=== PATIENT | male | born 1955 | race Caucasian/White ===

== ENCOUNTER 2017-03-21 05:59 | Observation (INO) | payer BC ==
[2017-03-21] MEDS ORDERED: ceFAZolin 2 GM in SODIUM CHLORIDE 0.9% 100 ML IVPB ONE (06:00)
[2017-03-21] MEDS ORDERED: ceFAZolin 1,000 MG in SODIUM CHLORIDE 0.9% IRRIGATIO 250 ML IRRIGATION ONE (06:00)
[2017-03-21 06:43] LABS: Glucose,Whole Blood 200 mg/dL (75-99)
[2017-03-21] MEDS: SODIUM CHLORIDE 0.9% 1,000 ML IV SCH ×3 (07:00→15:36)
[2017-03-21] MEDS ORDERED: ISOPROTERENOL 250 MCG/1.25 ML SYR IV ONE (07:31)
[2017-03-21] MEDS ORDERED: HEPARIN SODIUM,PORCINE 5,000 UNIT/ML 1 ML VIAL ONE (07:31)
[2017-03-21] MEDS ORDERED: fentaNYL (PF) 50 MCG/ML 2 ML AMP ONE (07:31)
[2017-03-21] MEDS ORDERED: HYDROmorphone (PF) 1 MG/ML ONE (07:31)
[2017-03-21] MEDS ORDERED: PROPOFOL 10 MG/ML 20 ML VIAL IV ONE (07:31)
[2017-03-21] MEDS ORDERED: LIDOCAINE 1% INJ 10MG/ML (20 ML MDV) ONE (07:31)
[2017-03-21] MEDS ORDERED: HEPARIN SODIUM,PORCINE 10,000 UNIT/ML 1 ML VIAL ONE (07:31)
[2017-03-21] MEDS ORDERED: PROTAMINE SULFATE 10 MG/ML 5 ML VIAL IV ONE (07:31)
[2017-03-21] MEDS ORDERED: MIDAZOLAM 2 MG/2 ML VIAL ONE (07:31)
[2017-03-21] MEDS ORDERED: SUCCINYLCHOLINE CHLORIDE VIAL 200 MG/10 ML VIAL IV ONE (07:31)
[2017-03-21] MEDS ORDERED: PHENYLEPHRINE-0.9% NACL SYG 1 MG/10 ML SYRINGE ONE (07:31)
[2017-03-21] MEDS ORDERED: LIDOCAINE 2% INJ 20 MG/ML SQ ONE (08:42)
[2017-03-21] MEDS ORDERED: HEPARIN SODIUM,PORCINE/D5W PMX 25,000 UNIT in DEXTROSE/WATER 1 500ML.BAG IV ONE (08:51)
[2017-03-21] MEDS ORDERED: IOHEXOL 350 MG/ML 100 ML BOTTLE INJ ONE (12:25)
[2017-03-21] MEDS ORDERED: ACETAMINOPHEN IV (For NPO) 1,000 MG in EMPTY BAG 1 BAG IVPB ONE (12:48)
[2017-03-21] MEDS ORDERED: ACETAMINOPHEN TAB 325 MG TAB PO PRN (12:48)
--- NOTE | 2017-03-21 13:11 | P.PCN ---
Preoperative Diagnosis: History 59-year-old male patient with recurrent atrial fibrillation, organized, symptomatic, associated with palpitations dizziness and shortness of breath Severe LV dysfunction nonischemic elevated LVEDP by right heart cath at the [facility] Severe nonischemic cardio myopathy Status post IV ICD Procedure planned A. fib ablation, pulmonary vein isolation, possible SVT ablation Procedures performed Bi V ICD interrogation and reprogramming prior to the procedure Hemodynamic monitoring right femoral arterial line as well as sampling Comprehensive diagnostic EP study with attempted arrhythmia induction Coronary sinus pacing and recording Programmed stimulation following Isuprel Catheter mapping of tachycardia A. fib ablation, [id number] Intracardiac echocardiography Transseptal catheterization Procedure details Procedures performed (PVI - CRYO Ablation) Invasive hemodynamic monitoring while general anesthesia, right femoral arterial line for monitoring and sampling Comprehensive diagnostic EP study with attempted arrhythmia induction CS pacing and recording Drug infusion Catheter the mapping of the tachycardia (NOT 3D mapping) Intracardiac echocardiography Pulmonary vein isolation with transseptal and comprehensive EPS, [id number] Procedure details Patient was brought to the EP lab in a fasting state. Written informed consent was obtained prior to the procedure. Procedure performed under general anesthesia After initial muscle relaxant use, muscle relaxants were not given thereafter in order to assess phrenic nerve during procedure Patient prepped and draped as per protocol Full cryo-set up with standard preparation of the cryoablation tools done Femoral Venous access obtained on the right and left groins Sheaths placed Diagnostic catheters for the high right atrium, phrenic nerve stimulation and pacing, His bundle, RV and coronary sinus placed Intracardiac echo catheter placed Long sheath placed in the right atrium Left and right transseptal catheterization performed under intracardiac echo guidance Intravenous heparin with aCT above 300 Later, catheter positioning and balloon positioning under intracardiac echo Baseline measurements Sinus cycle length 835 ms, ID interval 176 ms, QRS 157 ms, QT 382 ms Comprehensive diagnostic EP study with drug infusion Atrial pacing performed from the high right atrium and the coronary sinus Sinus node recovery time 1134 ms. Corresponding corrected sinus node recovery time within normal limits Burst stimulation at the baseline state of 500 ms down to 300 ms no inducible SVT AV node Wenckebach block 380 ms VA Wenckebach block greater than 500 ms Transseptal catheterization performed RA pressure 16/7 LA pressure 36/6, prior to the procedure. At the end of the procedure, LA pressure was 34/12 mmHg On wide open Isuprel and then subsequently on 5 mics of Isuprel burst stimulation from the high right atrium, burst stimulation from the coronary sinus os. No inducible SVT/ AV node Wenckebach block improved to 280 ms Atrial extra stimulation from the high right atrium, 400/less than 200 Atrial extra stimulation from the coronary sinus, 450/250/less than 250 Ventricular extra stimulation, VA ERP 450/350 Transseptal catheterization performed with standard sheath. The cryoablation sheath was then placed with an over the wire exchange without any acute complications. All 4 pulmonary veins were isolated in the following sequence: Left superior followed by left inferior followed by right superior followed by right inferior The cryo-ablation balloon was placed at the os of each vein 1.5 mL of IV dye was injected to confirm an occluded vein Goal during cryoablation was to achieve -30C in the first 30 seconds. If not the balloon was repositioned to obtain this result After completion of Cryoblation with durations from 180-240 seconds, entrance block was confirmed with the Attain circular catheter in a roving fashion around the antrum of the pulmonary veins Phrenic nerve pacing was performed from the SVC, right innominate vein area and diaphragm voltage was monitored as well as manually Left superior pulmonary vein 2 cryo lesions complete isolation Left inferior pulmonary vein 2 cryo lesions, complete isolation Right superior pulmonary vein, during phrenic nerve pacing 2 cryo lesions, complete isolation Right inferior pulmonary vein, during phrenic nerve pacing 2 cryo lesions, complete isolation At the end of the procedure the Achieve catheter was once again used to check for entrance block Phrenic nerve stimulation was performed to confirm diaphragmatic stimulation the end of the procedure Cine fluoroscopy was performed at the very end of the procedure to confirm movement of both diaphragms with inspiration and expiration as well as the position of leads was found to be stable At the end of the procedure the patient was extubated Heparin was reversed Venous sheaths were removed and hemostasis assured Result Successful pulmonary vein isolation using cryo-ablation. All 4 veins successfully isolated Complete entrance block in all 4 veins confirmed No evidence for phrenic nerve injury Postoperative Diagnosis: Procedure(s) Performed: Implants: Anesthesia: GETA Disposition: floor Indications for Procedure: Operative Findings: Description of Procedure:
[2017-03-21 13:34] LABS: Glucose,Whole Blood 188 mg/dL (75-99)
[2017-03-21] MEDS ORDERED: LACTATED RINGERS 1,000 ML IV ONE (13:34)
[2017-03-21] MEDS ORDERED: ACETAMINOPHEN IV (For NPO) 1,000 MG/100 ML VIAL IVPB ONE (14:00)
[2017-03-21] MEDS: HYDROcodone/APAP 5-325MG 1 EACH TAB PO PRN (14:59)
[2017-03-21 15:58] VITALS: BMI 35.7
[2017-03-21 16:42] LABS: Glucose,Whole Blood 201 mg/dL (75-99)
[2017-03-21] MEDS: SACUBITRIL/VALSARTAN 49 MG-51 MG TABLET PO SCH (18:13)
[2017-03-21] MEDS: HYDROmorphone 1 MG/ML 1 ML SYRINGE IVP PRN (18:23)
[2017-03-21 20:56] LABS: Glucose,Whole Blood 176 mg/dL (75-99)
[2017-03-21] MEDS ORDERED: SPIRONOLACTONE 25 MG TAB PO SCH (21:00)
[2017-03-21] MEDS: APIXABAN 5 MG TAB PO SCH (22:06)
[2017-03-21] MEDS: metFORMIN 500 MG TAB PO SCH (22:06)
[2017-03-21 23:06] VITALS: RESP 18
[2017-03-22] MEDS: HYDROmorphone 1 MG/ML 1 ML SYRINGE IVP PRN (00:14)
[2017-03-22] MEDS: SODIUM CHLORIDE 0.9% 1,000 ML IV SCH ×3 (05:56)
[2017-03-22 06:08] LABS: Glucose,Whole Blood 258 mg/dL (75-99)
[2017-03-22 07:04] LABS: CH 29.4; CHCM 32.7; HCT 36.8 % (39.0-53.0); HDW 2.46; HGB 12.2 gm/dL (13.0-17.5); MCHC 33.2 g/dL (31.0-37.0); MCV 90.5 fL (80.0-100.0); Mean Platelet Volume 8.6; RBC 4.07 m/uL (4.30-5.90)
[2017-03-22 07:22] LABS: Anion Gap 11 mmol/L; Blood Urea Nitrogen 22 mg/dL (9-20); Calcium 8.5 mg/dL (8.4-10.2); Carbon Dioxide 21 mmol/L (22-30); Chloride 103 mmol/L (98-107); Glucose 249 mg/dL (74-99); Non-African American GFR(MDRD) >60 (>60 ml/min/1.73 sqM); Potassium 4.3 mmol/L (3.5-5.1); Sodium 135 mmol/L (137-145)
[2017-03-22 08:11] LABS: Magnesium 1.7 mg/dL (1.6-2.3)
--- NOTE | 2017-03-22 08:12 | CE ---
CARDIAC ELECTROPHYSIOLOGY REPORT ICD INTERROGATION REPROGRAMMING REPORT: Mr. Li underwent an pulmonary vein isolation yesterday. Following that no other atrial tachycardia atrial fibrillation could be induced. Following the procedure, ICD was interrogated. The atrial pacing threshold was 0.7 v at 0.5 milliseconds. P waves 2.1 mV and pacing impedance 390 ohms. The RV pacing impedance was 0.625 v at 0.5 milliseconds. R-waves 11.4 mV and pacing impedance of 360 ohms. High-voltage impedance was 56 ohms. His biventricular ICD was reprogrammed. LV pacing was turned on with short AV delay. Madit-RIT was programmed. PLAN: Observe heart failure status on during BiV pacing for 1 month and re-evaluate heart failure status. During the study his left atrial pressures were around 35. MMODL / IJN: [id number] /
[2017-03-22] MEDS ORDERED: TORSEMIDE 20 MG TAB PO SCH (09:00)
[2017-03-22] MEDS ORDERED: METOPROLOL SUCCINATE (ER) 50 MG TAB.ER.24H PO SCH (09:00)
[2017-03-22] MEDS ORDERED: PRAVASTATIN SODIUM 20 MG TAB PO SCH (09:00)
[2017-03-22] MEDS ORDERED: DIGOXIN 250 MCG TAB PO SCH (09:00)
[2017-03-22] MEDS ORDERED: POTASSIUM CHLORIDE ER 20 MEQ TAB.ER PO SCH (09:00)
[2017-03-22] MEDS: APIXABAN 5 MG TAB PO SCH (10:01)
[2017-03-22] MEDS: SACUBITRIL/VALSARTAN 49 MG-51 MG TABLET PO SCH (10:02)
[2017-03-22] MEDS: metFORMIN 500 MG TAB PO SCH (10:02)
[2017-03-22 10:55] VITALS: TEMP 97.9
[2017-03-22] MEDS: HYDROcodone/APAP 5-325MG 1 EACH TAB PO PRN ×2 (12:07→15:56)
--- NOTE | 2017-03-22 15:09 | P.DS ---
Providers Date of admission: 03/22/17 01:12 Attending physician: Efrain Durant Primary care physician: [facility] Course: Patient is doing well from a cardiac standpoint. He has been ablating the hallways and is currently lying flat in bed. Yesterday both his shoulder joints anteriorly were hurting today his right shoulder joint feels well but he still has pain and tenderness localized anteriorly over the left shoulder No chest discomfort no breathing trouble no dizziness no lightheadedness or palpitations On examination he is afebrile 97.9F, blood pressure 104/54 mmHg pulse rate in the 80s And neck examination is normal Breath sounds are normal no rhonchi no crackles Heart sounds S1 and S2 are normal no murmurs no gallops Abdomen is soft nontender Extremities are warm with is mild bilateral pedal edema Impression Severe nonischemic cardio myopathy with severe congestive heart failure with elevated left atrial pressures of around 36 mmHg On appropriate guideline recommended medical treatment Very few PVCs noted on telemetry as well as during the study Successful pulmonary vein isolation for management of paroxysmal atrial fibrillation, cryoablation Status post Bi V ICD Plan Stop oral potassium Increase spironolactone to 50 mg by mouth daily, continue all other medications Bi V ICD has been turned on, RV pacing 10 ms prior to LV Groin check within a week Exercise stress test to maximum capacity after one month of Bi V pacing Will consider LV -20 in the future also and compared with RV -10 Discussed with office nurses and device clinic Patient Condition at Discharge: Stable Plan - Discharge Summary New Discharge Prescriptions: No Action RX: INSULIN LISPRO (humaLOG) [humaLOG (formulary)] See Protocol SQ CONTINUOUS RX: Allopurinol [Zyloprim] 100 mg PO HS RX: Spironolactone [Aldactone] 25 mg PO HS RX: metFORMIN HCL [Glucophage] 1,000 mg PO BID RX: Multivitamin [Men's Multi-Vitamin] 1 tab PO DAILY RX: Fluticasone Nasal [place] [Flonase Nasal [place]] 1 spray EA NOSTRIL DAILY RX: Digoxin [Lanoxin] 250 mcg PO DAILY #30 tab Torsemide [Demadex] 20 mg PO DAILY Pravastatin Sodium [Pravachol] 20 mg PO DAILY Potassium Chloride [Klor-Con 20] 20 meq PO DAILY Apixaban [Eliquis] 5 mg PO BID Sacubitril/Valsartan [Entresto 49 mg-51 mg Tablet] 1 tab PO BID Metoprolol Succinate [Toprol XL] 50 mg PO DAILY Discharge Medication List RX: Allopurinol [Zyloprim] 100 mg PO HS 05/02/14 [History] RX: INSULIN LISPRO (humaLOG) [humaLOG (formulary)] See Protocol SQ CONTINUOUS [History] RX: Spironolactone [Aldactone] 25 mg PO HS 05/02/14 [History] RX: metFORMIN HCL [Glucophage] 1,000 mg PO BID 05/02/14 [History] RX: Multivitamin [Men's Multi-Vitamin] 1 tab PO DAILY 11/13/14 [History] RX: Fluticasone Nasal [place] [Flonase Nasal [place]] 1 spray EA NOSTRIL DAILY 11/28 [History] RX: Digoxin [Lanoxin] 250 mcg PO DAILY #30 tab 12/04/15 [Rx] Apixaban [Eliquis] 5 mg PO BID 03/18/17 [History] Metoprolol Succinate [Toprol XL] 50 mg PO DAILY 03/18/17 [History] Potassium Chloride [Klor-Con 20] 20 meq PO DAILY 03/18/17 [History] Pravastatin Sodium [Pravachol] 20 mg PO DAILY 03/18/17 [History] Sacubitril/Valsartan [Entresto 49 mg-51 mg Tablet] 1 tab PO BID 03/18/17 [ History] Torsemide [Demadex] 20 mg PO DAILY 03/18/17 [History]
[2017-03-22 15:54] LABS: Glucose,Whole Blood 171 mg/dL (75-99)
[2017-03-22 16:23] VITALS: BP 98/56; PULSE 79
[2017-03-22] MEDS ORDERED: SPIRONOLACTONE 25 MG TAB PO SCH (21:00)
== END 2017-03-22 16:28 | disposition home or self-care (01) ==
LOC: CATHEP 05:59 → 6SEL 12:20 → CATHEP 03-22 01:12
PROVIDERS: ADMIT Internal Medicine Clinical Cardiac Electrophysiology; ATTEND Internal Medicine Clinical Cardiac Electrophysiology
DX: I48.0 Paroxysmal atrial fibrillation (principal); I42.9 Cardiomyopathy, unspecified; E78.5 Hyperlipidemia, unspecified; I11.0 Hypertensive heart disease with heart failure; E11.39 Type 2 diabetes mellitus with other diabetic ophthalmic complication; M10.9 Gout, unspecified; I25.10 Atherosclerotic heart disease of native coronary artery without angina pectoris; I50.22 Chronic systolic (congestive) heart failure; I47.1 Supraventricular tachycardia; Z95.810 Presence of automatic (implantable) cardiac defibrillator; Z79.899 Other long term (current) drug therapy; Z82.49 Family history of ischemic heart disease and other diseases of the circulatory system; Z79.01 Long term (current) use of anticoagulants; Z79.4 Long term (current) use of insulin; Z79.82 Long term (current) use of aspirin
CPT/HCPCS: 93623; 93662; 93609; 93656; 85347; 80048; 84443; 83735; 85027; G0378; C1894 ×4; C1769 ×5; C1730 ×2; C1893; C1759; C1733; C1766; J2001 ×2; J2250; J0330; J2720; J1644 ×3; Q9967; J0690; J3010; J1170 ×2; J0131; J2370; J2704

== ENCOUNTER → 2017-10-28 | Outpatient (CLI) | payer BC ==
[2017-10-28 16:16] LABS: HCT 42.8 % (39.0-53.0); MCH 28.5 pg (25.0-35.0); MCHC 32.6 g/dL (31.0-37.0); MCV 87.3 fL (80.0-100.0); Mean Platelet Volume 8.7; Platelet Count 241 k/uL (150-450); RDW 12.9 % (11.5-15.5); WBC 12.2 k/uL (3.8-10.6)
[2017-10-28 16:23] LABS: Calcium 9.6 mg/dL (8.4-10.2); Potassium 4.7 mmol/L (3.5-5.1)
== END | disposition home or self-care (01) ==
LOC: LABWHC1 15:49
PROVIDERS: ATTEND Internal Medicine Clinical Cardiac Electrophysiology
DX: I42.8 Other cardiomyopathies (principal); I51.9 Heart disease, unspecified; I50.22 Chronic systolic (congestive) heart failure; I48.3 Typical atrial flutter
CPT/HCPCS: 36415; 80048; 83880; 85027

== ENCOUNTER 2017-11-01 09:57 | Day surgery (SDC) | payer BC ==
[2017-10-31 14:18] VITALS: BMI 33.7
[~2017-11-01 09:57] MED LIST: SODIUM CHLORIDE 0.9% 1,000 ML IV SCH
[2017-11-01 11:31] LABS: Glucose,Whole Blood 321 mg/dL (75-99)
[2017-11-01] MEDS ORDERED: ceFAZolin IN SWFI 2 GM/20 ML SYRINGE IVP STA (11:37)
[2017-11-01] MEDS ORDERED: ePHEDrine SULFATE/0.9% NACL/PF 50 MG/5 ML SYRINGE IV ONE (13:07)
[2017-11-01] MEDS ORDERED: IV FLUID CONTINUATION 1,000 ML IV ONE (13:07)
[2017-11-01] MEDS ORDERED: GLYCOPYRROLATE 0.2 MG/ML 2 ML VIAL ONE (13:07)
[2017-11-01] MEDS ORDERED: fentaNYL (PF) 50 MCG/ML 2 ML AMP ONE (13:07)
[2017-11-01] MEDS ORDERED: FUROSEMIDE 10 MG/ML 2 ML VIAL ONE (13:07)
[2017-11-01] MEDS ORDERED: NEOSTIGMINE 1 MG/ML 10 ML VIAL ONE (13:07)
[2017-11-01] MEDS ORDERED: PROPOFOL 10 MG/ML 20 ML VIAL IV ONE (13:07)
[2017-11-01] MEDS ORDERED: ROCURONIUM BROMIDE 10 MG/ML 10 ML VIAL IV ONE (13:07)
[2017-11-01] MEDS ORDERED: MIDAZOLAM 2 MG/2 ML VIAL ONE (13:07)
[2017-11-01] MEDS ORDERED: PHENYLEPHRINE-0.9% NACL SYG 1 MG/10 ML SYRINGE ONE (13:07)
[2017-11-01] MEDS ORDERED: SUCCINYLCHOLINE CHLORIDE 100 MG/5 ML SYR IV ONE (13:07)
[2017-11-01] MEDS ORDERED: HEPARIN SODIUM 1,000 UN/ML (10ML VL) ONE (13:45)
[2017-11-01] MEDS ORDERED: LIDOCAINE 2% INJ 20 MG/ML SQ ONE (13:59)
[2017-11-01] MEDS ORDERED: HEPARIN SODIUM (1,000 UNIT/ML) 1,000 UNIT in SODIUM CHLORIDE 0.9% 1,000 ML IRRIGATION ONE (16:06)
[2017-11-01] MEDS ORDERED: HYDROcodone/APAP 5-325MG 1 EACH TAB PO PRN (16:08)
[2017-11-01] MEDS ORDERED: ACETAMINOPHEN IV (For NPO) 1,000 MG in EMPTY BAG 1 BAG IVPB ONE (16:08)
[2017-11-01] MEDS ORDERED: ACETAMINOPHEN TAB 325 MG TAB PO PRN (16:08)
[2017-11-01] MEDS ORDERED: Insulin Aspart (For Pump) 100 UNIT/ML VIAL SQ-PUMP SCH (16:15)
[2017-11-01 16:42] LABS: Glucose,Whole Blood 203 mg/dL (75-99)
[2017-11-01 17:53] LABS: Glucose,Whole Blood 195 mg/dL (75-99)
[2017-11-01] MEDS ORDERED: METOPROLOL SUCCINATE (ER) 25 MG TAB.ER.24H PO ONE (18:00)
--- NOTE | 2017-11-01 18:02 | CE ---
CARDIAC ELECTROPHYSIOLOGY REPORT Mr. Li is a 62-year-old male patient who has a history of nonischemic cardiomyopathy, congestive heart failure, status post biventricular ICD implantation, PVCs, status post ablation in the past, history of atrial fibrillation and a history of very symptomatic atrial flutter with RVR. He was brought in this time for an atrial flutter ablation. He is appropriately anticoagulated and is on heart failure medication. Patient was brought to the EP lab in a fasting state. Written informed consent was obtained prior to the procedure. The procedure was performed under general anesthesia. Three venous sheaths were placed in the right femoral vein. Via these, a mapping and ablation catheter, coronary sinus catheter and an intracardiac echo catheter were placed. Later, catheters were placed in the high right atrium, His bundle area and RV. The patient was in sinus rhythm at the time of the study. ICD was interrogated and reprogrammed to VVI 40 ppm and ICD therapies were turned off. At the end of the procedure, ICD therapies were turned back on. The pacing threshold at the end of the procedure was 0.7 V at 0.5 milliseconds, P waves greater than 5 mV, pacing impedance 400 ohms. RV pacing threshold 0.7 V at 0.5 milliseconds, R waves 11.4 milliseconds, pacing impedance of 360 ohms. LV pacing threshold was 1 V at 0.5 milliseconds, pacing impedance of 630 ohms. High-voltage impedance was 59 ohms. The device then programmed to DDD at 50 beats per minute, short AV delay of 120 milliseconds, biventricular pacing turned on with an LV offset of -20 milliseconds. Intracardiac echocardiography was performed. The isthmus was identified. A pouch was noted in the isthmus. This was a fairly large pouch, extending from the mid isthmus towards the eustachian ridge. Three-D mapping was performed. The tricuspid anulus was identified. His bundle was identified and the eustachian ridge was identified. The isthmus pouch was tagged. RF ablation was performed in the cava tricuspid isthmus. This was a long isthmus. Initially complete directional block was not obtained and after ablation of the junction of the isthmus on either side as well as in the mid isthmus, a complete RF line of block was made on 100% ablation grid. CS pacing was performed from the lateral RA wall. Bidirectional block was confirmed. Isthmus conduction time was greater than 170 milliseconds when pacing from the lateral aspect of the line. Split potentials of about 105 milliseconds were noted when pacing from the CS. After successful completion of the atrial flutter RF ablation line, EP study was performed. Sinus cycle length 840 milliseconds. GA interval 195 milliseconds, QRS 188 milliseconds, QT 445 milliseconds, AH interval 46 milliseconds, HV interval 93 milliseconds. Sinus node recovery times at 500 milliseconds were 899 milliseconds. This value was consistent with sinus node entrance block. AV node Wenckebach block 340 millisecond. Slow pathway noted at 470 milliseconds, but the VA conduction was greater than 550 milliseconds. All catheters were then removed and venous sheaths were removed. A [id number] stitch was made in the right groin. The patient tolerated the procedure well without any acute complications. The device was reprogrammed as described above. Intracardiac echo revealed absence of any pericardial effusion. RESULT: Successful atrial flutter ablation with complete bidirectional block across the line. MMODL / IJN: [id number] /
[2017-11-01] MEDS ORDERED: INSPUCOR MISCELLANE PRN (18:33)
[2017-11-01] MEDS ORDERED: INSULIN PUMP BASAL RATES 1 EACH MISC MISCELLANE PRN (18:33)
[2017-11-01] MEDS ORDERED: INSULIN ASPART 100 UNIT/ML 1 ML 10 ML VIAL SQ PRN (18:33)
[2017-11-01] MEDS: SACUBITRIL/VALSARTAN 49 MG-51 MG TABLET PO SCH (20:50)
[2017-11-01] MEDS: metFORMIN 500 MG TAB PO SCH (20:50)
[2017-11-01] MEDS: APIXABAN 5 MG TAB PO SCH (20:50)
[2017-11-01] MEDS ORDERED: SPIRONOLACTONE 25 MG TAB PO SCH (21:00)
[2017-11-01] MEDS ORDERED: ALLOPURINOL 300 MG TAB PO SCH (21:00)
[2017-11-01] MEDS ORDERED: PRAVASTATIN SODIUM 40 MG TAB PO SCH (21:00)
[2017-11-01 21:08] LABS: Glucose,Whole Blood 167 mg/dL (75-99)
[2017-11-01] MEDS: INSULIN PUMP MEAL BOLUS 1 UNIT MISC MISCELLANE SCH (21:10)
[2017-11-02 07:00] LABS: Glucose,Whole Blood 197 mg/dL (75-99)
--- NOTE | 2017-11-02 07:56 | P.DS ---
Providers Attending physician: Efrain Durant Primary care physician: [facility] Course: Patient is doing well. He is sitting up in a chair. He has no chest discomfort no dizziness lightheadedness. His groins of healed well On examination he is afebrile 98.3F pulse rate in the 70s respirations normal blood pressure 104/59 mmHg Breath sounds are clear no rhonchi no crackles Heart sounds S1 and S2 are soft no murmurs or gallops no rub No lower extremity edema Groins of healed well there is no hematoma Impression Nonischemic cardio myopathy Class III stable congestive heart failure Atrial fibrillation, paroxysmal Symptomatic atrial flutter status post ablation yesterday PVCs status post ablation however continues to have PVCs of multiple different morphologies although the overall percentage is less than 10% Plan Ambulate in the hallways, discharge home on current medications without any changes and follow-up in the office in about 2 weeks No changes in medications Patient Condition at Discharge: Stable Plan - Discharge Summary Discharge Rx Participant: Yes New Discharge Prescriptions: Continue RX: Allopurinol [Zyloprim] 300 mg PO HS RX: metFORMIN HCL [Glucophage] 1,000 mg PO BID RX: Multivitamin [Men's Multi-Vitamin] 1 tab PO DAILY RX: Fluticasone Nasal [place] [Flonase Nasal [place]] 1 spray EA NOSTRIL DAILY PRN PRN Reason: Nasal Congestion RX: Digoxin [Lanoxin] 250 mcg PO DAILY #30 tab RX: Torsemide [Demadex] 20 mg PO DAILY RX: Apixaban [Eliquis] 5 mg PO BID RX: Sacubitril/Valsartan [Entresto 49 mg-51 mg Tablet] 1 tab PO BID RX: Metoprolol Succinate [Toprol XL] 25 mg PO DAILY RX: Pravastatin Sodium [Pravachol] 40 mg PO HS RX: Spironolactone 50 mg PO HS RX: Insulin Aspart (For Pump) [NovoLOG (For Pump)] 0.01 unit SQ-PUMP CONTINUOUS Discharge Medication List RX: Allopurinol [Zyloprim] 300 mg PO HS 05/02/14 [History] RX: metFORMIN HCL [Glucophage] 1,000 mg PO BID 05/02/14 [History] RX: Multivitamin [Men's Multi-Vitamin] 1 tab PO DAILY 11/13/14 [History] RX: Fluticasone Nasal [place] [Flonase Nasal [place]] 1 spray EA NOSTRIL DAILY PRN 11/29/15 [History] RX: Digoxin [Lanoxin] 250 mcg PO DAILY #30 tab 12/04/15 [Rx] RX: Apixaban [Eliquis] 5 mg PO BID 03/18/17 [History] RX: Metoprolol Succinate [Toprol XL] 25 mg PO DAILY 03/18/17 [History] RX: Sacubitril/Valsartan [Entresto 49 mg-51 mg Tablet] 1 tab PO BID 03/18/17 [ History] RX: Torsemide [Demadex] 20 mg PO DAILY 03/18/17 [History] RX: Pravastatin Sodium [Pravachol] 40 mg PO HS 05/10/17 [History] RX: Spironolactone 50 mg PO HS 05/10/17 [History] RX: Insulin Aspart (For Pump) [NovoLOG (For Pump)] 0.01 unit SQ-PUMP CONTINUOUS 10/31/17 [History] Follow up Appointment(s)/Referral(s): Efrain Durant MD [STAFF PHYSICIAN] - 1 Week Activity/Diet/Wound Care/Special Instructions: Post EP study - Ablation instructions 1. Keep access sites dry for 2 days. 2. No heavy lifting or straining for 2 days. 3. Avoid bending the hips repeatedly for 2 days. 4. You may go up and down stairs slowly Call if the following is noted 1. Bleeding, increasing swelling or pain at the access sites. 2. Increasing chest discomfort, especially upon taking a deep breath. 3. Increasing shortness of breath, at rest or with exertion. 4. Undue cough / phlegm 5. Difficulty or pain while swallowing. 6. Pain or change in color in the extremities. 7. Fever, chills, rigors. 8. Increasing headache or neurologic symptoms. 9. Dizziness, fainting, palpitations Continue same medications without any changes With Dr. Alva in 1 week Follow-up in the device clinic as scheduled Discharge Disposition: HOME SELF-CARE
[2017-11-02 08:03] VITALS: RESP 18
[2017-11-02] MEDS: APIXABAN 5 MG TAB PO SCH (08:15)
[2017-11-02] MEDS: metFORMIN 500 MG TAB PO SCH (08:15)
[2017-11-02] MEDS: SACUBITRIL/VALSARTAN 49 MG-51 MG TABLET PO SCH (08:15)
[2017-11-02] MEDS: INSULIN PUMP MEAL BOLUS 1 UNIT MISC MISCELLANE SCH (08:28)
[2017-11-02] MEDS ORDERED: METOPROLOL SUCCINATE (ER) 25 MG TAB.ER.24H PO SCH (09:00)
[2017-11-02] MEDS ORDERED: TORSEMIDE 20 MG TAB PO SCH (09:00)
[2017-11-02 11:47] LABS: Hemoglobin A1C 8.4 % (4.0-6.0)
[2017-11-02 11:56] VITALS: BP 98/64; PULSE 75; TEMP 98.2
[2017-11-02 12:28] LABS: Glucose,Whole Blood 257 mg/dL (75-99)
== END 2017-11-02 13:10 | disposition home or self-care (01) ==
LOC: CATHEP 09:57 → 3OBS 16:08 → CATHEP 11-02 13:10
PROVIDERS: ATTEND Internal Medicine Clinical Cardiac Electrophysiology
DX: I48.3 Typical atrial flutter (principal); Z79.01 Long term (current) use of anticoagulants; I42.8 Other cardiomyopathies; I25.10 Atherosclerotic heart disease of native coronary artery without angina pectoris; I11.0 Hypertensive heart disease with heart failure; I50.22 Chronic systolic (congestive) heart failure; Z95.810 Presence of automatic (implantable) cardiac defibrillator; E78.5 Hyperlipidemia, unspecified; Z82.49 Family history of ischemic heart disease and other diseases of the circulatory system; M10.9 Gout, unspecified; E11.9 Type 2 diabetes mellitus without complications; Z79.4 Long term (current) use of insulin; Z79.51 Long term (current) use of inhaled steroids; Z79.899 Other long term (current) drug therapy; Z88.2 Allergy status to sulfonamides; Z88.8 Allergy status to other drugs, medicaments and biological substances
CPT/HCPCS: 93662; 93613; 93653; 83036; C1894; C1769 ×3; C1730; C1759; C1893; C1732; J2001; J2250; J1940; J2710; J3010; J1644; J2370; J0330; J2704; J0690

== ENCOUNTER → 2018-02-16 | Outpatient (CLI) | payer BC ==
[2018-02-16 16:20] LABS: HCT 36.7 % (39.0-53.0); HGB 12.6 gm/dL (13.0-17.5); MCH 29.4 pg (25.0-35.0); MCHC 34.4 g/dL (31.0-37.0); MCV 85.3 fL (80.0-100.0); Mean Platelet Volume 8.4; Platelet Count 176 k/uL (150-450); RDW 13.8 % (11.5-15.5); WBC 9.8 k/uL (3.8-10.6)
[2018-02-16 16:30] LABS: Potassium 5.7 mmol/L (3.5-5.1)
== END | disposition home or self-care (01) ==
LOC: LABWHC1 15:10
PROVIDERS: ATTEND Internal Medicine Clinical Cardiac Electrophysiology
DX: Z01.812 Encounter for preprocedural laboratory examination (principal); I47.1 Supraventricular tachycardia; I42.8 Other cardiomyopathies; I50.22 Chronic systolic (congestive) heart failure; I48.92 Unspecified atrial flutter
CPT/HCPCS: 36415; 80051; 82565; 82947; 84520; 85027

== ENCOUNTER 2018-02-20 12:07 | Day surgery (SDC) | payer BC ==
[2018-02-17 09:04] VITALS: BMI 32.9
[~2018-02-20 12:07] MED LIST changes: +ATROPINE SULFATE 0.1 MG/ML 10ML SYRINGE ONE; +LACTATED RINGERS 1,000 ML IV SCH; +MIDAZOLAM 2 MG/2 ML VIAL ONE; +ceFAZolin IN SWFI 2 GM/20 ML SYRINGE IVP ONE; +fentaNYL (PF) 50 MCG/ML 2 ML AMP ONE
[2018-02-20] MEDS ORDERED: LIDOCAINE 1% INJ 10MG/ML (20 ML MDV) ONE (12:37)
[2018-02-20] MEDS ORDERED: LIDOCAINE 1% INJ 10MG/ML (20 ML MDV) SQ ONE (12:44)
--- NOTE | 2018-02-20 13:19 | P.PCN ---
Preoperative Diagnosis: Indication Recurrent SVT/atrial tachycardia, very symptomatic associated with presyncope and syncope. Status post AF ablation, no evidence for atrial fibrillation. Status post atrial flutter ablation, no evidence for atrial flutter. Known severe nonischemic cardiomyopathy [facility] PVCs 5-8% PVC burden Preprocedure biventricular ICD interrogation with reprogramming [facility] biventricular ICD was interrogated and reprogrammed. Patient was in sinus rhythm. Atrial pacing threshold 0.5 V at 0.5 ms P waves 5 mV, atrial pacing impedance 430 ohms RV pacing threshold 0.5 V at 0.5 ms, R waves 11.4 mV and pacing impedance 410 ohms. LV pacing threshold 0.75 V at 0.5 ms pacing impedance 660 ohms High-voltage impedance 70 ohms, RV to Can Biventricular ICD was reprogrammed to VVI 40 bpm Tachycardia therapies were turned off AV node ablation Mapping of the AV node and His bundle was performed. The catheter was pulled back to his the atrium as well as inferiorly and RF ablation was applied. Fast junctional rhythm followed by complete heart block noted. 60 seconds lesion delivered. Postprocedure biventricular ICD interrogation and reprogramming Impedance is stable. Pacemaker programmed to DDDR 90-130 bpm Tachycardia therapies turned on AV delay 100 ms sensed, 130 ms paced LV offset 20 ms Patient to the procedure well. Mucous complications Plan 2 weeks of base pacing rate of 90 beats a minute. Thereafter reprogrammed pacemaker rate to 60-130 bpm Continue cardiac medications
[2018-02-20 14:02] LABS: Glucose,Whole Blood 58 mg/dL (75-99)
[2018-02-20 15:13] LABS: Glucose,Whole Blood 91 mg/dL (75-99)
[2018-02-20] MEDS ORDERED: FLUTICASONE 50MCG/SPRAY NASAL 16GM EA NOSTRIL PRN (16:44)
[2018-02-20] MEDS ORDERED: Insulin Aspart (For Pump) 100 UNIT/ML VIAL SQ-PUMP SCH (16:45)
[2018-02-20 17:54] LABS: Glucose,Whole Blood 119 mg/dL (75-99)
[2018-02-20] MEDS: metFORMIN 500 MG TAB PO SCH (18:04)
[2018-02-20] MEDS: METOPROLOL SUCCINATE (ER) 50 MG TAB.ER.24H PO SCH (19:58)
[2018-02-20] MEDS: APIXABAN 5 MG TAB PO SCH (19:58)
[2018-02-20] MEDS: SACUBITRIL/VALSARTAN 24 MG-26 MG TABLET PO SCH (19:58)
[2018-02-20 20:30] LABS: Glucose,Whole Blood 247 mg/dL (75-99)
[2018-02-20] MEDS ORDERED: PRAVASTATIN SODIUM 40 MG TAB PO SCH (21:00)
[2018-02-20] MEDS ORDERED: SPIRONOLACTONE 25 MG TAB PO SCH (21:00)
[2018-02-20] MEDS ORDERED: ALLOPURINOL 100 MG TAB PO SCH (21:00)
[2018-02-20] MEDS ORDERED: INSULIN ASPART 100 UNIT/ML 1 ML 10 ML VIAL SQ PRN (21:42)
[2018-02-20] MEDS ORDERED: INSPUCOR MISCELLANE PRN (21:42)
[2018-02-20] MEDS ORDERED: INSULIN PUMP BASAL RATES 1 EACH MISC MISCELLANE PRN (21:42)
[2018-02-20] MEDS: INSULIN PUMP MEAL BOLUS 1 UNIT MISC MISCELLANE SCH (21:58)
[2018-02-21 04:48] VITALS: RESP 18
[2018-02-21 07:03] LABS: Glucose,Whole Blood 178 mg/dL (75-99)
--- NOTE | 2018-02-21 08:04 | P.DS ---
Providers Attending physician: Efrain Durant Primary care physician: [facility] Course: Patient is doing well. He has no pain in the groin. No chest pain. He feels a lot better. His blood pressures 100/58 mmHg pulse rate is in the 80s temperature is 97.1F Heart sounds S1 and S2 are normal no murmurs or gallops no rub Breath sounds are clear no rhonchi no crackles Abdomen soft nontender Extended is warm no edema Impression Nonischemic cardio myopathy with severe heart failure on Dilantin after medical treatment Successful A. fib ablation for paroxysmal atrial fibrillation Successful a flutter ablation for typical atrial flutter Recurrent runs of atrial tachycardia that when noninducibility EP study now status post AV junction modification Plan Charge home today in follow-up in the device clinic in 2 weeks for device reprogramming. I will see him again in about 4 months I last the patient to increase the dose of ENTRESTO in about 2-3 weeks if he can tolerate it Plan - Discharge Summary Discharge Rx Participant: No New Discharge Prescriptions: Continue RX: Allopurinol [Zyloprim] 100 mg PO HS RX: metFORMIN HCL [Glucophage] 1,000 mg PO BID RX: Multivitamin [Men's Multi-Vitamin] 1 tab PO DAILY RX: Fluticasone Nasal [place] [Flonase Nasal [place]] 1 spray EA NOSTRIL DAILY PRN PRN Reason: Nasal Congestion RX: Torsemide [Demadex] 20 mg PO DAILY RX: Apixaban [Eliquis] 5 mg PO BID RX: Metoprolol Succinate [Toprol XL] 50 mg PO BID RX: Pravastatin Sodium [Pravachol] 40 mg PO HS RX: Spironolactone 50 mg PO HS RX: Insulin Aspart (For Pump) [NovoLOG (For Pump)] 0.01 unit SQ-PUMP CONTINUOUS RX: Sacubitril/Valsartan [Entresto 24 mg-26 mg Tablet] 1 each PO BID RX: Digoxin [Lanoxin] 125 mcg PO DAILY Discharge Medication List RX: Allopurinol [Zyloprim] 100 mg PO HS 05/02/14 [History] RX: metFORMIN HCL [Glucophage] 1,000 mg PO BID 05/02/14 [History] RX: Multivitamin [Men's Multi-Vitamin] 1 tab PO DAILY 11/13/14 [History] RX: Fluticasone Nasal [place] [Flonase Nasal [place]] 1 spray EA NOSTRIL DAILY PRN 11/29/15 [History] RX: Apixaban [Eliquis] 5 mg PO BID 03/18/17 [History] RX: Metoprolol Succinate [Toprol XL] 50 mg PO BID 03/18/17 [History] RX: Torsemide [Demadex] 20 mg PO DAILY 03/18/17 [History] RX: Pravastatin Sodium [Pravachol] 40 mg PO HS 05/10/17 [History] RX: Spironolactone 50 mg PO HS 05/10/17 [History] RX: Insulin Aspart (For Pump) [NovoLOG (For Pump)] 0.01 unit SQ-PUMP CONTINUOUS 10/31/17 [History] RX: Digoxin [Lanoxin] 125 mcg PO DAILY 02/17/18 [History] RX: Sacubitril/Valsartan [Entresto 24 mg-26 mg Tablet] 1 each PO BID 02/17/18 [ History] Follow up Appointment(s)/Referral(s): Efrain Durant MD [STAFF PHYSICIAN] - As Needed (Device clinic follow-up in 2 weeks, attention Graciela/Randy Alva follow-up in 4 months) Activity/Diet/Wound Care/Special Instructions: Post EP study - Ablation instructions 1. Keep access sites dry for 2 days. 2. No heavy lifting or straining for 2 days. 3. Avoid bending the hips repeatedly for 2 days. 4. You may go up and down stairs slowly Call if the following is noted 1. Bleeding, increasing swelling or pain at the access sites. 2. Increasing chest discomfort, especially upon taking a deep breath. 3. Increasing shortness of breath, at rest or with exertion. 4. Undue cough / phlegm 5. Difficulty or pain while swallowing. 6. Pain or change in color in the extremities. 7. Fever, chills, rigors. 8. Increasing headache or neurologic symptoms. 9. Dizziness, fainting, palpitations Discharge Disposition: HOME SELF-CARE
[2018-02-21] MEDS: APIXABAN 5 MG TAB PO SCH (08:23)
[2018-02-21] MEDS: METOPROLOL SUCCINATE (ER) 50 MG TAB.ER.24H PO SCH (08:23)
[2018-02-21] MEDS: SACUBITRIL/VALSARTAN 24 MG-26 MG TABLET PO SCH (08:24)
[2018-02-21] MEDS: INSULIN PUMP MEAL BOLUS 1 UNIT MISC MISCELLANE SCH (08:24)
[2018-02-21 08:28] LABS: Glucose,Whole Blood 211 mg/dL (75-99)
[2018-02-21 08:40] VITALS: BP 92/55; PULSE 91; TEMP 98.7
[2018-02-21] MEDS ORDERED: TORSEMIDE 20 MG TAB PO SCH (09:00)
[2018-02-21] MEDS ORDERED: DIGOXIN 125 MCG TAB PO SCH (09:00)
[2018-02-21] MEDS: metFORMIN 500 MG TAB PO SCH (10:16)
[2018-02-21] MEDS ORDERED: MULTIVITAMINS, THERA 1 EACH TAB PO SCH (12:00)
== END 2018-02-21 10:45 | disposition home or self-care (01) ==
LOC: CATHEP 12:07 → 3OBS 13:11 → CATHEP 13:26
PROVIDERS: ATTEND Internal Medicine Clinical Cardiac Electrophysiology
DX: Z45.02 Encounter for adjustment and management of automatic implantable cardiac defibrillator (principal); I48.0 Paroxysmal atrial fibrillation; I47.1 Supraventricular tachycardia; I48.92 Unspecified atrial flutter; I42.9 Cardiomyopathy, unspecified; I11.0 Hypertensive heart disease with heart failure; I50.22 Chronic systolic (congestive) heart failure; I49.3 Ventricular premature depolarization; E11.39 Type 2 diabetes mellitus with other diabetic ophthalmic complication; E78.5 Hyperlipidemia, unspecified; M19.90 Unspecified osteoarthritis, unspecified site; G47.33 Obstructive sleep apnea (adult) (pediatric); Z82.49 Family history of ischemic heart disease and other diseases of the circulatory system; Z79.01 Long term (current) use of anticoagulants; Z79.4 Long term (current) use of insulin; Z79.51 Long term (current) use of inhaled steroids; Z79.899 Other long term (current) drug therapy; Z88.2 Allergy status to sulfonamides; Z88.8 Allergy status to other drugs, medicaments and biological substances; Z91.018 Allergy to other foods; Z86.73 Personal history of transient ischemic attack (TIA), and cerebral infarction without residual deficits
CPT/HCPCS: 93653; 84132; 83036; C1894; C1769 ×2; C1732; C1893; J2250; J2001; J0461; J3010; J0690; 93642

== ENCOUNTER → 2018-08-15 | Outpatient (CLI) | payer BC ==
[2018-08-15 20:46] LABS: Calcium 9.1 mg/dL (8.7-10.3); Potassium 4.6 mmol/L (3.5-5.5)
== END | disposition home or self-care (01) ==
LOC: LABWHC1 12:26
PROVIDERS: ATTEND Internal Medicine
DX: I42.8 Other cardiomyopathies (principal); I50.9 Heart failure, unspecified
CPT/HCPCS: 36415; 80048; 83880

== ENCOUNTER → 2019-01-08 | Outpatient (CLI) | payer BC ==
[2019-01-09 00:57] LABS: Hemoglobin A1C 7.9 % (4.0-6.0)
[2019-01-09 01:30] LABS: African American GFR (CKD) 42.2 (60.0-200.0); Albumin 4.3 g/dL (3.80-4.90); Albumin/Globulin Ratio 1.79 (1.60-3.17); Anion Gap 11.1 mmol/L (4.00-12.00); BUN/Creat Ratio 20.53 Ratio (12.00-20.00); Calcium 9.3 mg/dL (8.7-10.3); Carbon Dioxide 22.9 mmol/L (21.6-31.8); Globulin 2.4 g/dL (1.6-3.3); Total Bilirubin 0.6 mg/dL (0.3-1.2); Total Protein 6.7 g/dL (6.2-8.2)
== END | disposition home or self-care (01) ==
LOC: LABWHC1 15:52
PROVIDERS: ATTEND Internal Medicine
DX: E11.65 Type 2 diabetes mellitus with hyperglycemia (principal)
CPT/HCPCS: 36415; 80053; 83036

== ENCOUNTER 2019-03-15 13:40 | Observation (INO) | payer BC ==
[2019-03-15] MEDS ORDERED: SODIUM CHLORIDE 0.9% 500 ML 500 ML IV STA (14:24)
--- NOTE | 2019-03-15 14:51 | ED ---
General Adult HPI - General Chief complaint: Chest Pain Stated complaint: Chest tightness, SOB Time Seen by Provider: 03/15/19 13:55 Source: patient, RN notes reviewed Mode of arrival: wheelchair Limitations: no limitations - History of Present Illness Initial comments: This is a 63-year-old male who presents emergency Department complaining of chest pressure. Patient states started this morning is gotten progressively worse throughout the day. Patient denies any difficulty breathing. Patient denies radiation of the pain. Patient denies any diaphoretic episodes. Patient denies nausea. Patient denies any abdominal pain. Patient denies lighth eadedness or dizziness. Patient states he does have cardiomyopathy from an unknown cause per patient states he's got ejection fraction about 16%. She also has high cholesterol. And a pacemaker. Patient denies any leg swelling or calf tenderness. Patient denies any recent fever chills or cough. - Related Data Home Medications Medication Instructions Recorded Confirmed Allopurinol [Zyloprim] 100 mg PO HS 05/02/14 03/15/19 metFORMIN HCL [Glucophage] 1,000 mg PO BID 05/02/14 03/15/19 Apixaban [Eliquis] 5 mg PO BID 03/18/17 03/15/19 Metoprolol Succinate [Toprol XL] 50 mg PO BID 03/18/17 03/15/19 Torsemide [Demadex] 20 mg PO DAILY 03/18/17 03/15/19 Spironolactone 50 mg PO HS 05/10/17 03/15/19 Insulin Aspart (For Pump) [NovoLOG 0.01 unit SQ-PUMP CONTINUOUS 10/31/17 03/15/19 (For Pump)] Digoxin [Lanoxin] 125 mcg PO DAILY 02/17/18 03/15/19 Dapagliflozin Propanediol [Farxiga] 10 mg PO DAILY@1200 03/15/19 03/15/19 Fluvastatin Sodium [Fluvastatin ER] 80 mg PO HS 03/15/19 03/15/19 Sacubitril/Valsartan [Entresto 49 1 tab PO BID 03/15/19 03/15/19 mg-51 mg Tablet] Allergies Allergy/AdvReac Type Severity Reaction Status Date / Time coconut Allergy sneezing Verified 03/15/19 14:54 coconut oil Allergy sneezing Verified 03/15/19 14:54 Review of Systems ROS Statement: Those systems with pertinent positive or pertinent negative responses have been documented in the HPI. ROS Other: All systems not noted in ROS Statement are negative. Past Medical History Past Medical History: Heart Failure Additional Past Medical History / Comment(s): See Dr Durant's H&P FOR CARDIAC. SOB w/activity, cpap. HX TIA-yrs ago. "BLEEDING IN EYES",gout History of Any Multi-Drug Resistant Organisms: None Reported Past Surgical History: AICD, Cardiac Ablation, EPS, Heart Catheterization, Orthopedic Surgery, Pacemaker Additional Past Surgical History / Comment(s): Atrial ablation, cardioversion,ce rvical fusion x 2, knee surg., achilles tendon surg., CATARACT SX. CARDIAC Ablation 05/2014; AICD/PACEMAKER 06/2014, [facility]. BILAT EYE SX "TO REMOVE BLOOD",blood vessel broke in rt eye and he lost partial vision-short term loss Past Anesthesia/Blood Transfusion Reactions: No Reported Reaction Additional Past Anesthesia/Blood Transfusion Reaction / Comment(s): NEVER RECIEVED BLOOD. Type of Cardiac Device: AICD Device Placement Date:: 06/2014 Past Psychological History: No Psychological Hx Reported Smoking Status: Never smoker Past Alcohol Use History: Occasional Past Drug Use History: None Reported - Past Family History Father Family Medical History: Coronary Artery Disease (CAD), Diabetes Mellitus, Myocardial Infarction (AR) Additional Family Medical History / Comment(s): FATHER OF AR AT AGE 65 YRS. Mother Family Medical History: Diabetes Mellitus Additional Family Medical History / Comment(s): SHE HAS HAD A LEG AMPUTATION General Exam - General Exam Comments Initial Comments: GENERAL: Patient is well-developed and well-nourished. Patient is nontoxic and well-hy drated and is in mild distress. ENT: Neck is soft and supple. No significant lymphadenopathy is noted. Oropharynx is clear. Moist mucous membranes. Neck has full range of motion without eliciting any pain. EYES: The sclera were anicteric and conjunctiva were pink and moist. Extraocular movements were intact and pupils were equal round and reactive to light. Eyelids were unremarkable. PULMONARY: Unlabored respirations. Good breath sounds bilaterally. No audible rales rhonchi or wheezing was noted. CARDIOVASCULAR: There is a regular rate and rhythm without any murmurs gallops or rubs. ABDOMEN: Soft and nontender with normal bowel sounds. No palpable organomegaly was noted. There is no palpable pulsatile mass. SKIN: Skin is clear with no lesions or rashes and otherwise unremarkable. NEUROLOGIC: Patient is alert and oriented x3. Cranial nerves II through XII are grossly i ntact. Motor and sensory are also intact. Normal speech, volume and content. Symmetrical smile. MUSCULOSKELETAL: Normal extremities with adequate strength and full range of motion. No lower extremity swelling or edema. No calf tenderness. LYMPHATICS: No significant lymphadenopathy is noted PSYCHIATRIC: Normal psychiatric evaluation. Limitations: no limitations Course Vital Signs 03/15/19 03/15/19 03/15/19 13:53 15:04 15:20 Temperature 97.9 F Pulse Rate 60 60 Respiratory 18 18 18 Rate Blood Pressure 95/58 94/54 O2 Sat by Pulse 99 97 Oximetry Medical Decision Making - Medical Decision Making EKG shows ventricular paced rhythm at 66 bpm QRS is 186 QT interval 496 QTC is 519. Patient's EKG also shows PVCs. Chest x-ray shows no acute abnormality. Patient is already on eliquis therefore allow place patient on heparin. I spoke with Dr. mitchell he agreed to admit the patient and I wrote admitting orders and consult cardiolog - Lab Data Result diagrams: 03/15/19 14:09 03/15/19 14:09 Lab Results 03/15/19 03/15/19 03/15/19 Range/Units 14:09 14:09 14:09 WBC 11.0 H (3.8-10.6) k/uL RBC 5.34 (4.30-5.90) m/uL Hgb 14.9 (13.0-17.5) gm/dL Hct 46.2 (39.0-53.0) % MCV 86.6 (80.0-100.0) fL MCH 28.0 (25.0-35.0) pg MCHC 32.3 (31.0-37.0) g/dL RDW 16.7 H (11.5-15.5) % Plt Count 228 (150-450) k/uL Neutrophils % 65 % Lymphocytes % 24 % Monocytes % 7 % Eosinophils % 2 % Basophils % 1 % Neutrophils # 7.1 (1.3-7.7) k/uL Lymphocytes # 2.6 (1.0-4.8) k/uL Monocytes # 0.7 (0-1.0) k/uL Eosinophils # 0.3 (0-0.7) k/uL Basophils # 0.1 (0-0.2) k/uL Anisocytosis Slight PT 11.1 (9.0-12.0) sec INR 1.0 (<1.2) APTT 26.6 (22.0-30.0) sec Sodium 138 (137-145) mmol/L Potassium 5.1 (3.5-5.1) mmol/L Chloride 100 (98-107) mmol/L Carbon Dioxide 24 (22-30) mmol/L Anion Gap 14 mmol/L BUN 37 H (9-20) mg/dL Creatinine 1.44 H (0.66-1.25) mg/dL Est GFR (CKD-EPI)AfAm 59 (>60 ml/min/1.73 sqM) Est GFR (CKD-EPI)NonAf 51 (>60 ml/min/1.73 sqM) Glucose 299 H (74-99) mg/dL Calcium 9.6 (8.4-10.2) mg/dL Magnesium 1.9 (1.6-2.3) mg/dL Total Bilirubin 0.6 (0.2-1.3) mg/dL AST 26 (17-59) U/L ALT 17 L (21-72) U/L Alkaline Phosphatase 79 (38-126) U/L Troponin I (0.000-0.034) ng/mL Total Protein 7.8 (6.3-8.2) g/dL Albumin 4.4 (3.5-5.0) g/dL 03/15/19 Range/Units 14:09 WBC (3.8-10.6) k/uL RBC (4.30-5.90) m/uL Hgb (13.0-17.5) gm/dL Hct (39.0-53.0) % MCV (80.0-100.0) fL MCH (25.0-35.0) pg MCHC (31.0-37.0) g/dL RDW (11.5-15.5) % Plt Count (150-450) k/uL Neutrophils % % Lymphocytes % % Monocytes % % Eosinophils % % Basophils % % Neutrophils # (1.3-7.7) k/uL Lymphocytes # (1.0-4.8) k/uL Monocytes # (0-1.0) k/uL Eosinophils # (0-0.7) k/uL Basophils # (0-0.2) k/uL Anisocytosis PT (9.0-12.0) sec INR (<1.2) APTT (22.0-30.0) sec Sodium (137-145) mmol/L Potassium (3.5-5.1) mmol/L Chloride (98-107) mmol/L Carbon Dioxide (22-30) mmol/L Anion Gap mmol/L BUN (9-20) mg/dL Creatinine (0.66-1.25) mg/dL Est GFR (CKD-EPI)AfAm (>60 ml/min/1.73 sqM) Est GFR (CKD-EPI)NonAf (>60 ml/min/1.73 sqM) Glucose (74-99) mg/dL Calcium (8.4-10.2) mg/dL Magnesium (1.6-2.3) mg/dL Total Bilirubin (0.2-1.3) mg/dL AST (17-59) U/L ALT (21-72) U/L Alkaline Phosphatase (38-126) U/L Troponin I 0.020 (0.000-0.034) ng/mL Total Protein (6.3-8.2) g/dL Albumin (3.5-5.0) g/dL Disposition Clinical Impression: Unstable angina pectoris Disposition: ADMITTED IP TO THIS [facility] Referrals: None,Stated [Primary Care Provider] - 1-2 days Time of Disposition: 15:45
[2019-03-15 15:08] LABS: Anisocytosis Slight; Basophils # (A) 0.1 k/uL (0-0.2); Basophils % (A) 1 %; Eosinophils # (A) 0.3 k/uL (0-0.7); Eosinophils % (A) 2 %; HCT 46.2 % (39.0-53.0); HGB 14.9 gm/dL (13.0-17.5); Lymphocytes # (A) 2.6 k/uL (1.0-4.8); Lymphocytes % (A) 24 %; MCHC 32.3 g/dL (31.0-37.0); MCV 86.6 fL (80.0-100.0); Monocytes # (A) 0.7 k/uL (0-1.0); Monocytes % (A) 7 %; Neutrophils # (A) 7.1 k/uL (1.3-7.7); Neutrophils % (A) 65 %; Platelet Count 228 k/uL (150-450); RBC 5.34 m/uL (4.30-5.90); RDW 16.7 % (11.5-15.5)
[2019-03-15 15:15] LABS: Albumin 4.4 g/dL (3.5-5.0); Calcium 9.6 mg/dL (8.4-10.2); Magnesium 1.9 mg/dL (1.6-2.3); Partial Thromboplastin Time 26.6 sec (22.0-30.0); Potassium 5.1 mmol/L (3.5-5.1); Prothrombin Time 11.1 sec (9.0-12.0); Total Bilirubin 0.6 mg/dL (0.2-1.3); Total Protein 7.8 g/dL (6.3-8.2)
--- NOTE | 2019-03-15 15:15 | XR ---
EXAMINATION TYPE: XR chest 2V DATE OF EXAM: 03/15/2019 COMPARISON: 05/10/2017 TECHNIQUE: PA and lateral views submitted. HISTORY: Shortness of breath FINDINGS: The lungs are clear and there is no pneumothorax, pleural effusion, or focal pneumonia. Heart is enl arged and there is a cardiac device. Postsurgical change overlying cervical spine. Biapical pleural t hickening. No overt failure. Hypertrophic and degenerative change of the spine. Hyperinflation sugges ts COPD. IMPRESSION: 1. Stable cardiomegaly. Correlate clinically to assess for COPD. No overt failure..
[2019-03-15 18:10] LABS: Glucose,Whole Blood 160 mg/dL (75-99)
[2019-03-15] MEDS ORDERED: Insulin Aspart (For Pump) 100 UNIT/ML VIAL SQ-PUMP SCH (19:15)
[2019-03-15] MEDS ORDERED: ALLOPURINOL 100 MG TAB PO SCH (21:00)
[2019-03-15] MEDS ORDERED: ATORVASTATIN 10 MG TAB PO SCH (21:00)
[2019-03-15] MEDS: APIXABAN 5 MG TAB PO SCH (21:21)
[2019-03-15] MEDS: METOPROLOL SUCCINATE (ER) 50 MG TAB.ER.24H PO SCH (21:21)
[2019-03-15] MEDS: INSULIN ASPART (NovoLOG) 100 UNIT/ML VIAL SQ SCH (21:22)
[2019-03-15] MEDS ORDERED: HYDROcodone/APAP 5-325MG 1 EACH TAB PO PRN (21:36)
[2019-03-15] MEDS ORDERED: TEMAZEPAM 15 MG CAP PO PRN (21:36)
[2019-03-15] MEDS ORDERED: ALPRAZolam 0.25 MG TAB PO PRN (21:36)
[2019-03-15] MEDS ORDERED: ACETAMINOPHEN TAB 500 MG TAB PO PRN (21:36)
[2019-03-15] MEDS ORDERED: SPIRONOLACTONE 25 MG TAB PO SCH (21:45)
[2019-03-15] MEDS: SACUBITRIL/VALSARTAN 49 MG-51 MG TABLET PO SCH (23:45)
--- NOTE | 2019-03-16 00:05 | HP ---
HISTORY AND PHYSICAL DATE OF SERVICE: 03/15/2019 CHIEF COMPLAINT: Chest pain. HISTORY OF PRESENT ILLNESS: This 63-year-old gentleman with a past medical history of multiple medical problems including CHF, history of diabetes, hypertension, hyperlipidemia, history of DJD, history of AICD, history of cardiac ablation, EPS, history of pacemaker being followed by [facility], was complaining of chest pain. Patient had multiple cardiac procedures previously. The chest pain was reported as felt across the chest which was heavy in character associated with shortness of breath, lasted for 4 hours and radiating into the left shoulder. There is no associated sweating and the patient came to [facility] and was admitted to the hospital for further evaluation and treatment. The troponins are negative. Troponin 0.020 and 0.18 and EKG showed occasional PVCs. The patient admitted for further evaluation and treatment. Chest x-ray was also done in the ER which showed stable cardiomegaly. PAST MEDICAL HISTORY: History of nonischemic cardiomyopathy, history of CHF, diabetes type 2, hypertension, hyperlipidemia, history of sleep apnea, CPAP, AICD, cardiac ablation and EPS. The patient also had right eye possibly retinal bleeding and being treated at [facility] and right eye is patched at this time. Possibly has complicated diabetes according to him. MEDICATIONS: Prior to admission, home medications are: 1. Fluvastatin ER 80 mg q.h.s. 2. Farxiga 10 mg p.o. daily. 3. Glucophage 1000 mg p.o. b.i.d. 4. Demadex 20 mg p.o. daily. 5. Spironolactone 50 mg q.h.s. 6. Entresto 49/51 p.o. b.i.d. 7. Toprol-XL 50 mg p.o. b.i.d. 8. NovoLog 0.1 subcu. 9. Insulin pump. 10.Lanoxin 120 mcg p.o. daily. 11.Eliquis 5 mg p.o. b.i.d. 12.Zyloprim 100 mg p.o. q.h.s. ALLERGIES: COCONUT NUT, COCONUT OIL. FAMILY HISTORY: History of diabetes mellitus, history SOCIAL HISTORY: No history of smoking. Occasional alcohol intake. REVIEW OF SYSTEMS: ENT as mentioned earlier. CARDIOVASCULAR as mentioned earlier. RESPIRATION: No cough or hemoptysis. GI no nausea or vomiting. no dysuria. Nervous system: No numbness or weakness. ALLERGY/IMMUNOLOGY: No asthma or hayfever. MUSCULOSKELETAL as mentioned earlier. HEMATOLOGY/ONCOLOGY: Negative. MUSCULOSKELETAL: Negative. PSYCHIATRY: Negative. CONSTITUTIONAL: As mentioned earlier. PHYSICAL EXAMINATION: Alert and oriented x3. Pulse is 57, blood pressure 99/55, respirations 16, temperature 97.1, pulse ox is 98% on 2 L. HEENT: Conjunctivae normal. Oral mucosa moist. NECK is no jugular venous distention. No carotid bruit. No lymph node enlargement. CARDIOVASCULAR SYSTEM: S1, S2 muffled. No S3, no S4. RESPIRATIONS: Breath sounds diminished at bases. A few scattered rhonchi and crackles. ABDOMEN: Soft, nontender. No mass palpable. LEGS: No edema. No swelling. NERVOUS SYSTEM: Higher functions as mentioned earlier. Moves all four extremities. No focal deficits. lymphatics: No lymph nodes palpable in the neck, axillae or groin. SKIN: No ulcer, no rashes, no bleeding. JOINTS: No active deforming arthropathy. LABS: At this time shows WBC 11, hemoglobin 14.9, sodium 130, potassium 5.1, creatinine is 1.44, glucose is 299. ASSESSMENT: 1. Chest pain, possible unstable angina. 2. Nonischemic cardiomyopathy. 3. Congestive heart failure with chronic systolic dysfunction. 4. History of atrial ablation and atrial flutter ablation. 5. History of recurrent atrial tachycardia. 6. Increased creatinine with chronic kidney disease stage III. 7. Increased WBC. 8. Diabetes mellitus type 2. 9. Hypertension. 10.Hyperlipidemia. 11.History of recent retinal bleeding, right eye. 12.History of sleep apnea. 13.History of AICD. 14.History of degenerative joint disease. RECOMMENDATIONS AND DISCUSSION: In this 63-year-old gentleman, who presented with multiple medical issues, we will monitor the patient closely. Continue the current medications, management and symptomatic treatment. The patient had multiple cardiac procedures previously. We will rule out acute myocardial infarction. Unstable angina protocol. Cardiology consultation. The patient is being followed up by the heart failure Clinic at [facility]. The patient recently missed a PET scan apparently. Otherwise we will continue to monitor. Patient also following with the [facility] regarding the retinal bleeding also on the right eye. Prognosis guarded. We will continue the home medications. Guarded prognosis because of multiple complex medical issues. Further recommendations to follow. Monitor the blood sugars also. MMODL / IJN: [id number] / WYATT
[2019-03-16 03:39] LABS: Basophils # (A) 0.1 k/uL (0-0.2); Basophils % (A) 1 %; Eosinophils # (A) 0.3 k/uL (0-0.7); Eosinophils % (A) 2 %; HCT 43.6 % (39.0-53.0); HGB 14.8 gm/dL (13.0-17.5); Lymphocytes % (A) 27 %; MCH 28.5 pg (25.0-35.0); MCV 83.8 fL (80.0-100.0); Mean Platelet Volume 7.8; Monocytes # (A) 0.7 k/uL (0-1.0); Monocytes % (A) 6 %; Neutrophils # (A) 6.7 k/uL (1.3-7.7); Neutrophils % (A) 61 %; Platelet Count 187 k/uL (150-450); RDW 15.6 % (11.5-15.5)
[2019-03-16 03:48] LABS: Calcium 9.3 mg/dL (8.4-10.2); Potassium 4.3 mmol/L (3.5-5.1)
[2019-03-16] MEDS: INSULIN ASPART (NovoLOG) 100 UNIT/ML VIAL SQ SCH ×2 (06:24→15:03)
[2019-03-16] MEDS ORDERED: PANTOPRAZOLE 40 MG TABLET PO SCH (07:30)
[2019-03-16] MEDS: SACUBITRIL/VALSARTAN 49 MG-51 MG TABLET PO SCH (08:16)
[2019-03-16] MEDS: METOPROLOL SUCCINATE (ER) 50 MG TAB.ER.24H PO SCH (08:16)
[2019-03-16] MEDS: APIXABAN 5 MG TAB PO SCH (08:18)
--- NOTE | 2019-03-16 08:55 | P.CRDCN ---
History of Present Illness Consult date: 03/16/19 Requesting physician: Erlin E Susi Consult reason: chest pain Chief complaint: Chest pain History of present illness: This is a pleasant 63-year-old gentleman who follows with Dr. Hipolito khan in the office. He has a known history of prior atrial flutter with ablation, prior SVT with ablation, nonischemic cardiomyopathy, chronic congestive heart failure, prior stroke, diabetes, hypertension, hyperlipidemia, family history of premature coronary artery disease, he has had prior cardiac catheterizations, the most recent in 2011, he has had no documented obstructive coronary artery disease in the past. Patient presents to the hospital on this occasion with symptoms of midsternal chest pressure and heaviness with associated shortness of breath. Patient states his symptoms started yesterday and persisted all day long. He was recently scheduled for a cardiac PET scan at [facility] on Tuesday of this past week which was canceled because the patient had a bleed in his eye, and the patient has been breakfast, therefore this test had been canceled and it was rescheduled the of this month. Patient does have history of spontaneous bleeds in his eye in the past. He does take Eliquis at home for anticoagulation, he was initiated here on aspirin which we will discontinue. The rest of the patient's home medications include Lipitor, Lanoxin, Farxiga which has just recently been started by his heading repairer, metformin, metoprolol 50 twice a day, Entresto, Demadex 20 mg daily, and Aldactone which was recently decreased to 25 mg daily from 50. Chest x-ray shows stable cardiomegaly, no overt heart failure. EKG shows a ventricular paced rhythm with underlying atrial fibrillation. Blood pressure 100/50 with a heart rate in the 70s, 97% on 2 L of oxygen. White blood cell count 11.0, hemoglobin 14.8, platelet count 187. D-dimer 0.25, sodium 137, pot assium 4.3, BUN 37 and creatinine 1.4. Troponins 0.020, 0.018, 0.029. BNP level 1690. At the time of my examination this morning, patient is currently chest pain-free, he slept well through the night last night and states he feels better today than he has in quite some time. I did have a chance to speak with his this morning his states that he's been doing a lot of recent physical activity, and he may have overdid it. She also stated that his most recent echocardiogram with Doppler study was performed at [facility] which showed an ejection fraction of 15%, which was down from his 35% documented previously. Past Medical History Past Medical History: Heart Failure, Diabetes Mellitus, Hyperlipidemia, Hypertension, Sleep Apnea/CPAP/BIPAP Additional Past Medical History / Comment(s): See Dr Durant's H&P FOR CARDIAC. SOB w/activity, cpap. HX TIA-yrs ago. "BLEEDING IN EYES",gout History of Any Multi-Drug Resistant Organisms: None Reported Past Surgical History: AICD, Cardiac Ablation, EPS, Heart Catheterization, Orthopedic Surgery, Pacemaker Additional Past Surgical History / Comment(s): Atrial ablation, cardioversion,cervical fusion x 2, knee surg., achilles tendon surg., CATARACT SX. CARDIAC Ablation 05/2014; AICD/PACEMAKER 06/2014, [facility] MODEL. BILAT EYE SX "TO REMOVE BLOOD",blood vessel broke in rt eye and he lost partial vision- short term loss Past Anesthesia/Blood Transfusion Reactions: No Reported Reaction Additional Past Anesthesia/Blood Transfusion Reaction / Comment(s): NEVER RECIEVED BLOOD. Type of Cardiac Device: AICD Device Placement Date:: 06/2014 Past Psychological History: No Psychological Hx Reported Additional Psychological History / Comment(s): PT LIVES AT HOME WITH . HE IS NORMALLY ACTIVE. Smoking Status: Never smoker Past Alcohol Use History: Occasional Additional Past Alcohol Use History / Comment(s): PT WILL DRINK BEER ON OCCASION Past Drug Use History: None Reported - Past Family History Father Family Medical History: Coronary Artery Disease (CAD), Diabetes Mellitus, Myocardial Infarction (MD) Additional Family Medical History / Comment(s): FATHER OF MD AT AGE 65 YRS. Mother Family Medical History: Diabetes Mellitus Additional Family Medical History / Comment(s): SHE HAS HAD A LEG AMPUTATION Medications and Allergies Home Medications Medication Instructions Recorded Confirmed Type Allopurinol [Zyloprim] 100 mg PO HS 05/02/14 03/15/19 History metFORMIN HCL [Glucophage] 1,000 mg PO BID 05/02/14 03/15/19 History Apixaban [Eliquis] 5 mg PO BID 03/18/17 03/15/19 History Metoprolol Succinate [Toprol XL] 50 mg PO BID 03/18/17 03/15/19 History Torsemide [Demadex] 20 mg PO DAILY 03/18/17 03/15/19 History Spironolactone 50 mg PO HS 05/10/17 03/15/19 History Insulin Aspart (For Pump) [NovoLOG 0.01 unit SQ-PUMP CONTINUOUS 10/31/17 03/15/19 History (For Pump)] Digoxin [Lanoxin] 125 mcg PO DAILY 02/17/18 03/15/19 History Dapagliflozin Propanediol [Farxiga] 10 mg PO DAILY@1200 03/15/19 03/15/19 History Fluvastatin Sodium [Fluvastatin ER] 80 mg PO HS 03/15/19 03/15/19 History Sacubitril/Valsartan [Entresto 49 1 tab PO BID 03/15/19 03/15/19 History mg-51 mg Tablet] Allergies Allergy/AdvReac Type Severity Reaction Status Date / Time coconut Allergy sneezing Verified 03/15/19 14:54 coconut oil Allergy sneezing Verified 03/15/19 14:54 Physical Exam Vitals: Vital Signs Temp Pulse Pulse Resp BP BP Pulse Ox 03/16/19 08:00 100/58 97 03/16/19 04:00 97.6 F 57 L 12 101/63 97 03/16/19 00:00 52 L 14 94/53 96 03/15/19 22:58 57 L 16 102/52 03/15/19 19:48 97.1 F L 57 L 16 99/55 03/15/19 18:00 96.2 F L 60 99/51 99 03/15/19 17:39 97.5 F L 60 18 91/60 98 03/15/19 16:37 80 18 83/58 98 03/15/19 15:20 60 18 94/54 97 03/15/19 15:04 18 03/15/19 13:53 97.9 F 60 18 95/58 99 Intake and Output 03/15/19 03/16/19 03/16/19 22:59 06:59 14:59 Intake Total 118 Output Total 550 600 Balance -432 -600 Intake: Oral 118 Output: Urine 550 600 Other: Weight 108.3 kg PHYSICAL EXAMINATION: GENERAL: 63-year-old gentleman in no acute distress at the time of my examination HEENT: Head is atraumatic, normocephalic. Pupils equal, round. Patch in place over right eye. Sclera anicteric. Conjunctiva are clear. Mucous membranes of the mouth are moist. Neck is supple. There is no elevated jugular venous pressure. No carotid bruit is heard. HEART EXAMINATION: Heart S1, S2 normal. No murmur or gallop heard. CHEST EXAMINATION: Lungs are clear to auscultation and precussion. No chest wall tenderness is noted on palpation or with deep breathing. ABDOMEN: Soft, nontender. Bowel sounds are heard. No organomegaly noted. EXTREMITIES: 2+ peripheral pulses with no evidence of peripheral edema and no calf tenderness noted. NEUROLOGIC patient is awake, alert and oriented 3 . . Results 03/16/19 03:24 03/16/19 03:24 Cardiac Enzymes 03/15/19 03/15/19 03/15/19 Range/Units 14: 14: 20:12 AST 26 (17-59) U/L Troponin I 0.020 0.018 (0.000-0.034) ng/mL 03/16/19 Range/Units 03:24 AST (17-59) U/L Troponin I 0.029 (0.000-0.034) ng/mL Coagulation 03/15/19 Range/Units 14:09 PT 11.1 (9.0-12.0) sec APTT 26.6 (22.0-30.0) sec Lipids 03/16/19 Range/Units 03:24 Triglycerides 187 H (<150) mg/dL Cholesterol 168 (<200) mg/dL HDL Cholesterol 33 L (40-60) mg/dL CBC 03/15/19 03/16/19 Range/Units 14: 03:24 WBC 11.0 H 11.0 H (3.8-10.6) k/uL RBC 5.34 5.20 (4.30-5.90) m/uL Hgb 14.9 14.8 (13.0-17.5) gm/dL Hct 46.2 43.6 (39.0-53.0) % Plt Count 228 187 (150-450) k/uL Comprehensive Metabolic Panel 03/15/19 03/16/19 Range/Units 14: 03:24 Sodium 138 137 (137-145) mmol/L Potassium 5.1 4.3 (3.5-5.1) mmol/L Chloride 100 102 (98-107) mmol/L Carbon Dioxide 24 23 (22-30) mmol/L BUN 37 H 37 H (9-20) mg/dL Creatinine 1.44 H 1.40 H (0.66-1.25) mg/dL Glucose 299 H 146 H (74-99) mg/dL Calcium 9.6 9.3 (8.4-10.2) mg/dL AST 26 (17-59) U/L ALT 17 L (21-72) U/L Alkaline Phosphatase 79 (38-126) U/L Total Protein 7.8 (6.3-8.2) g/dL Albumin 4.4 (3.5-5.0) g/dL Current Medications Generic Name Dose Route Start Last Admin Trade Name Freq PRN Reason Stop Dose Admin Acetaminophen 500 mg 03/15/19 21:36 Tylenol Tab PO Q6H PRN Fever and/ or Pain Hydrocodone Bitart/Acetaminophen 1 each 03/15/19 21:36 Lisman 5-325 PO Q6HR PRN Pain Allopurinol 100 mg 03/15/19 21:00 03/15/19 21:21 Zyloprim PO 100 mg HS SONY Administration Alprazolam 0.25 mg 03/15/19 21:36 Xanax PO TID PRN Anxiety Apixaban 5 mg 03/15/19 21:00 03/16/19 08:18 Eliquis PO 5 mg BID SONY Administration Aspirin 325 mg 03/16/19 09:00 03/16/19 08:17 Aspirin PO 325 mg DAILY SONY Administration Atorvastatin Calcium 10 mg 03/15/19 21:00 03/15/19 21:21 Lipitor PO 10 mg HS SONY Administration Digoxin 125 mcg 03/16/19 09:00 03/16/19 08:18 Lanoxin PO 125 mcg DAILY SONY Administration Insulin Aspart 0 unit 03/15/19 21:00 03/16/19 06:24 Novolog SQ Not Given ACHS [facility] Protocol Insulin Aspart 0.01 unit 03/15/19 19:15 03/16/19 06:23 Novolog (For Pump) SQ-PUMP Not Given CONTINUOUS SONY Metformin HCl 1,000 mg 03/16/19 09:00 03/16/19 08:17 Glucophage PO 1,000 mg BID SONY Administration Metoprolol Succinate 50 mg 03/15/19 21:00 03/16/19 08:16 Toprol Xl PO 50 mg BID SONY Administration Non-Formulary Medication 10 mg 03/16/19 12:00 Dapagliflozin Propanediol [Farxiga] PO DAILY@1200 SONY Pantoprazole Sodium 40 mg 03/16/19 07:30 Protonix PO AC-BRKFST SONY Sacubitril/Valsartan 1 each 03/15/19 21:00 03/16/19 08:16 Entresto 49 Mg-51 Mg Tablet PO 1 each BID SONY Administration Spironolactone 50 mg 03/15/19 21:45 03/15/19 23:50 Aldactone PO Not Given HS SONY Temazepam 15 mg 03/15/19 21:36 Restoril PO HS PRN Insomnia Torsemide 20 mg 03/16/19 09:00 03/16/19 08:16 Demadex PO 20 mg DAILY SONY Administration Intake and Output 03/15/19 03/16/19 03/16/19 22:59 06:59 14:59 Intake Total 118 Output Total 550 600 Balance -432 -600 Intake: Oral 118 Output: Urine 550 600 Other: Weight 108.3 kg 03/16/19 03:24 03/16/19 03:24 EKG Interpretations (text) EKG shows a ventricular paced rhythm with underlying atrial fibrillation Assessment and Plan Plan: Assessment and plan #1 chest pain, with some atypical features for acute coronary syndrome. Troponin 0.020, 0.018, 0.029. EKG shows a ventricular paced rhythm with underlying atrial fibrillation #2 hypertension #3 diabetes #4 hyperlipidemia #5 nonischemic cardiomyopathy, AICD implant 6 history of SVT, atrial flutter, with prior ablation #7 sleep apnea #8 history of spontaneous bleed of the right eye, patient also has a current patch in place because of recent bleed #9 patient has had 3 prior cardiac catheterizations, no evidence of obstructive coronary artery disease. Plan We will obtain an echocardiogram with Doppler study and attempt to get a copy of the recent echo performed at [facility]. At the patient up ambulat ing in the hallway as tolerated today, resume the Aldactone at 25 mg daily, discontinue the aspirin. Further recommendations to follow. DNP note has been reviewed, I agree with a documented findings and plan of care. Patient was seen and examined.
[2019-03-16] MEDS ORDERED: TORSEMIDE 20 MG TAB PO SCH (09:00)
[2019-03-16] MEDS ORDERED: DIGOXIN 125 MCG TAB PO SCH (09:00)
[2019-03-16] MEDS ORDERED: ASPIRIN 325 MG TAB PO SCH (09:00)
[2019-03-16] MEDS ORDERED: metFORMIN 500 MG TAB PO SCH (09:00)
[2019-03-16] MEDS ORDERED: NON FORMULARY DRUG (Dapagliflozin Propanediol [Farxiga] 10 MG) PO SCH (12:00)
--- NOTE | 2019-03-16 12:00 | ECHOF ---
Referral Reason:chest pain MEASUREMENTS -------- HEIGHT: 177.8 cm WEIGHT: 108.0 kg BP: 100/58 RVIDd: 2.9 cm (< 3.3) IVSd: 1.1 cm (0.6 - 1.1) LVIDd: 5.7 cm (3.9 - 5.3) LVPWd: 1.2 cm (0.6 - 1.1) IVSs: 1.4 cm LVIDs: 5.4 cm LVPWs: 1.0 cm LAESV Index (A-L): 45.46 ml/m Ao Diam: 3.5 cm (2.0 - 3.7) AV Cusp: 1.9 cm (1.5 - 2.6) LA Diam: 4.6 cm (2.7 - 3.8) EPSS: 1.6 cm RAP: 5.00 mmHg RVSP: 56.02 mmHg %FS: 22.63 % EDV(Teich): 191.30 ml EF(Teich): 44.68 % ESV(Teich): 105.83 ml IVSd: 1.52 cm (0.6 - 1.1) IVSs: 2.46 cm LVIDd: 6.16 cm (3.9 - 5.3) LVIDs: 4.77 cm LVPWd: 1.72 cm (0.6 - 1.1) LVPWs: 1.59 cm MV EF SLOPE: 71.34 mm/s (70 - 150) MV EXCURSION: 1.38 cm (> 18.000) SV(Teich): 85.47 ml FINDINGS -------- Atrial fibrillation. Paced rhythm. This was a technically difficult study with suboptimal views. The left ventricle is mildly dilated. There is borderline concentric left ventricular hypertrophy. There is moderate global hypokinesis of LV . Overall left ventricular systolic function is severe ly impaired with, an EF between 20 - 25 %. Mitral Doppler inflow pattern suggests diastolic filling abnormality. The right ventricle is normal in size. Left atrium is severely dilated by volume. The right atrium was not well visualized. Lumason used Interatrial and interventricular septum intact. There is no evidence of aortic regurgitation. There is no evidence of aortic stenosis. Moderate mitral regurgitation is present. Moderate tricuspid regurgitation present. There is moderate pulmonary hypertension. The right gaston tricular systolic pressure, as measured by Doppler, is 56.02mmHg. There is no pulmonic regurgitation present. The aortic root size is normal. IVC not well visualized There is no pericardial effusion. CONCLUSIONS -------- 1. Atrial fibrillation. 2. Paced rhythm. 3. This was a technically difficult study with suboptimal views. 4. The left ventricle is mildly dilated. 5. There is borderline concentric left ventricular hypertrophy. 6. There is moderate global hypokinesis of LV . 7. Overall left ventricular systolic function is severely impaired with, an EF between 20 - 25 %. 8. Mitral Doppler inflow pattern suggests diastolic filling abnormality. 9. The right ventricle is normal in size. 10. Left atrium is severely dilated by volume. 11. The right atrium was not well visualized. 12. Lumason used 13. Interatrial and interventricular septum intact. 14. There is no evidence of aortic regurgitation. 15. There is no evidence of aortic stenosis. 16. Moderate mitral regurgitation is present. 17. Moderate tricuspid regurgitation present. 18. There is moderate pulmonary hypertension. 19. The right ventricular systolic pressure, as measured by Doppler, is 56.02mmHg. 20. There is no pulmonic regurgitation present. 21. The aortic root size is normal. 22. IVC not well visualized 23. There is no pericardial effusion. EDGE CUTTING MACHINE OPERATOR: Krysta Bassett RDCS
[2019-03-16 12:13] LABS: Glucose,Whole Blood 166 mg/dL (75-99)
[2019-03-16 12:42] VITALS: BP 99/57; PULSE 59; RESP 14; TEMP 97.2
--- NOTE | 2019-03-16 13:00 | P.DS ---
Providers Date of admission: 03/15/19 15:46 Expected date of discharge: 03/16/19 Attending physician: Erlin Goldman MD Consults: 03/15/19 15:46 Consult Physician Urgent Consulting Provider: [facility] Consult Reason/Comments: Unstable angina Do you want consulting provider notified?: Yes Primary care physician: Stated None Hospital Course: Final diagnosis Chest pain, possible unstable angina Nonischemic cardiomyopathy congestive heart failure with chronic systolic dysfunction History of atrial fibrillation and atrial flutter ablation History of recurrent atrial tachycardia Increased creatinine with chronic kidney disease stage III Increased WBC Diabetes mellitus type 2 Hypertension Hyperlipidemia History of recent retinal bleeding, right eye History of sleep apnea History of AICD History of degenerative joint disease Discharge disposition Patient is being discharged in a stable condition with guarded prognosis to home and will follow-up at [facility] as discussed previously. Patient will follow-up with cardiology in the outpatient setting in 1-2 weeks. History of present illness This is a 63-year-old male who was recently admitted for chest pain with a past medical history of multiple complex medical issues and was being closely monitored. Cardiology was following closely as well. Patient underwent an echo this morning showing an EF between 20-25% with severely impaired left ventricular systolic function. Patient will hold off on aspirin and restart his Aldactone at 25 mg daily per cardiology recommendations. Patient will follow-up with cardiology in the outpatient setting in 1-2 weeks. Patient also has right eye retinal bleeding and will be following up with [facility] as he has been. Patient denies any chest pain, shortness of breath, or palpitations at this time. Patient has been up and walking the halls and tolerating well. Patient denies any nausea or vomiting is been tolerating diet. is at the bedside and verbalizes understanding of the treatment plan and agrees with the plan. Patient will follow-up with [facility] as discussed. Currently patient's condition is stable with much improvement. Guarded prognosis. On exam vital signs are stable. Blood pressure is 99/57, pulse is 59, respirations are 14, oxygen saturation is 96% on 2 L nasal cannula, temp is 97.2F. Cardio S1 and S2 are muffled. Respiratory system is clear upon auscultation. Abdomen is soft and non-tender. Nervous system shows no focal deficits and gait is steady. Please refer to medication reconciliation sheet for a list of medications. Patient Condition at Discharge: Fair Plan - Discharge Summary Discharge Rx Participant: No New Discharge Prescriptions: New Spironolactone [Aldactone] 25 mg PO HS 30 Days #30 tab Atorvastatin [Lipitor] 10 mg PO HS 30 Days #30 tab Continue Allopurinol [Zyloprim] 100 mg PO HS metFORMIN HCL [Glucophage] 1,000 mg PO BID Torsemide [Demadex] 20 mg PO DAILY Apixaban [Eliquis] 5 mg PO BID Metoprolol Succinate [Toprol XL] 50 mg PO BID Insulin Aspart (For Pump) [NovoLOG (For Pump)] 0.01 unit SQ-PUMP CONTINUOUS Digoxin [Lanoxin] 125 mcg PO DAILY Sacubitril/Valsartan [Entresto 49 mg-51 mg Tablet] 1 tab PO BID Dapagliflozin Propanediol [Farxiga] 10 mg PO DAILY@1200 Discontinued Spironolactone 50 mg PO HS Fluvastatin Sodium [Fluvastatin ER] 80 mg PO HS Discharge Medication List Allopurinol [Zyloprim] 100 mg PO HS 05/02/14 [History] metFORMIN HCL [Glucophage] 1,000 mg PO BID 05/02/14 [History] Apixaban [Eliquis] 5 mg PO BID 03/18/17 [History] Metoprolol Succinate [Toprol XL] 50 mg PO BID 03/18/17 [History] Torsemide [Demadex] 20 mg PO DAILY 03/18/17 [History] Insulin Aspart (For Pump) [NovoLOG (For Pump)] 0.01 unit SQ-PUMP CONTINUOUS 0 10/31/17 [History] Digoxin [Lanoxin] 125 mcg PO DAILY 02/17/18 [History] Dapagliflozin Propanediol [Farxiga] 10 mg PO DAILY@1200 03/15/19 [History] Sacubitril/Valsartan [Entresto 49 mg-51 mg Tablet] 1 tab PO BID 03/15/19 [History] Atorvastatin [Lipitor] 10 mg PO HS 30 Days #30 tab 03/16/19 [Rx] Spironolactone [Aldactone] 25 mg PO HS 30 Days #30 tab 03/16/19 [Rx] Follow up Appointment(s)/Referral(s): Efrain Durant MD [STAFF PHYSICIAN] - 03/23/19 8:45 am (Joel with [facility]) None,Stated [Primary Care Provider] - 1-2 days (Pt requesting to make his own follow up appointment with Dr. Chilel) Patient Instructions/Handouts: Angina (DC), Heart Failure (DC) Activity/Diet/Wound Care/Special Instructions: Patient requires home oxygen for hypoxia secondary to pulmonary fibrosis Activity Limited until follow-up Continue current cardiac diet Follow-up with cardiology in 1-2 weeks. Follow up with primary care provider Follow-up with [facility] as discussed. Discharge Disposition: HOME SELF-CARE
--- NOTE | 2019-03-16 14:25 | US ---
EXAMINATION TYPE: US gallbladder DATE OF EXAM: 03/16/2019 COMPARISON: NONE CLINICAL HISTORY: 63-year-old male with abdominal pain. Chest pain yesterday TECHNIQUE: Multiple sonographic images of the right upper quadrant are obtained. FINDINGS: EXAM MEASUREMENTS: Liver Length: 15.7 cm Gallbladder Wall: 0.2 cm CBD: 0.2 cm Right Kidney: 12.1 x 5.4 x 5.1 cm Pancreas: Obscured by bowel gas Liver: no masses seen . Homogeneous appearance and normal size. Gallbladder: wnl Evidence for sonographic Myers's sign: no CBD: wnl Right Kidney: No hydronephrosis. IMPRESSION: Suboptimal visualization of the pancreas. Otherwise, unremarkable sonographic examination of the righ t upper quadrant.
[2019-03-16] MEDS ORDERED: SPIRONOLACTONE 25 MG TAB PO SCH (21:00)
== END 2019-03-16 14:50 | disposition home or self-care (01) ==
LOC: EC 13:40 → 3SCARD 15:46 → INTOOBSV 15:46 → 3SCARD 17:04 → UNDODISIN 03-16 14:50
PROVIDERS: ADMIT Internal Medicine; ATTEND Internal Medicine
DX: R07.89 Other chest pain (principal); M10.9 Gout, unspecified; R06.09 Other forms of dyspnea; R06.02 Shortness of breath; I13.0 Hypertensive heart and chronic kidney disease with heart failure and stage 1 through stage 4 chronic kidney disease, or unspecified chronic kidney disease; I42.9 Cardiomyopathy, unspecified; I50.22 Chronic systolic (congestive) heart failure; H11.31 Conjunctival hemorrhage, right eye; I48.92 Unspecified atrial flutter; I48.91 Unspecified atrial fibrillation; I47.1 Supraventricular tachycardia; N18.3 Chronic kidney disease, stage 3 (moderate); Z96.41 Presence of insulin pump (external) (internal); E78.5 Hyperlipidemia, unspecified; E78.00 Pure hypercholesterolemia, unspecified; E11.22 Type 2 diabetes mellitus with diabetic chronic kidney disease; G47.30 Sleep apnea, unspecified; I49.3 Ventricular premature depolarization; M19.90 Unspecified osteoarthritis, unspecified site; Z91.018 Allergy to other foods; Z79.01 Long term (current) use of anticoagulants; Z79.4 Long term (current) use of insulin; Z79.899 Other long term (current) drug therapy; Z82.49 Family history of ischemic heart disease and other diseases of the circulatory system; Z83.3 Family history of diabetes mellitus; Z86.73 Personal history of transient ischemic attack (TIA), and cerebral infarction without residual deficits; Z95.810 Presence of automatic (implantable) cardiac defibrillator
CPT/HCPCS: 99285; 36415; 93005; 93306; 85379; 83880; 80061; 80053; 80048; 83735; 84484 ×2; 85025 ×2; 85610; 85730; 71046; 76705; G0378 ×2; Q9950

== ENCOUNTER → 2019-05-24 | Outpatient (CLI) | payer MEDICARE ==
[2019-05-24 16:09] LABS: Digoxin 0.5 ng/mL (0.8-2.0)
[2019-05-24 19:01] LABS: BUN/Creat Ratio 18.13 Ratio (12.00-20.00); Calcium 9.5 mg/dL (8.7-10.3); Non-African American GFR(CKD) 44.9 (60.0-200.0); Potassium 5.1 mmol/L (3.5-5.5)
== END | disposition home or self-care (01) ==
LOC: LABWHC1 09:33
PROVIDERS: ATTEND Internal Medicine
DX: I50.9 Heart failure, unspecified (principal)
CPT/HCPCS: 36415; 80048; 80162; 83880

== ENCOUNTER → 2019-06-04 | Outpatient (CLI) | payer MEDICARE ==
[2019-06-04 10:15] LABS: HCT 44.3 % (39.0-53.0); HGB 14.7 gm/dL (13.0-17.5); MCH 29.8 pg (25.0-35.0); MCHC 33.1 g/dL (31.0-37.0); MCV 90.2 fL (80.0-100.0); Mean Platelet Volume 7.1; Platelet Count 207 k/uL (150-450); RBC 4.91 m/uL (4.30-5.90); RDW 13.6 % (11.5-15.5); WBC 7.9 k/uL (3.8-10.6)
[2019-06-04 10:19] LABS: African American GFR (CKD) 55 (>60 ml/min/1.73 sqM); Anion Gap 11 mmol/L; Blood Urea Nitrogen 24 mg/dL (9-20); Carbon Dioxide 31 mmol/L (22-30); Chloride 103 mmol/L (98-107); Glucose 132 mg/dL (74-99); Non-African American GFR(CKD) 48 (>60 ml/min/1.73 sqM); Potassium 4.2 mmol/L (3.5-5.1); Sodium 145 mmol/L (137-145)
[2019-06-04 10:20] LABS: INR 1.1 (<1.2); Prothrombin Time 11.5 sec (9.0-12.0)
== END | disposition home or self-care (01) ==
LOC: LABWHC1 09:11
PROVIDERS: ATTEND Internal Medicine
DX: I48.21 Permanent atrial fibrillation (principal); Z95.810 Presence of automatic (implantable) cardiac defibrillator; Z79.01 Long term (current) use of anticoagulants
CPT/HCPCS: 36415; 80048; 85027; 85610

== ENCOUNTER → 2019-06-13 | Outpatient (CLI) | payer MEDICARE, BC ==
[2019-06-13 18:31] LABS: Hemoglobin A1C 8.4 % (4.0-6.0)
== END | disposition home or self-care (01) ==
LOC: LABWHC1 08:28
PROVIDERS: ATTEND Internal Medicine
DX: E11.65 Type 2 diabetes mellitus with hyperglycemia (principal)
CPT/HCPCS: 36415; 83036

== ENCOUNTER 2020-03-18 15:54 | Inpatient (IN) | payer MEDICARE, BC ==
[2020-03-18 16:42] LABS: Basophils # (A) 0.1 k/uL (0-0.2); Basophils % (A) 1 %; Eosinophils # (A) 0.2 k/uL (0-0.7); Eosinophils % (A) 2 %; HCT 43.8 % (39.0-53.0); Hypochromasia Slight; Lymphocytes # (A) 2.2 k/uL (1.0-4.8); Lymphocytes % (A) 22 %; MCHC 31.8 g/dL (31.0-37.0); MCV 84.7 fL (80.0-100.0); Mean Platelet Volume 9.2; Monocytes # (A) 0.6 k/uL (0-1.0); Monocytes % (A) 6 %; Neutrophils # (A) 6.9 k/uL (1.3-7.7); Neutrophils % (A) 67 %; Platelet Count 210 k/uL (150-450); RBC 5.18 m/uL (4.30-5.90); RDW 15.3 % (11.5-15.5); WBC 10.2 k/uL (3.8-10.6)
[2020-03-18 16:44] LABS: Albumin 4.3 g/dL (3.5-5.0); Calcium 9.5 mg/dL (8.4-10.2); Potassium 4.7 mmol/L (3.5-5.1); Total Bilirubin 1.3 mg/dL (0.2-1.3); Total Protein 7.8 g/dL (6.3-8.2)
[2020-03-18 16:46] LABS: D-Dimer 0.36 mg/L FEU (<0.60); INR 1.2 (<1.2); Prothrombin Time 12.1 sec (9.0-12.0)
--- NOTE | 2020-03-18 16:58 | XR ---
EXAMINATION TYPE: XR chest 2V DATE OF EXAM: 03/18/2020 COMPARISON: 03/15/2019 INDICATION: Difficulty breathing TECHNIQUE: Frontal and lateral views of the chest are obtained. FINDINGS: The heart size is mildly prominent. The pulmonary vasculature is normal. Pacemaker overlies left chest. No suspicious focal consolidations are evident.. IMPRESSION: 1. No acute pulmonary process. 2. Cardiomegaly.
[2020-03-18] MEDS ORDERED: ASPIRIN 81 MG PO STA (17:04)
[2020-03-18] MEDS ORDERED: SODIUM CHLORIDE 0.9% 1,000 ML IV SCH (17:15)
[2020-03-18] MEDS ORDERED: NITROGLYCERIN SL TABS 0.4 MG TAB SUBLINGUAL PRN (17:27)
--- NOTE | 2020-03-18 17:48 | ED ---
SOB HPI - General Source: patient Mode of arrival: ambulatory Limitations: no limitations <Mirta Castañeda - Last Filed: 03/18/20 19:17> <Jagdish Brown - Last Filed: 03/18/20 20:07> - General Chief Complaint: Shortness of Breath Stated Complaint: SOB Time Seen by Provider: 03/18/20 16:21 - History of Present Illness Initial Comments: 64-year-old male with extensive past medical history including atrial fi brillation with multiple ablations performed at [facility] and now pacemaker secondary to congestive heart fire with current ejection fraction 10%, DM with insulin pump, MARGIE presenting to the ER today for cc of SOB. She states he woke up this morning with shortness of breath he states is usually only happens if he didn't wear his CPAP. Patient states he also has been having abdominal discomfort and and distention for the past 2-3 days denies chest pain, denies nausea, vomiting. Denies diarrhea fever, back pain> Denies increased leg swelling or weight gain. He states he is compliant with his eliquis. Denies DVT or PE history or unilateral leg swelling. Denies jaw or arm pain. Denies history of aneursym thoracic nor abdominal. Patient has no additional complaints. (Mirta Castañeda) - Related Data Home Medications Medication Instructions Recorded Confirmed allopurinoL [Zyloprim] 100 mg PO HS 05/02/14 03/18/20 metFORMIN HCL [Glucophage] 1,000 mg PO DAILY 05/02/14 03/18/20 Apixaban [Eliquis] 5 mg PO BID 03/18/17 03/18/20 Metoprolol Succinate [Toprol XL] 50 mg PO BID 03/18/17 03/18/20 Torsemide [Demadex] 40 mg PO DAILY 03/18/17 03/18/20 Insulin Aspart (For Pump) [NovoLOG 0.01 unit SQ-PUMP CONTINUOUS 10/31/17 03/18/20 (For Pump)] Sacubitril/Valsartan [Entresto 49 1 tab PO BID 03/15/19 03/18/20 mg-51 mg Tablet] Digoxin [Lanoxin] 125 mcg PO DAILY 03/18/20 03/18/20 AmauriacidMariana cabrera, B.lactis 1 cap PO HS 03/18/20 03/18/20 [Probiotic] Multivitamins, Thera [Multivitamin 1 tab PO DAILY 03/18/20 03/18/20 (formulary)] Omeprazole 20 mg PO BID 03/18/20 03/18/20 traMADol HCL 50 mg PO BID PRN 03/18/20 03/18/20 Previous Rx's Medication Instructions Recorded Fluvastatin Sodium [Fluvastatin ER] 80 mg PO HS #30 tab.er.24h 03/16/19 Spironolactone [Aldactone] 25 mg PO HS 30 Days #30 tab 03/16/19 Allergies Allergy/AdvReac Type Severity Reaction Status Date / Time coconut Allergy sneezing Verified 03/18/20 16:01 coconut oil Allergy sneezing Verified 03/18/20 16:01 Review of Systems ROS Other: All systems not noted in ROS Statement are negative. <Mirta Castañeda - Last Filed: 03/18/20 19:17> ROS Other: All systems not noted in ROS Statement are negative. <Jagdish Brown - Last Filed: 03/18/20 20:07> ROS Statement: Those systems with pertinent positive or pertinent negative responses have been documented in the HPI. Past Medical History Past Medical History: Heart Failure, Diabetes Mellitus, Hyperlipidemia, Hypertension, Sleep Apnea/CPAP/BIPAP Additional Past Medical History / Comment(s): See Dr Durant's H&P FOR CARDIAC. SOB w/activity, cpap. HX TIA-yrs ago. "BLEEDING IN EYES",gout History of Any Multi-Drug Resistant Organisms: None Reported Past Surgical History: AICD, Cardiac Ablation, EPS, Heart Catheterization, Orthopedic Surgery, Pacemaker Additional Past Surgical History / Comment(s): Atrial ablation, cardioversion,cervical fusion x 2, knee surg., achilles tendon surg., CATARACT SX. CARDIAC Ablation 05/2014; AICD/PACEMAKER 06/2014, [facility] MODEL. BILAT EYE SX "TO REMOVE BLOOD",blood vessel broke in rt eye and he lost partial vision- short term loss, ablation- cardiac. Past Anesthesia/Blood Transfusion Reactions: No Reported Reaction Additional Past Anesthesia/Blood Transfusion Reaction / Comment(s): NEVER RECIEVED BLOOD. Type of Cardiac Device: AICD Device Placement Date:: 06/2014 Past Psychological History: No Psychological Hx Reported Smoking Status: Former smoker Past Alcohol Use History: Occasional Past Drug Use History: None Reported - Past Family History Father Family Medical History: Coronary Artery Disease (CAD), Diabetes Mellitus, Myocardial Infarction ([place]) Additional Family Medical History / Comment(s): FATHER OF [place] AT AGE 65 YRS. Mother Family Medical History: Diabetes Mellitus Additional Family Medical History / Comment(s): SHE HAS HAD A LEG AMPUTATION <Mirta Castañeda - Last Filed: 03/18/20 19:17> General Exam Limitations: no limitations <Mirta Castañeda - Last Filed: 03/18/20 19:17> Course <Mirta Castañeda - Last Filed: 03/18/20 19:17> Vital Signs 03/18/20 03/18/20 03/18/20 15:56 16:34 18:01 Temperature 98.1 F Pulse Rate 74 113 H Respiratory 18 16 16 Rate Blood Pressure 104/63 112/76 O2 Sat by Pulse 99 95 Oximetry 03/18/20 18:45 Temperature Pulse Rate 86 Respiratory 16 Rate Blood Pressure 101/70 O2 Sat by Pulse 95 Oximetry - Reevaluation(s) Reevaluation #1: Have difficulty obtaining the interrogation report, that was sent within first 30 minutes of patient visit 03/18/20 18:39 (Mirta Castañeda) Reevaluation #2: Interrogation was re performed after trouble shooting, report pending; Dr. Brown is awaiting the report as I signed case out to him at 7:15PM at shift change. 03/18/20 (Mirta Castañeda) Procedures - [facility]ogg Protocol (Time Out) Nurse: Farhana Hitchcock <Mirta Castañeda - Last Filed: 03/18/20 19:17> Medical Decision Making - Lab Data Result diagrams: 03/18/20 16:25 03/18/20 16:25 <Mirta Castañeda - Last Filed: 03/18/20 19:17> - Lab Data Result diagrams: 03/18/20 16:25 03/18/20 16:25 - Radiology Data Radiology results: report reviewed (CT angiogram is negative for dissection), image reviewed <Jagdish Brown - Last Filed: 03/18/20 20:07> - Medical Decision Making C5 male presents today with nonspecific pain chest pain CT does show some chronic pancreatitis will treat with pain medication hydration and patient will have patient interrogated (Jagdish Brown) - Lab Data Lab Results 03/18/20 03/18/20 03/18/20 Range/Units 16:25 16:25 16:25 WBC 10.2 (3.8-10.6) k/uL RBC 5.18 (4.30-5.90) m/uL Hgb 14.0 (13.0-17.5) gm/dL Hct 43.8 (39.0-53.0) % MCV 84.7 (80.0-100.0) fL MCH 27.0 (25.0-35.0) pg MCHC 31.8 (31.0-37.0) g/dL RDW 15.3 (11.5-15.5) % Plt Count 210 (150-450) k/uL Neutrophils % 67 % Lymphocytes % 22 % Monocytes % 6 % Eosinophils % 2 % Basophils % 1 % Neutrophils # 6.9 (1.3-7.7) k/uL Lymphocytes # 2.2 (1.0-4.8) k/uL Monocytes # 0.6 (0-1.0) k/uL Eosinophils # 0.2 (0-0.7) k/uL Basophils # 0.1 (0-0.2) k/uL Hypochromasia Slight PT 12.1 H (9.0-12.0) sec INR 1.2 H (<1.2) APTT 25.0 (22.0-30.0) sec D-Dimer 0.36 (<0.60) mg/L FEU Sodium 140 (137-145) mmol/L Potassium 4.7 (3.5-5.1) mmol/L Chloride 105 (98-107) mmol/L Carbon Dioxide 23 (22-30) mmol/L Anion Gap 12 mmol/L BUN 21 H (9-20) mg/dL Creatinine 1.37 H (0.66-1.25) mg/dL Est GFR (CKD-EPI)AfAm 62 (>60 ml/min/1.73 sqM) Est GFR (CKD-EPI)NonAf 54 (>60 ml/min/1.73 sqM) Glucose 100 H (74-99) mg/dL Plasma Lactic Acid Dennis (0.7-2.0) mmol/L Calcium 9.5 (8.4-10.2) mg/dL Total Bilirubin 1.3 (0.2-1.3) mg/dL AST 36 (17-59) U/L ALT 17 (4-49) U/L Alkaline Phosphatase 101 (38-126) U/L Troponin I (0.000-0.034) ng/mL NT-Pro-B Natriuret Pep pg/mL Total Protein 7.8 (6.3-8.2) g/dL Albumin 4.3 (3.5-5.0) g/dL Lipase (23-300) U/L 03/18/20 03/18/20 03/18/20 Range/Units 16:25 16:25 16:25 WBC (3.8-10.6) k/uL RBC (4.30-5.90) m/uL Hgb (13.0-17.5) gm/dL Hct (39.0-53.0) % MCV (80.0-100.0) fL MCH (25.0-35.0) pg MCHC (31.0-37.0) g/dL RDW (11.5-15.5) % Plt Count (150-450) k/uL Neutrophils % % Lymphocytes % % Monocytes % % Eosinophils % % Basophils % % Neutrophils # (1.3-7.7) k/uL Lymphocytes # (1.0-4.8) k/uL Monocytes # (0-1.0) k/uL Eosinophils # (0-0.7) k/uL Basophils # (0-0.2) k/uL Hypochromasia PT (9.0-12.0) sec INR (<1.2) APTT (22.0-30.0) sec D-Dimer (<0.60) mg/L FEU Sodium (137-145) mmol/L Potassium (3.5-5.1) mmol/L Chloride (98-107) mmol/L Carbon Dioxide (22-30) mmol/L Anion Gap mmol/L BUN (9-20) mg/dL Creatinine (0.66-1.25) mg/dL Est GFR (CKD-EPI)AfAm (>60 ml/min/1.73 sqM) Est GFR (CKD-EPI)NonAf (>60 ml/min/1.73 sqM) Glucose (74-99) mg/dL Plasma Lactic Acid Dennis 1.4 (0.7-2.0) mmol/L Calcium (8.4-10.2) mg/dL Total Bilirubin (0.2-1.3) mg/dL AST (17-59) U/L ALT (4-49) U/L Alkaline Phosphatase (38-126) U/L Troponin I 0.045 H* (0.000-0.034) ng/mL NT-Pro-B Natriuret Pep 6780 pg/mL Total Protein (6.3-8.2) g/dL Albumin (3.5-5.0) g/dL Lipase (23-300) U/L 03/18/20 Range/Units 16:25 WBC (3.8-10.6) k/uL RBC (4.30-5.90) m/uL Hgb (13.0-17.5) gm/dL Hct (39.0-53.0) % MCV (80.0-100.0) fL MCH (25.0-35.0) pg MCHC (31.0-37.0) g/dL RDW (11.5-15.5) % Plt Count (150-450) k/uL Neutrophils % % Lymphocytes % % Monocytes % % Eosinophils % % Basophils % % Neutrophils # (1.3-7.7) k/uL Lymphocytes # (1.0-4.8) k/uL Monocytes # (0-1.0) k/uL Eosinophils # (0-0.7) k/uL Basophils # (0-0.2) k/uL Hypochromasia PT (9.0-12.0) sec INR (<1.2) APTT (22.0-30.0) sec D-Dimer (<0.60) mg/L FEU Sodium (137-145) mmol/L Potassium (3.5-5.1) mmol/L Chloride (98-107) mmol/L Carbon Dioxide (22-30) mmol/L Anion Gap mmol/L BUN (9-20) mg/dL Creatinine (0.66-1.25) mg/dL Est GFR (CKD-EPI)AfAm (>60 ml/min/1.73 sqM) Est GFR (CKD-EPI)NonAf (>60 ml/min/1.73 sqM) Glucose (74-99) mg/dL Plasma Lactic Acid Dennis (0.7-2.0) mmol/L Calcium (8.4-10.2) mg/dL Total Bilirubin (0.2-1.3) mg/dL AST (17-59) U/L ALT (4-49) U/L Alkaline Phosphatase (38-126) U/L Troponin I (0.000-0.034) ng/mL NT-Pro-B Natriuret Pep pg/mL Total Protein (6.3-8.2) g/dL Albumin (3.5-5.0) g/dL Lipase 43 (23-300) U/L Disposition Is patient prescribed a controlled substance at d/c from ED?: No Time of Disposition: 17:47 Decision to Admit Reason: Admit from EC Decision Date: 03/18/20 Decision Time: 17:47 <Mirta Castañeda - Last Filed: 03/18/20 19:17> Is patient prescribed a controlled substance at d/c from ED?: No <Jagdish Brown - Last Filed: 03/18/20 20:07> Clinical Impression: Dyspnea, Abdominal discomfort, Elevated troponin, Hx of heart failure, Chest pain, Chronic pancreatitis Disposition: ADMITTED IP TO THIS [facility] Condition: Stable Referrals: Denae Chilel MD [Primary Care Provider] - 1-2 days
--- NOTE | 2020-03-18 19:25 | CT ---
EXAMINATION TYPE: CT abdomen pelvis w con DATE OF EXAM: 03/18/2020 COMPARISON: None INDICATION: Abdominal pain and distention. DLP: 1818.5 mGycm, Automated exposure control for dose reduction was used. CONTRAST: 80 mL of Isovue 300. Study performed without Oral Contrast TECHNIQUE: Axial images were obtained from above the diaphragm to the pubic rami in the axial plane a t 5 mm thick sections. Reconstructed images are reviewed on the computer in the coronal plane. FINDINGS: Limited CT sections are obtained the lung bases. The lung bases are clear. Heart size is enlarged. CT ABDOMEN: Liver: There is mild fatty infiltration to the liver. Spleen: Normal Pancreas: Multiple punctate calcifications are within the pancreas compatible with chronic pancreatit is. No pseudocyst formation or abscess formation is evident. Adrenal glands: The adrenal glands are normal. Gallbladder: Normal Kidneys: No masses are evident. No hydronephrosis is present. No cysts are present. Delayed images were obtained through the kidneys, which remain unremarkable. Aorta: Vascular calcification is within the aorta. Inferior vena cava: Normal. CT PELVIS: Loops of bowel within the abdomen and pelvis are normal. There are loops of bowel which are incom pletely distended or lack oral contrast limiting their evaluation. Appendix: Normal as visualized. Urinary bladder: Decompressed. This may account for some apparent wall thickening. Genitourinary structures: Posterior is prominent. Osseous structures: No suspicious lytic or sclerotic lesions. Facet degenerative changes within the l umbar spine. IMPRESSIONS: 1. Chronic pancreatitis. 2. Moderate fatty infiltration liver. 3. Decompressed urinary bladder. Wall thickening cannot be excluded.
[2020-03-18] MEDS ORDERED: MORPHINE SULFATE 4 MG/ML SYRINGE IVP STA (19:32)
[2020-03-18] MEDS ORDERED: SODIUM CHLORIDE 0.9% 500 ML 500 ML IV STA (19:32)
[2020-03-18] MEDS ORDERED: MORPHINE SULFATE 4 MG/ML SYRINGE IVP PRN (19:32)
[2020-03-18] MEDS: SODIUM CHLORIDE 0.9% 1,000 ML IV STA ×2 (20:40→22:25)
[2020-03-18] MEDS ORDERED: INSULIN PUMP BASAL RATES 1 EACH MISC MISCELLANE PRN (23:45)
[2020-03-18] MEDS ORDERED: INSPUCOR MISCELLANE PRN (23:45)
[2020-03-18] MEDS ORDERED: INSULIN ASPART (NovoLOG) 100 UNIT/ML VIAL SQ PRN (23:45)
[2020-03-19] MEDS ORDERED: NON FORMULARY DRUG (Omeprazole [Omeprazole] 20 MG) PO SCH (01:15)
--- NOTE | 2020-03-19 01:21 | P.HPIM ---
History of Present Illness H&P Date: 03/18/20 Chief Complaint: Shortness of breath 64-year-old male with atrial fibrillation status post ablation on Eliquis, systolic CHF with most recent ejection fraction of 10% status post ICD Patient comes in due to progressive shortness of breath over the past couple days he reports that he's been feeling progressively shortness of breath especially with mild activity and sometimes even at rest he denies any orthopnea or paroxysmal maternal dyspnea he uses CPAP or BiPAP at night is not sure of his settings. He hasn't been titrated for many years. He reports that just 2 days ago he had an ablation done at [facility] however today he felt extremely short of breath otherwise denies any dizziness or lightheadedness denies any chest pain denies any palpitations he claims that his took his heartrate and it wasn't extremely elevated he doesn't recall the number. Straight decided to come to the hospital to get evaluated for his shortness of breath which historically has been happening when he has uncontrolled A. fib and that was his concern. EKG in the ED showed trace controlled A. fib with paced rhythm, blood work overall unremarkable showing slightly elevated troponins trending down patient denies any chest pain, patient has CK D. Computed tomography scan of the abdomen showed changes related to possible chronic pancreatitis patient denies any history of pancreas issues. He currently denies any abdominal pain but he reports that for a while now he would feel some discomfort in his epigastric region after eating but this been going on for very long time and has never been concerning to him denies any nausea vomiting denies any GI bleeding. He claims to be compliant with medications. Patient admitted for cardiac evaluation Review of Systems Pertinent positives as noted in HPI. All other systems were reviewed and are negative Past Medical History Past Medical History: Atrial Fibrillation, Heart Failure, Diabetes Mellitus, Hyperlipidemia, Hypertension, Sleep Apnea/CPAP/BIPAP Additional Past Medical History / Comment(s): See Dr Durant's H&P FOR CARDIAC. SOB w/activity, cpap. HX TIA-yrs ago. "BLEEDING IN EYES",gout, Cardiac ablation at [facility] Feb History of Any Multi-Drug Resistant Organisms: None Reported Past Surgical History: Ablation, AICD, Cardiac Ablation, EPS, Heart Catheterizat ion, Orthopedic Surgery, Pacemaker Additional Past Surgical History / Comment(s): Atrial ablation, cardioversion,cervical fusion x 2, knee surg., achilles tendon surg., CATARACT SX. CARDIAC Ablation 05/2014; AICD/PACEMAKER 06/2014, [facility] MODEL. BILAT EYE SX "TO REMOVE BLOOD",blood vessel broke in rt eye and he lost partial vision- short term loss, ablation- cardiac. Pacer/AICD changed Feb Past Anesthesia/Blood Transfusion Reactions: No Reported Reaction Additional Past Anesthesia/Blood Transfusion Reaction / Comment(s): NEVER RECIEVED BLOOD. Type of Cardiac Device: Biventricular Pacemaker, AICD Device Placement Date:: 06/2014 Past Psychological History: No Psychological Hx Reported Additional Psychological History / Comment(s): PT LIVES AT HOME WITH . HE IS NORMALLY ACTIVE. Smoking Status: Never smoker Past Alcohol Use History: Occasional Additional Past Alcohol Use History / Comment(s): PT WILL DRINK BEER ON OCCASION Past Drug Use History: None Reported - Past Family History Father Family Medical History: Coronary Artery Disease (CAD), Diabetes Mellitus, Myocardial Infarction ([place]) Additional Family Medical History / Comment(s): FATHER OF [place] AT AGE 65 YRS. Mother Family Medical History: Diabetes Mellitus Additional Family Medical History / Comment(s): SHE HAS HAD A LEG AMPUTATION Medications and Allergies Home Medications Medication Instructions Recorded Confirmed Type allopurinoL [Zyloprim] 100 mg PO HS 05/02/14 03/18/20 History metFORMIN HCL [Glucophage] 1,000 mg PO DAILY 05/02/14 03/18/20 History Apixaban [Eliquis] 5 mg PO BID 03/18/17 03/18/20 History Metoprolol Succinate [Toprol XL] 50 mg PO BID 03/18/17 03/18/20 History Torsemide [Demadex] 40 mg PO DAILY 03/18/17 03/18/20 History Insulin Aspart (For Pump) [NovoLOG 0.01 unit SQ-PUMP CONTINUOUS 10/31/17 03/18/20 History (For Pump)] Sacubitril/Valsartan [Entresto 49 1 tab PO BID 03/15/19 03/18/20 History mg-51 mg Tablet] Fluvastatin Sodium [Fluvastatin ER] 80 mg PO HS #30 tab.er.24h 03/16/19 03/18/20 Rx Spironolactone [Aldactone] 25 mg PO HS 30 Days #30 tab 03/16/19 03/18/20 Rx Digoxin [Lanoxin] 125 mcg PO DAILY 03/18/20 03/18/20 History L.acidoph,Paracasei, B.lactis 1 cap PO HS 03/18/20 03/18/20 History [Probiotic] Multivitamins, Thera [Multivitamin 1 tab PO DAILY 03/18/20 03/18/20 History (formulary)] Omeprazole 20 mg PO BID 03/18/20 03/18/20 History traMADol HCL 50 mg PO BID PRN 03/18/20 03/18/20 History Allergies Allergy/AdvReac Type Severity Reaction Status Date / Time coconut Allergy sneezing Verified 03/18/20 16:01 coconut oil Allergy sneezing Verified 03/18/20 16:01 Physical Exam Vitals: Vital Signs Temp Pulse Pulse Resp BP BP Pulse Ox 03/18/20 22:25 79 18 115/89 99 03/18/20 21:04 98.2 F 94 18 115/64 97 03/18/20 21:00 88 20 111/67 96 03/18/20 18:45 86 16 101/70 95 03/18/20 18:01 113 H 16 112/76 95 03/18/20 16:34 16 03/18/20 15:56 98.1 F 74 18 104/63 99 Intake and Output 03/18/20 03/18/20 03/19/20 14:59 22:59 06:59 Other: Weight 108.409 kg Constitutional: No acute distress, conversant, pleasant Eyes: Anicteric sclerae, moist conjunctiva, Pupils equal round reactive to light ENMT: NC/AT Oropharynx clear, no erythema, or exudates Neck: Supple, FROM, no masses, or JVD No carotid bruits No thyromegaly Lungs: Clear to auscultation Clear to percussion Normal respiratory effort, no accessory muscle use Cardiovascular: Heart irregular in rate and rhythm, No murmurs, gallops, or rubs No peripheral edema Abdominal: Soft Nontender, no guarding, rebound or rigidity Abdomen moving with respiration Normoactive bowel sounds No hepatomegaly, No splenomegaly No palpable mass No abdominal wall hernia noted Skin: Normal temperature, tone, texture, turgor No induration No subcutaneous nodules No rash, lesions No ulcers Extremities: No digital cyanosis No clubbing Pedal pulses intact and symmetrical Radial pulses intact and symmetrical No calf tenderness Psychiatric: Alert and oriented to person, place and time Appropriate affect fair judgement Neuro Muscles Strength 5/5 in all 4 extremities Sensation to light touch grossly present throughout Cranial nerves II-XII grossly intact No focal sensory deficits Lymphatics: no palpable cervical or supraclavicular , or inguinal lymph nodes Results CBC & Chem 7: 03/18/20 16:25 03/18/20 16:25 Labs: Abnormal Lab Results - Last 24 Hours (Table) 03/18/20 03/18/20 03/18/20 Range/Units 16:25 16:25 16:25 PT 12.1 H (9.0-12.0) sec INR 1.2 H (<1.2) BUN 21 H (9-20) mg/dL Creatinine 1.37 H (0.66-1.25) mg/dL Glucose 100 H (74-99) mg/dL Troponin I 0.045 H* (0.000-0.034) ng/mL 03/18/20 03/18/20 Range/Units 19:51 23:19 PT (9.0-12.0) sec INR (<1.2) BUN (9-20) mg/dL Creatinine (0.66-1.25) mg/dL Glucose (74-99) mg/dL Troponin I 0.041 H* 0.044 H* (0.000-0.034) ng/mL Assessment and Plan Assessment: Progressive shortness of breath possibly related to uncontrolled A. fib Chronic A. 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 fib paced rhythm Resume cardiac meds Cardiology evaluation Chronically elevated troponins trending down possibly related to CK D Incidental finding of chronic pancreatitis with patient reporting occasional epigastric discomfort GI evaluation Lipase is normal Conditions Advanced systolic CHF with ejection fraction of 10% status post ICD currently compensated Hypertension Diabetes mellitus on insulin pump CK D stable CODE STATUS: Full code DVT prophylaxis: On Eliquis Discussed with: Patient, ER, RN Anticipated length of stay less than [address]: Home A total of 75 minutes was spent on the care of this complex patient more than 50% of the time was spent in counseling and care coordination.
[2020-03-19] MEDS: APIXABAN 5 MG TAB PO SCH ×3 (01:59→20:13)
[2020-03-19] MEDS: METOPROLOL SUCCINATE (ER) 50 MG TAB.ER.24H PO SCH ×3 (01:59→20:13)
[2020-03-19] MEDS: SACUBITRIL/VALSARTAN 49 MG-51 MG TABLET PO SCH ×3 (01:59→20:13)
[2020-03-19 07:49] LABS: Cholesterol 133 mg/dL (<200); HDL Cholesterol 26 mg/dL (40-60); LDL Cholesterol,Calculated 93 mg/dL (0-99); Triglycerides 70 mg/dL (<150)
[2020-03-19] MEDS: PANTOPRAZOLE 40 MG/10 ML VIAL IVP SCH (08:18)
[2020-03-19] MEDS: DIGOXIN 125 MCG TAB PO SCH (08:19)
[2020-03-19] MEDS: INSULIN PUMP MEAL BOLUS 1 UNIT MISC MISCELLANE SCH ×4 (08:20→20:21)
[2020-03-19] MEDS ORDERED: ASPIRIN 325 MG TAB PO SCH (09:00)
[2020-03-19] MEDS ORDERED: TORSEMIDE 20 MG TAB PO SCH (09:00)
[2020-03-19] MEDS ORDERED: INSULIN PUMP TARGET GLUCOSE 1 EACH MISC MISCELLANE PRN (12:08)
[2020-03-19] MEDS ORDERED: INSULIN PUMP ACTIVE INSULIN 1 EACH MISC MISCELLANE PRN (12:08)
--- NOTE | 2020-03-19 13:11 | P.CRDCN ---
History of Present Illness Consult date: 03/19/20 History of present illness: CHIEF COMPLAINT: Shortness of breath HISTORY OF PRESENT ILLNESS: 64-year-old male with a history of atrial fibrillation, heart failure, diabetes mellitus, hypertension, hyperlipidemia, and sleep apnea who presented to the emergency room with a chief complaint of shortness of breath. Patient follows in the office with Dr. Durant. Patient states he underwent his 8th cardiac ablation on 03/14/2020 [facility]. Patient also reports a history of a cardioversions. Patient states he has been having shortness of breath that has been worsening in severity over the last couple days. He reports taking an extra dose of his Demadex yesterday without much improvement. He also reports lower extremity edema. He denies any chest pain or pressure. Denies palpitations. DIAGNOSTICS: EKG reveals paced rhythm with PVCs Chest xray no acute pulmonary process. Cardiomegaly Laboratory data: WBC 10.2. Hemoglobin 14.0. Platelet count 210. D-dimer 0.36. Sodium 140. Potassium 4.7. BUN 21. Creatinine 1.37. Lactic acid 1.4. BNP 6780. Troponin 0.045. 0.041. 0.044. Current home cardiac medications include digoxin 125 g daily, Aldactone 25 mg daily, fluvastatin 80 mg daily, Demadex 40 mg daily, and dressed oh one tablet twice a day, Toprol-XL 50 mg twice a day, and Eliquis 5 mg twice a day REVIEW OF SYSTEMS: CONSTITUTIONAL: Denies fever or chills. HEENT: Denies blurred vision, vision changes, or eye pain. Denies hemoptysis CARDIOVASCULAR: Denies chest pain, orthopnea, PND or palpitations RESPIRATORY: Reports shortness of breath. GASTROINTESTINAL: Reports mild abdominal discomfort. Denies nausea or vomiting. HEMATOLOGIC: Denies bleeding disorders. GENITOURINARY: Denies any blood in urine. SKIN: Denies pruitis. Denies rash. PHYSICAL EXAM: VITAL SIGNS: Reviewed. GENERAL: Well-developed in no acute distress. HEENT: Head is normocephalic. Pupils are equal, round. Sclerae anicteric. Mucous membranes of the mouth are moist. Neck supple. No JVD or thyromegaly LUNGS: Respirations even and unlabored. Lungs essentially clear to auscultation bilaterally. HEART: Regular rate and rhythm. S1 and S2 heard. ABDOMEN: Soft. Nontender. EXTREMITIES: Normal range of motion. No clubbing or cyanosis. Peripheral p ulses intact. 2+ bilateral lower extremity edema NEUROLOGIC: Awake and alert. Oriented x 3. ASSESSMENT: Acute exacerbation of chronic systolic heart failure Nonischemic cardiomyopathy, EF 10% History of atrial fibrillation S/P cardiac ablation on 03/14/2020 [facility] History of biventricular ICD Hypertension Hyperlipidemia Diabetes mellitus, utilizing insulin pump Obesity, BMI 35.[address] imaging PLAN: Begin IV lasix 40mg q12. Will increase Demadex dosing at discharge Continue anticoagulation with Eliquis Monitor kidney function Daily weights Accurate I&O Await GI evaluation for chronic pancreatitis Nurse practitioner note has been reviewed by physician. Signing provider agrees with the documented findings, assessment, and plan of care. Past Medical History Past Medical History: Atrial Fibrillation, Heart Failure, Diabetes Mellitus, Hyperlipidemia, Hypertension, Sleep Apnea/CPAP/BIPAP Additional Past Medical History / Comment(s): See Dr Durant's H&P FOR CARDIAC. SOB w/activity, cpap. HX TIA-yrs ago. "BLEEDING IN EYES",gout, Cardiac ablation at [facility] Feb History of Any Multi-Drug Resistant Organisms: None Reported Past Surgical History: Ablation, AICD, Cardiac Ablation, EPS, Heart Catheterization, Orthopedic Surgery, Pacemaker Additional Past Surgical History / Comment(s): Atrial ablation, cardioversion,cervical fusion x 2, knee surg., achilles tendon surg., CATARACT SX. CARDIAC Ablation 05/2014; AICD/PACEMAKER 06/2014, [facility] MODEL. BILAT EYE SX "TO REMOVE BLOOD",blood vessel broke in rt eye and he lost partial vision- short term loss, ablation- cardiac. Pacer/AICD changed Feb Past Anesthesia/Blood Transfusion Reactions: No Reported Reaction Additional Past Anesthesia/Blood Transfusion Reaction / Comment(s): NEVER RECIEVED BLOOD. Type of Cardiac Device: Biventricular Pacemaker, AICD Device Placement Date:: 06/2014 Past Psychological History: No Psychological Hx Reported Additional Psychological History / Comment(s): PT LIVES AT HOME WITH . HE IS NORMALLY ACTIVE. Smoking Status: Never smoker Past Alcohol Use History: Occasional Additional Past Alcohol Use History / Comment(s): PT WILL DRINK BEER ON OCCASION Past Drug Use History: None Reported - Past Family History Father Family Medical History: Coronary Artery Disease (CAD), Diabetes Mellitus, Myocardial Infarction ([place]) Additional Family Medical History / Comment(s): FATHER OF [place] AT AGE 65 YRS. Mother Family Medical History: Diabetes Mellitus Additional Family Medical History / Comment(s): SHE HAS HAD A LEG AMPUTATION Medications and Allergies Home Medications Medication Instructions Recorded Confirmed Type allopurinoL [Zyloprim] 100 mg PO HS 05/02/14 03/18/20 History metFORMIN HCL [Glucophage] 1,000 mg PO DAILY 05/02/14 03/18/20 History Apixaban [Eliquis] 5 mg PO BID 03/18/17 03/18/20 History Metoprolol Succinate [Toprol XL] 50 mg PO BID 03/18/17 03/18/20 History Torsemide [Demadex] 40 mg PO DAILY 03/18/17 03/18/20 History Insulin Aspart (For Pump) [NovoLOG 0.01 unit SQ-PUMP CONTINUOUS 10/31/17 03/18/20 History (For Pump)] Sacubitril/Valsartan [Entresto 49 1 tab PO BID 03/15/19 03/18/20 History mg-51 mg Tablet] Fluvastatin Sodium [Fluvastatin ER] 80 mg PO HS #30 tab.er.24h 03/16/19 03/18/20 Rx Spironolactone [Aldactone] 25 mg PO HS 30 Days #30 tab 03/16/19 03/18/20 Rx Digoxin [Lanoxin] 125 mcg PO DAILY 03/18/20 03/18/20 History L.acidoph,Paracasei, B.lactis 1 cap PO HS 03/18/20 03/18/20 History [Probiotic] Multivitamins, Thera [Multivitamin 1 tab PO DAILY 03/18/20 03/18/20 History (formulary)] Omeprazole 20 mg PO BID 03/18/20 03/18/20 History traMADol HCL 50 mg PO BID PRN 03/18/20 03/18/20 History Allergies Allergy/AdvReac Type Severity Reaction Status Date / Time coconut Allergy sneezing Verified 03/18/20 16:01 coconut oil Allergy sneezing Verified 03/18/20 16:01 Physical Exam Vitals: Vital Signs Temp Pulse Pulse Resp BP BP Pulse Ox 03/19/20 12:31 99 03/19/20 12:00 73 16 111/62 99 03/19/20 08:00 72 16 86/58 96 03/19/20 04:00 78 18 98/56 99 03/19/20 00:00 87 18 108/60 98 03/18/20 22:25 79 18 115/89 99 03/18/20 21:04 98.2 F 94 18 115/64 97 03/18/20 21:00 88 20 111/67 96 03/18/20 18:45 86 16 101/70 95 03/18/20 18:01 113 H 16 112/76 95 03/18/20 16:34 16 03/18/20 15:56 98.1 F 74 18 104/63 99 Intake and Output 03/18/20 03/19/20 03/19/20 22:59 06:59 14:59 Intake Total 480 400 Balance 480 400 Intake: Oral 480 400 Other: Voiding Method Toilet Toilet # Voids 2 1 # Bowel Movements 1 Weight 108.409 kg 108.7 kg Results 03/18/20 16:25 03/18/20 16:25 Cardiac Enzymes 03/18/20 03/18/20 03/18/20 Range/Units 16:25 16:25 19:51 AST 36 (17-59) U/L Troponin I 0.045 H* 0.041 H* (0.000-0.034) ng/mL 03/18/20 Range/Units 23:19 AST (17-59) U/L Troponin I 0.044 H* (0.000-0.034) ng/mL Coagulation 03/18/20 Range/Units 16:25 PT 12.1 H (9.0-12.0) sec APTT 25.0 (22.0-30.0) sec Lipids 03/19/20 Range/Units 06:40 Triglycerides 70 (<150) mg/dL Cholesterol 133 (<200) mg/dL HDL Cholesterol 26 L (40-60) mg/dL CBC 03/18/20 Range/Units 16:25 WBC 10.2 (3.8-10.6) k/uL RBC 5.18 (4.30-5.90) m/uL Hgb 14.0 (13.0-17.5) gm/dL Hct 43.8 (39.0-53.0) % Plt Count 210 (150-450) k/uL Comprehensive Metabolic Panel 03/18/20 Range/Units 16:25 Sodium 140 (137-145) mmol/L Potassium 4.7 (3.5-5.1) mmol/L Chloride 105 (98-107) mmol/L Carbon Dioxide 23 (22-30) mmol/L BUN 21 H (9-20) mg/dL Creatinine 1.37 H (0.66-1.25) mg/dL Glucose 100 H (74-99) mg/dL Calcium 9.5 (8.4-10.2) mg/dL AST 36 (17-59) U/L ALT 17 (4-49) U/L Alkaline Phosphatase 101 (38-126) U/L Total Protein 7.8 (6.3-8.2) g/dL Albumin 4.3 (3.5-5.0) g/dL Current Medications Generic Name Dose Route Start Last Admin Trade Name Freq PRN Reason Stop Dose Admin Allopurinol 100 mg 03/19/20 21:00 Zyloprim PO HS SONY Apixaban 5 mg 03/19/20 01:15 03/19/20 08:24 Eliquis PO 5 mg BID SONY Administration Atorvastatin Calcium 10 mg 03/19/20 21:00 Lipitor PO HS [facility] Digoxin 125 mcg 03/19/20 09:00 03/19/20 08:19 Lanoxin PO 125 mcg DAILY SONY Administration Furosemide 40 mg 03/19/20 21:00 Lasix IV Q12HR [facility] Insulin Aspart 0 unit 03/18/20 23:45 Novolog SQ DAILY PRN Insulin Pump Replacement Metoprolol Succinate 50 mg 03/19/20 01:15 03/19/20 08:24 Toprol Xl PO 50 mg BID SONY Administration Miscellaneous Information 1 each 03/18/20 23:45 Insulin Pump Basal Rates MISCELLANE Q6HR PRN Blood Sugar - High Protocol Miscellaneous Information 0 unit 03/19/20 07:30 03/19/20 08:20 Insulin Pump Meal Bolus MISCELLANE Not Given ACHS [facility] Protocol Miscellaneous Information 0 unit 03/18/20 23:45 Insulin Pump Correction Bolus MISCELLANE ACHS PRN Blood Sugar - High Protocol Miscellaneous Information 1 each 03/19/20 12:08 Insulin Pump Active Insulin MISCELLANE ACHS PRN Blood Sugar - High Protocol Miscellaneous Information 1 each 03/19/20 12:08 Insulin Pump Target Glucose MISCELLANE ACHS PRN Blood Sugar - High Protocol Morphine Sulfate 4 mg 03/18/20 19:32 Morphine Sulfate (Inj) IVP Q4HR PRN Pain Nitroglycerin 0.4 mg 03/18/20 17:27 Nitrostat SUBLINGUAL Q5M PRN Chest Pain Pantoprazole Sodium 40 mg 03/19/20 09:00 03/19/20 08:18 Protonix IVP 40 mg DAILY SONY Administration Sacubitril/Valsartan 1 each 03/19/20 01:15 03/19/20 08:40 Entresto 49 Mg-51 Mg Tablet PO 1 each BID SONY Administration Spironolactone 25 mg 03/19/20 21:00 Aldactone PO HS SONY Intake and Output 03/18/20 03/19/20 03/19/20 22:59 06:59 14:59 Intake Total 480 400 Balance 480 400 Intake: Oral 480 400 Other: Voiding Method Toilet Toilet # Voids 2 1 # Bowel Movements 1 Weight 108.409 kg 108.7 kg 03/18/20 16:25 03/18/20 16:25
[2020-03-19] MEDS: SIMETHICONE 80 MG CHEWABLE PO SCH ×2 (16:52→20:13)
--- NOTE | 2020-03-19 17:57 | P.PN ---
Subjective Progress Note Date: 03/19/20 Patient was seen and examined. No acute events overnight. Patient reports no changes in his breathing since admission. His is at bedside. He denies any chest pain or palpitations. No nausea or vomiting. No fever or chills. Objective - Vital Signs Vital signs: Vital Signs Temp 98.2 F 03/18/20 21:04 Pulse 92 03/19/20 16:00 Resp 16 03/19/20 16:00 BP 95/65 03/19/20 16:00 Pulse Ox 99 03/19/20 16:00 Intake & Output 03/18/20 03/19/20 03/19/20 18:59 06:59 18:59 Intake Total 480 640 Balance 480 640 Weight 107.501 kg 108.7 kg Intake: Oral 480 640 Other: Voiding Method Toilet Toilet # Voids 2 4 # Bowel Movements 1 - Exam General: [non toxic], [no distress], [appears at stated age] Derm: [warm], [dry] Head: [atraumatic], [normocephalic], [symmetric] Eyes: [EOMI], [no lid lag], [anicteric sclera] Mouth: [no lip lesion], [mucus membranes moist] Cardiovascular: [S1S2 reg], [no murmur], [positive DP pulse bilateral], Lungs: [CTA bilateral], [no rhonchi, no rales] , [no accessory muscle use] Abdominal: [soft], [ nontender to palpation], [no guarding], [no appreciable organomegaly] Ext: [no gross muscle atrophy], [1+ pitting bilateral lower extremity edema], [no contractures] Neuro: [no focal neuro deficits] Psych: [Alert], [oriented], [appropriate affect] - Labs CBC & Chem 7: 03/18/20 16:25 03/18/20 16:25 Labs: Abnormal Lab Results - Last 24 Hours (Table) 03/18/20 03/18/20 03/19/20 Range/Units 19:51 23:19 06:40 Troponin I 0.041 H* 0.044 H* (0.000-0.034) ng/mL HDL Cholesterol 26 L (40-60) mg/dL Assessment and Plan Assessment: Systolic CHF exacerbation Atrial fibrillation post ablation and pacemaker on Eliquis Chronic pancreatitis Chronic conditions: Hypertension, dyslipidemia, diabetes mellitus, obesity Patient will be continued on Lasix 40 mg IV twice a day. Strict intake and output takes. Daily weights. Continue digoxin, metoprolol, Aldactone and Entresto. Continue telemetry monitoring. Plans: Management as above. Continue Eliquis for anticoagulation. Plans: Follow GI recommendations. [Patient admitted for shortness of breath. In mild CHF exacerbation. On IV diuresis. He is pending clinical improvement. GI consulted for chronic pancreatitis. Likely DC in 1-2 days.]
[2020-03-19] MEDS: ATORVASTATIN 10 MG TAB PO SCH (20:13)
[2020-03-19] MEDS: SPIRONOLACTONE 25 MG TAB PO SCH (20:13)
[2020-03-19] MEDS: allopurinoL 100 MG TAB PO SCH (20:13)
[2020-03-19] MEDS: FUROSEMIDE 10 MG/ML 4 ML VIAL IV SCH (20:13)
[2020-03-20] MEDS: INSULIN PUMP MEAL BOLUS 1 UNIT MISC MISCELLANE SCH ×3 (06:14→18:04)
[2020-03-20 07:22] LABS: Calcium 9.2 mg/dL (8.4-10.2); Magnesium 2.2 mg/dL (1.6-2.3); Potassium 3.9 mmol/L (3.5-5.1)
[2020-03-20] MEDS: FUROSEMIDE 10 MG/ML 4 ML VIAL IV SCH ×2 (08:16→20:05)
[2020-03-20] MEDS: SACUBITRIL/VALSARTAN 49 MG-51 MG TABLET PO SCH ×2 (08:16→20:06)
[2020-03-20] MEDS: PANTOPRAZOLE 40 MG/10 ML VIAL IVP SCH (08:16)
[2020-03-20] MEDS: APIXABAN 5 MG TAB PO SCH ×2 (08:16→20:05)
[2020-03-20] MEDS: SIMETHICONE 80 MG CHEWABLE PO SCH ×4 (08:16→20:05)
--- NOTE | 2020-03-20 11:33 | P.CONS ---
History of Present Illness - Reason for Consult Consult date: 03/19/20 Abdominal pain, abnormal computed tomography scan abdomen Requesting physician: Lisa Hickman - Chief Complaint Shortness of breath - History of Present Illness 64-year-old male with a medical history significant for systolic CHF status post AICD placement, atrial fibrillation on Eliquis therapy who presented to the hospital with complaints of worsening shortness of breath. Patient reported increasing shortness of breath over the few days prior to presentation. He has a significant cardiac history. He presented for further evaluation. Patient also reported some vague pain in the epigastric region of his abdomen. He felt the anal was related to gas and bloating. The patient denies any significant history of alcohol abuse or any tobacco abuse in the past. No prior history of pancreatitis. No family history of pancreatic abnormalities. Computed ynes graphy scan of the abdomen did show mild fatty infiltration of the liver as well as chronic changes of the pancreas suggestive of chronic pancreatitis. Last colonoscopy per ostomy 10 years ago. Triglycerides on presentation 70 with lipase 30, WBC 10.2, hemoglobin 14, for the counter 10,000, total bilirubin 1.3, alkaline phosphatase 101, AST 36 and ALT 17. Review of Systems REVIEW OF SYSTEMS: CONSTITUTIONAL: Denies any fevers, chills, weight change or fatigue. CARDIOVASCULAR: Denies any chest pain, palpitations high or low blood pressures RESPIRATORY: Denies any cough or hemoptysis but does report shortness of breath. GENITOURINARY: No dysuria or hematuria. MUSCULOSKELETAL: No weakness reported. SKIN: Denies any new rashes or lesions, jaundice or pallor. PSYCHIATRIC: Denies any depression or anxiety. NEUROLOGY: Denies headache, denies any new focal deficits. EARS/NOSE/THROAT: No recent hearing change, congestion, nasal discharge or sore throat. EYES: No pain in eyes, discharge or change in vision. GASTROINTESTINAL: As per HPI. Past Medical History Past Medical History: Atrial Fibrillation, Heart Failure, Diabetes Mellitus, Hyperlipidemia, Hypertension, Sleep Apnea/CPAP/BIPAP Additional Past Medical History / Comment(s): See Dr Durant's H&P FOR CARDIAC. SOB w/activity, cpap. HX TIA-yrs ago. "BLEEDING IN EYES",gout, Cardiac ablation at [facility] Feb History of Any Multi-Drug Resistant Organisms: None Reported Past Surgical History: Ablation, AICD, Cardiac Ablation, EPS, Heart Cath eterization, Orthopedic Surgery, Pacemaker Additional Past Surgical History / Comment(s): Atrial ablation, cardioversion,cervical fusion x 2, knee surg., achilles tendon surg., CATARACT SX. CARDIAC Ablation 05/2014; AICD/PACEMAKER 06/2014, [facility] MODEL. BILAT EYE SX "TO REMOVE BLOOD",blood vessel broke in rt eye and he lost partial vision- short term loss, ablation- cardiac. Pacer/AICD changed Feb Past Anesthesia/Blood Transfusion Reactions: No Reported Reaction Additional Past Anesthesia/Blood Transfusion Reaction / Comm: NEVER RECIEVED BLOOD. Type of Cardiac Device: Biventricular Pacemaker, AICD Device Placement Date:: 06/2014 Past Psychological History: No Psychological Hx Reported Additional Psychological History / Comment(s): PT LIVES AT HOME WITH . HE IS NORMALLY ACTIVE. Smoking Status: Never smoker Past Alcohol Use History: Occasional Additional Past Alcohol Use History / Comment(s): PT WILL DRINK BEER ON OCCASION Past Drug Use History: None Reported - Past Family History Father Family Medical History: Coronary Artery Disease (CAD), Diabetes Mellitus, Myocardial Infarction ([place]) Additional Family Medical History / Comment(s): FATHER OF [place] AT AGE 65 YRS. Mother Family Medical History: Diabetes Mellitus Additional Family Medical History / Comment(s): SHE HAS HAD A LEG AMPUTATION Medications and Allergies Home Medications Medication Instructions Recorded Confirmed Type allopurinoL [Zyloprim] 100 mg PO HS 05/02/14 03/18/20 History metFORMIN HCL [Glucophage] 1,000 mg PO DAILY 05/02/14 03/18/20 History Apixaban [Eliquis] 5 mg PO BID 03/18/17 03/18/20 History Metoprolol Succinate [Toprol XL] 50 mg PO BID 03/18/17 03/18/20 History Torsemide [Demadex] 40 mg PO DAILY 03/18/17 03/18/20 History Insulin Aspart (For Pump) [NovoLOG 0.01 unit SQ-PUMP CONTINUOUS 10/31/17 03/18/20 History (For Pump)] Sacubitril/Valsartan [Entresto 49 1 tab PO BID 03/15/19 03/18/20 History mg-51 mg Tablet] Fluvastatin Sodium [Fluvastatin ER] 80 mg PO HS #30 tab.er.24h 03/16/19 03/18/20 Rx Spironolactone [Aldactone] 25 mg PO HS 30 Days #30 tab 03/16/19 03/18/20 Rx Digoxin [Lanoxin] 125 mcg PO DAILY 03/18/20 03/18/20 History L.acidoph,Paracasei, B.lactis 1 cap PO HS 03/18/20 03/18/20 History [Probiotic] Multivitamins, Thera [Multivitamin 1 tab PO DAILY 03/18/20 03/18/20 History (formulary)] Omeprazole 20 mg PO BID 03/18/20 03/18/20 History traMADol HCL 50 mg PO BID PRN 03/18/20 03/18/20 History Allergies Allergy/AdvReac Type Severity Reaction Status Date / Time coconut Allergy sneezing Verified 03/18/20 16:01 coconut oil Allergy sneezing Verified 03/18/20 16:01 Physical Exam Vitals: Vital Signs Temp Pulse Pulse Resp BP BP Pulse Ox 03/19/20 12:31 99 03/19/20 12:00 73 16 111/62 99 03/19/20 08:00 72 16 86/58 96 03/19/20 04:00 78 18 98/56 99 03/19/20 00:00 87 18 108/60 98 03/18/20 22:25 79 18 115/89 99 03/18/20 21:04 98.2 F 94 18 115/64 97 03/18/20 21:00 88 20 111/67 96 03/18/20 18:45 86 16 101/70 95 03/18/20 18:01 113 H 16 112/76 95 03/18/20 16:34 16 03/18/20 15:56 98.1 F 74 18 104/63 99 Intake and Output 03/18/20 03/19/20 03/19/20 22:59 06:59 14:59 Intake Total 480 640 Balance 480 640 Intake: Oral 480 640 Other: Voiding Method Toilet Toilet # Voids 2 1 # Bowel Movements 1 Weight 108.409 kg 108.7 kg On physical examination, patient appears comfortable in no apparent distress. HEAD: Normocephalic, atraumatic. EYES: No scleral icterus. No conjunctival injection. MOUTH: No lesions, tongue midline. NECK: Trachea midline, no gross abnormalities. CHEST: Clear to auscultation with no wheezing or rhonchi appreciated. HEART: Irregularly irregular. ABDOMEN: Soft, obese. Bowel sounds are positive. No organomegaly. No guarding or rigidity. EXTREMITIES: No pedal edema. SKIN: No rashes, no jaundice. NEUROLOGIC: Alert and oriented x3. No focal deficits. Results CBC & Chem 7: 03/18/20 16:25 03/20/20 06:21 Labs: Abnormal Lab Results - Last 24 Hours (Table) 03/18/20 03/18/20 03/18/20 Range/Units 16:25 16:25 16:25 PT 12.1 H (9.0-12.0) sec INR 1.2 H (<1.2) BUN 21 H (9-20) mg/dL Creatinine 1.37 H (0.66-1.25) mg/dL Glucose 100 H (74-99) mg/dL Troponin I 0.045 H* (0.000-0.034) ng/mL HDL Cholesterol (40-60) mg/dL 03/18/20 03/18/20 03/19/20 Range/Units 19:51 23:19 06:40 PT (9.0-12.0) sec INR (<1.2) BUN (9-20) mg/dL Creatinine (0.66-1.25) mg/dL Glucose (74-99) mg/dL Troponin I 0.041 H* 0.044 H* (0.000-0.034) ng/mL HDL Cholesterol 26 L (40-60) mg/dL CT scan - abdomen: report reviewed (Computed tomography scan of the abdomen with findings of fatty infiltration of the liver as well as findings suggestive of chronic pancreatitis) Assessment and Plan (1) Chronic pancreatitis Narrative/Plan: 64-year-old male who presented to the hospital with shortness of breath, he has a significant history of systolic heart failure and atrial fibrillation. Currently being evaluated by the cardiology service. Patient also reports some vague epigastric discomfort, primarily described as bloating and distention. Computed tomography scan performed in evaluation showed hepatomegaly/fatty infiltration of the liver as well as some changes suggestive of chronic pancreatitis. The patient denies any prior history of pancreatitis, chronic diarrhea, history of alcohol or tobacco abuse. No family history of pancreatic abnormalities. She scan findings appear to be incidental with no sequela of chronic pancreatitis. Extensive discussion with patient about dietary modifications and foods which would cause bloating and distention. Will order laboratory evaluation to rule out autoimmune pancreatitis. Current Visit: Yes Status: Acute Code(s): K86.1 - OTHER CHRONIC PANCREATITIS SNOMED Code(s): 937959376 (2) Abdominal discomfort Current Visit: Yes Status: Acute Code(s): R10.9 - UNSPECIFIED ABDOMINAL PAIN SNOMED Code(s): 62529663 Plan: Supportive care Okay for diet as tolerated Continue cardiology evaluation ABDIEL, IgG subclasses, celiac panel fasting and fecal elastase ordered No plan for endoscopic evaluation at this time Thank you for allowing us to participate in the care of the patient we will continue to follow
[2020-03-20 12:03] LABS: IgG Subclass 3 72.9 mg/dL (11.0-85.0); IgG Subclass 4 22.6 mg/dL (3.0-175.0)
[2020-03-20] MEDS: METOPROLOL SUCCINATE (ER) 50 MG TAB.ER.24H PO SCH ×2 (12:19→20:06)
[2020-03-20] MEDS: DIGOXIN 125 MCG TAB PO SCH (12:19)
--- NOTE | 2020-03-20 12:46 | P.PN ---
Subjective Progress Note Date: 03/20/20 Patient was seen and examined. No acute events overnight. Patient reports Significant improvement in his breathing since admission. Still complains of lower extremity edema. He denies any chest pain or palpitations. No nausea or vomiting. No fever or chills. Objective - Vital Signs Vital signs: Vital Signs Temp 97.2 F L 03/20/20 08:00 Pulse 78 03/20/20 12:00 Resp 16 03/20/20 12:00 BP 97/54 03/20/20 12:00 Pulse Ox 100 03/20/20 12:00 Intake & Output 03/19/20 03/20/20 03/20/20 18:59 06:59 18:59 Intake Total 876 230 Output Total 2400 Balance 876 -2400 230 Weight 107.7 kg Intake: Oral 876 230 Output: Urine 2400 Other: Voiding Method Toilet Toilet Toilet # Voids 2 - Exam General: [non toxic], [no distress], [appears at stated age] Derm: [warm], [dry] Head: [atraumatic], [normocephalic], [symmetric] Eyes: [EOMI], [no lid lag], [anicteric sclera] Mouth: [no lip lesion], [mucus membranes moist] Cardiovascular: [S1S2 irregular], [no murmur], [positive DP pulse bilateral], Lungs: [CTA bilateral], [no rhonchi, no rales] , [no accessory muscle use] Abdominal: [soft], [ nontender to palpation], [no guarding], [no appreciable organomegaly] Ext: [no gross muscle atrophy], [1+ pitting bilateral lower extremity edema], [no contractures] Neuro: [no focal neuro deficits] Psych: [Alert], [oriented], [appropriate affect] - Labs CBC & Chem 7: 03/18/20 16:25 03/20/20 06:21 Labs: Abnormal Lab Results - Last 24 Hours (Table) 03/20/20 Range/Units 06:21 Carbon Dioxide 32 H (22-30) mmol/L BUN 27 H (9-20) mg/dL Creatinine 1.47 H (0.66-1.25) mg/dL Assessment and Plan Assessment: Systolic CHF exacerbation Atrial fibrillation post ablation and pacemaker on Eliquis Chronic pancreatitis Chronic conditions: Hypertension, dyslipidemia, diabetes mellitus, obesity Plans: Patient will be continued on Lasix 40 mg IV twice a day. Strict intake and output takes. Daily weights. Continue digoxin, metoprolol, Aldactone and Entresto. Continue telemetry monitoring. Plans: Management as above. Continue Eliquis for anticoagulation. Plans: ABDIEL, celiac panel, IgG, fecal elastase ordered to rule out autoimmune pancreatitis. Follow GI consultation. [Patient admitted for shortness of breath. In mild CHF exacerbation. Discussed with cardiology ECOTHERAPIST Cassandra Beyer, continue IV diuresis for 1 more day. Anticipated DC home tomorrow.]
--- NOTE | 2020-03-20 12:53 | P.PN ---
Subjective Progress Note Date: 03/20/20 CHIEF COMPLAINT: Shortness of breath HISTORY OF PRESENT ILLNESS: Patient examines were the bedside. Patient denies chest pain. Patient reports his shortness of breath has resolved. He still has lower extremity edema but it is improved from yesterday. Fluid balance of the last 24 hours is -1500 mL. Patient's creatinine today is 1.4. PHYSICAL EXAM: VITAL SIGNS: Reviewed. GENERAL: Well-developed in no acute distress. HEENT: Head is normocephalic. Pupils are equal, round. Sclerae anicteric. Mucous membranes of the mouth are moist. Neck supple. No JVD or thyromegaly LUNGS: Respirations even and unlabored. Lungs essentially clear to auscultation bilaterally. HEART: Regular rate and rhythm. S1 and S2 heard. ABDOMEN: Soft. Nontender. EXTREMITIES: Normal range of motion. No clubbing or cyanosis. Peripheral pulses intact. 2+ bilateral lower extremity edema NEUROLOGIC: Awake and alert. Oriented x 3. ASSESSMENT: Acute exacerbation of chronic systolic heart failure Nonischemic cardiomyopathy, EF 10% History of atrial fibrillation S/P cardiac ablation on 03/14/2020 [facility] History of biventricular ICD Hypertension Hyperlipidemia Diabetes mellitus, utilizing insulin pump Obesity, BMI 35.[address] imaging PLAN: Continue IV Lasix for another 24 hours. We will transition to Demadex 40 mg by mouth twice a day tomorrow Continue anticoagulation with Eliquis Monitor kidney function Daily weights Accurate I&O Nurse practitioner note has been reviewed by physician. Signing provider agrees with the documented findings, assessment, and plan of care. Objective - Vital Signs Vital signs: Vital Signs Temp 97.2 F L 03/20/20 08:00 Pulse 78 03/20/20 12:00 Resp 16 03/20/20 12:00 BP 97/54 03/20/20 12:00 Pulse Ox 100 03/20/20 12:00 Intake & Output 03/19/20 03/20/20 03/20/20 18:59 06:59 18:59 Intake Total 876 230 Output Total 2400 Balance 876 -2400 230 Weight 107.7 kg Intake: Oral 876 230 Output: Urine 2400 Other: Voiding Method Toilet Toilet Toilet # Voids 2 - Labs CBC & Chem 7: 03/18/20 16:25 03/20/20 06:21 Labs: Abnormal Lab Results - Last 24 Hours (Table) 03/20/20 Range/Units 06:21 Carbon Dioxide 32 H (22-30) mmol/L BUN 27 H (9-20) mg/dL Creatinine 1.47 H (0.66-1.25) mg/dL
--- NOTE | 2020-03-20 13:44 | P.PN ---
Subjective Progress Note Date: 03/20/20 Principal diagnosis: Elbow pain, abnormal computed tomography scan abdomen Patient seen and examined at the bedside. Patient states he is feeling much better today. States his breathing is better, his abdominal distention and pain has improved. He has had a bowel movement. Denies any nausea, vomiting, or abdominal pain. Objective - Vital Signs Vital signs: Vital Signs Temp 97.2 F L 03/20/20 08:00 Pulse 78 03/20/20 12:00 Resp 16 03/20/20 12:00 BP 97/54 03/20/20 12:00 Pulse Ox 100 03/20/20 12:00 Intake & Output 03/19/20 03/20/20 03/20/20 18:59 06:59 18:59 Intake Total 876 230 Output Total 2400 Balance 876 -2400 230 Weight 107.7 kg Intake: Oral 876 230 Output: Urine 2400 Other: Voiding Method Toilet Toilet Toilet # Voids 2 - Exam General appearance: The patient is alert, oriented, in no acute distress. HET: Head is normocephalic and atraumatic. Conjunctiva pink. Sclerae anicteric. Neck: Supple without lymphadenopathy. Trachea midline. Heart: S1 S2. Regular rate and rhythm. Lungs: No crackles or wheezes are heard, to auscultation. Abdomen: Soft, nontender, nondistended with bowel sounds. Obese. No guarding or rigidity Extremities: Normal skin color and turgor. No edema to bilateral lower extremities. Neurological: No focal deficits. Alert and oriented 3. - Labs CBC & Chem 7: 03/18/20 16:25 03/20/20 06:21 Labs: Abnormal Lab Results - Last 24 Hours (Table) 03/20/20 Range/Units 06:21 Carbon Dioxide 32 H (22-30) mmol/L BUN 27 H (9-20) mg/dL Creatinine 1.47 H (0.66-1.25) mg/dL Assessment and Plan Assessment: (1) Chronic pancreatitis Narrative/Plan: 64-year-old male who presented to the hospital with shortness of breath, he has a significant history of systolic heart failure and atrial fibrillation. Currently being evaluated by the cardiology service. Patient also reports some vague epigastric discomfort, primarily described as bloating and distention. Computed tomography scan performed in evaluation showed hepatomegaly/fatty infiltration of the liver as well as some changes suggestive of chronic pancreatitis. The patient denies any prior history of pancreatitis, chronic diarrhea, history of alcohol or tobacco abuse. No family history of pancreatic abnormalities. She scan findings appear to be incidental with no sequela of chronic pancreatitis. Extensive discussion with patient about dietary modifications and foods which would cause bloating and distention. Will order laboratory evaluation to rule out autoimmune pancreatitis. Current Visit: Yes Status: Acute Code(s): K86.1 - OTHER CHRONIC PANCREATITIS SNOMED Code(s): 710423797 (2) Abdominal discomfort Current Visit: Yes Status: Acute Code(s): R10.9 - UNSPECIFIED ABDOMINAL PAIN SNOMED Code(s): 16213171 Plan: Supportive care Okay for diet as tolerated Simethicone 80 mg QID ordered Continue cardiology evaluation ABDIEL, IgG subclasses, celiac panel fasting and fecal elastase ordered, results pending No plan for endoscopic evaluation at this time Thank you for allowing us to participate in the care of the patient we will continue to follow The impression and plan of care has been dictated as directed. I performed a history and examination of this patient, discussed the same with the dictator. I agree with the dictator's note ,documented as a scribe. Any ad ditional findings or plans will be noted.
[2020-03-20 15:53] LABS: Gliadin AB IgA, Deaminated NEGATIVE (NEGATIVE); Gliadin AB IgA, Unit <0.2 U/mL; Gliadin AB IgG, Deaminated NEGATIVE (NEGATIVE)
[2020-03-20] MEDS: allopurinoL 100 MG TAB PO SCH (20:05)
[2020-03-20] MEDS: ATORVASTATIN 10 MG TAB PO SCH (20:05)
[2020-03-20] MEDS: SPIRONOLACTONE 25 MG TAB PO SCH (20:05)
[2020-03-21] MEDS: INSULIN PUMP MEAL BOLUS 1 UNIT MISC MISCELLANE SCH (00:53)
[2020-03-21 06:50] LABS: Calcium 8.9 mg/dL (8.4-10.2); Potassium 3.9 mmol/L (3.5-5.1)
[2020-03-21] MEDS: PANTOPRAZOLE 40 MG/10 ML VIAL IVP SCH (08:20)
[2020-03-21] MEDS: SACUBITRIL/VALSARTAN 49 MG-51 MG TABLET PO SCH (08:20)
[2020-03-21] MEDS: SIMETHICONE 80 MG CHEWABLE PO SCH (08:20)
[2020-03-21] MEDS: METOPROLOL SUCCINATE (ER) 50 MG TAB.ER.24H PO SCH (08:20)
[2020-03-21] MEDS: APIXABAN 5 MG TAB PO SCH (08:20)
[2020-03-21] MEDS: FUROSEMIDE 10 MG/ML 4 ML VIAL IV SCH (08:20)
[2020-03-21] MEDS: DIGOXIN 125 MCG TAB PO SCH (08:20)
[2020-03-21 08:29] VITALS: BP 94/57; PULSE 77; RESP 16; TEMP 96.5
--- NOTE | 2020-03-21 10:12 | P.PN ---
Subjective Progress Note Date: 03/21/20 Principal diagnosis: Elbow pain, abnormal computed tomography scan abdomen Should seen and examined at the bedside, he denies any acute distress through the night. He states his abdominal pain is improved, and no longer has any discomfort. He's had a normal bowel movement. He denies any nausea or vomiting. Gas pains have subsided as well. IgG4 and ABDIEL were negative. Stool pending Objective - Vital Signs Vital signs: Vital Signs Temp 96.5 F L 03/21/20 08:00 Pulse 77 03/21/20 08:00 Resp 16 03/21/20 08:00 BP 94/57 03/21/20 08:00 Pulse Ox 97 03/21/20 08:00 Intake & Output 03/20/20 03/21/20 03/21/20 18:59 06:59 18:59 Intake Total 430 Output Total 1500 2950 Balance -1070 -2950 Weight 108 kg Intake: Oral 430 Output: Urine 1500 2950 Other: Voiding Method Toilet Toilet Toilet # Voids 3 # Bowel Movements 1 - Exam General appearance: The patient is alert, oriented, in no acute distress. HET: Head is normocephalic and atraumatic. Conjunctiva pink. Sclerae anicteric. Neck: Supple without lymphadenopathy. Trachea midline. Heart: S1 S2. Regular rate and rhythm. Lungs: No crackles or wheezes are heard, to auscultation. Abdomen: Soft, nontender, nondistended with bowel sounds. Obese. No guarding or rigidity Extremities: Normal skin color and turgor. No edema to bilateral lower extremities. Neurological: No focal deficits. Alert and oriented 3. - Labs CBC & Chem 7: 03/18/20 16:25 03/21/20 05:49 Labs: Abnormal Lab Results - Last 24 Hours (Table) 03/21/20 Range/Units 05:49 BUN 29 H (9-20) mg/dL Creatinine 1.39 H (0.66-1.25) mg/dL Glucose 151 H (74-99) mg/dL Assessment and Plan Assessment: (1) Chronic pancreatitis Narrative/Plan: 64-year-old male who presented to the hospital with shortness of breath, he has a significant history of systolic heart failure and atrial fibrillation. Currently being evaluated by the cardiology service. Patient also reports some vague epigastric discomfort, primarily described as bloating and distention. Computed tomography scan performed in evaluation showed hepatomegaly/fatty infiltration of the liver as well as some changes suggestive of chronic pancreatitis. The patient denies any prior history of pancreatitis, chronic diarrhea, history of alcohol or tobacco abuse. No family history of pancreatic abnormalities. She scan findings appear to be incidental with no sequela of chronic pancreatitis. Extensive discussion with patient about dietary modifications and foods which would cause bloating and distention. Will order laboratory evaluation to rule out autoimmune pancreatitis. Current Visit: Yes Status: Acute Code(s): K86.1 - OTHER CHRONIC PANCREATITIS SNOMED Code(s): 614522629 (2) Abdominal discomfort Current Visit: Yes Status: Acute Code(s): R10.9 - UNSPECIFIED ABDOMINAL PAIN SNOMED Code(s): 79978161 Plan: Supportive care Okay for diet as tolerated Simethicone 80 mg QID ordered Continue cardiology evaluation ABDIEL, IgG subclasses, and celiac panel negative, fecal elastase ordered, results pending No plan for endoscopic evaluation at this time He may follow up in our office as needed Thank you for allowing us to participate in the care of the patient, we will sign off at this time. The impression and plan of care has been dictated as directed. I performed a history and examination of this patient, discussed the same with the dictator. I agree with the dictator's note ,documented as a scribe. Any additional findings or plans will be noted.
--- NOTE | 2020-03-21 12:45 | P.PN ---
Subjective Progress Note Date: 03/21/20 CHIEF COMPLAINT: Shortness of breath HISTORY OF PRESENT ILLNESS: Patient examines were the bedside. Patient denies chest pain. Denies shortness of breath. Lower extremity edema is improving. Creatinine 1.39 today. PHYSICAL EXAM: VITAL SIGNS: Reviewed. GENERAL: Well-developed in no acute distress. HEENT: Head is normocephalic. Pupils are equal, round. Sclerae anicteric. Mucous membranes of the mouth are moist. Neck supple. No JVD or thyromegaly LUNGS: Respirations even and unlabored. Lungs essentially clear to auscultation bilaterally. HEART: Regular rate and rhythm. S1 and S2 heard. ABDOMEN: Soft. Nontender. EXTREMITIES: Normal range of motion. No clubbing or cyanosis. Peripheral pulses intact. 1-2+ bilateral lower extremity edema NEUROLOGIC: Awake and alert. Oriented x 3. ASSESSMENT: Acute exacerbation of chronic systolic heart failure Nonischemic cardiomyopathy, EF 10% History of atrial fibrillation S/P cardiac ablation on 03/14/2020 [facility] History of biventricular ICD Hypertension Hyperlipidemia Diabetes mellitus, utilizing insulin pump Obesity, BMI 35.[address] imaging PLAN: Discontinue IV Lasix. Transition to Demadex 40 mg by mouth twice a day Stable for discharge home today from a cardiac standpoint. Will defer to in ternal medicine. Patient to follow up outpatient with Dr. Durant Nurse practitioner note has been reviewed by physician. Signing provider agrees with the documented findings, assessment, and plan of care. Objective - Vital Signs Vital signs: Vital Signs Temp 96.5 F L 03/21/20 08:00 Pulse 77 03/21/20 08:00 Resp 16 03/21/20 08:00 BP 94/57 03/21/20 08:00 Pulse Ox 97 03/21/20 08:00 Intake & Output 03/20/20 03/21/20 03/21/20 18:59 06:59 18:59 Intake Total 430 Output Total 1500 2950 Balance -1070 -2950 Weight 108 kg Intake: Oral 430 Output: Urine 1500 2950 Other: Voiding Method Toilet Toilet Toilet # Voids 3 # Bowel Movements 1 - Labs CBC & Chem 7: 03/18/20 16:25 03/21/20 05:49 Labs: Abnormal Lab Results - Last 24 Hours (Table) 03/21/20 Range/Units 05:49 BUN 29 H (9-20) mg/dL Creatinine 1.39 H (0.66-1.25) mg/dL Glucose 151 H (74-99) mg/dL
--- NOTE | 2020-03-21 15:53 | P.PN ---
Subjective Progress Note Date: 03/21/20 Patient was seen and examined. No acute events overnight. Patient reports Significant improvement in his breathing since admission. Lower extremity edema improved. He denies any chest pain or palpitations. No nausea or vomiting. No fever or chills. Objective - Vital Signs Vital signs: Vital Signs Temp 96.5 F L 03/21/20 08:00 Pulse 77 03/21/20 08:00 Resp 16 03/21/20 08:00 BP 94/57 03/21/20 08:00 Pulse Ox 97 03/21/20 08:00 Intake & Output 03/20/20 03/21/20 03/21/20 18:59 06:59 18:59 Intake Total 430 Output Total 1500 2950 Balance -1070 -2950 Weight 108 kg Intake: Oral 430 Output: Urine 1500 2950 Other: Voiding Method Toilet Toilet Toilet # Voids 3 # Bowel Movements 1 - Exam General: [non toxic], [no distress], [appears at stated age] Derm: [warm], [dry] Head: [atraumatic], [normocephalic], [symmetric] Eyes: [EOMI], [no lid lag], [anicteric sclera] Mouth: [no lip lesion], [mucus membranes moist] Cardiovascular: [S1S2 irregular], [no murmur], [positive DP pulse bilateral], Lungs: [CTA bilateral], [no rhonchi, no rales] , [no accessory muscle use] Abdominal: [soft], [ nontender to palpation], [no guarding], [no appreciable organomegaly] Ext: [no gross muscle atrophy], [1+ pitting bilateral lower extremity edema], [no contractures] Neuro: [no focal neuro deficits] Psych: [Alert], [oriented], [appropriate affect] - Labs CBC & Chem 7: 03/18/20 16:25 03/21/20 05:49 Labs: Abnormal Lab Results - Last 24 Hours (Table) 03/21/20 Range/Units 05:49 BUN 29 H (9-20) mg/dL Creatinine 1.39 H (0.66-1.25) mg/dL Glucose 151 H (74-99) mg/dL Assessment and Plan Assessment: Systolic CHF exacerbation Atrial fibrillation post ablation and pacemaker on Eliquis Chronic pancreatitis Chronic conditions: Hypertension, dyslipidemia, diabetes mellitus, obesity Plans: Patient will be transitioned to torsemide 40 mg by mouth twice a day. Strict intake and output takes. Daily weights. Continue digoxin, metoprolol, Aldactone and Entresto. Continue telemetry monitoring. Plans: Management as above. Continue Eliquis for anticoagulation. Plans: ABDIEL, celiac panel, IgG, fecal elastase ordered to rule out autoimmune pancreatitis. Follow GI consultation. [Patient admitted for shortness of breath. In mild CHF exacerbation. Discussed with cardiology FINANCIAL SECRETARY Cassandra Beyer, cleared for discharge. Anticipated DC home today. Follow-up appointment at heart failure clinic with [facility] made for patient. This complex discharge took about 35 minutes to complete.]
--- NOTE | 2020-03-24 10:33 | CDI ---
Documentation Clarification Form Date: 03/24/20 From: Gabby Patrick CCS Phone: If you have a question about this query, please contact Diane Wilhelm, Pre Sales Architect at [phone] between 8am and 5pm. Admit Date: 03/20/20 Discharge Date: 03/21/20 Patient Name: Caden Li Visit Number: [id number] ATTENTION: The Clinical Documentation Specialists (CDI) and [facility] Coding Staff appreciate your assistance in clarifying documentation. Please respond to the clarification below the line at the bottom and electronically sign. The CDI & [facility] Coding staff will review the response and follow-up if needed. Please note: Queries are made part of the Legal Health Record. If you have any questions, please contact the author of this message via ITS. Dear Dr. Durant, Atrial Fibrillation is documented in the ED, H&P, Consult, PNs. H&P documents: 64-year-old male with atrial fibrillation status post ablation on Eliquis, systolic CHF with most recent ejection fraction of 10% status post ICD History/Risk Factors: HTN, CHF, Fatty Liver, DM, AICD Clinical Indicators: AFIB EKG/telemetry: Ventricular-paced rhythm with frequent PVC Treatment: Eliquis 5 mg PO BID In your professional opinion, can you please clarify the type of Atrial Fibrillation, if known? Chronic/Permanent Paroxysmal Persistent Other, please specify Unable to determine MTDD
--- NOTE | 2020-03-26 08:15 | CDI ---
Documentation Clarification Form Date: 03/26/20 From: Gabby Patrick CCS Phone: If you have a question about this query, please contact Diane Wilhelm, Seismology Technical Officer at [phone] between 8am and 5pm. Admit Date: 03/20/20 Discharge Date: 03/21/20 Patient Name: Caden Li Visit Number: [id number] ATTENTION: The Clinical Documentation Specialists (CDI) and [facility] Coding Staff appreciate your assistance in clarifying documentation. Please respond to the clarification below the line at the bottom and electronically sign. The CDI & [facility] Coding staff will review the response and follow-up if needed. Please note: Queries are made part of the Legal Health Record. If you have any questions, please contact the author of this message via ITS. Dear Dr. Durant, Atrial Fibrillation is documented in the ED, H&P, Consult, PNs. H&P documents: 64-year-old male with atrial fibrillation status post ablation on Eliquis, systolic CHF with most recent ejection fraction of 10% status post ICD History/Risk Factors: HTN, CHF, Fatty Liver, DM, AICD Clinical Indicators: AFIB EKG/telemetry: Ventricular-paced rhythm with frequent PVC Treatment: Eliquis 5 mg PO BID In your professional opinion, can you please clarify the type of Atrial Fibrillation, if known? Chronic/Permanent Paroxysmal Persistent Other, please specify Unable to determine Persistent atrial fibrillation MTDD
--- NOTE | 2020-03-31 12:23 | P.DS ---
Providers Date of admission: 03/20/20 15:03 Expected date of discharge: 03/26/20 Attending physician: Josette Gordon DO Consults: 03/18/20 17:27 Consult Physician Urgent Consulting Provider: Efrain Durant Consult Reason/Comments: SOB--elevated troponin, on eliquis Do you want consulting provider notified?: Yes 03/19/20 01:40 Consult Physician Routine Consulting Provider: Lucas Batista Consult Reason/Comments: chonic pancreatitis on CT Do you want consulting provider notified?: Yes, Notify in am [facility] Course: 64-year-old male with PMH of atrial fibrillation on Eliquis, systolic CHF with EF of 10% status post AICD presented to the ED for progressive shortness of breath and lower extremity edema. He was admitted for systolic CHF exacerbation. CT abdomen and pelvis was done which showed chronic pancreatitis, moderate fatty infiltration of the liver. He was started on Lasix 40 mg IV twice a day. Cardiology was consulted and followed the patient during his hospitalization. GI was consulted for incidental finding of chronic pancreatitis seen on CT and workup was ordered including ABDIEL, celiac panel, IgG, fecal elastase to rule out autoimmune pancreatitis. Patient progressively improved with IV diuresis. Cardiology recommended torsemide 40 mg by mouth twice a day on discharge. He was discharged home with cardiology follow-up at [facility]. This complex discharge took about 35 minutes to complete. Discharge diagnoses: Systolic CHF exacerbation Atrial fibrillation post ablation and pacemaker on Eliquis Chronic pancreatitis Chronic conditions: Hypertension, dyslipidemia, diabetes mellitus, obesity Plans: Patient will be transitioned to torsemide 40 mg by mouth twice a day. Strict intake and output takes. Daily weights. Continue digoxin, metoprolol, Aldactone and Entresto. Continue telemetry monitoring. Plans: Management as above. Continue Eliquis for anticoagulation. Plans: ABDIEL, celiac panel, IgG, fecal elastase ordered to rule out autoimmune pancreatitis. Follow GI consultation. Pertinent Studies: Chest x-ray, CT abdomen and pelvis Patient Condition at Discharge: Stable Plan - Discharge Summary Discharge Rx Participant: No New Discharge Prescriptions: New Simethicone Chew [Mylicon Chew] 80 mg PO QID #100 chew Continue allopurinoL [Zyloprim] 100 mg PO HS Apixaban [Eliquis] 5 mg PO BID Metoprolol Succinate [Toprol XL] 50 mg PO BID Insulin Aspart (For Pump) [NovoLOG (For Pump)] 0.01 unit SQ-PUMP CONTINUOUS Sacubitril/Valsartan [Entresto 49 mg-51 mg Tablet] 1 tab PO BID Spironolactone [Aldactone] 25 mg PO HS 30 Days #30 tab Fluvastatin Sodium [Fluvastatin ER] 80 mg PO HS #30 tab.er.24h traMADol HCL 50 mg PO BID PRN PRN Reason: Pain L.acidoph,Paracasei, B.lactis [Probiotic] 1 cap PO HS Digoxin [Lanoxin] 125 mcg PO DAILY Multivitamins, Thera [Multivitamin (formulary)] 1 tab PO DAILY Omeprazole 20 mg PO BID Changed Torsemide [Demadex] 40 mg PO BID #120 tab Discontinued metFORMIN HCL [Glucophage] 1,000 mg PO DAILY Discharge Medication List allopurinoL [Zyloprim] 100 mg PO HS 05/02/14 [History] Apixaban [Eliquis] 5 mg PO BID 03/18/17 [History] Metoprolol Succinate [Toprol XL] 50 mg PO BID 03/18/17 [History] Insulin Aspart (For Pump) [NovoLOG (For Pump)] 0.01 unit SQ-PUMP CONTINUOUS 10/10 09/25 [History] Sacubitril/Valsartan [Entresto 49 mg-51 mg Tablet] 1 tab PO BID 03/15/19 [History] Fluvastatin Sodium [Fluvastatin ER] 80 mg PO HS #30 tab.er.24h 03/16/19 [Rx] Spironolactone [Aldactone] 25 mg PO HS 30 Days #30 tab 03/16/19 [Rx] Digoxin [Lanoxin] 125 mcg PO DAILY 03/18/20 [History] L.acidoph,Paracasei, B.lactis [Probiotic] 1 cap PO HS 03/18/20 [History] Multivitamins, Thera [Multivitamin (formulary)] 1 tab PO DAILY 03/18/20 [History] Omeprazole 20 mg PO BID 03/18/20 [History] traMADol HCL 50 mg PO BID PRN 03/18/20 [History] Simethicone Chew [Mylicon Chew] 80 mg PO QID #100 chew 03/21/20 [Rx] Torsemide [Demadex] 40 mg PO BID #120 tab 03/21/20 [Rx] Follow up Appointment(s)/Referral(s): Efrain Durant MD [STAFF PHYSICIAN] - 04/01/20 9:30 am Denae Chilel MD [Primary Care Provider] - 03/27/20 10:00 am Lupe Levi MD [STAFF PHYSICIAN] - 04/11/20 1:00 pm (sleep study and titration ) Lucas Batista MD [STAFF PHYSICIAN] - As Needed Ambulatory/Diagnostic Orders: Ambulatory Miscellaneous Order [MISC.AMB] Location: None Selected Activity/Diet/Wound Care/Special Instructions: [facility] [id number], [place], [place] [phone] 03-26-2020 09:30 Marizol STOKES ( with Dr Sofia) Follow-up PCP within 3 days of discharge. Follow-up with cardiology within 1 week of discharge. Follow up with pulmonology within 1 week of discharge. Follow-up which are within 1 week of discharge. Take all Medications as advised. Call 911 or come to the ED for worsening chest pain, shortness breath, palpitations or dizziness. Discharge Disposition: HOME SELF-CARE
== END 2020-03-21 12:41 | disposition home or self-care (01) | DRG 292 ==
LOC: EC 15:54 → 3SCARD 17:10 → OBSVTOIN 03-20 15:03
PROVIDERS: ADMIT Internal Medicine; ATTEND Internal Medicine
DX: I11.0 Hypertensive heart disease with heart failure (principal); K86.1 Other chronic pancreatitis; I48.19 Other persistent atrial fibrillation; I42.8 Other cardiomyopathies; K76.0 Fatty (change of) liver, not elsewhere classified; Z79.01 Long term (current) use of anticoagulants; I48.91 Unspecified atrial fibrillation; I50.23 Acute on chronic systolic (congestive) heart failure; E66.9 Obesity, unspecified; E11.9 Type 2 diabetes mellitus without complications; Z79.4 Long term (current) use of insulin; G47.33 Obstructive sleep apnea (adult) (pediatric); E78.5 Hyperlipidemia, unspecified; R79.89 Other specified abnormal findings of blood chemistry; M25.529 Pain in unspecified elbow; M10.9 Gout, unspecified; Z68.35 Body mass index [BMI] 35.0-35.9, adult; Z79.899 Other long term (current) drug therapy; Z96.41 Presence of insulin pump (external) (internal); Z86.73 Personal history of transient ischemic attack (TIA), and cerebral infarction without residual deficits; Z95.810 Presence of automatic (implantable) cardiac defibrillator; Z98.1 Arthrodesis status; Z98.890 Other specified postprocedural states; Z98.49 Cataract extraction status, unspecified eye; Z87.891 Personal history of nicotine dependence; Z91.018 Allergy to other foods; Z83.3 Family history of diabetes mellitus; Z82.49 Family history of ischemic heart disease and other diseases of the circulatory system
CPT/HCPCS: 36415; 71046; 74177; 80048; 80053; 80061; 82656; 82787; 83516; 83605; 83690; 83735; 83880; 84484; 85025; 85379; 85610; 85730; 86038; 93005; 96360; 96361; 99285

== ENCOUNTER 2020-03-27 12:50 | Inpatient (IN) | payer MEDICARE, BC ==
--- NOTE | 2020-03-27 12:48 | CT ---
EXAMINATION TYPE: CT brain wo con DATE OF EXAM: 03/27/2020 COMPARISON: 02/24/2011 HISTORY: Acute vision changes CT DLP: 1072.3 mGycm Automated exposure control for dose reduction was used. FINDINGS: There is a 1.7 cm extra-axial mass along the right parietal convexity most typical of a meningioma sl ightly larger than the prior exam. No midline shift. Area of low attenuation involving the left front al lobe suggestive of remote ischemic change and stable from prior exam. There is moderate generalized degenerative change. Intracranial atherosclerotic changes seen there is faint periventricular low attenuation which is nonspecific but most typical remote microvascular isc hemia. On axial image #25 there is hyperdensity seen likely is within the sulcus may represent an area of marshall barachnoid hemorrhage. Intraparenchymal hemorrhage not excluded. Recommend MRI there appears to be an area of low attenuation region.. Calvarium intact. Additionally there is hyperdensity within the lef t occipital lobe corresponding to area of previous hemorrhage may represent an area of dystrophic lainey cification although a tiny area of additional petechial hemorrhage not excluded. Referring physician notified by telephone. IMPRESSION: 1. Linear area of hypodensity in the right occipital lobe measuring 1.5 x 0.2 cm. Hemorrhagic infarct in the differential diagnosis. Subarachnoid component a consideration. Recommend follow-up MRI. Katherine ent is sent to the ER.Additionally there is hyperdensity within the left occipital lobe corresponding to area of previous hemorrhage may represent an area of dystrophic calcification although a tiny are a of additional petechial hemorrhage not excluded. 2. Degenerative and nonspecific white matter changes most typical remote ischemia. 3. Extra-axial mass involving the right cerebral hemisphere most likely related to a meningioma and c ould be correlated with MRI. Does appear to be slightly larger than on the prior exam.
--- NOTE | 2020-03-27 13:29 | ED ---
General Adult HPI - General Chief complaint: Neuro Symptoms/Deficit Stated complaint: brain bleed, from CT Time Seen by Provider: 03/27/20 12:55 Source: patient, RN notes reviewed, old records reviewed Mode of arrival: ambulatory Limitations: no limitations - History of Present Illness Initial comments: Is a 64-year-old male who presents emergency department with past medical history significant for atrial fibrillation for ablation with multiple ablat ions. Patient also had a history of congestive heart failure when he flipped back into atrial fibrillation. Patient also has a history of a previous stroke. Patient was having some issues with his vision where he did not feel like both eyes were having difficulty focusing at the same time however he shouldn't visualize seem to be having normal vision. Patient denies any headache. Patient had an outpatient CT done today and I was called and told that the patient appears to have infarct. Patient has no numbness or weakness. Patient has no issues walking. Patient states the symptoms with the patient started 8:00 this morning. - Related Data Home Medications Medication Instructions Recorded Confirmed allopurinoL [Zyloprim] 100 mg PO HS 05/02/14 03/27/20 Apixaban [Eliquis] 5 mg PO BID 03/18/17 03/27/20 Metoprolol Succinate [Toprol XL] 50 mg PO BID 03/18/17 03/27/20 Insulin Aspart (For Pump) [NovoLOG 0.01 unit SQ-PUMP CONTINUOUS 10/31/1703/11 (For Pump)] Sacubitril/Valsartan [Entresto 49 1 tab PO BID 03/15/19 03/27/20 mg-51 mg Tablet] Digoxin [Lanoxin] 125 mcg PO DAILY 03/18/20 03/27/20 L.acidoph,Paracasei, B.lactis 1 cap PO HS 03/18/20 03/27/20 [Probiotic] Multivitamins, Thera [Multivitamin 1 tab PO DAILY 03/18/20 03/27/20 (formulary)] Omeprazole 20 mg PO BID 03/18/20 03/27/20 traMADol HCL 50 mg PO BID PRN 03/18/20 03/27/20 Previous Rx's Medication Instructions Recorded Fluvastatin Sodium [Fluvastatin ER] 80 mg PO HS #30 tab.er.24h 03/16/19 Spironolactone [Aldactone] 25 mg PO HS 30 Days #30 tab 03/16/19 Simethicone Chew [Mylicon Chew] 80 mg PO QID #100 chew 03/21/20 Torsemide [Demadex] 40 mg PO BID #120 tab 03/21/20 Allergies Allergy/AdvReac Type Severity Reaction Status Date / Time coconut AdvReac sneezing Verified 03/27/20 13:20 coconut oil AdvReac sneezing Verified 03/27/20 13:20 Review of Systems ROS Statement: Those systems with pertinent positive or pertinent negative responses have been documented in the HPI. ROS Other: All systems not noted in ROS Statement are negative. Past Medical History Past Medical History: Atrial Fibrillation, Heart Failure, Diabetes Mellitus, Hyperlipidemia, Hypertension, Sleep Apnea/CPAP/BIPAP Additional Past Medical History / Comment(s): See Dr Durant's H&P FOR CARDIAC. SOB w/activity, cpap. HX TIA-yrs ago. "BLEEDING IN EYES",gout, Cardiac ablation at [facility] Feb History of Any Multi-Drug Resistant Organisms: None Reported Past Surgical History: Ablation, AICD, Cardiac Ablation, EPS, Heart Catheterization, Orthopedic Surgery, Pacemaker Additional Past Surgical History / Comment(s): Atrial ablation, cardioversion,cervical fusion x 2, knee surg., achilles tendon surg., CATARACT SX. CARDIAC Ablation 05/2014; AICD/PACEMAKER 06/2014, [facility] [employer] MODEL. BILAT EYE SX "TO REMOVE BLOOD",blood vessel broke in rt eye and he lost partial vision-short term loss, ablation- cardiac. Pacer/AICD changed Feb Past Anesthesia/Blood Transfusion Reactions: No Reported Reaction Additional Past Anesthesia/Blood Transfusion Reaction / Comment(s): NEVER RECIEVED BLOOD. Type of Cardiac Device: Biventricular Pacemaker, AICD Device Placement Date:: 06/2014 Past Psychological History: No Psychological Hx Reported Smoking Status: Never smoker Past Alcohol Use History: Occasional Past Drug Use History: None Reported - Past Family History Father Family Medical History: Coronary Artery Disease (CAD), Diabetes Mellitus, Myocardial Infarction ([place]) Additional Family Medical History / Comment(s): FATHER OF [place] AT AGE 65 YRS. Mother Family Medical History: Diabetes Mellitus Additional Family Medical History / Comment(s): SHE HAS HAD A LEG AMPUTATION General Exam - General Exam Comments Initial Comments: GENERAL: Patient is well-developed and well-nourished. Patient is nontoxic and well- hydrated and is in mild distress. ENT: Neck is soft and supple. No significant lymphadenopathy is noted. Oropharynx is clear. Moist mucous membranes. Neck has full range of motion without eliciting any pain. EYES: The sclera were anicteric and conjunctiva were pink and moist. Extraocular movements were intact and pupils were equal round and reactive to light. Eyelids were unremarkable. PULMONARY: Unlabored respirations. Good breath sounds bilaterally. No audible rales rhonchi or wheezing was noted. CARDIOVASCULAR: There is a regular rate and rhythm without any murmurs gallops or rubs. ABDOMEN: Soft and nontender with normal bowel sounds. SKIN: Skin is clear with no lesions or rashes and otherwise unremarkable. NEUROLOGIC: Patient is alert and oriented x3. Cranial nerves II through XII are grossly intact. Motor and sensory are also intact. Normal speech, volume and content. Symmetrical smile. MUSCULOSKELETAL: Normal extremities with adequate strength and full range of motion. LYMPHATICS: No significant lymphadenopathy is noted PSYCHIATRIC: Normal psychiatric evaluation. Limitations: no limitations Course Vital Signs 03/27/20 03/27/20 12:54 13:55 Temperature 98.2 F Pulse Rate 71 84 Respiratory 18 18 Rate Blood Pressure 90/39 91/59 O2 Sat by Pulse 99 100 Oximetry Medical Decision Making - Medical Decision Making EKG shows a paced rhythm at 80 bpm CA interval is 112 QRS is under 94 Q-T intervals 460 QTC is 466. Code stroke was called soon as I got done interviewing and examining the patient. CT shows a possible area of ischemia the neurointerventionalist thought this was a incidental finding it did not think it was consistent with stroke or he morrhage and he wanted a CAT scan and another 6 hours. CTA showed no acute abnormality per the neurointerventionalist I spoke with Dr. Gordillo and he agreed to admit the patient admitted the patien t I ordered a CT in [address] Gordillo stated he will follow-up on that - Lab Data Result diagrams: 03/27/20 13:27 03/27/20 13:27 Lab Results 03/27/20 03/27/20 03/27/20 Range/Units 13:27 13:27 13:27 WBC 10.4 (3.8-10.6) k/uL RBC 5.04 (4.30-5.90) m/uL Hgb 13.1 (13.0-17.5) gm/dL Hct 42.2 (39.0-53.0) % MCV 83.7 (80.0-100.0) fL MCH 26.1 (25.0-35.0) pg MCHC 31.2 (31.0-37.0) g/dL RDW 14.8 (11.5-15.5) % Plt Count 204 (150-450) k/uL Neutrophils % 72 % Lymphocytes % 17 % Monocytes % 7 % Eosinophils % 2 % Basophils % 1 % Neutrophils # 7.5 (1.3-7.7) k/uL Lymphocytes # 1.8 (1.0-4.8) k/uL Monocytes # 0.7 (0-1.0) k/uL Eosinophils # 0.2 (0-0.7) k/uL Basophils # 0.1 (0-0.2) k/uL Hypochromasia Slight PT 11.8 (9.0-12.0) sec INR 1.2 H (<1.2) APTT 27.4 (22.0-30.0) sec Sodium 140 (137-145) mmol/L Potassium 3.9 (3.5-5.1) mmol/L Chloride 101 (98-107) mmol/L Carbon Dioxide 31 H (22-30) mmol/L Anion Gap 8 mmol/L BUN 27 H (9-20) mg/dL Creatinine 1.60 H (0.66-1.25) mg/dL Est GFR (CKD-EPI)AfAm 52 (>60 ml/min/1.73 sqM) Est GFR (CKD-EPI)NonAf 45 (>60 ml/min/1.73 sqM) Glucose 196 H (74-99) mg/dL Calcium 9.2 (8.4-10.2) mg/dL Total Bilirubin 1.2 (0.2-1.3) mg/dL AST 18 (17-59) U/L ALT 12 (4-49) U/L Alkaline Phosphatase 95 (38-126) U/L Total Protein 7.5 (6.3-8.2) g/dL Albumin 4.3 (3.5-5.0) g/dL Critical Care Time Critical Care Time: Yes Total Critical Care Time: 35 Disposition Clinical Impression: Cerebrovascular accident (CVA) Disposition: ADMITTED IP TO THIS HOSP Referrals: Denae Chilel MD [Primary Care Provider] - 1-2 days Time of Disposition: 14:24
[2020-03-27 13:43] LABS: Basophils # (A) 0.1 k/uL (0-0.2); Basophils % (A) 1 %; Eosinophils # (A) 0.2 k/uL (0-0.7); Eosinophils % (A) 2 %; HCT 42.2 % (39.0-53.0); HGB 13.1 gm/dL (13.0-17.5); Hypochromasia Slight; Lymphocytes # (A) 1.8 k/uL (1.0-4.8); Lymphocytes % (A) 17 %; MCH 26.1 pg (25.0-35.0); MCHC 31.2 g/dL (31.0-37.0); MCV 83.7 fL (80.0-100.0); Mean Platelet Volume 8.5; Monocytes # (A) 0.7 k/uL (0-1.0); Monocytes % (A) 7 %; Neutrophils # (A) 7.5 k/uL (1.3-7.7); Neutrophils % (A) 72 %; Platelet Count 204 k/uL (150-450); RBC 5.04 m/uL (4.30-5.90); RDW 14.8 % (11.5-15.5); WBC 10.4 k/uL (3.8-10.6)
[2020-03-27 13:54] LABS: INR 1.2 (<1.2); Partial Thromboplastin Time 27.4 sec (22.0-30.0); Prothrombin Time 11.8 sec (9.0-12.0)
[2020-03-27 13:58] LABS: Albumin 4.3 g/dL (3.5-5.0); Calcium 9.2 mg/dL (8.4-10.2); Potassium 3.9 mmol/L (3.5-5.1); Total Bilirubin 1.2 mg/dL (0.2-1.3); Total Protein 7.5 g/dL (6.3-8.2)
--- NOTE | 2020-03-27 14:32 | CT ---
EXAMINATION TYPE: CT angio head neck DATE OF EXAM: 03/27/2020 HISTORY: Visual disturbance and unsteady gait. Prior history of CVA. COMPARISON: None CT DLP: 619.1 mGycm. Automated Exposure Control for Dose Reduction was Utilized. TECHNIQUE: CTA scan of the neck is performed with IV Contrast, patient injected with 65 mL of Isovue 370, axial images are obtained, coronal and sagittal reformatted images are reviewed. Three-D recons tructed images are created on an independent workstation and reviewed. Source images are reviewed. FINDINGS: Carotid/Vascular Structures: There is a three-vessel arch. Vertebral arteries are codominant. No sign ificant flow-limiting stenosis of the internal carotid artery bifurcations are evident. Cervical of [place]: Vertebral basilar system appears normal. Posterior cerebral vasculature is unrema rkable. Internal carotid artery bifurcations are identified. The right A1 segment appears to be parti ally absent. A2 segments are normal. The anterior communicating artery is patent. Left Posterior comm unicating artery is patent. Right posterior communicating artery is patent. Other: A right parietal meningioma is likely present with a depth of 0.8 cm. Series 410 image 47. Sig nificant mass effect on the adjacent brain is not evident. IMPRESSION: 1. No flow-limiting stenosis bilateral carotid bifurcations. 2. Normal [place] of [place]. 3. Probable meningioma right parietal region.
--- NOTE | 2020-03-27 14:35 | XR ---
EXAMINATION TYPE: XR chest 2V DATE OF EXAM: 03/27/2020 COMPARISON: 03/18/2020 HISTORY: Shortness of breath TECHNIQUE: Frontal and lateral views of the chest are obtained. FINDINGS: Scattered senescent parenchymal changes noted. Hyperinflation compatible with COPD. No evidence for infiltrate. No evidence for atelectasis. Heart size is stable. Mediastinal structures are stable and grossly unremarkable. No evidence for hilar prominence. Degenerative changes dorsal spine. IMPRESSION: 1. No evidence for acute pulmonary disease.
[2020-03-27] MEDS ORDERED: traMADol 50 MG TAB PO PRN (15:00)
--- NOTE | 2020-03-27 15:00 | P.HPIM ---
History of Present Illness H&P Date: 03/27/20 Chief Complaint: vision problem This is a 64-year-old male with complex past medical history noted below significant for chronic atrial fibrillation on anticoagulation with Eliquis that presented to the emergency room for further evaluation for possible stroke. Patient had an appointment this morning with his primary care physician and he was given some forms to fill but noticed when he was reading that he was having difficulty with his vision. Patient told me that he was unable to line both eyes to read the same line. He said that it was not double vision. No complete loss of vision. Patient also said that he was having mild headache. Computed tomography scan of the head was ordered by his PCP showed a questionable stroke with an area of linear hypodensity in the right occipital lobe measuring 1.5 x 0.2 cm. Code stroke was called and the neuro interventionalists ion implant machine operator reviewed the imaging and thought that the questionable hemorrhages most likely an artifact. He did not think that the patient needed to be transferred immediately. He recommended a repeat computed tomography scan of the head in 6 hours. Patient was seen by me in the ER. He reports that his symptoms resolved. He was reading in the emergency room on the computer screen with no d ifficulty. He denies any headache. No numbness or tingling anywhere. He reported that he takes all of his medication as prescribed and does not miss any doses including his anticoagulation. Review of Systems Review of system: 14 points review of systems were obtained and were negative except to what were mentioned in the HPI. Past Medical History Past Medical History: Atrial Fibrillation, Heart Failure, Diabetes Mellitus, Hyp erlipidemia, Hypertension, Sleep Apnea/CPAP/BIPAP Additional Past Medical History / Comment(s): See Dr Durant's H&P FOR CARDIAC. SOB w/activity, cpap. HX TIA-yrs ago. "BLEEDING IN EYES",gout, Cardiac ablation at [facility] Feb History of Any Multi-Drug Resistant Organisms: None Reported Past Surgical History: Ablation, AICD, Cardiac Ablation, EPS, Heart Catheterization, Orthopedic Surgery, Pacemaker Additional Past Surgical History / Comment(s): Atrial ablation, cardioversion,cervical fusion x 2, knee surg., achilles tendon surg., CATARACT SX. CARDIAC Ablation 05/2014; AICD/PACEMAKER 06/2014, [facility] [employer] MODEL. BILAT EYE SX "TO REMOVE BLOOD",blood vessel broke in rt eye and he lost partial vision- short term loss, ablation- cardiac. Pacer/AICD changed Feb Past Anesthesia/Blood Transfusion Reactions: No Reported Reaction Additional Past Anesthesia/Blood Transfusion Reaction / Comment(s): NEVER RECIEVED BLOOD. Type of Cardiac Device: Biventricular Pacemaker, AICD Device Placement Date:: 06/2014 Past Psychological History: No Psychological Hx Reported Smoking Status: Never smoker Past Alcohol Use History: Occasional Past Drug Use History: None Reported - Past Family History Father Family Medical History: Coronary Artery Disease (CAD), Diabetes Mellitus, Myocardial Infarction ([place]) Additional Family Medical History / Comment(s): FATHER OF [place] AT AGE 65 YRS. Mother Family Medical History: Diabetes Mellitus Additional Family Medical History / Comment(s): SHE HAS HAD A LEG AMPUTATION Medications and Allergies Home Medications Medication Instructions Recorded Confirmed Type allopurinoL [Zyloprim] 100 mg PO HS 05/02/14 03/27/20 History Apixaban [Eliquis] 5 mg PO BID 03/18/17 03/27/20 History Metoprolol Succinate [Toprol XL] 50 mg PO BID 03/18/17 03/27/20 History Insulin Aspart (For Pump) [NovoLOG 0.01 unit SQ-PUMP CONTINUOUS 10/31/17 03/27/20 History (For Pump)] Sacubitril/Valsartan [Entresto 49 1 tab PO BID 03/15/19 03/27/20 History mg-51 mg Tablet] Fluvastatin Sodium [Fluvastatin ER] 80 mg PO HS #30 tab.er.24h 03/16/19 03/27/20 Rx Spironolactone [Aldactone] 25 mg PO HS 30 Days #30 tab 03/16/19 03/27/20 Rx Digoxin [Lanoxin] 125 mcg PO DAILY 03/18/20 03/27/20 History L.acidoph,Paracasei, B.lactis 1 cap PO HS 03/18/20 03/27/20 History [Probiotic] Multivitamins, Thera [Multivitamin 1 tab PO DAILY 03/18/20 03/27/20 History (formulary)] Omeprazole 20 mg PO BID 03/18/20 03/27/20 History traMADol HCL 50 mg PO BID PRN 03/18/20 03/27/20 History Simethicone Chew [Mylicon Chew] 80 mg PO QID #100 chew 03/21/20 03/27/20 Rx Torsemide [Demadex] 40 mg PO BID #120 tab 03/21/20 03/27/20 Rx Allergies Allergy/AdvReac Type Severity Reaction Status Date / Time coconut AdvReac sneezing Verified 03/27/20 13:20 coconut oil AdvReac sneezing Verified 03/27/20 13:20 Physical Exam Vitals: Vital Signs Temp Pulse Resp BP Pulse Ox 03/27/20 14:35 80 18 92/47 99 03/27/20 13:55 84 18 91/59 100 03/27/20 12:54 98.2 F 71 18 90/39 99 Intake and Output 03/26/20 03/27/20 03/27/20 22:59 06:59 14:59 Other: Weight 107.501 kg General: The patient is awake and alert, in no distress Eye: there is normal conjunctiva bilaterally. Neck: The neck is supple, there is no JVD. Cardiovascular: Normal S1-S2, no S3-S4, no murmurs. Respiratory: Lungs clear to auscultation bilaterally Gastrointestinal: Abdomen is soft, nontender Musculoskeletal: There is no pedal edema. Neurological:. Speech is normal. Skin: Skin is warm and dry Results CBC & Chem 7: 03/27/20 13:27 03/27/20 13:27 Labs: Abnormal Lab Results - Last 24 Hours (Table) 03/27/20 03/27/20 03/27/20 Range/Units 13:27 13:27 13:27 INR 1.2 H (<1.2) Carbon Dioxide 31 H (22-30) mmol/L BUN 27 H (9-20) mg/dL Creatinine 1.60 H (0.66-1.25) mg/dL Glucose 196 H (74-99) mg/dL Troponin I 0.042 H* (0.000-0.034) ng/mL Assessment and Plan Assessment: 1. Suspected stroke: With a linear hypodensity in the right occipital lobe m easuring 1.5 x 0.2 cm and a questionable hemorrhagic infarct. Imaging reviewed by neuro interventionalist ion implant machine operator. This was thought to be attributed to a possible artifact. We will repeat computed tomography scan of the head in 6 hours. If hemorrhagic component confirmed the patient will need to be transferred to a facility with neurosurgery service. Otherwise we would obtain MRI of the brain in the morning. CT angiogram of the head and neck pending. Neurology consult. Continue telemetry monitoring. Echocardiogram in the morning 2. Chronic atrial fibrillation: Rate controlled. Twelve-lead EKG in the ER showed paced rhythm. Hold anticoagulation for now until intracranial bleed is ruled out 3. Chronic systolic heart failure with no evidence of exacerbation 4. Ischemic cardiomyopathy with known EF of 10% 5. Stage IIIB chronic kidney disease, creatinine appears to be at baseline 6. Troponin elevation, chronic. Possibly attributed to underlying CHF. Patient denies any chest pain at this time 7. Chronic medical problems, hyperlipidemia, essential hypertension, type II insulin, obesity, and chronic pancreatitis 8. DVT prophylaxis with SCD
[2020-03-27] MEDS: TORSEMIDE 20 MG TAB PO SCH (16:24)
[2020-03-27 16:51] LABS: Glucose,Whole Blood 63 mg/dL (75-99)
[2020-03-27] MEDS: INSULIN ASPART (NovoLOG) 100 UNIT/ML VIAL SQ SCH ×2 (17:19→20:27)
--- NOTE | 2020-03-27 18:09 | P.CNNES ---
History of Present Illness Consult date: 03/27/20 Requesting physician: Jagdish Chen Reason for Consult: CVA History of Present Illness: Patient is a 64-year-old male came to the hospital today at 12:50 PM for abnormal computed tomography scan of head. Patient went for a general checkup at his primary care physician's office. He told his primary physician that his both eyes did not match with a visual image since this morning at 8 AM, however there is no diplopia, or loss of vision. He had a mild headache, a general aching, at no specific region. His primary physician ordered a computed tomography scan of head. It revealed a linear area of hypodensity in the right occipital lobe measuring 1.5 x 0.2 cm. Hemorrhagic infarct in the differential diagnosis. Subarachnoid component a consideration. Additionally there is hyperdensity within the left occipital lobe corresponding to area of previous hemorrhage may represent an area of dystrophic calcification although a tiny area of additional petechial hemorrhage not excluded. Degenerative and nonspec [facility] white matter changes most typical remote ischemia. Extra-axial mass involving the right cerebral hemisphere most likely related to meningioma and could be correlated with MRI. It is reported 0.8 cm in depth. No mass effect. Does appear to be slightly larger than the previous exam. Recommend follow-up MRI. Patient was sent to ER. CTA of head showed no flow-limiting stenosis bilateral carotid bifurcations. Normal [place]. Probable meningioma right parietal region. EKG shows undetermined rhythm. Chest x-ray normal. Right bundle-branch block. Patient's last 2-D echo from 03/16/2019 showed atrial fibrillation with paced rhythm. Left ventricle is mildly dilated. Moderate global hypokinesis of the left ventricle. EF is 20-25%. Patient's blood test shows normal CBC, PT/PTT, CMP. Troponin is mildly elevated 0.042. Patient's vitals on arrival was blood pressure 90/39, pulse rate 71 temperature 98.2. Patient is currently on Apixaban 5 mg twice a day. Patient does not take any antiplatelet medication. Patient denies any history of migraines. Patient states he had a TIA in 2010 when he developed blurred vision in the left eye. Patient states on 02/22/2020 he underwent ablation treatment for atrial fibrillation. He had stopped Eliquis for 1 day prior to the procedure. On 02/28/2020, he woke up from a nap and couldn't see right. He had a severe headache in the frontal region. He also noticed some visual field deficits on the left side, as he was not able to see part of the keyboard on the left side while typing. He did not seek medical attention for this episode. Patient states that headache improved by the evening and visual symptoms resolved in a couple days. patient states since then he has been having headache occasionally once every couple weeks, lasting for a few hours, but nothing major not severe. Patient has history of diabetes for last 30 years. Denies hypertension. He never smoked. He has heart failure. He has atrial fibrillation for which he had undergone ablation at [facility]. Review of Systems As per HPI. All other 14 point of review of systems completely unremarkable. Past Medical History Past Medical History: Atrial Fibrillation, Heart Failure, Diabetes Mellitus, Hyperlipidemia, Hypertension, Sleep Apnea/CPAP/BIPAP Additional Past Medical History / Comment(s): See Dr Durant's H&P FOR CARDIAC. SOB w/activity, cpap. HX TIA-yrs ago. "BLEEDING IN EYES",gout, Cardiac ablation at [facility] Feb History of Any Multi-Drug Resistant Organisms: None Reported Past Surgical History: Ablation, AICD, Cardiac Ablation, EPS, Heart Catheterization, Orthopedic Surgery, Pacemaker Additional Past Surgical History / Comment(s): Atrial ablation, cardioversion,cervical fusion x 2, knee surg., achilles tendon surg., CATARACT SX. CARDIAC Ablation 05/2014; AICD/PACEMAKER 06/2014, [facility] MODEL. BILAT EYE SX "TO REMOVE BLOOD",blood vessel broke in rt eye and he lost partial vision- short term loss, ablation- cardiac. Pacer/AICD changed Feb Past Anesthesia/Blood Transfusion Reactions: No Reported Reaction Additional Past Anesthesia/Blood Transfusion Reaction / Comment(s): NEVER RECIEVED BLOOD. Type of Cardiac Device: Biventricular Pacemaker, AICD Device Placement Date:: 06/2014 Past Psychological History: No Psychological Hx Reported Smoking Status: Never smoker Past Alcohol Use History: Occasional Past Drug Use History: None Reported - Past Family History Father Family Medical History: Coronary Artery Disease (CAD), Diabetes Mellitus, Myocardial Infarction (AK) Additional Family Medical History / Comment(s): FATHER OF AK AT AGE 65 YRS. Mother Family Medical History: Diabetes Mellitus Additional Family Medical History / Comment(s): SHE HAS HAD A LEG AMPUTATION Medications and Allergies Home Medications Medication Instructions Recorded Confirmed Type allopurinoL [Zyloprim] 100 mg PO HS 05/02/14 03/27/20 History Apixaban [Eliquis] 5 mg PO BID 03/18/17 03/27/20 History Metoprolol Succinate [Toprol XL] 50 mg PO BID 03/18/17 03/27/20 History Insulin Aspart (For Pump) [NovoLOG 0.01 unit SQ-PUMP CONTINUOUS 10/31/17 03/27/20 History (For Pump)] Sacubitril/Valsartan [Entresto 49 1 tab PO BID 03/15/19 03/27/20 History mg-51 mg Tablet] Fluvastatin Sodium [Fluvastatin ER] 80 mg PO HS #30 tab.er.24h 03/16/19 03/27/20 Rx Spironolactone [Aldactone] 25 mg PO HS 30 Days #30 tab 03/16/19 03/27/20 Rx Digoxin [Lanoxin] 125 mcg PO DAILY 03/18/20 03/27/20 History L.acidoph,Paracasei, B.lactis 1 cap PO HS 03/18/20 03/27/20 History [Probiotic] Multivitamins, Thera [Multivitamin 1 tab PO DAILY 03/18/20 03/27/20 History (formulary)] Omeprazole 20 mg PO BID 03/18/20 03/27/20 History traMADol HCL 50 mg PO BID PRN 03/18/20 03/27/20 History Simethicone Chew [Mylicon Chew] 80 mg PO QID #100 chew 03/21/20 03/27/20 Rx Torsemide [Demadex] 40 mg PO BID #120 tab 03/21/20 03/27/20 Rx Allergies Allergy/AdvReac Type Severity Reaction Status Date / Time coconut AdvReac sneezing Verified 03/27/20 13:20 coconut oil AdvReac sneezing Verified 03/27/20 13:20 Physical Examination - Vital Signs Vital Signs: Vital Signs Temp Pulse Resp BP Pulse Ox 03/27/20 14:35 80 18 92/47 99 03/27/20 13:55 84 18 91/59 100 03/27/20 12:54 98.2 F 71 18 90/39 99 Intake and Output 03/27/20 03/27/20 03/27/20 06:59 14:59 22:59 Other: Weight 107.501 kg On examination patient is an elderly male, in no acute distress. He is alert and awake fully oriented to time place and person. Speech and language functions are normal. Attention and concentration fund of knowledge is adequate. On cranial nerve examination pupils are round and reactive to light, visual preciado are full on confrontation. Extraocular muscles are intact with no nystagmus. Face is symmetric, tongue protrudes to the midline. Palatal elevation and sensation normal. Hearing and shoulder shrug normal. On muscle strength testing there is no pronator drift and the strength is normal in arms and legs distally and proximally reflexes are diminished and plantars are downgoing. Sensory touch is equal. No ataxia for [id number] testing. Tone and bulk of muscles normal. There is no obvious bruit, S1 and S2 audible. Mild peripheral edema. Abdomen soft nontender. Chest clear. Results - Laboratory Findings CBC and BMP: 03/27/20 13:27 03/27/20 13:27 Abnormal Lab Findings: Abnormal Labs 03/27/20 03/27/20 03/27/20 13:27 13:27 13:27 INR 1.2 H Carbon Dioxide 31 H BUN 27 H Creatinine 1.60 H Glucose 196 H Troponin I 0.042 H* Assessment and Plan Assessment: * 64-year-old male who had a routine computed tomography scan of head done performed for minor headache revealed subacute stroke involving the right occipital region with mild hemorrhagic conversion. Patient has no clinical symptoms at this time. He however had an episode of severe headache, and left-sided visual field deficits on 02/28/2020, that resolved in a couple days. Patient probably had an ischemic stroke at that time. Patient did not seek medical attention for that episode. Patient had undergone cardiac ablasion 6 days prior on 02/22/2020 for which Eliquis was held for 24 hours. I am not sure if the slight petechial hemorrhage seen in the area of stroke is new or residual from the previous incident. * Diabetes * Atrial fibrillation * CHF Plan: * Repeat computed tomography scan of head without contrast in morning. * Continue Aixaban. * Agree with a 2-D echo. * Lipid panel, A1c and TSH. * If patient gets any symptoms overnight, then may do a stat computed tomography scan. * Discussed with patient's family in detail.
[2020-03-27] MEDS: SACUBITRIL/VALSARTAN 49 MG-51 MG TABLET PO SCH (20:20)
[2020-03-27] MEDS: METOPROLOL SUCCINATE (ER) 50 MG TAB.ER.24H PO SCH (20:20)
[2020-03-27] MEDS: PANTOPRAZOLE 40 MG TABLET PO SCH (20:20)
[2020-03-27] MEDS ORDERED: SPIRONOLACTONE 25 MG TAB PO SCH (21:00)
[2020-03-27] MEDS ORDERED: allopurinoL 100 MG TAB PO SCH (21:00)
[2020-03-27] MEDS ORDERED: ATORVASTATIN 10 MG TAB PO SCH (21:00)
[2020-03-28] MEDS: INSULIN ASPART (NovoLOG) 100 UNIT/ML VIAL SQ SCH ×2 (07:23→12:38)
[2020-03-28] MEDS ORDERED: Insulin Aspart (For Pump) 100 UNIT/ML VIAL SQ-PUMP SCH (07:45)
[2020-03-28 08:36] LABS: Basophils # (A) 0.1 k/uL (0-0.2); Basophils % (A) 1 %; Eosinophils # (A) 0.3 k/uL (0-0.7); Eosinophils % (A) 3 %; HCT 43.3 % (39.0-53.0); HGB 13.6 gm/dL (13.0-17.5); Hypochromasia Slight; Lymphocytes # (A) 1.9 k/uL (1.0-4.8); Lymphocytes % (A) 20 %; MCH 26.5 pg (25.0-35.0); MCHC 31.3 g/dL (31.0-37.0); MCV 84.7 fL (80.0-100.0); Mean Platelet Volume 8.8; Monocytes # (A) 0.5 k/uL (0-1.0); Monocytes % (A) 6 %; Neutrophils # (A) 6.6 k/uL (1.3-7.7); Neutrophils % (A) 68 %; Platelet Count 205 k/uL (150-450); RBC 5.11 m/uL (4.30-5.90); RDW 14.7 % (11.5-15.5); WBC 9.6 k/uL (3.8-10.6)
[2020-03-28] MEDS: METOPROLOL SUCCINATE (ER) 50 MG TAB.ER.24H PO SCH (08:46)
[2020-03-28] MEDS: TORSEMIDE 20 MG TAB PO SCH ×2 (08:46→15:30)
[2020-03-28] MEDS: PANTOPRAZOLE 40 MG TABLET PO SCH (08:46)
[2020-03-28] MEDS: SACUBITRIL/VALSARTAN 49 MG-51 MG TABLET PO SCH (08:46)
[2020-03-28 08:49] LABS: Calcium 9.4 mg/dL (8.4-10.2); Potassium 3.9 mmol/L (3.5-5.1)
[2020-03-28 08:53] VITALS: TEMP 97.1
[2020-03-28] MEDS ORDERED: DIGOXIN 125 MCG TAB PO SCH (09:00)
[2020-03-28] MEDS ORDERED: FLUTICASONE 50MCG/SPRAY NASAL 16GM EA NOSTRIL SCH (09:00)
[2020-03-28 10:32] LABS: T4, Free (Free Thyroxine) 0.87 ng/dL (0.78-2.19)
--- NOTE | 2020-03-28 10:46 | ECHOF ---
Referral Reason:stroke MEASUREMENTS -------- HEIGHT: 175.3 cm WEIGHT: 107.5 kg BP: RVIDd: 4.0 cm (< 3.3) IVSd: 1.0 cm (0.6 - 1.1) LVIDd: 6.1 cm (3.9 - 5.3) LVPWd: 1.4 cm (0.6 - 1.1) IVSs: 1.3 cm LVIDs: 5.2 cm LVPWs: 1.6 cm LA Diam: 5.0 cm (2.7 - 3.8) LAESV Index (A-L): 54.26 ml/m Ao Diam: 3.6 cm (2.0 - 3.7) AV Cusp: 1.8 cm (1.5 - 2.6) MV EXCURSION: 16.486 mm (> 18.000) MV EF SLOPE: 87 mm/s (70 - 150) EPSS: 2.4 cm MV E Martin: 0.53 m/s MV DecT: 119 ms MV A Martin: 0.25 m/s MV E/A Ratio: 2.16 RAP: 5.00 mmHg RVSP: 39.37 mmHg FINDINGS -------- Paced rhythm. This was a techncally difficult study with suboptimal views, , Lumason utilized for enhancement of im ages. The left ventricle is mildly dilated. Overall left ventricular systolic function is severely impair ed with, an EF between 20 - 25 %. Left ventricular fillimg pressure cannot be estimated due to pace d rhythm. The right ventricle is mildly enlarged. The left atrium is markedly dilated. LA is severely dilated >40 ml/m2 The right atrial size is normal. 5.0mg OF Lumason UTLIZED: 2 OR MORE WALL SEGMENTS NOT VISUALIZED. The aortic valve is trileaflet, and appears structurally normal. No aortic stenosis or regurgitation. Mild mitral regurgitation is present. Mild tricuspid regurgitation present. There is mild pulmonary hypertension. The pulmonic valve was not well visualized. The aortic root size is normal. There is no pericardial effusion. CONCLUSIONS -------- 1. The left ventricle is mildly dilated. 2. Left ventricular fillimg pressure cannot be estimated due to paced rhythm. 3. The right ventricle is mildly enlarged. 4. The left atrium is markedly dilated. 5. LA is severely dilated >40 ml/m2 6. The right atrial size is normal. 7. 5.0mg OF Lumason UTLIZED: 2 OR MORE WALL SEGMENTS NOT VISUALIZED. 8. Mild mitral regurgitation is present. 9. Mild tricuspid regurgitation present. 10. There is mild pulmonary hypertension. 11. The pulmonic valve was not well visualized. 12. There is no pericardial effusion. TUBER MACHINE OPERATOR: Ree Sevilla RDCS
--- NOTE | 2020-03-28 10:50 | CT ---
EXAMINATION TYPE: CT brain wo con DATE OF EXAM: 03/28/2020 HISTORY: CVA Automated Exposure Control for Dose Reduction was Utilized. TECHNIQUE: CT scan of the head is performed without contrast. COMPARISON: CT head 03/27/2020. CTA head and neck 03/27/2020. CT head 02/24/2011. FINDINGS: Redemonstrated hypodense area of the right occipital lobe most likely infarct, with mild intraparench ymal hemorrhagic component (2021:25) which has not significantly changed versus 03/27/2020. There is l ikely a subarachnoid hemorrhage component adjacent. Small hyperdensity of the left occipital lobe (2021:33) is unchanged versus 2010 CT comparison, and l ikely represents calcification. Patchy periventricular white matter hypodensities likely sequela of chronic microvascular ischemic [place]. No midline shift or mass effect identified. Ventricles are unchanged in size and configuration. There is a 1.3 x 0.7 cm extra-axial mass along the right frontal convexity redemonstrated. Bones and extracranial soft tissues are intact. The globes are grossly symmetric. Visualized sinuses and mastoi d air cells are clear. IMPRESSION: 1. Hypodense hemorrhagic infarct of the right occipital lobe, with adjacent subarachnoid hemorrhage, is not significantly changed versus 03/27/2020 CT comparison. 2. No midline shift or significant mass effect. 3. Right frontal extra-axial 1.3 cm mass likely meningioma, and could be further evaluated with MRI.
--- NOTE | 2020-03-28 13:30 | P.DS ---
Providers Date of admission: 03/27/20 14:25 Expected date of discharge: 03/28/20 Attending physician: Romulo Gordillo Consults: 03/27/20 14:25 Consult Physician Routine Consulting Provider: Melissa Christine Consult Reason/Comments: CVA Do you want consulting provider notified?: Yes Primary care physician: Denae Chilel Hospital Course: Discharge Diagnosis: Acute hemorrhagic infarct of the right occipital lobe with adjacent subarachnoid hemorrhage Compensated systolic cardiomyopathy with ejection fraction less than 10% per recent echo at [facility], 20-25% on our echocardiogram Atrial fibrillation status post ablation with pacer/AICD insertion chronically on Eliquis therapy Diabetes mellitus type 2 insulin requiring on insulin pump well-controlled Hypertension Dyslipidemia with intolerance of statin Obesity with BMI 35.6 Chronic kidney disease stage III Baseline creatinine 1.6 with GFR 45 Chronically elevated troponin Hospital Course: Patient is a 64-year-old male who presented to the emergency department at 12:50 PM for abnormal outpatient computed tomography scan of the head. Initially he was seen at his primary care physician's office and stated that he was having problems with vision since 8 in the morning he felt as though his eyes were disconjugate. He denies double vision or acutely blurry vision. He underwent an outpatient CT of the head which showed possible hemorrhagic infarct and he was subsequently instructed to come to the ER emergently. CT head demonstrated a right occipital lobe area of hypodensity with possible hemorrhage or subarachnoid hemorrhage. He underwent a CTA of the head which showed no flow-limiting lesions and a normal [place] with a probable meningioma in the right parietal lesion. EKG showed a prominently paced rhythm. Chest x-ray was normal. Vital signs on arrival had a blood pressure of 90/39 which is near the patient's baseline. Initial laboratory analysis was consistent with his chronic kidney disease and chronically elevated troponin. Code stroke was subsequently activated and neuro and Interventional radiology recommended repeating CT in 6 hours. He was seen by neurology at our facility who recommended delaying repeat of CT until the next morning as patient had received contrast for the CTA head and neck. He underwent an echocardiogram which showed ejection fraction 25% without pericardial effusion. He underwent repeat head CT which confirmed hypodense hemorrhagic infarct of the right occipital lobe adjacent subarachnoid hemorrhage. And right frontal extra-axial 1.3 cm mass likely meningioma that could be further evaluated with MRI. Neuro compliance and control analyst Dr. Brown was contacted and was able to review the CT. Due to our lack of neurosurgical coverage and neurology coverage he recommended transfer to [facility]. Dr. Boyer has greatly graciously accepted the patient on her service. Of note the patient underwent ablation at [facility] on 02/22/28. 4 days later he developed an acute headache with visual disturbances. His visual disturbances recur yesterday. However he did not seek formal medical care at the initial event. He had held his eliquis the day before the procedure There is some concern that the patient may have suffered a stroke at that time. Patient seen and examined at bedside.Doing well no complaints currently. Vision is resolved back to normal. No chest pain, SOB, or nausea. Up and ambulating in the room. Vital signs reviewed and stable. General: non toxic, no distress, appears at stated age Derm: warm, dry Head: atraumatic, normocephalic, symmetric Eyes: EOMI, no lid lag, anicteric sclera Mouth: no lip lesion, mucus membranes moist Cardiovascular: S1S2 reg, no murmur, positive posterior tibial pulse bilateral, Lungs: Decrease bs bilateral, no rhonchi, no rales , no accessory muscle use Abdominal: soft, nontender to palpation, no guarding, no appreciable organomegaly Ext: no gross muscle atrophy, 1+ edema b/l LE (chronic per patient), no contractures Neuro: CN II-XI grossly intact, no focal neuro deficits Psych: Alert, oriented, appropriate affect A total of 35 minutes of time were spent preparing this complex discharge summary . Plan - Discharge Summary Discharge Rx Participant: Yes New Discharge Prescriptions: No Action allopurinoL [Zyloprim] 100 mg PO HS Apixaban [Eliquis] 5 mg PO BID Metoprolol Succinate [Toprol XL] 50 mg PO BID Insulin Aspart (For Pump) [NovoLOG (For Pump)] 0.01 unit SQ-PUMP CONTINUOUS Sacubitril/Valsartan [Entresto 49 mg-51 mg Tablet] 1 tab PO BID Spironolactone [Aldactone] 25 mg PO HS 30 Days #30 tab Fluvastatin Sodium [Fluvastatin ER] 80 mg PO HS #30 tab.er.24h traMADol HCL 50 mg PO BID PRN PRN Reason: Pain L.acidoph,Paracasei, B.lactis [Probiotic] 1 cap PO HS Digoxin [Lanoxin] 125 mcg PO DAILY Multivitamins, Thera [Multivitamin (formulary)] 1 tab PO DAILY Omeprazole 20 mg PO BID Simethicone Chew [Mylicon Chew] 80 mg PO QID #100 chew Torsemide [Demadex] 40 mg PO BID #120 tab Discharge Medication List allopurinoL [Zyloprim] 100 mg PO HS 05/02/14 [History] Apixaban [Eliquis] 5 mg PO BID 03/18/17 [History] Metoprolol Succinate [Toprol XL] 50 mg PO BID 03/18/17 [History] Insulin Aspart (For Pump) [NovoLOG (For Pump)] 0.01 unit SQ-PUMP CONTINUOUS 10/31/17 [History] Sacubitril/Valsartan [Entresto 49 mg-51 mg Tablet] 1 tab PO BID 03/15/19 [History] Fluvastatin Sodium [Fluvastatin ER] 80 mg PO HS #30 tab.er.24h 03/16/19 [Rx] Spironolactone [Aldactone] 25 mg PO HS 30 Days #30 tab 03/16/19 [Rx] Digoxin [Lanoxin] 125 mcg PO DAILY 03/18/20 [History] L.acidoph,Paracasei, B.lactis [Probiotic] 1 cap PO HS 03/18/20 [History] Multivitamins, Thera [Multivitamin (formulary)] 1 tab PO DAILY 03/18/20 [History] Omeprazole 20 mg PO BID 03/18/20 [History] traMADol HCL 50 mg PO BID PRN 03/18/20 [History] Simethicone Chew [Mylicon Chew] 80 mg PO QID #100 chew 03/21/20 [Rx] Torsemide [Demadex] 40 mg PO BID #120 tab 03/21/20 [Rx] Follow up Appointment(s)/Referral(s): Denae Chilel MD [Primary Care Provider] - 1-2 days
[2020-03-28 15:30] VITALS: BP 86/50; PULSE 74; RESP 18
[2020-03-28 16:56] LABS: Hemoglobin A1C 7.8 % (4.0-6.0)
--- NOTE | 2020-03-28 19:40 | P.PN ---
Subjective Progress Note Date: 03/28/20 Patient was seen earlier today before he was discharged. Patient's and [id number] were present. Patient denies any headache. Denies any focal neurological symptoms. Objective - Vital Signs Vital signs: Vital Signs Temp 97.1 F L 03/28/20 08:00 Pulse 74 03/28/20 15:29 Resp 18 03/28/20 15:29 BP 86/50 03/28/20 15:29 Pulse Ox 98 03/28/20 15:29 Intake & Output 03/28/20 03/28/20 03/29/20 06:59 18:59 06:59 Intake Total 240 343 Balance 240 343 Weight 109.4 kg Intake: Oral 240 343 Other: Voiding Method Toilet # Voids 1 1 - Exam On examination patient mental status, speech and language functions are normal. Cranial nerves are normal. Pupils are round and reacting, visual preciado are full on confrontation, extraocular muscles are intact with no nystagmus. Face is symmetric, tongue protrudes to the midline. On muscle strength testing there is no pronator drift and the strength is normal in arms and legs. Patient's gait is normal. - Labs CBC & Chem 7: 03/28/20 08:03 03/28/20 08:03 Labs: Abnormal Lab Results - Last 24 Hours (Table) 03/28/20 03/28/20 Range/Units 08:03 08:03 Chloride 97 L (98-107) mmol/L Carbon Dioxide 33 H (22-30) mmol/L BUN 28 H (9-20) mg/dL Creatinine 1.71 H (0.66-1.25) mg/dL Glucose 119 H (74-99) mg/dL Hemoglobin A1c 7.8 H (4.0-6.0) % TSH 6.790 H (0.465-4.680) mIU/L Assessment and Plan Assessment: * Hemorrhagic infarct right occipital lobe, with some adjacent subarachnoid hemorrhage (not change as compared to 03/27/2020 study). * Diabetes * Atrial fibrillation * CHF Plan: * Repeat computed tomography scan of head without contrast again revealed hypodense hemorrhagic infarct of the right occipital lobe with adjacent subarachnoid hemorrhage, not significantly changed from 03/27/2020. No midline shift. Right frontal extra-axial 1.3 cm mass likey meningioma. * Aixaban has been held since yesterday. * 2-D echo revealed left ventricle is mildly dilated. Left atrium is severely dilated. EF is between 20-25%. No thrombus seen. * Lipid panel with cholesterol 133, LDL 93, HDL 26 and triglycerides 70, hemoglobin A1c 7.8 and TSH 6.7 with free T4 0.87. * Patient to be transferred to [facility] for further observation.
== END 2020-03-28 15:37 | disposition short-term general hospital (02) | DRG 65 ==
LOC: EC 12:50 → 3SCARD 14:25
PROVIDERS: ADMIT Internal Medicine; ATTEND Internal Medicine
PROC: B3281ZZ Computerized Tomography (CT Scan) of Bilateral Internal Carotid Arteries using Low Osmolar Contrast (ICD-10-PCS; principal; 2020-03-27)
PROC: B32G1ZZ Computerized Tomography (CT Scan) of Bilateral Vertebral Arteries using Low Osmolar Contrast (ICD-10-PCS; principal; 2020-03-27)
PROC: B32R1ZZ Computerized Tomography (CT Scan) of Intracranial Arteries using Low Osmolar Contrast (ICD-10-PCS; principal; 2020-03-27)
DX: I60.9 Nontraumatic subarachnoid hemorrhage, unspecified (principal); I13.0 Hypertensive heart and chronic kidney disease with heart failure and stage 1 through stage 4 chronic kidney disease, or unspecified chronic kidney disease; I48.20 Chronic atrial fibrillation, unspecified; I50.22 Chronic systolic (congestive) heart failure; K86.1 Other chronic pancreatitis; I61.9 Nontraumatic intracerebral hemorrhage, unspecified; D32.9 Benign neoplasm of meninges, unspecified; E11.22 Type 2 diabetes mellitus with diabetic chronic kidney disease; E66.9 Obesity, unspecified; E78.5 Hyperlipidemia, unspecified; H53.40 Unspecified visual field defects; I25.5 Ischemic cardiomyopathy; I45.10 Unspecified right bundle-branch block; N18.3 Chronic kidney disease, stage 3 (moderate); Z68.35 Body mass index [BMI] 35.0-35.9, adult; R79.89 Other specified abnormal findings of blood chemistry; R29.701 NIHSS score 1; R40.2362 Coma scale, best motor response, obeys commands, at arrival to emergency department; R40.2142 Coma scale, eyes open, spontaneous, at arrival to emergency department; R40.2252 Coma scale, best verbal response, oriented, at arrival to emergency department; Z96.41 Presence of insulin pump (external) (internal); Z79.01 Long term (current) use of anticoagulants; Z79.4 Long term (current) use of insulin; Z79.899 Other long term (current) drug therapy; Z82.49 Family history of ischemic heart disease and other diseases of the circulatory system; Z83.3 Family history of diabetes mellitus; Z86.73 Personal history of transient ischemic attack (TIA), and cerebral infarction without residual deficits; Z95.810 Presence of automatic (implantable) cardiac defibrillator; M10.9 Gout, unspecified; Z98.1 Arthrodesis status; Z98.49 Cataract extraction status, unspecified eye
CPT/HCPCS: 36415; 70450; 70496; 70498; 71046; 80048; 80053; 83036; 84439; 84443; 84484; 85025; 85610; 85730; 93005; 93306; 99291

== ENCOUNTER 2020-04-06 01:43 | Inpatient (IN) | payer MEDICARE, BC ==
--- NOTE | 2020-04-06 02:13 | ED ---
General Adult HPI - General Chief complaint: Weakness Stated complaint: WEAKNESS Time Seen by Provider: 04/06/20 01:45 Source: patient, EMS Mode of arrival: EMS Limitations: no limitations - History of Present Illness Initial comments: Caden is a 64-year-old male with extensive past medical history most notable for atrial fibrillation with AICD in place, in addition patient was admitted 10 days ago for possible stroke with no residual deficits at this time. Patient reports that tonight he was in his home, he was getting his nighttime medications when he walked back to his bedroom and suddenly felt overwhelming weakness. No lateralizing signs no trouble speaking or swallowing. He states he had to support himself on a shelf in his room and then felt a pressure-like dull pain in his left chest. This lasted only a few seconds and then he began to feel better. called 911. Patient reports upon arrival to the emergency department he is feeling better but is concerned that his AICD may have shocked him that this is never happened in the past. - Related Data Home Medications Medication Instructions Recorded Confirmed allopurinoL [Zyloprim] 100 mg PO HS 05/02/14 03/27/20 Apixaban [Eliquis] 5 mg PO BID 03/18/17 03/27/20 Metoprolol Succinate [Toprol XL] 50 mg PO BID 03/18/17 03/27/20 Insulin Aspart (For Pump) [NovoLOG 0.01 unit SQ-PUMP CONTINUOUS 10/31/17 03/27/20 (For Pump)] Sacubitril/Valsartan [Entresto 49 1 tab PO BID 03/15/19 03/27/20 mg-51 mg Tablet] Digoxin [Lanoxin] 125 mcg PO DAILY 03/18/20 03/27/20 L.acidoph,Paracasei, B.lactis 1 cap PO HS 03/18/20 03/27/20 [Probiotic] Multivitamins, Thera [Multivitamin 1 tab PO DAILY 03/18/20 03/27/20 (formulary)] Omeprazole 20 mg PO BID 03/18/20 03/27/20 traMADol HCL 50 mg PO BID PRN 03/18/20 03/27/20 Previous Rx's Medication Instructions Recorded Fluvastatin Sodium [Fluvastatin ER] 80 mg PO HS #30 tab.er.24h 03/16/19 Spironolactone [Aldactone] 25 mg PO HS 30 Days #30 tab 03/16/19 Simethicone Chew [Mylicon Chew] 80 mg PO QID #100 chew 03/21/20 Torsemide [Demadex] 40 mg PO BID #120 tab 03/21/20 Allergies Allergy/AdvReac Type Severity Reaction Status Date / Time coconut AdvReac sneezing Verified 04/06/20 03:12 coconut oil AdvReac sneezing Verified 04/06/20 03:12 Review of Systems ROS Statement: Those systems with pertinent positive or pertinent negative responses have been documented in the HPI. ROS Other: All systems not noted in ROS Statement are negative. Past Medical History Past Medical History: Atrial Fibrillation, Heart Failure, Diabetes Mellitus, Hyperlipidemia, Hypertension, Sleep Apnea/CPAP/BIPAP Additional Past Medical History / Comment(s): See Dr Durant's H&P FOR CARDIAC. SOB w/activity, cpap. HX TIA-yrs ago. "BLEEDING IN EYES",gout, Cardiac ablation at [facility] Feb History of Any Multi-Drug Resistant Organisms: None Reported Past Surgical History: Ablation, AICD, Cardiac Ablation, EPS, Heart Catheteriza tion, Orthopedic Surgery, Pacemaker Additional Past Surgical History / Comment(s): Atrial ablation, cardioversion,cervical fusion x 2, knee surg., achilles tendon surg., CATARACT SX. CARDIAC Ablation 05/2014; AICD/PACEMAKER 06/2014, [facility] MODEL. BILAT EYE SX "TO REMOVE BLOOD",blood vessel broke in rt eye and he lost partial vision- short term loss, ablation- cardiac. Pacer/AICD changed Feb Past Anesthesia/Blood Transfusion Reactions: No Reported Reaction Additional Past Anesthesia/Blood Transfusion Reaction / Comment(s): NEVER RECIEVED BLOOD. Type of Cardiac Device: Biventricular Pacemaker, AICD Device Placement Date:: 06/2014 Past Psychological History: No Psychological Hx Reported Smoking Status: Never smoker Past Alcohol Use History: Occasional Past Drug Use History: None Reported - Past Family History Father Family Medical History: Coronary Artery Disease (CAD), Diabetes Mellitus, Myocardial Infarction (MD) Additional Family Medical History / Comment(s): FATHER OF MD AT AGE 65 YRS. Mother Family Medical History: Diabetes Mellitus Additional Family Medical History / Comment(s): SHE HAS HAD A LEG AMPUTATION General Exam - General Exam Comments Initial Comments: Physical Exam GENERAL: Patient is well-developed and well-nourished. Patient is nontoxic and well- hydrated and is in no distress. HENT: Normocephalic, Atraumatic. EYES: PERRL, EOMI PULMONARY: Unlabored respirations. No audible rales rhonchi or wheezing was noted. CARDIOVASCULAR: There is a regular rate and rhythm without any murmurs gallops or rubs. ABDOMEN: Soft and nontender with normal bowel sounds. SKIN: Skin is clear with no lesions or rashes and otherwise unremarkable. : Deferred NEUROLOGIC: Patient is alert and oriented x3. Moving all extremities spontaneously Cranial nerves II through XII are grossly intact Normal strength in bilateral upper and lower extremities No pronator drift Normal coordination and repetitive tasks MUSCULOSKELETAL: Normal extremities with adequate strength and full range of motion. No lower extremity swelling or edema. No calf tenderness. PSYCHIATRIC: Normal psychiatric evaluation. Limitations: no limitations Course Vital Signs 04/06/20 04/06/20 01:45 01:55 Temperature 98.3 F Pulse Rate 90 Respiratory 18 Rate Blood Pressure 90/59 98/62 O2 Sat by Pulse 98 Oximetry EKG Findings - EKG Comments: EKG Findings:: EKG was obtained due to concern for AICD discharge, EKG was obtained at 3:05 AM, rate is 89 rhythm is biventricular paced, there is occasional PVCs. MA is 114, QRS 196, QTC is prolonged at 554. No evidence of ischemia or infarction there is concern for QRS prolongation a frequent PVCs. Medical Decision Making - Medical Decision Making The patient was seen and evaluated history is obtained from the patient and at bedside who is a nurse Patient had a hemorrhagic CVA tenderness ago he's been recovering well he's been at home. This evening he got up to take his home medications and had a sudden onset of generalized weakness he had to support himself on a shelf and then felt a pain unlike anything he has ever had in the left side of his chest. This lasted only a few seconds resolved and he didn't feel weak anymore. Patient's concerned that he may have had an AICD discharge. Upon arrival patient is asymptomatic feeling much better Labs and chest x-ray were obtained further evaluation of chest pain, troponin is mildly elevated this could be related to AICD discharge. Patient remains awake alert oriented no focal deficits no signs of stroke no complaints during the ER visit OB admitted for evaluation by cardiology. Patient care was discussed with admitting physician Dr. Fontana who accepts the admission. - Lab Data Result diagrams: 04/06/20 02:28 04/06/20 02:28 Lab Results 04/06/20 04/06/20 04/06/20 Range/Units 02:28 02:28 02:28 WBC 10.3 (3.8-10.6) k/uL RBC 4.89 (4.30-5.90) m/uL Hgb 12.8 L (13.0-17.5) gm/dL Hct 40.6 (39.0-53.0) % MCV 83.1 (80.0-100.0) fL MCH 26.3 (25.0-35.0) pg MCHC 31.6 (31.0-37.0) g/dL RDW 15.1 (11.5-15.5) % Plt Count 189 (150-450) k/uL Neutrophils % 65 % Lymphocytes % 21 % Monocytes % 8 % Eosinophils % 3 % Basophils % 1 % Neutrophils # 6.8 (1.3-7.7) k/uL Lymphocytes # 2.1 (1.0-4.8) k/uL Monocytes # 0.8 (0-1.0) k/uL Eosinophils # 0.3 (0-0.7) k/uL Basophils # 0.1 (0-0.2) k/uL PT 10.9 (9.0-12.0) sec INR 1.1 (<1.2) APTT 24.0 (22.0-30.0) sec Sodium 139 (137-145) mmol/L Potassium 4.1 (3.5-5.1) mmol/L Chloride 101 (98-107) mmol/L Carbon Dioxide 30 (22-30) mmol/L Anion Gap 8 mmol/L BUN 33 H (9-20) mg/dL Creatinine 2.00 H (0.66-1.25) mg/dL Est GFR (CKD-EPI)AfAm 39 (>60 ml/min/1.73 sqM) Est GFR (CKD-EPI)NonAf 34 (>60 ml/min/1.73 sqM) Glucose 211 H (74-99) mg/dL Calcium 9.0 (8.4-10.2) mg/dL Magnesium 2.5 H (1.6-2.3) mg/dL Total Bilirubin 0.7 (0.2-1.3) mg/dL AST 25 (17-59) U/L ALT 15 (4-49) U/L Alkaline Phosphatase 97 (38-126) U/L Troponin I (0.000-0.034) ng/mL Total Protein 7.2 (6.3-8.2) g/dL Albumin 4.1 (3.5-5.0) g/dL 04/06/20 Range/Units 02:28 WBC (3.8-10.6) k/uL RBC (4.30-5.90) m/uL Hgb (13.0-17.5) gm/dL Hct (39.0-53.0) % MCV (80.0-100.0) fL MCH (25.0-35.0) pg MCHC (31.0-37.0) g/dL RDW (11.5-15.5) % Plt Count (150-450) k/uL Neutrophils % % Lymphocytes % % Monocytes % % Eosinophils % % Basophils % % Neutrophils # (1.3-7.7) k/uL Lymphocytes # (1.0-4.8) k/uL Monocytes # (0-1.0) k/uL Eosinophils # (0-0.7) k/uL Basophils # (0-0.2) k/uL PT (9.0-12.0) sec INR (<1.2) APTT (22.0-30.0) sec Sodium (137-145) mmol/L Potassium (3.5-5.1) mmol/L Chloride (98-107) mmol/L Carbon Dioxide (22-30) mmol/L Anion Gap mmol/L BUN (9-20) mg/dL Creatinine (0.66-1.25) mg/dL Est GFR (CKD-EPI)AfAm (>60 ml/min/1.73 sqM) Est GFR (CKD-EPI)NonAf (>60 ml/min/1.73 sqM) Glucose (74-99) mg/dL Calcium (8.4-10.2) mg/dL Magnesium (1.6-2.3) mg/dL Total Bilirubin (0.2-1.3) mg/dL AST (17-59) U/L ALT (4-49) U/L Alkaline Phosphatase (38-126) U/L Troponin I 0.044 H* (0.000-0.034) ng/mL Total Protein (6.3-8.2) g/dL Albumin (3.5-5.0) g/dL Disposition Clinical Impression: PVCs (premature ventricular contractions), Hx of prior ablation treatment, Biventricular cardiac pacemaker in situ Disposition: ADMITTED IP TO THIS HOSP Condition: Stable Is patient prescribed a controlled substance at d/c from ED?: No Referrals: Denae Chilel MD [Primary Care Provider] - 1-2 days
[2020-04-06 02:37] LABS: Basophils # (A) 0.1 k/uL (0-0.2); Basophils % (A) 1 %; Eosinophils # (A) 0.3 k/uL (0-0.7); Eosinophils % (A) 3 %; HCT 40.6 % (39.0-53.0); HGB 12.8 gm/dL (13.0-17.5); Lymphocytes # (A) 2.1 k/uL (1.0-4.8); Lymphocytes % (A) 21 %; MCH 26.3 pg (25.0-35.0); MCHC 31.6 g/dL (31.0-37.0); MCV 83.1 fL (80.0-100.0); Mean Platelet Volume 8.9; Monocytes # (A) 0.8 k/uL (0-1.0); Monocytes % (A) 8 %; Neutrophils # (A) 6.8 k/uL (1.3-7.7); Neutrophils % (A) 65 %; Platelet Count 189 k/uL (150-450); RBC 4.89 m/uL (4.30-5.90); RDW 15.1 % (11.5-15.5); WBC 10.3 k/uL (3.8-10.6)
[2020-04-06 02:45] LABS: INR 1.1 (<1.2); Prothrombin Time 10.9 sec (9.0-12.0)
--- NOTE | 2020-04-06 02:48 | XR ---
EXAMINATION TYPE: XR chest 2V DATE OF EXAM: 04/06/2020 COMPARISON: 03/27/2020 HISTORY: Altered mental status. Chest pain TECHNIQUE: FINDINGS: Heart appears slightly enlarged. There is left axillary pacemaker. There is no heart failur e. There is no pleural effusion. Thoracic aorta shows mild atheromatous change. There is cervical spi ne fusion surgery. IMPRESSION: Mild cardiomegaly. No change compared to recent exam. No heart failure.
[2020-04-06 02:49] LABS: Albumin 4.1 g/dL (3.5-5.0); Magnesium 2.5 mg/dL (1.6-2.3); Potassium 4.1 mmol/L (3.5-5.1); Total Bilirubin 0.7 mg/dL (0.2-1.3); Total Protein 7.2 g/dL (6.3-8.2)
[2020-04-06] MEDS ORDERED: NITROGLYCERIN SL TABS 0.4 MG TAB SUBLINGUAL PRN (03:16)
--- NOTE | 2020-04-06 04:46 | P.HPIM ---
History of Present Illness H&P Date: 04/06/20 The patient is a 64-year-old male with a PMH of recent hemorrhagic CVA, systolic CHF status post AICD placement, A. fib/flutter on Eliquis (currently being held for 6 weeks due to CVA) presented to the ED after an episode of syncope. The patient reports that he was in his usual state of health until about midnight tonight when he got up out of his bed to take his nightly medications. He walked over to his kitchen and had taken his pills and was about to walk back when he suddenly felt very lightheaded, and subsequently lost consciousness. He does not know how long he may have lost consciousness for, though upon coming back round, he was laying on the counter (which is waist high). He noted 1-2 seconds of pressure like left sided chest discomfort. Denied noticing shortness of breath, palpitations, nausea, vomiting, or diaphoresis. Upon regaining consciousness, the patient walked over to his bedroom to wake up his activated EMS. At time of interview, the patient reported feeling back to his baseline and had no active complaints. He further denied fever, chills, or cough. In the emergency room a chest x-ray revealed mild cardiomegaly. Laboratory evaluation revealed a troponin of 0.044, glucose 211, BUN 33, creatinine 2.00, and digoxin level 0.6. Review of Systems Pertinent positives and negatives as discussed in HPI, a complete review of sy stems was performed and all other systems are negative. Past Medical History Past Medical History: Atrial Fibrillation, Heart Failure, Diabetes Mellitus, Hyperlipidemia, Hypertension, Sleep Apnea/CPAP/BIPAP Additional Past Medical History / Comment(s): See Dr Durant's H&P FOR CARDIAC. SOB w/activity, cpap. HX TIA-yrs ago. "BLEEDING IN EYES",gout, Cardiac ablation at [facility] Feb History of Any Multi-Drug Resistant Organisms: None Reported Past Surgical History: Ablation, AICD, Cardiac Ablation, EPS, Heart Catheterization, Orthopedic Surgery, Pacemaker Additional Past Surgical History / Comment(s): Atrial ablation, cardioversion,cervical fusion x 2, knee surg., achilles tendon surg., CATARACT SX. CARDIAC Ablation 05/2014; AICD/PACEMAKER 06/2014, [facility] MODEL. BILAT EYE SX "TO REMOVE BLOOD",blood vessel broke in rt eye and he lost partial vision- short term loss, ablation- cardiac. Pacer/AICD changed Feb Past Anesthesia/Blood Transfusion Reactions: No Reported Reaction Additional Past Anesthesia/Blood Transfusion Reaction / Comment(s): NEVER RECIEVED BLOOD. Type of Cardiac Device: Biventricular Pacemaker, AICD Device Placement Date:: 06/2014 Past Psychological History: No Psychological Hx Reported Smoking Status: Never smoker Past Alcohol Use History: Occasional Past Drug Use History: None Reported - Past Family History Father Family Medical History: Coronary Artery Disease (CAD), Diabetes Mellitus, Myocardial Infarction (ID) Additional Family Medical History / Comment(s): FATHER OF ID AT AGE 65 YRS. Mother Family Medical History: Diabetes Mellitus Additional Family Medical History / Comment(s): SHE HAS HAD A LEG AMPUTATION Medications and Allergies Home Medications Medication Instructions Recorded Confirmed Type allopurinoL [Zyloprim] 100 mg PO HS 05/02/14 03/27/20 History Apixaban [Eliquis] 5 mg PO BID 03/18/17 03/27/20 History Metoprolol Succinate [Toprol XL] 50 mg PO BID 03/18/17 03/27/20 History Insulin Aspart (For Pump) [NovoLOG 0.01 unit SQ-PUMP CONTINUOUS 10/31/17 03/27/20 History (For Pump)] Sacubitril/Valsartan [Entresto 49 1 tab PO BID 03/15/19 03/27/20 History mg-51 mg Tablet] Fluvastatin Sodium [Fluvastatin ER] 80 mg PO HS #30 tab.er.24h 03/16/19 03/27/20 Rx Spironolactone [Aldactone] 25 mg PO HS 30 Days #30 tab 03/16/19 03/27/20 Rx Digoxin [Lanoxin] 125 mcg PO DAILY 03/18/20 03/27/20 History L.acidoph,Paracasei, B.lactis 1 cap PO HS 03/18/20 03/27/20 History [Probiotic] Multivitamins, Thera [Multivitamin 1 tab PO DAILY 03/18/20 03/27/20 History (formulary)] Omeprazole 20 mg PO BID 03/18/20 03/27/20 History traMADol HCL 50 mg PO BID PRN 03/18/20 03/27/20 History Simethicone Chew [Mylicon Chew] 80 mg PO QID #100 chew 03/21/20 03/27/20 Rx Torsemide [Demadex] 40 mg PO BID #120 tab 03/21/20 03/27/20 Rx Allergies Allergy/AdvReac Type Severity Reaction Status Date / Time coconut AdvReac sneezing Verified 04/06/20 03:12 coconut oil AdvReac sneezing Verified 04/06/20 03:12 Physical Exam Vitals: Vital Signs Temp Pulse Resp BP Pulse Ox 04/06/20 03:59 90 18 80/47 95 04/06/20 01:55 98/62 04/06/20 01:45 98.3 F 90 18 90/59 98 Intake and Output 04/05/20 04/05/20 04/06/20 14:59 22:59 06:59 Other: Weight 105.233 kg General: non toxic, no distress, appears at stated age, obese Derm: no unusual rashes/lesions no unusual ecchymoses, warm, dry Head: atraumatic, normocephalic, symmetric Eyes: EOMI, no lid lag, anicteric sclera, pupils equal round reactive to light ENT: Nose and ears atraumatic, no thrush, no pharyngeal erythema Neck: No thyromegaly, no cervical lymphadenopathy, trachea midline, supple Mouth: no lip lesion, mucus membranes moist Cardiovascular: S1S2 reg, no murmur, positive posterior tibial pulse bilateral, no edema, capillary refill less than 2 seconds Lungs: CTA bilateral, no rhonchi, no rales , no accessory muscle use Abdominal: soft, nontender to palpation, no guarding, no appreciable organomegaly, normal bowel sounds Ext: no gross muscle atrophy, muscle strength 5 out of 5 in all 4 extremities grossly, no contractures, Neuro: CN II-XI grossly intact, light touch intact all 4 extremities, finger to nose within normal limits, Psych: Alert, oriented, appropriate affect Results CBC & Chem 7: 04/06/20 02:28 04/06/20 02:28 Labs: Abnormal Lab Results - Last 24 Hours (Table) 04/06/20 04/06/20 04/06/20 Range/Units 02:28 02:28 02:28 Hgb 12.8 L (13.0-17.5) gm/dL BUN 33 H (9-20) mg/dL Creatinine 2.00 H (0.66-1.25) mg/dL Glucose 211 H (74-99) mg/dL Magnesium 2.5 H (1.6-2.3) mg/dL Troponin I 0.044 H* (0.000-0.034) ng/mL Assessment and Plan Plan: Syncope, suspected cardiogenic in nature -Cardiac monitoring -Pacemaker interrogation -Cardiology consult -Trend troponin -Fall precautions -Continue with aspirin -Hold off on full anticoagulation due to history of recent hemorrhagic CVA -Obtain orthostatics Troponin elevation -At baseline -Trend for now Acute kidney injury on chronic kidney disease -Monitor BMP for now -Judicious use of IV fluids due to history of severe systolic CHF A. fib/flutter -Eliquis currently being held Borderline BP -The patient's daughter at the bedside who is an RN reports that his baseline is normally 90s systolic Chronic conditions: Type II DM, hypertension, hyperlipidemia, systolic CHF -Continue with home meds -Blood glucose monitoring with insulin sliding scale DVT prophylaxis -IPCDs The patient is admitted with an anticipated less than 2 midnight stay for evaluation of syncope CODE STATUS: Full Code Discussed with: Patient, Daughter Anticipated discharge date: 04/[address]: Home A total of 40 minutes was spent on the care of this complex patient more than 50% of the time was spent in counseling and care coordination.
[2020-04-06 05:53] LABS: Calcium 8.7 mg/dL (8.4-10.2); Potassium 3.8 mmol/L (3.5-5.1)
[2020-04-06] MEDS ORDERED: INSULIN ASPART (NovoLOG) 100 UNIT/ML VIAL SQ SCH (07:30)
[2020-04-06] MEDS: INSULIN ASPART (NovoLOG) 100 UNIT/ML VIAL SQ SCH ×3 (08:07→17:30)
--- NOTE | 2020-04-06 08:51 | P.CRDCN ---
History of Present Illness Consult date: 04/06/20 Chief complaint: Syncope History of present illness: This is a very pleasant 64-year-old gentleman who sees Dr. 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 No symptoms of any chest pain or chest discomfort and no symptoms of any heart racing or fluttering but he felt dizzy and weak before the episode. Because of that he decided to come to the emergency department. The EKG showed an atrial sensed ventricular paced rhythm. The troponin is within normal limits. The chest x-ray did not show any acute abnormalities. Hemodynamically the patient has been having marital in the low blood pressure but he stated that his pressure has been always on the low side. He does not recall feeling any AICD shocks. Currently he is feeling better. At this point I'm going to perform an orthostatic blood pressure check and also I am going to check the AICD to rule out any appropriate delivery/shocks. We'll continue monitor the patient and possibly he is able to be discharged home later on today. His last echocardiogram from March 2020 revealed severe cardiomyopathy with EF around 20%. He is on maximize medical treatment for the cardiomyopathy. Past Medical History Past Medical History: Atrial Fibrillation, Heart Failure, Diabetes Mellitus, Hyperlipidemia, Hypertension, Sleep Apnea/CPAP/BIPAP Additional Past Medical History / Comment(s): See Dr Durant's H&P FOR CARDIAC. SOB w/activity, cpap. HX TIA-yrs ago. "BLEEDING IN EYES",gout, Cardiac ablation at [facility] Feb History of Any Multi-Drug Resistant Organisms: None Reported Past Surgical History: Ablation, AICD, Cardiac Ablation, EPS, Heart Catheterization, Orthopedic Surgery, Pacemaker Additional Past Surgical History / Comment(s): Atrial ablation, cardioversion,cervical fusion x 2, knee surg., achilles tendon surg., CATARACT SX. CARDIAC Ablation 05/2014; AICD/PACEMAKER 06/2014, [facility]. BILAT EYE SX "TO REMOVE BLOOD",blood vessel broke in rt eye and he lost partial vision- short term loss, ablation- cardiac. Pacer/AICD changed Feb Past Anesthesia/Blood Transfusion Reactions: No Reported Reaction Additional Past Anesthesia/Blood Transfusion Reaction / Comment(s): NEVER RECIEVED BLOOD. Type of Cardiac Device: Biventricular Pacemaker, AICD Device Placement Date:: 06/2014 Past Psychological History: No Psychological Hx Reported Smoking Status: Never smoker Past Alcohol Use History: Occasional Past Drug Use History: None Reported - Past Family History Father Family Medical History: Coronary Artery Disease (CAD), Diabetes Mellitus, Myocardial Infarction (NH) Additional Family Medical History / Comment(s): FATHER OF NH AT AGE 65 YRS. Mother Family Medical History: Diabetes Mellitus Additional Family Medical History / Comment(s): SHE HAS HAD A LEG AMPUTATION Medications and Allergies Home Medications Medication Instructions Recorded Confirmed Type allopurinoL [Zyloprim] 100 mg PO HS 05/02/14 03/27/20 History Apixaban [Eliquis] 5 mg PO BID 03/18/17 03/27/20 History Metoprolol Succinate [Toprol XL] 50 mg PO BID 03/18/17 03/27/20 History Insulin Aspart (For Pump) [NovoLOG 0.01 unit SQ-PUMP CONTINUOUS 10/31/17 03/27/20 History (For Pump)] Sacubitril/Valsartan [Entresto 49 1 tab PO BID 03/15/19 03/27/20 History mg-51 mg Tablet] Fluvastatin Sodium [Fluvastatin ER] 80 mg PO HS #30 tab.er.24h 03/16/19 03/27/20 Rx Spironolactone [Aldactone] 25 mg PO HS 30 Days #30 tab 03/16/19 03/27/20 Rx Digoxin [Lanoxin] 125 mcg PO DAILY 03/18/20 03/27/20 History L.acidoph,Paracasei, B.lactis 1 cap PO HS 03/18/20 03/27/20 History [Probiotic] Multivitamins, Thera [Multivitamin 1 tab PO DAILY 03/18/20 03/27/20 History (formulary)] Omeprazole 20 mg PO BID 09/08/20 09/17/20 History traMADol HCL 50 mg PO BID PRN 03/18/20 03/27/20 History Simethicone Chew [Mylicon Chew] 80 mg PO QID #100 chew 03/21/20 03/27/20 Rx Torsemide [Demadex] 40 mg PO BID #120 tab 03/21/20 03/27/20 Rx Allergies Allergy/AdvReac Type Severity Reaction Status Date / Time coconut AdvReac sneezing Verified 04/06/20 03:12 coconut oil AdvReac sneezing Verified 04/06/20 03:12 Physical Exam Vitals: Vital Signs Temp Pulse Resp BP Pulse Ox 04/06/20 06:53 97.6 F 80 16 95/61 95 04/06/20 05:00 79 18 93/68 96 04/06/20 03:59 90 18 80/47 95 04/06/20 01:55 98/62 04/06/20 01:45 98.3 F 90 18 90/59 98 Intake and Output 04/05/20 04/06/20 04/06/20 22:59 06:59 14:59 Other: Weight 105.233 kg - Constitutional General appearance: no acute distress - Respiratory Respiratory: bilateral: CTA - Cardiovascular Rhythm: regular Heart sounds: normal: S1, S2 Abnormal Heart Sounds: systolic murmur Results 04/06/20 02:28 04/06/20 05:28 Cardiac Enzymes 04/06/20 04/06/20 04/06/20 Range/Units 02:28 02:28 05:28 AST 25 (17-59) U/L Troponin I 0.044 H* 0.044 H* (0.000-0.034) ng/mL Coagulation 04/06/20 Range/Units 02:28 PT 10.9 (9.0-12.0) sec APTT 24.0 (22.0-30.0) sec CBC 04/06/20 Range/Units 02:28 WBC 10.3 (3.8-10.6) k/uL RBC 4.89 (4.30-5.90) m/uL Hgb 12.8 L (13.0-17.5) gm/dL Hct 40.6 (39.0-53.0) % Plt Count 189 (150-450) k/uL Comprehensive Metabolic Panel 04/06/20 04/06/20 Range/Units 02:28 05:28 Sodium 139 140 (137-145) mmol/L Potassium 4.1 3.8 (3.5-5.1) mmol/L Chloride 101 102 (98-107) mmol/L Carbon Dioxide 30 31 H (22-30) mmol/L BUN 33 H 33 H (9-20) mg/dL Creatinine 2.00 H 1.99 H (0.66-1.25) mg/dL Glucose 211 H 195 H (74-99) mg/dL Calcium 9.0 8.7 (8.4-10.2) mg/dL AST 25 (17-59) U/L ALT 15 (4-49) U/L Alkaline Phosphatase 97 (38-126) U/L Total Protein 7.2 (6.3-8.2) g/dL Albumin 4.1 (3.5-5.0) g/dL Current Medications Generic Name Dose Route Start Last Admin Trade Name Freq PRN Reason Stop Dose Admin Aspirin 325 mg 04/07/20 09:00 Aspirin 325 Mg Tab PO DAILY [facility] Insulin Aspart 0 unit 04/06/20 07:30 04/06/20 08:07 Insulin Aspart (Novolog) 100 Unit/Ml Vial SQ Not Given AC-TID [facility] Protocol Metoprolol Succinate 50 mg 04/06/20 09:00 Metoprolol Succinate (Er) 50 Mg Tab.Er.24h PO BID SONY Nitroglycerin 0.4 mg 04/06/20 03:16 Nitroglycerin Sl Tabs 0.4 Mg Tab SUBLINGUAL Q5M PRN Chest Pain Sacubitril/Valsartan 1 each 04/06/20 09:00 Sacubitril/Valsartan 49 Mg-51 Mg Tablet PO BID SONY Spironolactone 25 mg 04/06/20 21:00 Spironolactone 25 Mg Tab PO HS SONY Torsemide 40 mg 04/06/20 09:00 Torsemide 20 Mg Tab PO BID SONY Intake and Output 04/05/20 04/06/20 04/06/20 22:59 06:59 14:59 Other: Weight 105.233 kg 04/06/20 02:28 04/06/20 05:28 Assessment and Plan Assessment: Assessment #1 presyncope/syncope #2 generalized weakness #3 severe nonischemic cardiomyopathy #4 paroxysmal atrial fibrillation #5 multiple comorbid conditions Plan #1 rule out orthostatic hypotension #2 and AICD interrogation #3 monitor the blood pressure and heart rate #4 further recommendation to follow that
[2020-04-06] MEDS ORDERED: APIXABAN 5 MG TAB PO SCH (09:00)
[2020-04-06] MEDS: METOPROLOL SUCCINATE (ER) 50 MG TAB.ER.24H PO SCH ×2 (09:31→21:47)
[2020-04-06] MEDS: SACUBITRIL/VALSARTAN 49 MG-51 MG TABLET PO SCH ×2 (09:46→21:47)
[2020-04-06] MEDS: TORSEMIDE 20 MG TAB PO SCH ×2 (09:46→21:47)
[2020-04-06] MEDS ORDERED: DEXTROSE 5% IN WATER 100 ML with AMIODARONE 150 MG IV ONE (10:56)
[2020-04-06] MEDS ORDERED: AMIODARONE 360 MG in DEXTROSE 5% IN WATER 200 ML IV ONE ×2 (10:57)
[2020-04-06] MEDS ORDERED: METOPROLOL TARTRATE 5 MG/5 ML VIAL IVP STA (10:57)
[2020-04-06] MEDS ORDERED: POTASSIUM BICARBONATE/CIT AC 20 MEQ TABLET.EFF PO STA (11:01)
[2020-04-06] MEDS ORDERED: POTASSIUM CHLORIDE 20 MEQ in WATER FOR INJECTION 1 100ML.BAG IVPB STA (11:01)
[2020-04-06 13:12] LABS: Glucose,Whole Blood 170 mg/dL (75-99)
[2020-04-06 17:08] LABS: Glucose,Whole Blood 185 mg/dL (75-99)
[2020-04-06] MEDS: AMIODARONE 300 MG in DEXTROSE 5% IN WATER 250 ML IV SCH ×2 (17:50)
[2020-04-06 20:42] LABS: Glucose,Whole Blood 139 mg/dL (75-99)
[2020-04-06] MEDS: SPIRONOLACTONE 25 MG TAB PO SCH (21:47)
[2020-04-07] MEDS: AMIODARONE 300 MG in DEXTROSE 5% IN WATER 250 ML IV SCH ×2 (03:15)
[2020-04-07 04:22] LABS: Basophils # (A) 0.1 k/uL (0-0.2); Basophils % (A) 1 %; Eosinophils # (A) 0.2 k/uL (0-0.7); Eosinophils % (A) 2 %; HCT 39.6 % (39.0-53.0); HGB 12.4 gm/dL (13.0-17.5); Lymphocytes # (A) 2.2 k/uL (1.0-4.8); Lymphocytes % (A) 23 %; MCH 26.2 pg (25.0-35.0); MCHC 31.3 g/dL (31.0-37.0); MCV 83.6 fL (80.0-100.0); Mean Platelet Volume 9.2; Monocytes # (A) 0.7 k/uL (0-1.0); Monocytes % (A) 7 %; Neutrophils # (A) 6.4 k/uL (1.3-7.7); Neutrophils % (A) 66 %; Platelet Count 175 k/uL (150-450); RBC 4.74 m/uL (4.30-5.90); RDW 15.3 % (11.5-15.5); WBC 9.7 k/uL (3.8-10.6)
[2020-04-07 04:31] LABS: Calcium 8.5 mg/dL (8.4-10.2); Magnesium 2.4 mg/dL (1.6-2.3); Potassium 3.8 mmol/L (3.5-5.1)
[2020-04-07] MEDS ORDERED: POTASSIUM CHLORIDE ER 20 MEQ TAB.ER PO SCH (05:00)
[2020-04-07] MEDS: INSULIN ASPART (NovoLOG) 100 UNIT/ML VIAL SQ SCH (06:44)
[2020-04-07 06:45] LABS: Glucose,Whole Blood 143 mg/dL (75-99)
--- NOTE | 2020-04-07 08:45 | XR ---
EXAMINATION TYPE: XR chest 1V portable DATE OF EXAM: 04/07/2020 COMPARISON: 04/06/2020 HISTORY: Pain TECHNIQUE: Single frontal view of the chest is obtained. FINDINGS: There is no focal air space opacity, pleural effusion, or pneumothorax seen. The cardiac silhouette size is within normal limits. The osseous structures are intact. The heart is enlarged a nd there is a cardiac device. Biapical pleural thickening. Postsurgical change overlying the cervical spine hypertrophic change of the vertebral column. IMPRESSION: 1. Cardiomegaly.
[2020-04-07] MEDS: AMIODARONE 200 MG TAB PO SCH ×2 (09:08→20:53)
[2020-04-07] MEDS: TORSEMIDE 20 MG TAB PO SCH ×2 (09:11→20:53)
[2020-04-07] MEDS: METOPROLOL SUCCINATE (ER) 50 MG TAB.ER.24H PO SCH ×2 (09:11→20:53)
[2020-04-07] MEDS: SACUBITRIL/VALSARTAN 49 MG-51 MG TABLET PO SCH ×2 (09:11→20:53)
[2020-04-07] MEDS: ASPIRIN 325 MG TAB PO SCH (09:11)
--- NOTE | 2020-04-07 09:29 | PN ---
PROGRESS NOTE Mr. Li is a 64-year-old male with known history of severe nonischemic cardiomyopathy, history of recurrent ventricular ectopic activity, atrial fibrillation ablation, followed by Dr. Durant as well at [facility], who recently was in the hospital because of a cerebrovascular accident and hemorrhagic stroke. He has been off his anticoagulation, is scheduled to undergo repeat CAT scan and then be further evaluated. Came in with a loss of consciousness, had an episode of ventricular tachycardia. He is in sinus mechanism at this time on IV amiodarone. He is feeling well. He is denying any chest pain. He denies any dizziness, palpitation. He denies any nausea and vomiting. He denies any cough. Hemodynamically, he is stable. He continues to be on the IV amiodarone. In addition to that he is on aspirin once a day, metoprolol succinate 50 mg twice a day and Crestor 49-51 mg daily, Aldactone 20 mg daily, Demodex 40 mg daily. PHYSICAL EXAMINATION: Blood pressure running in the low 100s and high 90s with the heart in the 60s. LUNGS: Clear. HEART: Regular rate and rhythm, S1, S2. No S3 with a systolic murmur at the base. No diastolic murmur, no rub. ABDOMEN: Soft, nontender. EXTREMITIES: No edema. LAB DATA: BUN and creatinine of 31 and 1.6, potassium 3.8, hemoglobin 12.4. IMPRESSION: 1. History of severe nonischemic cardiomyopathy with ejection fraction of 20%. 2. Ventricular ectopic activity with syncope and presyncope. 3. Paroxysmal atrial fibrillation. 4. Status post ablation of ventricular ectopic activity. 5. Renal failure improving. 6. Hemorrhagic stroke recent. RECOMMENDATION: Patient will be switched to oral amiodarone. He has the device will be interrogated. I will continue to hold on his anticoagulation at this time. We will increase his activity. Depending on his the interrogation of his device and his progress, further recommendation will be made. MMODL / IJN: [id number] /
[2020-04-07 12:15] LABS: Glucose,Whole Blood 174 mg/dL (75-99)
[2020-04-07] MEDS ORDERED: INSULIN PUMP ACTIVE INSULIN 1 EACH MISC MISCELLANE PRN (12:47)
[2020-04-07] MEDS ORDERED: INSULIN PUMP TARGET GLUCOSE 1 EACH MISC MISCELLANE PRN (12:47)
[2020-04-07] MEDS ORDERED: INSULIN PUMP BASAL RATES 1 EACH MISC MISCELLANE PRN ×2 (12:47→18:47)
[2020-04-07] MEDS ORDERED: INSPUCOR MISCELLANE PRN ×2 (12:47→18:31)
--- NOTE | 2020-04-07 12:56 | P.PN ---
Subjective Progress Note Date: 04/07/20 Patient is doing well today. He denies any dizziness or lightheadedness. No acute events overnight Objective - Vital Signs Vital signs: Vital Signs Temp 97.6 F 04/07/20 12:00 Pulse 79 04/07/20 12:00 Resp 13 04/07/20 12:15 BP 93/68 04/07/20 12:00 Pulse Ox 92 L 04/07/20 12:00 Intake & Output 04/06/20 04/07/20 04/07/20 18:59 06:59 18:59 Intake Total 120 725.417 370 Output Total 500 1300 Balance -380 -574.583 370 Weight 112.5 kg Intake: IV 120 240 120 0.9 carrier 120 240 120 Intake, IV Titration 235.417 Amount Amiodarone 300 mg In 235.417 Dextrose 5% in Water 250 ml @ 0.5 MG/MIN 25 mls/hr IV .Q10H [facility] Rx#: [id number] Oral 250 250 Output: Urine 500 1300 Other: Voiding Method Urinal Urinal Bedside Commode Urinal # Voids 1 1 1 # Bowel Movements 1 1 1 - Exam General: The patient is awake and alert, in no distress Eye: there is normal conjunctiva bilaterally. Neck: The neck is supple, there is no JVD. Cardiovascular: Normal S1-S2, no S3-S4, no murmurs. Respiratory: Lungs clear to auscultation bilaterally Gastrointestinal: Abdomen is soft, nontender Musculoskeletal: There is no pedal edema. Neurological:. Speech is normal. Skin: Skin is warm and dry - Labs CBC & Chem 7: 04/07/20 03:32 04/07/20 03:32 Labs: Abnormal Lab Results - Last 24 Hours (Table) 04/06/20 04/06/20 04/06/20 Range/Units 13:10 17:07 20:41 Hgb (13.0-17.5) gm/dL BUN (9-20) mg/dL Creatinine (0.66-1.25) mg/dL Glucose (74-99) mg/dL POC Glucose (mg/dL) 170 H 185 H 139 H (75-99) mg/dL Magnesium (1.6-2.3) mg/dL HDL Cholesterol (40-60) mg/dL 04/07/20 04/07/20 04/07/20 Range/Units 03:32 03:32 06:44 Hgb 12.4 L (13.0-17.5) gm/dL BUN 31 H (9-20) mg/dL Creatinine 1.60 H (0.66-1.25) mg/dL Glucose 159 H (74-99) mg/dL POC Glucose (mg/dL) 143 H (75-99) mg/dL Magnesium 2.4 H (1.6-2.3) mg/dL HDL Cholesterol 31 L (40-60) mg/dL 04/07/20 Range/Units 12:14 Hgb (13.0-17.5) gm/dL BUN (9-20) mg/dL Creatinine (0.66-1.25) mg/dL Glucose (74-99) mg/dL POC Glucose (mg/dL) 174 H (75-99) mg/dL Magnesium (1.6-2.3) mg/dL HDL Cholesterol (40-60) mg/dL Assessment and Plan Assessment: This is a 64-year-old male with a complex past medical history noted below who presented to the emergency room with a syncopal episode. Patient was evaluated in the ER and currently admitted to the hospital for further management of his medical problems noted below. 1. 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 Patient was started on IV amiodarone drip. Will be switched to oral amiodarone today. Awaiting device interrogation. Orthostatic blood pressure checked and negative. Patient blood pressure on on the lower side normally. Troponin slightly elevated but trended 3 times and stable. Appreciate cardiology recommendations. 2. History of severe nonischemic cardiomyopathy with EF of 20%: Continue optimal medical management. 3. Chronic atrial fibrillation on anticoagulation with Eliquis currently on hold secondary to recent hemorrhagic CVA 4. Acute kidney injury, on presentation. Creatinine improved with IV fluid hydration. 5. Stage III chronic kidney disease with baseline creatinine around 1.6 6. Chronic medical problems, type 2 diabetes, essential hypertension (with blood pressure running in the low 90s normally), hyperlipidemia: Stable
--- NOTE | 2020-04-07 16:37 | CONS ---
CONSULTATION PULMONARY/CRITICAL CARE CONSULTATION: REASON FOR CONSULTATION: ICU management. This is a 64-year-old male who was initially seen in the emergency room on April 06. He apparently came to the ER for weakness and syncope. Apparently he was found to have SVT and does carry with him a diagnosis of atrial fibrillation and flutter. Anyway, the patient had a recent admission 10 days ago for possible stroke. Currently the patient is doing reasonably well. He is on oxygen at 2 L by nasal cannula and/or room air. He was on IV amiodarone, but that has been turned off and he is getting saline at 20 mL/hour. He has no residual deficits from the recent CVA. Currently he is resting comfortably. He has no complaints today. Hemodynamically, his situation has been stable. Also his respiratory status is stable. HOME MEDICATIONS: Reviewed. He is on zyloprim, Eliquis, metoprolol, insulin, Entresto, Lanoxin, probiotic, multiple vitamins, omeprazole and Tramadol. He has also been on Demadex, Mylicon chews, Aldactone and fluvastatin. ALLERGIES: COCONUT AND COCONUT OIL. MEDICAL HISTORY: Positive for atrial fibrillation, CHF, diabetes, hyperlipidemia, hypertension and sleep apnea syndrome. He uses CPAP for his sleep apnea. Additional medical problems include gout and previous cardiac ablation at [facility] in February of 2020. SURGICAL HISTORY: Surgical history includes ablation, AICD placement, EPS studies, heart catheterization, pacemaker insertion, cervical fusion, knee surgery, Achilles tendon surgery, cataract surgery and bilateral eye surgery, as well as multiple ablations and cardiac procedures. SOCIAL HISTORY: Social history is significant in that he is a lifelong nonsmoker. He drinks alcohol occasionally. He denies any illicit drug use. FAMILY HISTORY: Positive for father with CAD, diabetes, myocardial infarction; mother with with diabetes mellitus and leg amputation. REVIEW OF SYSTEMS: CONSTITUTIONAL: Weakness. NEUROLOGIC: Recent CVA without residual deficits. HEENT: Negative. CARDIOVASCULAR: Negative. PULMONARY: Negative. GI: Negative. : Negative. RHEUMATOLOGIC: Negative. IMMUNOLOGIC: Negative. ENDOCRINOLOGIC: Negative. DERMATOLOGIC: Negative. PHYSICAL EXAMINATION: VITAL SIGNS: Current vital signs are reviewed. Temperature 98.4, heart rate 78, respiratory rate 23, blood pressure 95/72, mean 79, room-air saturation 96%. GENERAL APPEARANCE: Appears in no acute distress. HEENT: Examination is grossly unremarkable. NECK: Supple. Full range of motion. No adenopathy. Neck veins are flat. CARDIOVASCULAR: Examination reveals regular rhythm and rate. Heart rate in mid 70s. S1, S2 normal. No distinct murmur. LUNGS: Lungs reveal clear breath sounds. No wheezes, rhonchi or crackles. ABDOMEN: Soft. Bowel sounds are heard. EXTREMITIES: Intact. No significant edema. SKIN: Without rash. NEUROLOGIC: Neurologic examination is nonfocal. LABS/IMAGING: Reviewed. White count 9.7, hemoglobin 12.4, hematocrit 39.6, platelet count 175,000. Sodium, potassium, chloride and CO2 all normal. Anion gap is normal. BUN and creatinine were 31 and 1.60. Magnesium is 2.4. Microbiologic studies are negative. Chest x-ray shows only evidence of cardiomegaly. MEDICATIONS: Medications are reviewed. He is currently on amiodarone orally, aspirin, insulin, metoprolol, sublingual nitroglycerin, Entresto, Aldactone and Demadex. ASSESSMENT: 1. Syncope/near-syncope. 2. Weakness, resolved. 3. Recent cerebrovascular accident without neurologic residuals. 4. History of atrial fibrillation. 5. Congestive heart failure. 6. Diabetes mellitus. 7. Hyperlipidemia. 8. Hypertension. 9. Sleep apnea, currently on CPAP. PLAN: The patient seems to be doing relatively well. We will continue to follow. No active or current critical care issues to deal with at this time. Hemodynamic status and respiratory status are stable. Will continue to follow. MMODL / IJN: [id number] /
[2020-04-07] MEDS ORDERED: INSULIN PUMP MEAL BOLUS 1 UNIT MISC MISCELLANE SCH (17:30)
[2020-04-07] MEDS ORDERED: INSULIN ASPART (NovoLOG) 100 UNIT/ML VIAL SQ PRN (18:31)
[2020-04-07 20:31] LABS: Glucose,Whole Blood 215 mg/dL (75-99)
[2020-04-07] MEDS: INSULIN PUMP MEAL BOLUS 1 UNIT MISC MISCELLANE SCH (20:43)
[2020-04-07] MEDS: SPIRONOLACTONE 25 MG TAB PO SCH (20:53)
[2020-04-08 04:21] LABS: Basophils # (A) 0.1 k/uL (0-0.2); Basophils % (A) 1 %; Eosinophils # (A) 0.2 k/uL (0-0.7); Eosinophils % (A) 2 %; HCT 41.2 % (39.0-53.0); HGB 12.8 gm/dL (13.0-17.5); Lymphocytes # (A) 2.2 k/uL (1.0-4.8); Lymphocytes % (A) 20 %; MCH 26.1 pg (25.0-35.0); MCHC 31.2 g/dL (31.0-37.0); MCV 83.9 fL (80.0-100.0); Monocytes # (A) 0.8 k/uL (0-1.0); Monocytes % (A) 7 %; Neutrophils # (A) 7.8 k/uL (1.3-7.7); Neutrophils % (A) 69 %; Platelet Count 165 k/uL (150-450); RBC 4.91 m/uL (4.30-5.90); RDW 15.4 % (11.5-15.5); WBC 11.3 k/uL (3.8-10.6)
[2020-04-08 04:29] LABS: Calcium 9.1 mg/dL (8.4-10.2)
[2020-04-08 06:37] LABS: Glucose,Whole Blood 125 mg/dL (75-99)
[2020-04-08] MEDS: INSULIN PUMP MEAL BOLUS 1 UNIT MISC MISCELLANE SCH ×4 (08:10→21:30)
[2020-04-08] MEDS: AMIODARONE 200 MG TAB PO SCH ×2 (08:11→20:46)
[2020-04-08] MEDS: SACUBITRIL/VALSARTAN 49 MG-51 MG TABLET PO SCH ×2 (08:11→20:46)
[2020-04-08] MEDS: METOPROLOL SUCCINATE (ER) 50 MG TAB.ER.24H PO SCH ×2 (08:11→20:46)
[2020-04-08] MEDS: ASPIRIN 325 MG TAB PO SCH (08:11)
[2020-04-08] MEDS: TORSEMIDE 20 MG TAB PO SCH ×2 (08:12→20:46)
--- NOTE | 2020-04-08 09:49 | P.PN ---
Subjective Progress Note Date: 04/08/20 Principal diagnosis: Arrhythmia This 64-year-old male who was admitted to the hospital on 04/06/2020 when she presented to emergency department with complaints of weakness and syncope. Patient was found to be in SVT on the monitor patient does have history of atrial fibrillation and atrial flutter. He had a recent admission to the hospital 10 days ago for possibility of stroke. Patient was started on IV amiodarone and had since converted to paced rhythm with a controlled rate. 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 He was admitted to the intensive care unit, then an overflow for selective care since yesterday, his been stable in the last 24 hours, no recurrence of arrhythmias. He remains in the paced rhythm on the monitor with a controlled rate, he is currently sitting up in the chair, and he denies any acute distress but the chest pain, no shortness of breath. Remains pulse ox is 98%, patient is on his home unit CPAP at night history of obstructive sleep apnea. Today's labs have been reviewed, showing white blood cell count of 11.3, hemoglobin of 12.8, electrodes were unremarkable, B1 is 30 creatinine is 1.57. His IV amiodarone has been transitioned to oral amiodarone currently at 400 mg twice daily, she is on home dose Demadex 40 mg twice daily, no extremity swelling, no rhonchi no crackles no wheezes on today's exam. Objective - Vital Signs Vital signs: Vital Signs Temp 98.1 F 04/08/20 08:00 Pulse 84 04/08/20 08:00 Resp 14 04/08/20 08:00 BP 100/68 04/08/20 08:00 Pulse Ox 98 04/08/20 08:00 Intake & Output 04/07/20 04/08/20 04/08/20 18:59 06:59 18:59 Intake Total 570 480 Output Total 500 2750 0 Balance 70 -2270 0 Weight 108 kg Intake: IV 200 0.9 carrier 200 Oral 370 480 Output: Urine 500 2750 0 Other: Voiding Method Bedside Commode Bedside Commode Urinal Urinal # Voids 1 # Bowel Movements 1 - Exam GENERAL EXAM: Alert, pleasant, 64-year-old white male, on room air, pulse ox of 98% comfortable in no apparent distress. HEAD: Normocephalic/atraumatic. EYES: Normal reaction of pupils, equal size. Conjunctiva pink, sclera white. NOSE: Clear with pink turbinates. THROAT: No erythema or exudates. NECK: No masses, no JVD, no thyroid enlargement, no adenopathy. CHEST: No chest wall deformity. Symmetrical expansion. LUNGS: Equal air entry with no crackles, wheeze, rhonchi or dullness. CVS: Regular rate and rhythm, normal S1 and S2, no gallops, no murmurs, no rubs ABDOMEN: Soft, nontender. No hepatosplenomegaly, normal bowel sounds, no guar ding or rigidity. EXTREMITIES: No clubbing, no edema, no cyanosis, 2+ pulses and upper and lower extremities. MUSCULOSKELETAL: Muscle strength and tone normal. SPINE: No scoliosis or deformity SKIN: No rashes CENTRAL NERVOUS SYSTEM: Alert and oriented -3. No focal deficits, tone is normal in all 4 extremities. PSYCHIATRIC: Alert and oriented -3. Appropriate affect. Intact judgment and insight. - Labs CBC & Chem 7: 04/08/20 03:53 04/08/20 03:53 Labs: Abnormal Lab Results - Last 24 Hours (Table) 04/07/20 04/07/20 04/08/20 Range/Units 12:14 20:30 03:53 WBC (3.8-10.6) k/uL Hgb (13.0-17.5) gm/dL Neutrophils # (1.3-7.7) k/uL BUN 30 H (9-20) mg/dL Creatinine 1.57 H (0.66-1.25) mg/dL Glucose 166 H (74-99) mg/dL POC Glucose (mg/dL) 174 H 215 H (75-99) mg/dL 04/08/20 04/08/20 Range/Units 03:53 06:35 WBC 11.3 H (3.8-10.6) k/uL Hgb 12.8 L (13.0-17.5) gm/dL Neutrophils # 7.8 H (1.3-7.7) k/uL BUN (9-20) mg/dL Creatinine (0.66-1.25) mg/dL Glucose (74-99) mg/dL POC Glucose (mg/dL) 125 H (75-99) mg/dL Assessment and Plan Plan: Assessment: #1. Arrhythmia, SVT hasn't on admission, with symptoms of syncope and presyncope, patient had since converted to paced rhythm with controlled rate on amiodarone #2. History of severe nonischemic cardio myopathy with ejection fraction of 20% status post AICD/biventricular pacemaker insertion #3. History of recurrent ventricular ectopic activity, atrial fibrillation status post cardiac ablation #4. Paroxysmal atrial fibrillation #5. Acute kidney injury proving #6. Recent history of hemorrhagic stroke, #7. Hyperlipidemia #8. Hypertension #9. Sleep apnea on CPAP therapy Plan: Continue current medical treatment, clinically patient has been stable, cardiology is following, cardiology managing patient's antiarrhythmic medications, patient has been in a paced rhythm with a controlled rate, there has been no recurrence of SVT/ventricular ectopic activity. No acute events overnight, he is awaiting a bed on selective care. Increase activity as tolerated. Will discharge home in the next 24 hours I performed a history & physical examination of the patient and discussed their management with my nurse practitioner, Fabienne Garcia. I reviewed the nurse practitioner's note and agree with the documented findings and plan of care. Lung sounds are positive for diminished breath sounds The findings and the impression was discussed with the patient. I attest to the documentation by the nurse practitioner. Time with Patient: Less than 30
--- NOTE | 2020-04-08 11:08 | PN ---
PROGRESS NOTE Mr. Li is a 64-year-old male with a known history of cardiomyopathy, nonischemic, history of atrial fibrillation as well as ventricular tachycardia who is followed by Dr. Durant and at the [facility], had a recent hemorrhagic stroke who presents with an episode of ventricular tachycardia calcific consciousness. He is feeling well this morning. He continues to be in sinus mechanism. He has no chest pain. No dizziness. No palpitation. He has no further episode of ventricular tachycardia. He continued on amiodarone 400 mg twice a day, aspirin once a day, insulin, metoprolol succinate 50 mg twice a day, Entresto 49-51 mg daily, Aldactone 20 mg daily, Demodex 40 mg twice a day. PHYSICAL EXAMINATION: Blood pressure running in the high 90s with a heart rate in the 80s. LUNGS: Clear. HEART: Regular rate and rhythm, S1, S2. No S3. No rub. ABDOMEN: Soft, nontender. EXTREMITIES: No significant edema. LAB DATA: Revealed BUN and creatinine 30 and 1.57, improved compared to yesterday. Potassium of 4.0, hemoglobin of 12.8. IMPRESSION: 1. Ventricular tachycardia in a patient with known history of severe nonischemic cardiomyopathy, stable at this time. 2. Severe nonischemic cardiomyopathy. No evidence of acute heart failure at this time. 3. Paroxysmal fibrillation, not anticoagulated because of recent hemorrhagic stroke. 4. Renal failure, improving. 5. Status post ablation, ventricular ectopic activity. RECOMMENDATION: Will continue present therapy, patient's anticoagulation is on hold. Will increase his activity and if stable, I would expect he should be able to be discharged home soon to follow up at [facility] as well as Dr. Durant to see if further intervention is needed for his arrhythmia. MMODL / IJN: [id number] /
--- NOTE | 2020-04-08 14:14 | P.CNNES ---
History of Present Illness Consult date: 04/08/20 Requesting physician: Josette Gordon Reason for Consult: Loss of consciousness. 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 Patient stated that on the 04/06/2020 during that night was taking his medications and then all of a sudden he felt lightheaded lost consciousness. He does not know how long he may have lost consciousness for. He noted that 1-2 seconds of pressure-like over the left side. He said he did not hit his head that he fell just over the on the side of his bedroom. He denies any urinary or bowel incontinence. Denies of any tongue bite or shortness of the tongue upon waking up. Denies any nausea, vomiting or diaphoresis at. Upon regaining consciousness the patient walked over to his bedroom at to wake up his and his called 911. After that the patient felt back to his baseline. Per the patient he does not have any history of seizures. In the ED he was found to have SVT and he does carry with him diagnosis of atrial for ablation and flutter. Initially the patient was placed on IV amiodarone. On the most recent hospital admission on 2019 patient had the right occipital mild hemorrhagic conversion. He was on Apixaban. The [place] was held. The patient was transferred to the [facility] for further evaluation. Patient had no residual deficits. The patient over at [facility] on that he was told not to restart his the anticoagulation until 6 weeks from the event. He said he'll follow up with the neurology team over at the [facility]. He was told he'll get imaging prior to starting the anticoagulation. Review of Systems Review of system: The 12 point system was reviewed and apparent positive and negative per HPI. Past Medical History Past Medical History: Atrial Fibrillation, Heart Failure, Diabetes Mellitus, Hyperlipidemia, Hypertension, Sleep Apnea/CPAP/BIPAP Additional Past Medical History / Comment(s): See Dr Durant's H&P FOR CARDIAC. SOB w/activity, cpap. HX TIA-yrs ago. "BLEEDING IN EYES",gout, [facility] History of Any Multi-Drug Resistant Organisms: None Reported Past Surgical History: Ablation, AICD, Cardiac Ablation, EPS, Heart Catheterization, Orthopedic Surgery, Pacemaker Additional Past Surgical History / Comment(s): Atrial ablation, cardioversion,cervical fusion x 2, knee surg., achilles tendon surg., CATARACT SX. CARDIAC Ablation 05/2014; AICD/PACEMAKER 06/2014, [facility] MODEL. BILAT EYE SX "TO REMOVE BLOOD",blood vessel broke in rt eye and he lost partial vision- short term loss, ablation- cardiac. Pacer/AICD changed Feb Past Anesthesia/Blood Transfusion Reactions: No Reported Reaction Additional Past Anesthesia/Blood Transfusion Reaction / Comment(s): NEVER RECIEVED BLOOD. Type of Cardiac Device: Biventricular Pacemaker, AICD Device Placement Date:: 06/2014 Past Psychological History: No Psychological Hx Reported Smoking Status: Never smoker Past Alcohol Use History: Occasional Past Drug Use History: None Reported - Past Family History Father Family Medical History: Coronary Artery Disease (CAD), Diabetes Mellitus, Myocardial Infarction (DE) Additional Family Medical History / Comment(s): FATHER OF DE AT AGE 65 YRS. Mother Family Medical History: Diabetes Mellitus Additional Family Medical History / Comment(s): SHE HAS HAD A LEG AMPUTATION Medications and Allergies Home Medications Medication Instructions Recorded Confirmed Type allopurinoL [Zyloprim] 100 mg PO HS 05/02/14 04/06/20 History Metoprolol Succinate [Toprol XL] 50 mg PO BID 03/18/17 04/06/20 History Insulin Aspart (For Pump) [NovoLOG 0.01 unit SQ-PUMP CONTINUOUS 10/31/17 04/06/20 History (For Pump)] Sacubitril/Valsartan [Entresto 49 1 tab PO BID 03/15/19 04/06/20 History mg-51 mg Tablet] Fluvastatin Sodium [Fluvastatin ER] 80 mg PO HS #30 tab.er.24h 03/16/19 04/06/20 Rx Digoxin [Lanoxin] 125 mcg PO DAILY 03/18/20 04/06/20 History L.acidoph,Paracasei, B.lactis 1 cap PO HS 03/18/20 04/06/20 History [Probiotic] Multivitamins, Thera [Multivitamin 1 tab PO DAILY 03/18/20 04/06/20 History (formulary)] Omeprazole 20 mg PO BID 03/18/20 04/06/20 History traMADol HCL 50 mg PO BID PRN 03/18/20 04/06/20 History Torsemide [Demadex] 40 mg PO BID #120 tab 03/21/20 04/06/20 Rx Dapagliflozin Propanediol [Farxiga] 10 mg PO DAILY 04/06/20 04/06/20 History Simethicone Chew [Mylicon Chew] 80 mg PO QID PRN 04/06/20 04/06/20 History Allergies Allergy/AdvReac Type Severity Reaction Status Date / Time coconut AdvReac sneezing Verified 04/06/20 12:05 coconut oil AdvReac sneezing Verified 04/06/20 12:05 Physical Examination - Vital Signs Vital Signs: Vital Signs Temp Pulse Resp BP Pulse Ox 04/08/20 12:00 98.1 F 64 23 82/57 97 04/08/20 10:00 80 25 H 92/59 95 04/08/20 09:00 64 12 95/66 96 04/08/20 08:00 98.1 F 84 14 100/68 98 04/08/20 07:00 75 19 101/55 98 04/08/20 06:00 73 18 91/40 93 L 04/08/20 05:00 80 18 83/56 93 L 04/08/20 04:00 80 24 83/58 95 04/08/20 03:46 22 04/08/20 03:00 97.5 F L 76 22 95/66 98 04/08/20 02:00 68 15 87/65 96 04/08/20 01:00 80 24 106/68 99 04/08/20 00:00 97.8 F 85 16 104/77 95 04/07/20 23:42 15 04/07/20 23:00 81 15 110/82 98 04/07/20 22:00 83 18 91/71 98 04/07/20 21:00 86 22 99/58 100 04/07/20 20:00 97.6 F 85 19 107/58 97 04/07/20 19:00 86 29 H 85/69 95 04/07/20 18:00 85 16 97/65 99 04/07/20 17:00 80 20 90/61 97 04/07/20 16:00 98 F 80 29 H 96/65 97 04/07/20 15:45 29 H 04/07/20 15:00 82 24 90/75 97 04/07/20 14:00 80 21 93/68 97 Intake and Output 04/07/20 04/08/20 04/08/20 22:59 06:59 14:59 Intake Total 640 200 Output Total 1050 1700 300 Balance -410 -1700 -100 Intake: IV 40 0.9 carrier 40 Oral 600 200 Output: Urine 1050 1700 300 Other: Voiding Method Bedside Commode Bedside Commode Bedside Commode Urinal Urinal Urinal # Voids 1 Weight 108 kg GENERAL: The patient is sitting in chair and is not in acute distress. CHEST: The heart rate is regular rate rhythm. No murmurs to auscultation. LUNG: Clear to auscultation bilaterally no wheezing noted throughout. Not labored breathing. ABDOMEN/GI: Bowel sounds present in all 4 quadrants. No tenderness to palpation throughout. NEUROLOGICAL: Higher mental function: The patient is awake, alert, oriented to self, place and time. Patient is following commands. No aphasia and no neglect. Cranial nerves: The pupils are round, equal and reactive to light and accommodation. Visual preciado are full to confrontation throughout. Extraocular movement is intact no nystagmus is noted. Facial sensation is normal to touch throughout. The facial strength is normal throughout. Hearing is normal bilaterally to hand rub. Tongue is midline and moved [id number] without any difficulty. No dysarthria is noted. Shoulder shrug is normal bilaterally. Motor: The strength is 5 over 5 throughout. Normal tone and bulk. Cerebellum: Normal finger to nose heel to chin bilaterally. Sensation: Sensation is normal to touch throughout. Reflexes (right/left): 2+ Plantars are downgoing bilaterally. Results Patient troponin is elevated: 0.044 Digoxin level as a 0.6. Cartilage and study: PT of 10.9, INR 1.1, PTT of 24.0 - Laboratory Findings CBC and BMP: 04/08/20 03:53 04/08/20 03:53 Abnormal Lab Findings: Abnormal Labs 0904/06/20 04/06/20 02:28 02:28 02:28 WBC Hgb 12.8 L Neutrophils # Carbon Dioxide BUN 33 H Creatinine 2.00 H Glucose 211 H POC Glucose (mg/dL) Magnesium 2.5 H Troponin I 0.044 H* HDL Cholesterol 04/06/20 04/06/20 04/06/20 05:28 05:28 11:01 WBC Hgb Neutrophils # Carbon Dioxide 31 H BUN 33 H Creatinine 1.99 H Glucose 195 H POC Glucose (mg/dL) Magnesium Troponin I 0.044 H* 0.043 H* HDL Cholesterol 04/06/20 04/06/20 04/06/20 13:10 17:07 20:41 WBC Hgb Neutrophils # Carbon Dioxide BUN Creatinine Glucose POC Glucose (mg/dL) 170 H 185 H 139 H Magnesium Troponin I HDL Cholesterol 04/07/20 04/07/20 04/07/20 03:32 03:32 06:44 WBC Hgb 12.4 L Neutrophils # Carbon Dioxide BUN 31 H Creatinine 1.60 H Glucose 159 H POC Glucose (mg/dL) 143 H Magnesium 2.4 H Troponin I HDL Cholesterol 31 L 04/07/20 04/07/20 04/08/20 12:14 20:30 03:53 WBC Hgb Neutrophils # Carbon Dioxide BUN 30 H Creatinine 1.57 H Glucose 166 H POC Glucose (mg/dL) 174 H 215 H Magnesium Troponin I HDL Cholesterol 04/08/20 04/08/20 03:53 06:35 WBC 11.3 H Hgb 12.8 L Neutrophils # 7.8 H Carbon Dioxide BUN Creatinine Glucose POC Glucose (mg/dL) 125 H Magnesium Troponin I HDL Cholesterol Assessment and Plan Assessment: Syncopal episode likely cardiac in etiology. Unlikely seizure. Recent right occipital hemorrhagic conversion without any residual neurological deficits (03/2017) Right frontal Meningioma Atrial fibrillation status post AICD Heart failure Diabetes Hyperlipidemia Hypertension Sleep apnea Plan: Regarding the patient the syncopal episode we'll order an EEG to rule out any active seizure or any epileptiform activity. Currently the patient is on aspirin 325 as well as amiodarone to control his heart rate. He is not on any anticoagulation. CT of the head is ordered to rule out any extension of the bleed. Patient's was told the that he will be restarted on it 6 weeks from the onset of the bleed. He'll follow up at the [facility] neurology team and he'll get imaging prior to starting anticoagulation. We'll defer the patient arrhythmia to cardiology team. Thank you for the consult Jonathon Wheat M.D. Neuro-hospitalist Time with Patient: Greater than 30
--- NOTE | 2020-04-08 14:35 | CT ---
EXAMINATION TYPE: CT brain wo con DATE OF EXAM: 04/08/2020 COMPARISON: 03/28/2020 INDICATION: Follow up hemorrhage, syncopal episode DLP: 1079.4 mGycm, Automated exposure control for dose reduction was used. CONTRAST: None CT of the brain is performed utilizing 3 mm thick sections through the posterior fossa and 3 mm thick sections through the remaining calvarium. Study is performed within 24 hours of arrival to the hosp ital. Hyperdensity within the inferior lateral right occipital lobe appears stable from comparison. A small amount of subarachnoid hemorrhage adjacent to the right occipital lobe infarct is again evident. The re appears to be some normal maturation of the hemorrhage. No new hemorrhage is evident. Small hyperd ensity within the medial superior left occipital lobe is stable from comparison is likely chronic fro m 2010. The suspected calcified meningioma measuring 1.5 x 0.6 cm in evident along the right temporal parieta l region. No acute infarcts are evident. Mild periventricular white matter ischemic changes are present. Ventricles and sulci are appropriate for the patient age. Paranasal sinuses and mastoid air cells within the [id number] are clear. IMPRESSIONS: 1. Small hemorrhagic infarct right occipital lobe. No new infarct or hemorrhage is evident. 2. Mild chronic appearing periventricular white matter ischemic type changes
--- NOTE | 2020-04-08 16:26 | EEG ---
ELECTROENCEPHALOGRAM REPORT DATE OF SERVICE: 04/08/2020 CLINICAL HISTORY: This is a 64-year-old gentleman with history of atrial fibrillation, status post AICD, small right occipital stroke with hemorrhagic conversion and heart failure who presented to the emergency department on 04/06/2020 after a syncopal episode. This video EEG was obtained to evaluate for seizure and epileptiform activity. RELEVANT MEDICATION: None. EEG TYPE: A routine 21-channel EEG was performed with video using the 10/20 electrode placement system. DESCRIPTION: Wakefulness, drowsiness and stage II sleep are obtained. During wakefulness, there is a posterior-dominant rhythm of low to moderate voltage that is reactive, well modulated of 8 to 8.5 hertz activity. During drowsiness there is slowing and attenuation of the background. During stage II sleep, there is sleep spindle and K complexes. INTERICTAL AND ICTAL: None. ACTIVATION PROCEDURE: Photic stimulation did not evoke a posterior driving response. Hyperventilation was not performed because of the patient's clinical history. CLINICAL INTERPRETATION: This is a normal routine awake, drowsy and sleep EEG. There is no focal slowing, epileptiform activity or seizure activity noted during the study. Clinical correlation is recommended. MMODL / IJN: [id number] / WYATT
--- NOTE | 2020-04-08 17:59 | P.PN ---
Subjective Progress Note Date: 04/08/20 (delaye charting seen at 10am) Principal diagnosis: syncope Patient is a 64-year-old male with a past medical history of recent hemorrhagic CVA (hospitalized here from 03/27 through 03/28 and subsequently transferred to [facility] where he was taken off of Eliquis with plans to resume in 6 weeks), atrial fibrillation status post ablation currently maintained in a paced rhythm, systolic congestive heart failure with most recent echo at our institution 03/28/20 with an ejection fraction of 20-25%) also followed at [facility] with her most recent ejection fraction 10% per family), diabetes mellitus 2 on insulin pump who presented to the hospital with a syncopal episode. Apparently the patient woke up early to forgot to take some of his medications and proceeded to his bedroom to take his medications. He felt as though he was going to pass out and then remembers waking up standing over his dresser and thinking he could not let his legs go out because of he fel l he would . He then proceeded to the ER here where he had any symptomatic arrhythmia noted on telemetry monitoring. An EKG was performed which was initially felt to be possible SVT with aberrancy is secondary to known prior ablations which after review with by cardiology was determined to be ventricular tachycardia. He initially was admitted and placed in ICU and started on amiodarone amiodarone infusion he completed a 24-hour protocol was then transitioned to oral amiodarone. He underwent pacemaker/ICD interrogation which noted some atrial tachycardia but did not sense V. tach or V. fib and therefore the patient had not been shocked. After starting amiodarone he did not have any recurrence of ventricular tachycardia during his hospital stay. Due to his recent hemorrhagic stroke he also underwent a head CT which showed persistence of the hemorrhage but worsening the affected area. He underwent an EEG was unremarkable. Patient seen and examined at bedside. He denies any chest pain, shortness of breath is at baseline, no nausea, no vomiting, no recurrent events since his 2 episodes in the emergency department. 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 Waters. General: non toxic, no distress, appears at stated age Derm: warm, dry Head: atraumatic, normocephalic, symmetric Eyes: EOMI, no lid lag, anicteric sclera Mouth: no lip lesion, mucus membranes moist Cardiovascular: S1S2 reg, no murmur, positive posterior tibial pulse bilateral, Lungs: Decreased bs bilateral, no rhonchi, no rales , no accessory muscle use Abdominal: soft, nontender to palpation, no guarding, no appreciable organomegaly Ext: no gross muscle atrophy, 2+ edema- chronic per patient, no contractures Neuro: CN II-XI grossly intact, no focal neuro deficits Psych: Alert, oriented, appropriate affect Syncope secondary to ventricular tachycardia -On amiodarone -Telemetry -Pacemaker/ICD interrogation was completed which showed atrial tachycardia Even ts and no shocks delivered - cardio recs - Echo in Mar 2020 showed EF 20-25% -Neurology recommendations appreciated, CT head with no change in hemorrhagic stroke, EEG negative - I contacted Dr. Waters out of [facility] at family request, he was updated on syncopal event and abnormal EKG. With patient permission I faxed copies of EKG, and PPM/AICD interrogation. He was able to review these documents. After discussion he did suggest possible transfer to [facility] for high level of care due to ventricular tachycardia associated with syncope in his established patient without defib from implanted device if family in agreement. I did start transfer process to [facility], currently awaiting bed update in AM, accepting physician Dr. Orosco. Compensated systolic congestive heart failure with latest ejection fraction from our institution 20-25% -Continue with metoprolol, sacubitril/valsartan, Lasix, and spironolactone -Telemetry -Strict I's and O's -Daily weights -Cardiology recommendations Chronically elevated troponin - due to severe cardiomyopathy, at baseline - flat and not consistent with ACS Diabetes mellitus type 2 with insulin pump use -Continue with insulin pump -Continue monitor sugars -Hemoglobin A1c 03/28/.8 CKD III - Baseline Cr ~ 1.5 - Continue to monitor History of atrial fibrillation -No events detected on monitor -Off anticoagulation secondary to recent hemorrhagic CVA -Continue with telemetry and metoprolol Recent hemorrhagic CVA -Plan had been to stay off blood thinners 6 weeks LEYDI, resolved suspect prerenal Chronic conditions: Hypertension, dyslipidemia, obstructive sleep apnea with CPAP use, TIA DVT prophylaxis: SCDs Discussed with: Patient, nursing,family, Dr. Waters, Dr. Orosco Anticipated discharge: in AM Anticipated discharge place: [facility] A total of 75 minutes was spent on the care of this complex patient more than 50% of the time was spent in counseling and care coordination. Objective - Vital Signs Vital signs: Vital Signs Temp 98.1 F 04/08/20 16:00 Pulse 65 04/08/20 16:00 Resp 12 04/08/20 16:00 BP 95/61 04/08/20 16:00 Pulse Ox 97 04/08/20 16:00 Intake & Output 04/07/20 04/08/20 04/08/20 18:59 06:59 18:59 Intake Total 570 480 200 Output Total 500 2750 300 Balance 70 -2270 -100 Weight 108 kg Intake: IV 200 0.9 carrier 200 Oral 370 480 200 Output: Urine 500 2750 300 Other: Voiding Method Bedside Commode Bedside Commode Bedside Commode Urinal Urinal Urinal # Voids 1 2 # Bowel Movements 1 - Labs CBC & Chem 7: 04/08/20 03:53 04/08/20 03:53 Labs: Abnormal Lab Results - Last 24 Hours (Table) 04/07/20 04/08/20 04/08/20 Range/Units 20:30 03:53 03:53 WBC 11.3 H (3.8-10.6) k/uL Hgb 12.8 L (13.0-17.5) gm/dL Neutrophils # 7.8 H (1.3-7.7) k/uL BUN 30 H (9-20) mg/dL Creatinine 1.57 H (0.66-1.25) mg/dL Glucose 166 H (74-99) mg/dL POC Glucose (mg/dL) 215 H (75-99) mg/dL 04/08/20 Range/Units 06:35 WBC (3.8-10.6) k/uL Hgb (13.0-17.5) gm/dL Neutrophils # (1.3-7.7) k/uL BUN (9-20) mg/dL Creatinine (0.66-1.25) mg/dL Glucose (74-99) mg/dL POC Glucose (mg/dL) 125 H (75-99) mg/dL
[2020-04-08] MEDS: SPIRONOLACTONE 25 MG TAB PO SCH (20:46)
[2020-04-09 04:21] LABS: HCT 43.3 % (39.0-53.0); HGB 13.4 gm/dL (13.0-17.5); Hypochromasia Slight; MCH 26.5 pg (25.0-35.0); MCV 85.5 fL (80.0-100.0); Mean Platelet Volume 9.2; Platelet Count 218 k/uL (150-450); RBC 5.06 m/uL (4.30-5.90); RDW 15.5 % (11.5-15.5); WBC 13.5 k/uL (3.8-10.6)
[2020-04-09 04:33] LABS: Calcium 9.4 mg/dL (8.4-10.2); Magnesium 2.5 mg/dL (1.6-2.3); Potassium 4.3 mmol/L (3.5-5.1)
[2020-04-09 06:55] LABS: Glucose,Whole Blood 159 mg/dL (75-99)
[2020-04-09 06:55] LABS: Glucose,Whole Blood 188 mg/dL (75-99)
[2020-04-09] MEDS: INSULIN PUMP MEAL BOLUS 1 UNIT MISC MISCELLANE SCH ×3 (08:26→18:27)
[2020-04-09] MEDS ORDERED: FUROSEMIDE 10 MG/ML 4 ML VIAL IV STA (08:34)
[2020-04-09] MEDS: AMIODARONE 200 MG TAB PO SCH ×2 (08:57→20:00)
[2020-04-09] MEDS: TORSEMIDE 20 MG TAB PO SCH ×2 (08:58→20:00)
[2020-04-09] MEDS: METOPROLOL SUCCINATE (ER) 50 MG TAB.ER.24H PO SCH ×2 (08:58→20:00)
[2020-04-09] MEDS: ASPIRIN 325 MG TAB PO SCH (08:58)
[2020-04-09] MEDS: SACUBITRIL/VALSARTAN 49 MG-51 MG TABLET PO SCH ×2 (08:58→20:00)
--- NOTE | 2020-04-09 09:20 | P.PN ---
Subjective Progress Note Date: 04/09/20 Principal diagnosis: Arrhythmia This 64-year-old male who was admitted to the hospital on 04/06/2020 when she presented to emergency department with complaints of weakness and syncope. Patient was found to be in SVT on the monitor patient does have history of atrial fibrillation and atrial flutter. He had a recent admission to the hospital 10 days ago for possibility of stroke. Patient was started on IV amiodarone and had since converted to paced rhythm with a controlled rate. 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 He was admitted to the intensive care unit, then an overflow for selective care since yesterday, his been stable in the last 24 hours, no recurrence of arrhythmias. He remains in the paced rhythm on the monitor with a controlled rate, he is currently sitting up in the chair, and he denies any acute distress but the chest pain, no shortness of breath. Remains pulse ox is 98%, patient is on his home unit CPAP at night history of obstructive sleep apnea. Today's labs have been reviewed, showing white blood cell count of 11.3, hemoglobin of 12.8, electrodes were unremarkable, B1 is 30 creatinine is 1.57. His IV amiodarone has been transitioned to oral amiodarone currently at 400 mg twice daily, she is on home dose Demadex 40 mg twice daily, no extremity swelling, no rhonchi no crackles no wheezes on today's exam. On 04/09/2020 patient seen in follow-up in the intensive care unit, his been awaiting a bed on selective care unit. He denies any specific complaints, no shortness of breath or chest pain, there has not been any arrhythmia overnight. Patient remains in the paced rhythm with a controlled rate. He sitting up in a chair, awake and alert, oriented 3, room air pulse ox is 94-96%, hemodynamically stable, lung sounds are clear, no rhonchi no wheezing no crackles. Patient had a recent history of hemorrhagic stroke, follow brain scan was done yesterday showing a small hemorrhagic infarct in the right occipital lobe no new infarct or hemorrhage. There was mild chronic appearing periventricular white matter ischemic type changes. Neurogically patient seems to be intact, EEG showed no focal slowing, no epileptiform activity or seizure activity. The patient does have a plate maker he follows with at the [facility] Dr. Waters, the paper guillotine operator and a transfer to [facility] was recommended. Currently patient is awaiting a bed at the of . Stable overnight. Today's labs have been reviewed, white blood cell count is 30.5, hemoglobin 13.4, electrodes with the exception of CO2 which is a 31 were normal, renal profile showed a BUN of 39 creatinine 1.91. Mild edema involving both lower extremities, extra dose of Lasix was given in addition to maintenance dose of Demadex. Objective - Vital Signs Vital signs: Vital Signs Temp 98.3 F 04/09/20 08:00 Pulse 64 04/09/20 08:00 Resp 14 04/09/20 08:00 BP 98/74 04/09/20 08:00 Pulse Ox 94 L 04/09/20 08:00 Intake & Output 04/08/20 04/09/20 04/09/20 18:59 06:59 18:59 Intake Total 200 240 Output Total 300 1300 300 Balance -100 -1060 -300 Weight 108.7 kg Intake: Oral 200 240 Output: Urine 300 1300 300 Other: Voiding Method Bedside Commode Bedside Commode Urinal Urinal # Voids 2 - Exam GENERAL EXAM: Alert, pleasant, 64-year-old white male, on room air, pulse ox of 98% comfortable in no apparent distress. HEAD: Normocephalic/atraumatic. EYES: Normal reaction of pupils, equal size. Conjunctiva pink, sclera white. NOSE: Clear with pink turbinates. THROAT: No erythema or exudates. NECK: No masses, no JVD, no thyroid enlargement, no adenopathy. CHEST: No chest wall deformity. Symmetrical expansion. LUNGS: Equal air entry with no crackles, wheeze, rhonchi or dullness. CVS: Regular rate and rhythm, normal S1 and S2, no gallops, no murmurs, no rubs ABDOMEN: Soft, nontender. No hepatosplenomegaly, normal bowel sounds, no guarding or rigidity. EXTREMITIES: No clubbing, no edema, no cyanosis, 2+ pulses and upper and lower extremities. MUSCULOSKELETAL: Muscle strength and tone normal. SPINE: No scoliosis or deformity SKIN: No rashes CENTRAL NERVOUS SYSTEM: Alert and oriented -3. No focal deficits, tone is normal in all 4 extremities. PSYCHIATRIC: Alert and oriented -3. Appropriate affect. Intact judgment and insight. - Labs CBC & Chem 7: 04/09/20 03:40 04/09/20 03:40 Labs: Abnormal Lab Results - Last 24 Hours (Table) 04/09/20 04/09/20 04/09/20 Range/Units 03:40 03:40 06:52 WBC 13.5 H (3.8-10.6) k/uL Carbon Dioxide 31 H (22-30) mmol/L BUN 39 H (9-20) mg/dL Creatinine 1.91 H (0.66-1.25) mg/dL Glucose 133 H (74-99) mg/dL POC Glucose (mg/dL) 159 H (75-99) mg/dL Magnesium 2.5 H (1.6-2.3) mg/dL 04/09/20 Range/Units 06:54 WBC (3.8-10.6) k/uL Carbon Dioxide (22-30) mmol/L BUN (9-20) mg/dL Creatinine (0.66-1.25) mg/dL Glucose (74-99) mg/dL POC Glucose (mg/dL) 188 H (75-99) mg/dL Magnesium (1.6-2.3) mg/dL Assessment and Plan Plan: Assessment: #1. Arrhythmia, SVT hasn't on admission, with symptoms of syncope and presyncope, patient had since converted to paced rhythm with controlled rate on amiodarone #2. History of severe nonischemic cardio myopathy with ejection fraction of 20% status post AICD/biventricular pacemaker insertion #3. History of recurrent ventricular ectopic activity, atrial fibrillation status post cardiac ablation #4. Paroxysmal atrial fibrillation #5. Acute kidney injury proving #6. Recent history of hemorrhagic stroke, follow brain scan on 04/08/2020 showed small hemorrhagic infarct in the right occipital lobe, no infarct or hemorrhage, neurologically intact, EEG was negative #7. Hyperlipidemia #8. Hypertension #9. Sleep apnea on CPAP therapy Plan: No acute events overnight, vital signs remain stable, no other events overnight, patient is awaiting a bed at the [facility] for the recommendation of his paper guillotine operator Dr. Waters. I performed a history & physical examination of the patient and discussed their management with my nurse practitioner, Fabienne Garcia. I reviewed the nurse practitioner's note and agree with the documented findings and plan of care. Lung sounds are positive for diminished breath sounds The findings and the impression was discussed with the patient. I attest to the documentation by the nurse practitioner. Time with Patient: Less than 30
--- NOTE | 2020-04-09 12:46 | PN ---
PROGRESS NOTE Mr. Li is a 64-year-old male with a history of atrial and ventricular arrhythmia, who presented with ventricular tachycardia, has a history of severe nonischemic cardiomyopathy, followed by Dr. Durant and the [facility]. He recently had a hemorrhagic stroke for which she has not been anticoagulated. He has no further episode of ventricular tachycardia. He is breathing stable. He denies any dizziness, palpitation. He denies any nausea. According to him last night was a good night sleeping. He continues to be on amiodarone 400 mg twice a day, aspirin once a day, insulin, metoprolol succinate 50 mg twice a day, Entresto 49-51 mg twice a day, spironolactone 25 mg daily, and furosemide 40 mg daily. PHYSICAL EXAMINATION: Blood pressure running in the high 90s with a heart rate in the 60s. LUNGS: Clear. HEART: Regular rate and rhythm, S1, S2. No S3. No rub. ABDOMEN: Soft, obese, nontender. EXTREMITIES: No edema. LAB DATA: Revealed BUN and creatinine 39 and 1.9, hemoglobin of 13.4. IMPRESSION: 1. Ventricular tachycardia in a patient with known history of severe nonischemic cardiomyopathy. 2. Paroxysmal atrial fibrillation, not anticoagulated because of recent hematologic stroke. 3. Severe nonischemic cardiomyopathy. 4. Renal failure. RECOMMENDATION: Patient is scheduled to be transferred to [facility] to undergo further evaluation and workup of his arrhythmia. In the meantime, will continue on the present therapy. MMODL / IJN: [id number] /
--- NOTE | 2020-04-09 13:29 | P.PN ---
Subjective Progress Note Date: 04/09/20 (delayed charting seen t 0930) Principal diagnosis: syncope Patient is a 64-year-old male with a past medical history of recent hemorrhagic CVA (hospitalized here from 03/27 through 03/28 and subsequently transferred to [facility] where he was taken off of Eliquis with plans to resume in 6 weeks), atrial fibrillation status post ablation currently maintained in a paced rhythm, systolic congestive heart failure (most recent echo at our institution 03/28/20 with an ejection fraction of 20-25%, also followed at [facility] with her most recent ejection fraction 10% per family), diabetes mellitus 2 on insulin pump who presented to the hospital with a syncopal episode. Apparently the patient woke up early to forgot to take some of his medications and proceeded to his bedroom to take his medications. He felt as though he was going to pass out and then remembers waking up standing over his dresser and thinking he could not let his legs go out because of he fell he would . He then proceeded to the ER here where he had any symptomatic arrhythmia noted on telemetry monitoring. An EKG was performed which was initially felt to be possible SVT with aberrancy is secondary to known prior ablations which after review with by cardiology was determined to be ventr icular tachycardia. He initially was admitted and placed in ICU and started on amiodarone amiodarone infusion he completed a 24-hour protocol was then transitioned to oral amiodarone. He underwent pacemaker/ICD interrogation which noted some atrial tachycardia but did not sense V. tach or V. fib and therefore the patient had not been shocked. After starting amiodarone he did not have any recurrence of ventricular tachycardia during his hospital stay. He was able to tolerate increased exertion without recurrent arrhythmia. 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 Currently awaiting transfer to [facility] for further evaluation. Due to his recent hemorrhagic stroke he also underwent a head CT which showed persistence of the hemorrhage but worsening the affected area. He underwent an EEG was unremarkable. Patient seen and examined at bedside. No chest pain, some increased work of breathing, increased lower extremity edema, no presyncope, no nausea/vomiting. General: non toxic, no distress, appears at stated age Derm: warm, dry Head: atraumatic, normocephalic, symmetric Eyes: EOMI, no lid lag, anicteric sclera Mouth: no lip lesion, mucus membranes moist Cardiovascular: S1S2 reg, no murmur, positive posterior tibial pulse bilateral, + increased JVD Lungs: Crackles bilateral bases , no accessory muscle use Abdominal: soft, nontender to palpation, no guarding, no appreciable organomegaly Ext: no gross muscle atrophy, 3+ edema, no contractures Neuro: CN II-XI grossly intact, no focal neuro deficits Psych: Alert, oriented, appropriate affect Syncope secondary to ventricular tachycardia -On amiodarone -Telemetry -Pacemaker/ICD interrogation was completed which showed atrial tachycardia sense d and no shocks delivered - cardio recs appreciated - Echo in Mar 2020 showed EF 20-25% -Neurology recommendations appreciated, CT head with no change in hemorrhagic stroke, EEG negative, no neurologic sequela - I contacted Dr. Waters out of [facility] at family request, he was updated on syncopal event and abnormal EKG. With patient permission I faxed copies of EKG, and PPM/AICD interrogation. He was able to review these documents. After discussion he did suggest possible transfer to [facility] for high level of care due to ventricular tachycardia associated with syncope in his established patien t without defib from implanted device if family in agreement. I did start transfer process to [facility], currently awaiting bed update in AM, accepting physician Dr. Orosco. No bed available 04/08 and 04/09. Decompensated systolic congestive heart failure with latest ejection fraction from our institution 20-25% - IV lasix X 1 today -Continue with metoprolol, sacubitril/valsartan, Torsemide, and spironolactone -Telemetry -Strict I's and O's -Daily weights -Cardiology recommendations Leukocytosis - no clear sings of infection - suspect reactive - follow CBC Chronically elevated troponin - due to severe cardiomyopathy, at baseline - flat and not consistent with ACS Diabetes mellitus type 2 with insulin pump use -Continue with insulin pump -Continue monitor sugars -Hemoglobin A1c 03/28/20 was 7.8 LEYDI on CKD III - Suspect due to cardiorenal, will give IV lasix X 1 today, Continue with Entresto - if increased in AM consult nephro and hold Entresto - Baseline Cr ~ 1.5 - Continue to monitor History of atrial fibrillation -No events detected on monitor -Off anticoagulation secondary to recent hemorrhagic CVA -Continue with telemetry and metoprolol Recent hemorrhagic CVA -Plan had been to stay off Eliquis 6 weeks from 04/01/2020 LEYDI, resolved suspect prerenal Chronic conditions: Hypertension, dyslipidemia, obstructive sleep apnea with CPAP use, TIA DVT prophylaxis: SCDs Discussed with: Patient, nursing,family, Anticipated discharge: in AM Anticipated discharge place: [facility] A total of 35 minutes was spent on the care of this complex patient more than 50% of the time was spent in counseling and care coordination. Objective - Vital Signs Vital signs: Vital Signs Temp 98.3 F 04/09/20 08:00 Pulse 64 04/09/20 08:00 Resp 14 04/09/20 08:00 BP 98/74 04/09/20 08:00 Pulse Ox 94 L 04/09/20 08:00 Intake & Output 04/08/20 04/09/20 04/09/20 18:59 06:59 18:59 Intake Total 200 240 Output Total 300 1300 650 Balance -100 -1060 -650 Weight 108.7 kg Intake: Oral 200 240 Output: Urine 300 1300 650 Other: Voiding Method Bedside Commode Bedside Commode Bedside Commode Urinal Urinal Urinal # Voids 2 - Labs CBC & Chem 7: 04/09/20 03:40 04/09/20 03:40 Labs: Abnormal Lab Results - Last 24 Hours (Table) 04/09/20 04/09/20 04/09/20 Range/Units 03:40 03:40 06:52 WBC 13.5 H (3.8-10.6) k/uL Carbon Dioxide 31 H (22-30) mmol/L BUN 39 H (9-20) mg/dL Creatinine 1.91 H (0.66-1.25) mg/dL Glucose 133 H (74-99) mg/dL POC Glucose (mg/dL) 159 H (75-99) mg/dL Magnesium 2.5 H (1.6-2.3) mg/dL 04/09/20 Range/Units 06:54 WBC (3.8-10.6) k/uL Carbon Dioxide (22-30) mmol/L BUN (9-20) mg/dL Creatinine (0.66-1.25) mg/dL Glucose (74-99) mg/dL POC Glucose (mg/dL) 188 H (75-99) mg/dL Magnesium (1.6-2.3) mg/dL
[2020-04-09] MEDS: SPIRONOLACTONE 25 MG TAB PO SCH (20:00)
[2020-04-09] MEDS: INSULIN ASPART (NovoLOG) 100 UNIT/ML VIAL SQ SCH (22:21)
[2020-04-10] MEDS: INSULIN PUMP MEAL BOLUS 1 UNIT MISC MISCELLANE SCH ×6 (03:48→21:00)
[2020-04-10 05:38] LABS: HCT 40.3 % (39.0-53.0); HGB 12.6 gm/dL (13.0-17.5); MCH 26.3 pg (25.0-35.0); MCHC 31.1 g/dL (31.0-37.0); MCV 84.6 fL (80.0-100.0); Mean Platelet Volume 9.6; Platelet Count 220 k/uL (150-450); RBC 4.77 m/uL (4.30-5.90); RDW 15.6 % (11.5-15.5); WBC 12.4 k/uL (3.8-10.6)
[2020-04-10 05:59] LABS: Calcium 9.1 mg/dL (8.4-10.2); Magnesium 2.3 mg/dL (1.6-2.3); Potassium 3.9 mmol/L (3.5-5.1)
[2020-04-10 06:44] LABS: Glucose,Whole Blood 108 mg/dL (75-99)
[2020-04-10] MEDS ORDERED: FUROSEMIDE 10 MG/ML 4 ML VIAL IV STA (07:48)
[2020-04-10] MEDS ORDERED: FUROSEMIDE 10 MG/ML 10 ML VIAL IV STA (07:51)
[2020-04-10] MEDS: AMIODARONE 200 MG TAB PO SCH ×2 (09:06→21:45)
[2020-04-10] MEDS: ASPIRIN 325 MG TAB PO SCH (09:06)
[2020-04-10] MEDS: SACUBITRIL/VALSARTAN 49 MG-51 MG TABLET PO SCH ×2 (09:06→23:00)
[2020-04-10] MEDS: METOPROLOL SUCCINATE (ER) 50 MG TAB.ER.24H PO SCH ×2 (09:06→21:45)
[2020-04-10] MEDS: TORSEMIDE 20 MG TAB PO SCH ×2 (09:07→23:00)
[2020-04-10] MEDS: LORATADINE 10 MG TAB PO SCH (09:16)
[2020-04-10] MEDS: PANTOPRAZOLE 40 MG TABLET PO SCH ×2 (09:17→21:45)
[2020-04-10] MEDS: PATIENT'S OWN (Dapagliflozin Propanediol [Farxiga] 10 MG Tablet) PO SCH (09:18)
[2020-04-10] MEDS: FLUTICASONE 50MCG/SPRAY NASAL 16GM EA NOSTRIL SCH ×2 (09:19→12:33)
--- NOTE | 2020-04-10 09:22 | XR ---
EXAMINATION TYPE: XR chest 1V portable DATE OF EXAM: 04/10/2020 COMPARISON: 04/07/2020 HISTORY: Cardiomegaly TECHNIQUE: Single frontal view of the chest is obtained. FINDINGS: Cardiac device is seen. There is no pneumothorax. Postsurgical change overlying the cervic al spine. Heart size stable. No pleural effusion or overt failure. No evidence of consolidation. IMPRESSION: 1. Cardiomegaly.
--- NOTE | 2020-04-10 09:51 | P.PN ---
Subjective Progress Note Date: 04/10/20 Principal diagnosis: Arrhythmia This 64-year-old male who was admitted to the hospital on 04/06/2020 when she presented to emergency department with complaints of weakness and syncope. Patient was found to be in SVT on the monitor patient does have history of atrial fibrillation and atrial flutter. He had a recent admission to the hospital 10 days ago for possibility of stroke. Patient was started on IV amiodarone and had since converted to paced rhythm with a controlled rate. 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 He was admitted to the intensive care unit, then an overflow for selective care since yesterday, his been stable in the last 24 hours, no recurrence of arrhythmias. He remains in the paced rhythm on the monitor with a controlled rate, he is currently sitting up in the chair, and he denies any acute distress but the chest pain, no shortness of breath. Remains pulse ox is 98%, patient is on his home unit CPAP at night history of obstructive sleep apnea. Today's labs have been reviewed, showing white blood cell count of 11.3, hemoglobin of 12.8, electrodes were unremarkable, B1 is 30 creatinine is 1.57. His IV amiodarone has been transitioned to oral amiodarone currently at 400 mg twice daily, she is on home dose Demadex 40 mg twice daily, no extremity swelling, no rhonchi no crackles no wheezes on today's exam. On 04/09/2020 patient seen in follow-up in the intensive care unit, his been awaiting a bed on selective care unit. He denies any specific complaints, no shortness of breath or chest pain, there has not been any arrhythmia overnight. Patient remains in the paced rhythm with a controlled rate. He sitting up in a chair, awake and alert, oriented 3, room air pulse ox is 94-96%, hemodynamically stable, lung sounds are clear, no rhonchi no wheezing no crackles. Patient had a recent history of hemorrhagic stroke, follow brain scan was done yesterday showing a small hemorrhagic infarct in the right occipital lobe no new infarct or hemorrhage. There was mild chronic appearing periventricular white matter ischemic type changes. Neurogically patient seems to be intact, EEG showed no focal slowing, no epileptiform activity or seizure activity. 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 Waters, the associate professor of history and a transfer to [facility] was recommended. Currently patient is awaiting a bed at the of . Stable overnight. Today's labs have been reviewed, white blood cell count is 30.5, hemoglobin 13.4, electrodes with the exception of CO2 which is a 31 were normal, renal profile showed a BUN of 39 creatinine 1.91. Mild edema involving both lower extremities, extra dose of Lasix was given in addition to maintenance dose of Demadex. On 04/10/2020 patient seen in follow-up in intensive care unit. He has been an overflow for stepdown unit, he has had no arrhythmias in the last 24 hours, would dynamically stable, he is in the paced rhythm on the monitor, no acute issues overnight, no chest pain no shortness of breath, no fever or chills, vital signs are stable. Patient is on room air with pulse ox of 93-98%, his been tolerating extensively around the unit, tolerating activity well, still has some pretibial edema bilaterally, additional dose of Lasix was given per attending physician. Continues on maintenance dose Demadex Objective - Vital Signs Vital signs: Vital Signs Temp 98 F 04/10/20 09:00 Pulse 78 04/10/20 09:00 Resp 20 04/10/20 09:00 BP 99/56 04/10/20 09:15 Pulse Ox 93 L 04/10/20 09:00 Intake & Output 04/09/20 04/10/20 04/10/20 18:59 06:59 18:59 Output Total 990 1440 Balance -990 -1440 Weight 111.1 kg Output: Urine 990 1440 Other: Voiding Method Bedside Commode Urinal # Voids 2 0 # Bowel Movements 1 - Exam GENERAL EXAM: Alert, pleasant, 64-year-old white male, on room air, pulse ox of 98% comfortable in no apparent distress. HEAD: Normocephalic/atraumatic. EYES: Normal reaction of pupils, equal size. Conjunctiva pink, sclera white. NOSE: Clear with pink turbinates. THROAT: No erythema or exudates. NECK: No masses, no JVD, no thyroid enlargement, no adenopathy. CHEST: No chest wall deformity. Symmetrical expansion. LUNGS: Equal air entry with no crackles, wheeze, rhonchi or dullness. CVS: Regular rate and rhythm, normal S1 and S2, no gallops, no murmurs, no rubs ABDOMEN: Soft, nontender. No hepatosplenomegaly, normal bowel sounds, no guarding or rigidity. EXTREMITIES: No clubbing, no edema, no cyanosis, 2+ pulses and upper and lower extremities. MUSCULOSKELETAL: Muscle strength and tone normal. SPINE: No scoliosis or deformity SKIN: No rashes CENTRAL NERVOUS SYSTEM: Alert and oriented -3. No focal deficits, tone is normal in all 4 extremities. PSYCHIATRIC: Alert and oriented -3. Appropriate affect. Intact judgment and insight. - Labs CBC & Chem 7: 04/10/20 04:31 04/10/20 04:31 Labs: Abnormal Lab Results - Last 24 Hours (Table) 04/10/20 04/10/20 04/10/20 Range/Units 04:31 04:31 06:42 WBC 12.4 H (3.8-10.6) k/uL Hgb 12.6 L (13.0-17.5) gm/dL RDW 15.6 H (11.5-15.5) % BUN 42 H (9-20) mg/dL Creatinine 1.82 H (0.66-1.25) mg/dL Glucose 120 H (74-99) mg/dL POC Glucose (mg/dL) 108 H (75-99) mg/dL Assessment and Plan Plan: Assessment: #1. Arrhythmia, ventricular tachycardia on admission, with symptoms of syncope and presyncope, patient had since converted to paced rhythm with controlled rate on amiodarone #2. History of severe nonischemic cardio myopathy with ejection fraction of 20% status post AICD/biventricular pacemaker insertion #3. History of recurrent ventricular ectopic activity, atrial fibrillation status post cardiac ablation #4. Paroxysmal atrial fibrillation #5. Acute kidney injury proving #6. Recent history of hemorrhagic stroke, follow brain scan on 04/08/2020 showed small hemorrhagic infarct in the right occipital lobe, no infarct or hemorrhage, neurologically intact, EEG was negative #7. Hyperlipidemia #8. Hypertension #9. Sleep apnea on CPAP therapy Plan: Continue medical treatment, patient has been overflow for stepdown unit, he is awaiting a bed at the [facility]. No arrhythmias in last 24 hours, continues on oral amiodarone 400 mg twice daily, beta blockers, daily dose aspirin, Entresto. Agree with an additional dose of Lasix today. Otherwise no specific complaints. I performed a history & physical examination of the patient and discussed their management with my nurse practitioner, Fabienne Garcia. I reviewed the nurse practitioner's note and agree with the documented findings and plan of care. Lung sounds are positive for diminished breath sounds The findings and the impression was discussed with the patient. I attest to the documentation by the nurse practitioner. Time with Patient: Less than 30
--- NOTE | 2020-04-10 10:17 | P.PN ---
Subjective Progress Note Date: 04/10/20 (Delayed charting seen at 0740) Principal diagnosis: syncope Patient is a 64-year-old male with a past medical history of recent hemorrhagic CVA (hospitalized here from 03/27 through 03/28 and subsequently transferred to [facility] where he was taken off of Eliquis with plans to resume in 6 weeks), atrial fibrillation status post ablation currently maintained in a paced rhythm, systolic congestive heart failure (most recent echo at our institution 03/28/20 with an ejection fraction of 20-25%, also followed at [facility] with her most recent ejection fraction 10% per family), diabetes mellitus 2 on insulin pump who presented to the hospital with a syncopal episode. Apparently the patient woke up early to forgot to take some of his medications and proceeded to his bedroom to take his medications. He felt as though he was going to pass out and then remembers waking up standing over his dresser and thinking he could not let his legs go out because of he fell he would . He then proceeded to the ER here where he had any symptomatic arrhythmia noted on telemetry monitoring. An EKG was performed which was initially felt to be possible SVT with aberrancy is secondary to known prior ablations which after review with by cardiology was determined to be vent ricular tachycardia. He initially was admitted and placed in ICU and started on amiodarone amiodarone infusion he completed a 24-hour protocol was then transitioned to oral amiodarone. He underwent pacemaker/ICD interrogation which noted some atrial tachycardia but did not sense V. tach or V. fib and therefore the patient had not been shocked. After starting amiodarone he did not have any recurrence of ventricular tachycardia during his hospital stay. He was able to tolerate increased exertion without recurrent arrhythmia. I reached out to his overhauler from [facility] and was able to send him copy of EKG and Pacer/AICD interrogation. Currently awaiting transfer to [facility] for further evaluation. Due to his recent hemorrhagic stroke he also underwent a head CT which showed persistence of the hemorrhage but worsening the affected area. He underwent an EEG was unremarkable. On 04/09 his edema was slightly increased and he was given IV lasix X 1. Patient seen and examined at bedside. Still with increased edema in the LLE, No change in breathing, no nausea, no vomiting, + sinus drainage, + nasal congestion General: non toxic, no distress, appears at stated age Derm: warm, dry Head: atraumatic, normocephalic, symmetric Eyes: EOMI, no lid lag, anicteric sclera Mouth: no lip lesion, mucus membranes moist Cardiovascular: S1S2 reg, no murmur, positive posterior tibial pulse bilateral Lungs: Decreased bs bilateral bases , no accessory muscle use Abdominal: soft, nontender to palpation, no guarding, no appreciable organomegaly Ext: no gross muscle atrophy, 3+ edema, no contractures Neuro: CN II-XI grossly intact, no focal neuro deficits Psych: Alert, oriented, appropriate affect Syncope secondary to ventricular tachycardia -On amiodarone oral -Telemetry -Pacemaker/ICD interrogation was completed which showed atrial tachycardia sensed and no shocks delivered - cardio recs appreciated - Echo in Mar 2020 showed EF 20-25% -Neurology recommendations appreciated, CT head with no change in hemorrhagic stroke, EEG negative, no neurologic sequela - I contacted Dr. Waters out of [facility] at family request, he was updated on syncopal event and abnormal EKG. With patient permission I faxed copies of EKG, and PPM/AICD interrogation. He was able to review these documents. After discussion he did suggest possible transfer to [facility] for high level of care due to ventricular tachycardia associated with syncope in his established patient without defib from implanted device if family in agreement. I did start transfer process to [facility], accepting physician Dr. Orosco. No bed available 04/08 and 04/09. Decompensated systolic congestive heart failure with latest ejection fraction from our institution 20-25% - IV lasix X 1 again today -Continue with metoprolol, sacubitril/valsartan, Torsemide, and spironolactone -Telemetry -Strict I's and O's -Daily weights -Cardiology recommendations Leukocytosis - no clear sings of infection - suspect reactive - follow CBC - CXR negative Chronically elevated troponin - due to severe cardiomyopathy, at baseline - flat and not consistent with ACS Diabetes mellitus type 2 with insulin pump use -Continue with insulin pump -Continue monitor sugars -Hemoglobin A1c 03/28/20 was 7.8 LEYDI on CKD III - Suspect due to cardiorenal, will give IV lasix X 1 today, Continue with Entresto - if increased in AM consult nephro and hold Entresto - Baseline Cr ~ 1.5 - Continue to monitor History of atrial fibrillation -No events detected on monitor -Off anticoagulation secondary to recent hemorrhagic CVA -Continue with telemetry and metoprolol Recent hemorrhagic CVA -Plan had been to stay off Eliquis 6 weeks from 04/01/2020 Chronic conditions: Hypertension, dyslipidemia, obstructive sleep apnea with CPAP use, TIA DVT prophylaxis: SCDs Discussed with: Patient, nursing,family, Anticipated discharge: once bed available Anticipated discharge place: [facility] A total of 35 minutes was spent on the care of this complex patient more than 50% of the time was spent in counseling and care coordination. Objective - Vital Signs Vital signs: Vital Signs Temp 98 F 04/10/20 09:00 Pulse 78 04/10/20 09:00 Resp 20 04/10/20 09:00 BP 99/56 04/10/20 09:15 Pulse Ox 93 L 04/10/20 09:00 Intake & Output 04/09/20 04/10/20 04/10/20 18:59 06:59 18:59 Output Total 990 1440 Balance -990 -1440 Weight 111.1 kg Output: Urine 990 1440 Other: Voiding Method Bedside Commode Toilet Urinal Urinal # Voids 2 0 # Bowel Movements 1 - Labs CBC & Chem 7: 04/10/20 04:31 04/10/20 04:31 Labs: Abnormal Lab Results - Last 24 Hours (Table) 04/10/20 04/10/20 04/10/20 Range/Units 04:31 04:31 06:42 WBC 12.4 H (3.8-10.6) k/uL Hgb 12.6 L (13.0-17.5) gm/dL RDW 15.6 H (11.5-15.5) % BUN 42 H (9-20) mg/dL Creatinine 1.82 H (0.66-1.25) mg/dL Glucose 120 H (74-99) mg/dL POC Glucose (mg/dL) 108 H (75-99) mg/dL
--- NOTE | 2020-04-10 12:51 | P.PN ---
Subjective Progress Note Date: 04/10/20 The patient was seen at bedside and he said that he is doing good denies any visual disturbance any weakness any numbness. He denies of any headaches. He said that he was told that the passing episodes that he had that M up to the hospital currently is the he had a V. tach the he was told that. Objective - Vital Signs Vital signs: Vital Signs Temp 98 F 04/10/20 09:00 Pulse 78 04/10/20 09:00 Resp 20 04/10/20 09:00 BP 99/56 04/10/20 09:15 Pulse Ox 93 L 04/10/20 09:00 Intake & Output 04/09/20 04/10/20 04/10/20 18:59 06:59 18:59 Output Total 990 1440 Balance -990 -1440 Weight 111.1 kg Output: Urine 990 1440 Other: Voiding Method Bedside Commode Toilet Urinal Urinal # Voids 2 0 # Bowel Movements 1 - Exam GENERAL: The patient is sitting in chair and is not in acute distress. CHEST: The heart rate is regular rate rhythm. No murmurs to auscultation. LUNG: Clear to auscultation bilaterally no wheezing noted throughout. Not labored breathing. ABDOMEN/GI: Bowel sounds present in all 4 quadrants. No tenderness to palpation throughout. NEUROLOGICAL: Higher mental function: The patient is awake, alert, oriented to self, place and time. Patient is following commands. No aphasia and no neglect. Cranial nerves: The pupils are round, equal and reactive to light and accommodation. Visual preciado are full to confrontation throughout. Extraocular movement is intact no nystagmus is noted. Facial sensation is normal to touch throughout. The facial strength is normal throughout. Hearing is normal bilaterally to hand rub. Tongue is midline and moved [id number] without any difficulty. No dysarthria is noted. Shoulder shrug is normal bilaterally. Motor: The strength is 5 over 5 throughout. Normal tone and bulk. Cerebellum: Normal finger to nose heel to chin bilaterally. Sensation: Sensation is normal to touch throughout. Reflexes (right/left): 2+ Plantars are downgoing bilaterally. - Labs CBC & Chem 7: 04/10/20 04:31 04/10/20 04:31 Labs: Abnormal Lab Results - Last 24 Hours (Table) 04/10/20 04/10/2004/10/20 Range/Units 04:31 04:31 06:42 WBC 12.4 H (3.8-10.6) k/uL Hgb 12.6 L (13.0-17.5) gm/dL RDW 15.6 H (11.5-15.5) % BUN 42 H (9-20) mg/dL Creatinine 1.82 H (0.66-1.25) mg/dL Glucose 120 H (74-99) mg/dL POC Glucose (mg/dL) 108 H (75-99) mg/dL Assessment and Plan Assessment: Syncopal episode likely cardiac in etiology. Highly unlikely seizure. Recent right occipital hemorrhagic conversion without any residual neurological deficits (03/2017) Right frontal Meningioma Atrial fibrillation status post AICD Heart failure Diabetes Hyperlipidemia Hypertension Sleep apnea Plan: EEG (04/08/20): Normal. There is no focal slowing, epileptiform activity or seizure activity noted during the study. Currently the patient is on aspirin 325 as well as amiodarone to control his heart rate. He is not on any anticoagulation. CT of the head (04/08/20): Small hemorrhage infarct over the right occipital lobe. No new infarct or hemorrhage is evident that. Mild chronic-appearing periventricular white matter ischemic type changes. Patient's was told the that he will be restarted on it 6 weeks from the onset of the bleed from cardiology at [facility]. He will follow up at the [facility] neurology and cardiology team and it will be decided start of anticoagulation (if sooner) and will get imaging prior to start per patient. We'll defer the patient arrhythmia to cardiology team. Patient is pending transfer to [facility]. From a neurology perspective there is no further workup needed that. We'll sign off please reconsult if needed Jonathon Wheat M.D. Neuro-hospitalist Time with Patient: Greater than 30
--- NOTE | 2020-04-10 14:25 | PN ---
PROGRESS NOTE This is a 54-year-old male who has a history of severe nonischemic cardiomyopathy, came in with evidence of ventricular tachycardia. He is in sinus mechanism at this time. He has a prior history of atrial fibrillation, he has not been anticoagulated because of the recent hemorrhagic stroke. He is awaiting transfer to [facility] for further intervention regarding his arrhythmia. He is feeling well. He has sinus drainage, but otherwise no chest pain. He denies any dizziness, palpitation. He denies any nausea. He continued on amiodarone 400 mg twice a day, aspirin once a day. He is on metoprolol succinate 50 mg twice a day, Aldactone 25 mg daily, Demodex 40 mg twice a day. PHYSICAL EXAMINATION: Blood pressure running in the high 90s with a heart rate in the 60s. LUNGS: Clear. HEART: Regular rate and rhythm, S1, S2. No S3 with systolic murmur, no diastolic murmur, no rub. ABDOMEN: Soft, obese, nontender. EXTREMITIES: Trace edema. LAB DATA: Revealed BUN and creatinine 42 and 1.82, potassium 3.9, hemoglobin 12.6. IMPRESSION: 1. Episode of ventricular tachycardia which is stable at this time. 2. Severe nonischemic cardiomyopathy. 3. Status post ICD implant. 4. Paroxysmal atrial fibrillation, not anticoagulated because of recent hemorrhagic stroke. 5. Renal failure is stable. RECOMMENDATION: Will continue present therapy. I am hoping that he will be able to be transferred to [facility] soon and to undergo further evaluation of his arrhythmia. MMODL / IJN: [id number] /
[2020-04-10] MEDS: SPIRONOLACTONE 25 MG TAB PO SCH (21:45)
[2020-04-10] MEDS: allopurinoL 100 MG TAB PO SCH (21:45)
[2020-04-11 08:35] LABS: Glucose,Whole Blood 147 mg/dL (75-99)
[2020-04-11] MEDS: ASPIRIN 325 MG TAB PO SCH (09:07)
[2020-04-11] MEDS: TORSEMIDE 20 MG TAB PO SCH (09:07)
[2020-04-11] MEDS: SACUBITRIL/VALSARTAN 49 MG-51 MG TABLET PO SCH (09:07)
[2020-04-11] MEDS: LORATADINE 10 MG TAB PO SCH (09:07)
[2020-04-11] MEDS: METOPROLOL SUCCINATE (ER) 50 MG TAB.ER.24H PO SCH (09:08)
[2020-04-11] MEDS: PATIENT'S OWN (Dapagliflozin Propanediol [Farxiga] 10 MG Tablet) PO SCH (09:08)
[2020-04-11] MEDS: PANTOPRAZOLE 40 MG TABLET PO SCH (09:08)
[2020-04-11] MEDS: AMIODARONE 200 MG TAB PO SCH (09:09)
[2020-04-11] MEDS: INSULIN PUMP MEAL BOLUS 1 UNIT MISC MISCELLANE SCH ×2 (09:14→12:43)
[2020-04-11 09:43] LABS: HCT 42.2 % (39.0-53.0); HGB 12.9 gm/dL (13.0-17.5); Hypochromasia Slight; MCHC 30.6 g/dL (31.0-37.0); MCV 85.1 fL (80.0-100.0); Mean Platelet Volume 9.5; Platelet Count 261 k/uL (150-450); RBC 4.96 m/uL (4.30-5.90); RDW 15.7 % (11.5-15.5); WBC 10.8 k/uL (3.8-10.6)
[2020-04-11 09:58] LABS: Calcium 9.6 mg/dL (8.4-10.2); Magnesium 2.4 mg/dL (1.6-2.3); Potassium 4.8 mmol/L (3.5-5.1)
--- NOTE | 2020-04-11 10:31 | P.PN ---
Subjective Progress Note Date: 04/11/20 Principal diagnosis: syncope Patient is a 64-year-old male with a past medical history of recent hemorrhagic CVA (hospitalized here from 03/27 through 03/28 and subsequently transferred to [facility] where he was taken off of Eliquis with plans to resume in 6 weeks), atrial fibrillation status post ablation currently maintained in a paced rhythm, systolic congestive heart failure (most recent echo at our institution 03/28/20 with an ejection fraction of 20-25%, also followed at [facility] with her most recent ejection fraction 10% per family), diabetes mellitus 2 on insulin pump who presented to the hospital with a syncopal episode. Apparently the patient woke up early to forgot to take some of his medications and proceeded to his bedroom to take his medications. He felt as though he was going to pass out and then remembers waking up standing over his dresser and thinking he could not let his legs go out because of he fell he would . He then proceeded to the ER here where he had any symptomatic arrhythmia noted on telemetry monitoring. An EKG was performed which was initially felt to be possible SVT with aberrancy is secondary to known prior ablations which after review with by cardiology was determined to be ventricular tachycardia. He initially was admitted and placed in ICU and started on amiodarone amiodarone infusion he completed a 24-hour protocol was then transitioned to oral amiodarone. He underwent pacemaker/ICD interrogation which noted some atrial tachycardia but did not sense V. tach or V. fib and therefore the patient had not been shocked. After starting amiodarone he did not have any recurrence of ventricular tachycardia during his hospital stay. He was able to tolerate increased exertion without recurrent arrhythmia. I reached out to his brownfield redevelopment specialist from [facility] and was able to send him copy of EKG and Pacer/AICD interrogation. Currently awaiting transfer to [facility] for further evaluation. Due to his recent hemorrhagic stroke he also underwent a head CT which showed persistence of the hemorrhage but worsening the affected area. He underwent an EEG was unremarkable. On 04/09 his edema was slightly increased and he was given IV lasix X 1. Patient seen and examined at bedside. Doing well today, edema better than yesterday, breathing well. No complaints General: non toxic, no distress, appears at stated age Derm: warm, dry Head: atraumatic, normocephalic, symmetric Eyes: EOMI, no lid lag, anicteric sclera Mouth: no lip lesion, mucus membranes moist Cardiovascular: S1S2 reg, no murmur, positive posterior tibial pulse bilateral Lungs: Decreased bs bilateral bases , no accessory muscle use Abdominal: soft, nontender to palpation, no guarding, no appreciable organomegaly Ext: no gross muscle atrophy, 2+ edema, no contractures Neuro: CN II-XI grossly intact, no focal neuro deficits Psych: Alert, oriented, appropriate affect Syncope secondary to ventricular tachycardia -On amiodarone oral -Telemetry -Pacemaker/ICD interrogation was completed which showed atrial tachycardia sensed and no shocks delivered - cardio recs appreciated - Echo in Mar 2020 showed EF 20-25% -Neurology recommendations appreciated, CT head with no change in hemorrhagic stroke, EEG negative, no neurologic sequela - I contacted Dr. Waters out of [facility] at family request, he was updated on syncopal event and abnormal EKG. With patient permission I faxed copies of EKG, and PPM/AICD interrogation. He was able to review these documents. After discussion he did suggest possible transfer to [facility] for high level of care due to ventricular tachycardia associated with syncope in his established patient without defib from implanted device if family in agreement. I did start transfer process to [facility], accepting physician Dr. Orosco. No bed available 04/08, 04/09, and 04/10. per [facility] should have bed today. Decompensated systolic congestive heart failure with latest ejection fraction from our institution 20-25%, improved and back to baseline. -Continue with metoprolol, sacubitril/valsartan, Torsemide, and spironolactone -Telemetry -Strict I's and O's -Daily weights -Cardiology recommendations Leukocytosis, improving - no clear sings of infection - suspect reactive - follow CBC - CXR negative Chronically elevated troponin - due to severe cardiomyopathy, at baseline - flat and not consistent with ACS Diabetes mellitus type 2 with insulin pump use -Continue with insulin pump -Continue monitor sugars -Hemoglobin A1c 03/28/20 was 7.8 LEYDI on CKD III - Suspect due to cardiorenal/ diuresis - had already been given AM entresto when labs available, hold PM dose - Baseline Cr ~ 1.5 - Continue to monitor History of atrial fibrillation -No events detected on monitor -Off anticoagulation secondary to recent hemorrhagic CVA -Continue with telemetry and metoprolol Recent hemorrhagic CVA -Plan had been to stay off Eliquis 6 weeks from 04/01/2020 Chronic conditions: Hypertension, dyslipidemia, obstructive sleep apnea with CPAP use, TIA DVT prophylaxis: SCDs Discussed with: Patient, nursing, family Anticipated discharge: once bed available Anticipated discharge place: [facility] A total of 35 minutes was spent on the care of this complex patient more than 50% of the time was spent in counseling and care coordination. Objective - Vital Signs Vital signs: Vital Signs Temp 97.5 F L 04/11/20 08:12 Pulse 74 04/11/20 08:12 Resp 18 04/11/20 08:12 BP 95/55 04/11/20 08:12 Pulse Ox 99 04/11/20 08:12 Intake & Output 04/10/20 04/11/20 04/11/20 18:59 06:59 18:59 Intake Total 240 250 240 Output Total 575 1000 450 Balance -335 -750 -210 Weight 109.2 kg 108.5 kg Intake: Oral 240 250 240 Output: Urine 575 1000 450 Other: Voiding Method Toilet Toilet Urinal Urinal # Voids 1 # Bowel Movements 1 - Labs CBC & Chem 7: 04/11/20 08:35 04/11/20 08:35 Labs: Abnormal Lab Results - Last 24 Hours (Table) 04/11/20 04/11/20 04/11/20 Range/Units 08:27 08:35 08:35 WBC 10.8 H (3.8-10.6) k/uL Hgb 12.9 L (13.0-17.5) gm/dL MCHC 30.6 L (31.0-37.0) g/dL RDW 15.7 H (11.5-15.5) % BUN 46 H (9-20) mg/dL Creatinine 2.17 H (0.66-1.25) mg/dL Glucose 166 H (74-99) mg/dL POC Glucose (mg/dL) 147 H (75-99) mg/dL Magnesium 2.4 H (1.6-2.3) mg/dL
--- NOTE | 2020-04-11 10:35 | P.DS ---
Providers Date of admission: 04/06/20 12:00 Attending physician: Megan Fontana MD Consults: 04/06/20 03:16 Consult Physician Urgent Consulting Provider: Efrain Durant Consult Reason/Comments: concern for AICD discharge Do you want consulting provider notified?: Yes, Notify in am 04/06/20 11:37 Consult Physician Urgent Consulting Provider: Ck Mcgovern Consult Reason/Comments: interventional care Do you want consulting provider notified?: Yes 04/08/20 09:32 Consult Physician Routine Consulting Provider: Jonathon Wheat Consult Reason/Comments: syncope Do you want consulting provider notified?: Yes Primary care physician: Denae Chilel Hospital Course: No bed available at [facility] and Discharge held. This will serve as a progress note. Discharge Diagnosis: Syncope secondary to ventricular tachycardia Decompensated systolic congestive heart failure with latest ejection fraction from our institution 20-25% ( [facility] 10% per patient), improved and back to baseline. Leukocytosis, improving Chronically elevated troponin Diabetes mellitus type 2 with insulin pump use LEYDI on CKD III Recent hemorrhagic CVA -Plan had been to stay off Eliquis 6 weeks from 04/01/2020 Chronic conditions: Hypertension, dyslipidemia, obstructive sleep apnea with CPAP use, TIA Hospital Course: Patient is a 64-year-old male with a past medical history of recent hemorrhagic CVA (hospitalized here from 03/27 through 03/28 and subsequently transferred to [facility] where he was taken off of Eliquis with plans to resume in 6 weeks), atrial fibrillation status post ablation currently maintained in a paced rhythm, systolic congestive heart failure (most recent echo at our institution 03/28/20 with an ejection fraction of 20-25%, also followed at [facility] with her most recent ejection fraction 10% per family), diabetes mellitus 2 on insulin pump who presented to the hospital with a syncopal episode. Apparently the patient woke up early to forgot to take some of his medications and proceeded to his bedroom to take his medications. He felt as though he was going to pass out and then remembers waking up standing over his dresser and thinking he could not let his legs go out because of he fell he would . He then proceeded to the ER here where he had any symptomatic arrhythmia noted on telemetry monitoring. An EKG was performed which was initially felt to be possible SVT with aberrancy is secondary to known prior ablations which after review with by cardiology was determined to be ventricular tachycardia. He initially was admitted and placed in ICU and started on amiodarone amiodarone infusion he completed a 24-hour protocol was then transitioned to oral amiodarone. He underwent pacemaker/ICD interrogation which noted some atrial tachycardia but did not sense V. tach or V. fib and therefore the patient had not been shocked. After starting amiodarone he did not have any recurrence of ventricular tachycardia during his hospital stay. He was able to tolerate increased exertion without recurrent arrhythmia. I reached out to his sonar watchstander from [facility] and was able to send him copy of EKG and Pacer/AICD interrogation. Currently awaiting transfer to [facility] for further evaluation- Accpeted by Dr. Orosco on 04/08. He did have some increased fluid overload and recieved IV diuresis on 04/09 and 04/10. His creatinine was increased slightly on 04/11 (PM entresto and toresimide held) how ever his volume status was optimized as edema and JVD improved. Due to his recent hemorrhagic stroke he also underwent a head CT which showed persistence of the hemorrhage but worsening the affected area. He underwent an EEG was unremarkable. On 04/09 his edema was slightly increased and he was given IV lasix X 1. for physical exam see progress note same date A total of 37 minutes of time were spent preparing this complex discharge summary . Patient Condition at Discharge: Stable Plan - Discharge Summary Discharge Rx Participant: Yes New Discharge Prescriptions: No Action allopurinoL [Zyloprim] 100 mg PO HS Metoprolol Succinate [Toprol XL] 50 mg PO BID Insulin Aspart (For Pump) [NovoLOG (For Pump)] 0.01 unit SQ-PUMP CONTINUOUS Sacubitril/Valsartan [Entresto 49 mg-51 mg Tablet] 1 tab PO BID Fluvastatin Sodium [Fluvastatin ER] 80 mg PO HS #30 tab.er.24h traMADol HCL 50 mg PO BID PRN PRN Reason: Pain L.acidoph,Paracasei, B.lactis [Probiotic] 1 cap PO HS Digoxin [Lanoxin] 125 mcg PO DAILY Multivitamins, Thera [Multivitamin (formulary)] 1 tab PO DAILY Omeprazole 20 mg PO BID Torsemide [Demadex] 40 mg PO BID #120 tab Simethicone Chew [Mylicon Chew] 80 mg PO QID PRN PRN Reason: Gi Upset Dapagliflozin Propanediol [Farxiga] 10 mg PO DAILY Discharge Medication List allopurinoL [Zyloprim] 100 mg PO HS 05/02/14 [History] Metoprolol Succinate [Toprol XL] 50 mg PO BID 03/18/17 [History] Insulin Aspart (For Pump) [NovoLOG (For Pump)] 0.01 unit SQ-PUMP CONTINUOUS 10/31/17 [History] Sacubitril/Valsartan [Entresto 49 mg-51 mg Tablet] 1 tab PO BID 03/15/19 [History] Fluvastatin Sodium [Fluvastatin ER] 80 mg PO HS #30 tab.er.24h 03/16/19 [Rx] Digoxin [Lanoxin] 125 mcg PO DAILY 03/18/20 [History] L.acidoph,Paracasei, B.lactis [Probiotic] 1 cap PO HS 03/18/20 [History] Multivitamins, Thera [Multivitamin (formulary)] 1 tab PO DAILY 03/18/20 [History] Omeprazole 20 mg PO BID 03/18/20 [History] traMADol HCL 50 mg PO BID PRN 03/18/20 [History] Torsemide [Demadex] 40 mg PO BID #120 tab 03/21/20 [Rx] Dapagliflozin Propanediol [Farxiga] 10 mg PO DAILY 04/06/20 [History] Simethicone Chew [Mylicon Chew] 80 mg PO QID PRN 04/06/20 [History] Follow up Appointment(s)/Referral(s): Domingo Waters MD [REFERRING] - Denae Chilel MD [Primary Care Provider] - 1-2 days Discharge Disposition: TRANSFER TO [facility]
[2020-04-11 11:06] VITALS: BMI 35.3
[2020-04-11 12:21] LABS: Glucose,Whole Blood 197 mg/dL (75-99)
--- NOTE | 2020-04-11 13:19 | PN ---
PROGRESS NOTE Mr. Li is a 64-year-old male with known history of severe nonischemic cardiomyopathy, history of atrial fibrillation as well as ventricular tachycardia, who presented with ventricular tachycardia. He has the atrial fibrillation but has not been anticoagulated because of recent hemorrhagic stroke. He is awaiting transfer to [facility] for further evaluation and intervention on his ventricular tachyarrhythmia. He is feeling well this morning. He has no further episode of arrhythmia. His breathing is stable. He denies any dizziness or palpitation. He denies any nausea or vomiting. He is ambulating without difficulty. Continues to be on amiodarone 40 mg twice a day, aspirin once a day, metoprolol succinate 50 mg twice a day, Entresto 49/51mg daily, spironolactone 25 mg daily Demodex 40 mg twice a day. PHYSICAL EXAMINATION: Blood pressure running in the high 90s with a heart rate in the 70s. LUNGS: Clear. HEART: Regular rate and rhythm. S1, S2. No S3 with systolic murmur. No diastolic murmur, no rub. ABDOMEN: Soft, nontender. EXTREMITIES: Trace edema. LAB DATA: Revealed BUN and creatinine 46 and 2.17. Hemoglobin of 12.9. IMPRESSION: 1. History of severe nonischemic cardiomyopathy. 2. Ventricular tachycardia. 3. Paroxysmal atrial fibrillation, not anticoagulated because of recent hemorrhagic stroke. 4. Renal failure. 5. Status post ICD implantation. RECOMMENDATION: I am hopeful that the patient will be transferred today to [facility] to undergo further workup and evaluation. MMODL / IJN: [id number] /
--- NOTE | 2020-04-11 15:19 | PN ---
PROGRESS NOTE PULMONARY/CRITICAL CARE PROGRESS NOTE: DATE OF SERVICE: April 11, 2020 HISTORY: This is a 64-year-old male who has been seen for ventricular tachycardia. The patient was waiting for transfer to [facility]. Currently, the patient is doing relatively well. He is stable at this time. In addition, he has a history of severe nonischemic cardiomyopathy with ejection fraction of 20%, status post AICD placement, recurrent ventricular ectopic activity, paroxysmal atrial fibrillation, acute kidney injury, hemorrhagic stroke, hyperlipidemia, and hypertension. Currently, the patient is stable. Not requiring any oxygen. He is not receiving any IV fluids. PHYSICAL EXAMINATION: VITAL SIGNS: Current vital signs are reviewed. His temperature is 97.5. Heart rate 60, respiratory rate 20. Blood pressure 94/57. Mean 69. Room air saturation 98%. GENERAL: Appears in no acute distress. HEENT: Examination is grossly unremarkable. Mucous membranes are moist. No oral lesions. No supplemental oxygen. NECK: Supple. Full range of motion. No adenopathy. No neck vein distention. CARDIOVASCULAR: Examination reveals irregular rhythm and rate. Heart sounds are distant. Heart rate 60. There is a soft systolic murmur. LUNGS: Relatively clear breath sounds. No wheezes, rhonchi, or crackles. Breath sounds equal. ABDOMEN: Soft. EXTREMITIES are intact. No cyanosis, clubbing, or edema. SKIN: Without rash. NEUROLOGIC: Examination is brief but nonfocal. LABS: Reviewed. White count 10.8, hemoglobin 12.9, hematocrit 42.2, platelet count 361,000. Sodium, potassium, chloride, CO2 all normal. Anion gap is 9. BUN and creatinine were 46 and 2.17. PCR for coronavirus on 04/10/2020 was negative. Microbiology is negative. The most recent chest x-ray from April 10 shows only cardiomegaly. Medications are reviewed. ASSESSMENT: 1. Ventricular tachycardia, with syncope/presyncope, controlled on amiodarone. 2. History of severe nonischemic cardiomyopathy with ejection fraction of 20%, status post AICD/biventricular pacemaker insertion. 3. History of recurrent ventricular ectopic activity, atrial fibrillation, status post cardiac ablation. 4. Paroxysmal atrial fibrillation. 5. History of acute kidney injury, improved. 6. Recent history of hemorrhagic stroke. 7. Hyperlipidemia. 8. History of hypertension. 9. History of sleep apnea, maintained on CPAP. PLAN: Currently, the patient is doing relatively well. He is currently waiting a bed at [facility]. His cardiac rhythms have been stable recently. We will continue to follow. The patient remains on a number of medications including amiodarone, beta blockers, aspirin and Entresto. We will continue to follow. BOGDAN / GARYN: [id number] /
[2020-04-12] MEDS: ASPIRIN 325 MG TAB PO SCH (08:34)
[2020-04-12] MEDS: SACUBITRIL/VALSARTAN 49 MG-51 MG TABLET PO SCH ×2 (08:34→08:37)
[2020-04-12] MEDS: METOPROLOL SUCCINATE (ER) 50 MG TAB.ER.24H PO SCH ×2 (08:35→08:37)
[2020-04-12] MEDS: AMIODARONE 200 MG TAB PO SCH ×2 (08:35→08:36)
[2020-04-12] MEDS: TORSEMIDE 20 MG TAB PO SCH ×2 (08:35→08:38)
[2020-04-12] MEDS: PANTOPRAZOLE 40 MG TABLET PO SCH ×2 (08:36→08:37)
[2020-04-12] MEDS: allopurinoL 100 MG TAB PO SCH (08:36)
[2020-04-12] MEDS: SPIRONOLACTONE 25 MG TAB PO SCH (08:38)
[2020-04-12] MEDS: INSULIN PUMP MEAL BOLUS 1 UNIT MISC MISCELLANE SCH ×5 (08:39→18:09)
[2020-04-12] MEDS: PATIENT'S OWN (Dapagliflozin Propanediol [Farxiga] 10 MG Tablet) PO SCH (08:40)
[2020-04-12] MEDS: LORATADINE 10 MG TAB PO SCH (08:40)
--- NOTE | 2020-04-12 11:23 | P.PN ---
Subjective Progress Note Date: 04/12/20 Patient was seen and examined. No acute events overnight. Patient with no complaints. He denies any chest pain, shortness of breath or palpitations. No nausea or vomiting. No fever or chills. No dizziness. Objective - Vital Signs Vital signs: Vital Signs Temp 97.6 F 04/12/20 08:00 Pulse 65 04/12/20 08:00 Resp 17 04/12/20 08:00 BP 96/50 04/12/20 08:00 Pulse Ox 99 04/12/20 08:00 Intake & Output 04/11/20 04/12/20 04/12/20 18:59 06:59 18:59 Intake Total 840 125 Output Total 750 2350 Balance 90 -2350 125 Weight 108.5 kg 110 kg Intake: Oral 840 125 Output: Urine 750 2350 Other: Voiding Method Toilet Urinal # Voids 2 - Exam General: [non toxic], [no distress], [appears at stated age] Derm: [warm], [dry] Head: [atraumatic], [normocephalic], [symmetric] Eyes: [EOMI], [no lid lag], [anicteric sclera] Mouth: [no lip lesion], [mucus membranes moist] Cardiovascular: [S1S2 reg], [no murmur], [positive posterior tibial pulse bilateral], Lungs: [Decreased breath sounds bilateral], [no rhonchi, no rales] , [no accessory muscle use] Abdominal: [soft], [ nontender to palpation], [no guarding], [no appreciable organomegaly] Ext: [no gross muscle atrophy], [1+ pitting lower extremity bilateral edema], [no contractures] Neuro: [no focal neuro deficits] Psych: [Alert], [oriented], [appropriate affect] - Labs CBC & Chem 7: 04/11/20 08:35 04/11/20 08:35 Labs: Abnormal Lab Results - Last 24 Hours (Table) 04/11/20 Range/Units 11:56 POC Glucose (mg/dL) 197 H (75-99) mg/dL Assessment and Plan Assessment: Syncope secondary to ventricular tachycardia - On amiodarone oral - Telemetry - Pacemaker/ICD interrogation was completed which showed atrial tachycardia sensed and no shocks delivered - cardio recs appreciated - Echo in Mar 2020 showed EF 20-25% - Neurology recommendations appreciated, CT head with no change in hemorrhagic stroke, EEG negative, no neurologic sequela - Pending transfer to [facility] - Accepting physician Dr. Orosco. - No bed available 04/08, 04/09, and 04/10, 04/11, 04/12 Decompensated systolic congestive heart failure with latest ejection fraction from our institution 20-25%, improved and back to baseline. - Continue with metoprolol, sacubitril/valsartan, Torsemide, and spironolactone - Telemetry - Strict I's and O's - Daily weights - Cardiology recommendations Leukocytosis, improving - no clear sings of infection - suspect reactive - follow CBC - CXR negative Chronically elevated troponin - due to severe cardiomyopathy, at baseline - flat and not consistent with ACS Diabetes mellitus type 2 with insulin pump use - Continue with insulin pump - Continue monitor sugars - Hemoglobin A1c 03/28/20 was 7.8 LEYDI on CKD III - Suspect due to cardiorenal/ diuresis - Baseline Cr ~ 1.5 - Continue to monitor History of atrial fibrillation - No events detected on monitor - Off anticoagulation secondary to recent hemorrhagic CVA - Continue with telemetry and metoprolol Recent hemorrhagic CVA - Plan had been to stay off Eliquis 6 weeks from 04/01/2020 Chronic conditions: Hypertension, dyslipidemia, obstructive sleep apnea with CPAP use, TIA DVT prophylaxis: SCDs Discussed with: Patient Anticipated discharge: once bed available Anticipated discharge place: [facility] A total of 25 minutes was spent on the care of this complex patient more than 50% of the time was spent in counseling and care coordination.
[2020-04-12] MEDS: FLUTICASONE 50MCG/SPRAY NASAL 16GM EA NOSTRIL SCH (11:29)
[2020-04-12 14:08] VITALS: RESP 18
--- NOTE | 2020-04-12 15:35 | PN ---
PROGRESS NOTE Mr. Li is a 64-year-old male with known history of severe nonischemic cardiomyopathy, history of atrial fibrillation and ventricular tachycardia who presented with an episode of ventricular tachycardia. He has an ICD implanted. He is awaiting transfer to [facility]. There was no bed available yesterday. He had a run of nonsustained ventricular tachycardia yesterday with mild dizziness but no chest pain, no syncope. He is feeling well this morning. He denies any nausea. He continues to be on amiodarone 400 mg twice a day, aspirin once a day, insulin, loratadine, metoprolol succinate 50 mg twice a day, Entresto 49/51 mg twice a day and Aldactone 25 mg daily in addition to torsemide 40 mg twice a day. PHYSICAL EXAMINATION: Blood pressure running in the 90s with a heart rate in 60s.. LUNGS: Clear. HEART: Regular rate and rhythm. S1, S2. No S3. No rub. ABDOMEN: Soft, nontender. EXTREMITIES: Trace edema. LAB DATA: BUN and creatinine 46 and 2.17, potassium 4.8, hemoglobin of 12.9. IMPRESSION: 1. Recurrent ventricular tachycardia in a patient with known history of severe nonischemic cardiomyopathy. 2. Prior paroxysmal atrial fibrillation, not anticoagulated because of recent hemorrhagic stroke. 3. Renal failure, chronic. 4. Status post ICD implantation. RECOMMENDATION: We will await the transfer to [facility] to undergo further evaluation and treatment of his arrhythmia. MMODL / IJN: [id number] /
[2020-04-12 16:41] VITALS: BP 123/56; PULSE 60; TEMP 97.5
--- NOTE | 2020-04-13 07:32 | P.DS ---
Providers Date of admission: 04/06/20 12:00 Expected date of discharge: 04/12/20 Attending physician: Megan Fontana MD Consults: 04/06/20 03:16 Consult Physician Urgent Consulting Provider: Efrain Durant Consult Reason/Comments: concern for AICD discharge Do you want consulting provider notified?: Yes, Notify in am 04/06/20 11:37 Consult Physician Urgent Consulting Provider: Ck Mcgovern Consult Reason/Comments: interventional care Do you want consulting provider notified?: Yes 04/08/20 09:32 Consult Physician Routine Consulting Provider: Jonathon Wheat Consult Reason/Comments: syncope Do you want consulting provider notified?: Yes Primary care physician: Denae Chilel Hospital Course: Patient is a 64-year-old male with a past medical history of recent hemorrhagic CVA (hospitalized here from 03/27 through 03/28 and subsequently transferred to [facility] where he was taken off of Eliquis with plans to resume in 6 weeks), atrial fibrillation status post ablation currently maintained in a paced rhythm, systolic congestive heart failure (most recent echo at our institution 03/28/20 with an ejection fraction of 20-25%, also followed at [facility] with her most recent ejection fraction 10% per family), diabetes mellitus 2 on insulin pump who presented to the hospital with a syncopal episode. Apparently the patient woke up early to forgot to take some of his medications and proceeded to his bedroom to take his medications. He felt as though he was going to pass out and then remembers waking up standing over his dresser and thinking he could not let his legs go out because of he fell he would . He then proceeded to the ER here where he had any symptomatic arrhythmia noted on telemetry monitoring. An EKG was performed which was initially felt to be possible SVT with aberrancy is secondary to known prior ablations which after review with by cardiology was determined to be ventricular tachycardia. He initially was admitted and placed in ICU and started on amiodarone amiodarone infusion he completed a 24-hour protocol was then transitioned to oral amiodarone. He underwent pacemaker/ICD interrogation which noted some atrial tachycardia but did not sense V. tach or V. fib and therefore the patient had not been shocked. After starting amiodarone he did not have any recurrence of ventricular tachycardia during his hospital stay. He was able to tolerate increased exertion without recurrent arrhythmia. I reached out to his client services administrator from [facility] and was able to send him copy of EKG and Pacer/AICD interrogation. Currently awaiting transfer to [facility] for further evaluation- Accpeted by Dr. Orosco on 04/08. He did have some increased fluid overload and recieved IV diuresis on 04/09 and 04/10. His creatinine was increased slightly on 04/11 (PM entresto and toresimide held) how ever his volume status was optimized as edema and JVD improved. Due to his recent hemorrhagic stroke he also underwent a head CT which showed p ersistence of the hemorrhage but worsening the affected area. He underwent an EEG was unremarkable. On 04/09 his edema was slightly increased and he was given IV lasix X 1. He was accepted to [facility] by his primary Manager Med Surg on 04/12/2020. This complex discharge took about 35 minutes to complete. Syncope secondary to ventricular tachycardia - On amiodarone oral - Telemetry - Pacemaker/ICD interrogation was completed which showed atrial tachycardia sensed and no shocks delivered - cardio recs appreciated - Echo in Mar 2020 showed EF 20-25% - Neurology recommendations appreciated, CT head with no change in hemorrhagic stroke, EEG negative, no neurologic sequela - Pending transfer to [facility] - Accepting physician Dr. Orosco. - No bed available 04/08, 04/09, and 04/10, 04/11, available on 04/12 Decompensated systolic congestive heart failure with latest ejection fraction from our institution 20-25%, improved and back to baseline. - Continue with metoprolol, sacubitril/valsartan, Torsemide, and spironolactone - Telemetry - Strict I's and O's - Daily weights - Cardiology recommendations Leukocytosis, improving - no clear sings of infection - suspect reactive - follow CBC - CXR negative Chronically elevated troponin - due to severe cardiomyopathy, at baseline - flat and not consistent with ACS Diabetes mellitus type 2 with insulin pump use - Continue with insulin pump - Continue monitor sugars - Hemoglobin A1c 03/28/20 was 7.8 LEYDI on CKD III - Suspect due to cardiorenal/ diuresis - Baseline Cr ~ 1.5 - Continue to monitor History of atrial fibrillation - No events detected on monitor - Off anticoagulation secondary to recent hemorrhagic CVA - Continue with telemetry and metoprolol Recent hemorrhagic CVA - Plan had been to stay off Eliquis 6 weeks from 04/01/2020 Chronic conditions: Hypertension, dyslipidemia, obstructive sleep apnea with CPAP use, TIA Pertinent Studies: CXR, CT brain, EEG Patient Condition at Discharge: Stable Plan - Discharge Summary Discharge Rx Participant: Yes New Discharge Prescriptions: No Action allopurinoL [Zyloprim] 100 mg PO HS Metoprolol Succinate [Toprol XL] 50 mg PO BID Insulin Aspart (For Pump) [NovoLOG (For Pump)] 0.01 unit SQ-PUMP CONTINUOUS Sacubitril/Valsartan [Entresto 49 mg-51 mg Tablet] 1 tab PO BID Fluvastatin Sodium [Fluvastatin ER] 80 mg PO HS #30 tab.er.24h traMADol HCL 50 mg PO BID PRN PRN Reason: Pain L.acidoph,Paracasei, B.lactis [Probiotic] 1 cap PO HS Digoxin [Lanoxin] 125 mcg PO DAILY Multivitamins, Thera [Multivitamin (formulary)] 1 tab PO DAILY Omeprazole 20 mg PO BID Torsemide [Demadex] 40 mg PO BID #120 tab Simethicone Chew [Mylicon Chew] 80 mg PO QID PRN PRN Reason: Gi Upset Dapagliflozin Propanediol [Farxiga] 10 mg PO DAILY Discharge Medication List allopurinoL [Zyloprim] 100 mg PO HS 05/02/14 [History] Metoprolol Succinate [Toprol XL] 50 mg PO BID 03/18/17 [History] Insulin Aspart (For Pump) [NovoLOG (For Pump)] 0.01 unit SQ-PUMP CONTINUOUS 10/31/17 [History] Sacubitril/Valsartan [Entresto 49 mg-51 mg Tablet] 1 tab PO BID 03/15/19 [History] Fluvastatin Sodium [Fluvastatin ER] 80 mg PO HS #30 tab.er.24h 03/16/19 [Rx] Digoxin [Lanoxin] 125 mcg PO DAILY 03/18/20 [History] L.acidoph,Paracasei, B.lactis [Probiotic] 1 cap PO HS 03/18/20 [History] Multivitamins, Thera [Multivitamin (formulary)] 1 tab PO DAILY 03/18/20 [History] Omeprazole 20 mg PO BID 03/18/20 [History] traMADol HCL 50 mg PO BID PRN 03/18/20 [History] Torsemide [Demadex] 40 mg PO BID #120 tab 03/21/20 [Rx] Dapagliflozin Propanediol [Farxiga] 10 mg PO DAILY 04/06/20 [History] Simethicone Chew [Mylicon Chew] 80 mg PO QID PRN 04/06/20 [History] Follow up Appointment(s)/Referral(s): Domingo Waters MD [REFERRING] - Denae Chilel MD [Primary Care Provider] - 1-2 days Discharge Disposition: OTHER INSTITUTION NOT DEFINED
== END 2020-04-12 18:30 | disposition short-term general hospital (02) | DRG 308 ==
LOC: EC 01:43 → 3SCARD 03:20 → 2SICU 11:47 → OBSVTOIN 12:00 → 3SCARD 04-10 11:51
PROVIDERS: ADMIT Internal Medicine; ATTEND Internal Medicine
PROC: 4B02XTZ Measurement of Cardiac Defibrillator, External Approach (ICD-10-PCS; principal; 2020-04-06)
DX: I47.2 Ventricular tachycardia (principal); I50.23 Acute on chronic systolic (congestive) heart failure; I13.0 Hypertensive heart and chronic kidney disease with heart failure and stage 1 through stage 4 chronic kidney disease, or unspecified chronic kidney disease; I42.8 Other cardiomyopathies; N17.9 Acute kidney failure, unspecified; Z20.828 Contact with and (suspected) exposure to other viral communicable diseases; Z45.02 Encounter for adjustment and management of automatic implantable cardiac defibrillator; D32.0 Benign neoplasm of cerebral meninges; D72.829 Elevated white blood cell count, unspecified; E11.22 Type 2 diabetes mellitus with diabetic chronic kidney disease; E78.5 Hyperlipidemia, unspecified; G47.33 Obstructive sleep apnea (adult) (pediatric); Z99.89 Dependence on other enabling machines and devices; I48.0 Paroxysmal atrial fibrillation; I48.20 Chronic atrial fibrillation, unspecified; I48.92 Unspecified atrial flutter; I49.3 Ventricular premature depolarization; Z86.73 Personal history of transient ischemic attack (TIA), and cerebral infarction without residual deficits; N18.30 Chronic kidney disease, stage 3 unspecified; Z79.01 Long term (current) use of anticoagulants; Z79.4 Long term (current) use of insulin; Z79.82 Long term (current) use of aspirin; Z79.899 Other long term (current) drug therapy; Z82.49 Family history of ischemic heart disease and other diseases of the circulatory system; Z83.3 Family history of diabetes mellitus; Z96.41 Presence of insulin pump (external) (internal); R79.89 Other specified abnormal findings of blood chemistry; Z98.49 Cataract extraction status, unspecified eye
CPT/HCPCS: 36415; 70450; 71045; 71046; 80048; 80053; 80061; 80162; 83735; 84484; 85025; 85027; 85610; 85730; 87635; 93005; 95816; 96365; 96367; 99285

== ENCOUNTER → 2020-04-28 | Outpatient (CLI) | payer MEDICARE, BC ==
[2020-04-28 18:48] LABS: African American GFR (CKD) 44.8 (60.0-200.0); Anion Gap 6.6 mmol/L (4.00-12.00); Calcium 9.5 mg/dL (8.7-10.3); Carbon Dioxide 30.4 mmol/L (21.6-31.8); Magnesium 2.6 mg/dL (1.5-2.4); Non-African American GFR(CKD) 38.6 (60.0-200.0); Potassium 4.6 mmol/L (3.5-5.5)
[2020-04-28 20:17] LABS: Hemoglobin A1C 7.2 % (4.0-6.0)
== END | disposition home or self-care (01) ==
LOC: LABWHC1 10:22
PROVIDERS: ATTEND Internal Medicine
DX: E11.65 Type 2 diabetes mellitus with hyperglycemia (principal); I50.20 Unspecified systolic (congestive) heart failure
CPT/HCPCS: 36415; 80048; 83036; 83735

== ENCOUNTER → 2020-05-05 | Outpatient (CLI) | payer MEDICARE, BC ==
[2020-05-05 12:17] LABS: African American GFR (CKD) 39 (>60 ml/min/1.73 sqM); Anion Gap 7 mmol/L; Blood Urea Nitrogen 31 mg/dL (9-20); Calcium 9.7 mg/dL (8.4-10.2); Carbon Dioxide 35 mmol/L (22-30); Chloride 99 mmol/L (98-107); Glucose 217 mg/dL (74-99); Non-African American GFR(CKD) 34 (>60 ml/min/1.73 sqM); Potassium 5.3 mmol/L (3.5-5.1); Sodium 141 mmol/L (137-145)
== END | disposition home or self-care (01) ==
LOC: LABWHC1 10:13
PROVIDERS: ATTEND Internal Medicine
DX: I42.8 Other cardiomyopathies (principal); I50.9 Heart failure, unspecified; I51.9 Heart disease, unspecified
CPT/HCPCS: 36415; 80048; 83880

== ENCOUNTER → 2020-05-19 | Outpatient (CLI) | payer MEDICARE, BC ==
[2020-05-19 14:11] LABS: African American GFR (CKD) 42 (>60 ml/min/1.73 sqM); Anion Gap 9 mmol/L; Blood Urea Nitrogen 25 mg/dL (9-20); Calcium 9.1 mg/dL (8.4-10.2); Carbon Dioxide 33 mmol/L (22-30); Chloride 98 mmol/L (98-107); Glucose 177 mg/dL (74-99); Non-African American GFR(CKD) 36 (>60 ml/min/1.73 sqM); Potassium 3.7 mmol/L (3.5-5.1); Sodium 140 mmol/L (137-145)
== END | disposition home or self-care (01) ==
LOC: LABWHC1 11:10
PROVIDERS: ATTEND Internal Medicine
DX: I50.20 Unspecified systolic (congestive) heart failure (principal)
CPT/HCPCS: 36415; 80048; 83880

== ENCOUNTER → 2020-06-02 | Outpatient (CLI) | payer MEDICARE, BC ==
[2020-06-02 23:58] LABS: African American GFR (CKD) 41.7 (60.0-200.0); Anion Gap 11.2 mmol/L (4.00-12.00); BUN/Creat Ratio 11.58 Ratio (12.00-20.00); Calcium 9.3 mg/dL (8.7-10.3); Carbon Dioxide 26.8 mmol/L (21.6-31.8); Non-African American GFR(CKD) 35.9 (60.0-200.0); Potassium 4.3 mmol/L (3.5-5.5)
== END | disposition home or self-care (01) ==
LOC: LABWHC1 15:38
PROVIDERS: ATTEND Internal Medicine
DX: I50.20 Unspecified systolic (congestive) heart failure (principal); I42.8 Other cardiomyopathies; I51.9 Heart disease, unspecified; Z91.018 Allergy to other foods
CPT/HCPCS: 36415; 80048; 83880

== ENCOUNTER → 2020-06-24 | Outpatient (CLI) | payer MEDICARE, BC ==
[2020-06-24 17:02] LABS: African American GFR (CKD) 39.1 (60.0-200.0); Anion Gap 13.9 mmol/L (4.00-12.00); Calcium 10.3 mg/dL (8.7-10.3); Carbon Dioxide 27.1 mmol/L (21.6-31.8); Non-African American GFR(CKD) 33.8 (60.0-200.0); Potassium 5.3 mmol/L (3.5-5.5)
[2020-06-25 17:06] LABS: Digoxin 0.3 ng/mL (0.8-2.0)
== END | disposition home or self-care (01) ==
LOC: LABWHC1 06-23 11:30
PROVIDERS: ATTEND Internal Medicine
DX: I50.20 Unspecified systolic (congestive) heart failure (principal); I42.8 Other cardiomyopathies; I51.9 Heart disease, unspecified; Z91.018 Allergy to other foods
CPT/HCPCS: 36415; 80048; 80162; 83880

== ENCOUNTER → 2020-07-02 | Outpatient (CLI) | payer MEDICARE, BC ==
[2020-07-02 10:22] LABS: Anisocytosis Slight; HCT 45.7 % (39.0-53.0); MCHC 32.8 g/dL (31.0-37.0); MCV 88.6 fL (80.0-100.0); Mean Platelet Volume 8.4; Platelet Count 176 k/uL (150-450); RBC 5.16 m/uL (4.30-5.90); RDW 16.6 % (11.5-15.5); WBC 7.4 k/uL (3.8-10.6)
[2020-07-02 15:13] LABS: African American GFR (CKD) 39.1 (60.0-200.0); Albumin 4.6 g/dL (3.80-4.90); Albumin/Globulin Ratio 1.7 (1.60-3.17); Anion Gap 9.3 mmol/L (4.00-12.00); Calcium 9.3 mg/dL (8.7-10.3); Carbon Dioxide 29.7 mmol/L (21.6-31.8); Globulin 2.7 g/dL (1.6-3.3); Non-African American GFR(CKD) 33.8 (60.0-200.0); Potassium 4.4 mmol/L (3.5-5.5); Total Bilirubin 0.8 mg/dL (0.3-1.2); Total Protein 7.3 g/dL (6.2-8.2)
[2020-07-02 15:22] LABS: Folate, Serum 9.6 ng/mL
[2020-07-02 17:29] LABS: Urine Creatinine 39.4 mg/dL
== END | disposition home or self-care (01) ==
LOC: LABWHC1 09:31
DX: E11.65 Type 2 diabetes mellitus with hyperglycemia (principal); R25.1 Tremor, unspecified
CPT/HCPCS: 36415; 80053; 82043; 82306; 82570; 82607; 82746; 83036; 84443; 85027

== ENCOUNTER → 2020-07-21 | Outpatient (CLI) | payer MEDICARE, BC ==
[2020-07-21 15:35] LABS: African American GFR (CKD) 51.3 (60.0-200.0); Anion Gap 11.2 mmol/L (4.00-12.00); BUN/Creat Ratio 15.63 Ratio (12.00-20.00); Calcium 9.1 mg/dL (8.7-10.3); Carbon Dioxide 31.8 mmol/L (21.6-31.8); Non-African American GFR(CKD) 44.2 (60.0-200.0); Potassium 3.6 mmol/L (3.5-5.5)
[2020-07-21 15:59] LABS: Digoxin 0.6 ng/mL (0.8-2.0)
== END | disposition home or self-care (01) ==
LOC: LABWHC1 08:55
PROVIDERS: ATTEND Internal Medicine
DX: I42.8 Other cardiomyopathies (principal)
CPT/HCPCS: 36415; 80048; 80162; 83880

== ENCOUNTER → 2020-08-06 | Outpatient (CLI) | payer MEDICARE, BC ==
[2020-08-06 17:45] LABS: African American GFR (CKD) 39.1 (60.0-200.0); Anion Gap 11.9 mmol/L (4.00-12.00); BUN/Creat Ratio 16.5 Ratio (12.00-20.00); Carbon Dioxide 30.1 mmol/L (21.6-31.8); Non-African American GFR(CKD) 33.8 (60.0-200.0); Potassium 3.9 mmol/L (3.5-5.5)
== END | disposition home or self-care (01) ==
LOC: LABWHC1 08:35
PROVIDERS: ATTEND Internal Medicine
DX: I50.20 Unspecified systolic (congestive) heart failure (principal); I42.8 Other cardiomyopathies; I51.9 Heart disease, unspecified; Z91.018 Allergy to other foods
CPT/HCPCS: 36415; 80048; 83880

== ENCOUNTER → 2020-09-04 | Outpatient (CLI) | payer MEDICARE, BC ==
[2020-09-04 17:32] LABS: Digoxin 0.7 ng/mL (0.8-2.0)
[2020-09-04 18:00] LABS: African American GFR (CKD) 33.1 (60.0-200.0); Albumin 4.2 g/dL (3.80-4.90); Albumin/Globulin Ratio 1.24 (1.60-3.17); Anion Gap 12.3 mmol/L (4.00-12.00); BUN/Creat Ratio 14.78 Ratio (12.00-20.00); Calcium 10.4 mg/dL (8.7-10.3); Carbon Dioxide 27.7 mmol/L (21.6-31.8); Globulin 3.4 g/dL (1.6-3.3); Non-African American GFR(CKD) 28.5 (60.0-200.0); Potassium 5.4 mmol/L (3.5-5.5); Total Bilirubin 0.9 mg/dL (0.3-1.2); Total Protein 7.6 g/dL (6.2-8.2)
== END | disposition home or self-care (01) ==
LOC: LABWHC1 10:19
PROVIDERS: ATTEND Internal Medicine
DX: I42.8 Other cardiomyopathies (principal)
CPT/HCPCS: 36415; 80053; 80162; 83880

== ENCOUNTER → 2020-09-10 | Outpatient (CLI) | payer MEDICARE, BC ==
[2020-09-10 20:14] LABS: Digoxin 0.4 ng/mL (0.8-2.0)
[2020-09-11 00:55] LABS: African American GFR (CKD) 39.1 (60.0-200.0); Albumin 4.6 g/dL (3.80-4.90); Albumin/Globulin Ratio 1.77 (1.60-3.17); Anion Gap 14.4 mmol/L (4.00-12.00); BUN/Creat Ratio 17.5 Ratio (12.00-20.00); Calcium 9.3 mg/dL (8.7-10.3); Carbon Dioxide 26.6 mmol/L (21.6-31.8); Globulin 2.6 g/dL (1.6-3.3); Non-African American GFR(CKD) 33.8 (60.0-200.0); Potassium 4.1 mmol/L (3.5-5.5); Total Bilirubin 0.8 mg/dL (0.2-1.2); Total Protein 7.2 g/dL (6.2-8.2)
== END | disposition home or self-care (01) ==
LOC: LABWHC1 11:01
PROVIDERS: ATTEND Physician Assistant
DX: I50.20 Unspecified systolic (congestive) heart failure (principal)
CPT/HCPCS: 36415; 80053; 80162; 83880

== ENCOUNTER → 2020-09-29 | Outpatient (CLI) | payer MEDICARE, BC ==
[2020-09-29 14:39] LABS: African American GFR (CKD) 35 (>60 ml/min/1.73 sqM); Albumin 4.7 g/dL (3.5-5.0); Anion Gap 10 mmol/L; Blood Urea Nitrogen 32 mg/dL (9-20); Calcium 9.7 mg/dL (8.4-10.2); Carbon Dioxide 33 mmol/L (22-30); Chloride 99 mmol/L (98-107); Glucose 66 mg/dL (74-99); Non-African American GFR(CKD) 30 (>60 ml/min/1.73 sqM); Phosphorus 4.5 mg/dL (2.5-4.5); Potassium 3.6 mmol/L (3.5-5.1); Sodium 142 mmol/L (137-145)
[2020-09-29 19:47] LABS: Hemoglobin A1C 7.3 % (4.0-6.0)
[2020-09-30 02:00] LABS: Urine Creatinine 48.9 mg/dL
[2020-09-30 03:16] LABS: C-Peptide 0.65 ng/mL (0.81-3.85)
== END | disposition home or self-care (01) ==
LOC: LABWHC1 12:09
PROVIDERS: ATTEND Internal Medicine
DX: E87.5 Hyperkalemia (principal); I42.8 Other cardiomyopathies; E11.65 Type 2 diabetes mellitus with hyperglycemia
CPT/HCPCS: 36415; 80048; 82040; 82043; 82570; 83036; 83880; 84100; 84681

== ENCOUNTER 2020-10-02 08:09 | Observation (INO) | payer MEDICARE, BC ==
[2020-10-02 09:39] LABS: Basophils # (A) 0.1 k/uL (0-0.2); Basophils % (A) 1 %; Eosinophils # (A) 0.2 k/uL (0-0.7); Eosinophils % (A) 2 %; HCT 42.8 % (39.0-53.0); HGB 14.3 gm/dL (13.0-17.5); Lymphocytes # (A) 1.3 k/uL (1.0-4.8); Lymphocytes % (A) 15 %; MCHC 33.3 g/dL (31.0-37.0); MCV 86.9 fL (80.0-100.0); Mean Platelet Volume 9.3; Monocytes # (A) 0.6 k/uL (0-1.0); Monocytes % (A) 6 %; Neutrophils # (A) 6.5 k/uL (1.3-7.7); Neutrophils % (A) 74 %; Platelet Count 133 k/uL (150-450); RBC 4.93 m/uL (4.30-5.90); RDW 14.1 % (11.5-15.5); WBC 8.9 k/uL (3.8-10.6)
[2020-10-02 09:55] LABS: INR 1.4 (<1.2); Partial Thromboplastin Time 27.3 sec (22.0-30.0); Prothrombin Time 13.9 sec (9.0-12.0)
[2020-10-02 10:02] LABS: Albumin 3.7 g/dL (3.5-5.0); Calcium 8.5 mg/dL (8.4-10.2); Magnesium 2.2 mg/dL (1.6-2.3); Potassium 2.9 mmol/L (3.5-5.1); Total Bilirubin 1.1 mg/dL (0.2-1.3); Total Protein 6.6 g/dL (6.3-8.2)
[2020-10-02] MEDS ORDERED: POTASSIUM CHLORIDE ER 20 MEQ TAB.ER PO STA (10:17)
[2020-10-02] MEDS ORDERED: POTASSIUM CHLORIDE 20 MEQ in WATER FOR INJECTION 1 100ML.BAG IVPB STA (10:17)
--- NOTE | 2020-10-02 10:19 | ED ---
General Adult HPI - General Chief complaint: Syncope Stated complaint: Syncope Source: patient, EMS Mode of arrival: EMS Limitations: no limitations - History of Present Illness Initial comments: Patient is a 65-year-old male with extensive cardiac history presents emergency department after he had a syncopal episode at home. He reports he got up out of bed and this is the last he remembers. heard the patient in the bathroom and found him on the floor. No seizure-like activity. He did become arousable after 2 minutes. Patient denied have any chest pain or shortness of breath. Did not feel he was shot by his ICD. He denies any headaches or visual changes. 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 Denies any unilateral numbness or weakness. Patient currently on the transplant list for a new heart. States that he follows with the granulating blender out of [facility]. Recently was taken off his chest though and they increased his diuretic. Reports that he has had recent weight gain and abdominal swelling. Has had a poor appetite with poor oral intake. Denies any fevers or chills. No other alleviating, precipitating or modifying factors - Related Data Home Medications Medication Instructions Recorded Confirmed Metoprolol Succinate [Toprol XL] 50 mg PO DAILY 03/18/17 10/02/20 Digoxin [Lanoxin] 125 mcg PO MOWEFR 03/18/20 10/02/20 traMADol HCL 50 mg PO BID PRN 03/18/20 10/02/20 Dapagliflozin Propanediol [Farxiga] 10 mg PO DAILY 04/06/20 10/02/20 Simethicone Chew [Mylicon Chew] 80 mg PO QID PRN 04/06/20 10/02/20 Amiodarone [Cordarone] 400 mg PO DAILY 10/02/20 10/02/20 Apixaban [Eliquis] 5 mg PO BID 10/02/20 10/02/20 Fluticasone Nasal [place] [Flonase 2 spr EA NOSTRIL DAILY PRN 10/02/20 10/02/20 Nasal [place]atus] INSULIN LISPRO (For Pump) [humaLOG 0.01 units SQ-PUMP CONTINUOUS 10/02/20 10/02/20 (For Pump)] Torsemide [Demadex] 60 mg PO BID 10/02/20 10/02/20 Previous Rx's Medication Instructions Recorded Fluvastatin Sodium [Fluvastatin ER] 80 mg PO HS #30 tab.er.24h 03/16/19 Potassium Chloride ER [K-Dur 10] 10 meq PO DAILY #30 tab 10/03/20 Allergies Allergy/AdvReac Type Severity Reaction Status Date / Time coconut AdvReac sneezing Verified 10/02/20 09:51 coconut oil AdvReac sneezing Verified 10/02/20 09:51 Review of Systems ROS Statement: Those systems with pertinent positive or pertinent negative responses have been documented in the HPI. ROS Other: All systems not noted in ROS Statement are negative. Past Medical History Past Medical History: Atrial Fibrillation, Heart Failure, Diabetes Mellitus, Hyperlipidemia, Hypertension, Sleep Apnea/CPAP/BIPAP Additional Past Medical History / Comment(s): See Dr Durant's H&P FOR CARDIAC. SOB w/activity, cpap. HX TIA-yrs ago. "BLEEDING IN EYES",gout, Cardiac ablation at [facility] Feb History of Any Multi-Drug Resistant Organisms: None Reported Past Surgical History: Ablation, AICD, Cardiac Ablation, EPS, Heart Catheterization, Orthopedic Surgery, Pacemaker Additional Past Surgical History / Comment(s): Atrial ablation, cardioversion,cervical fusion x 2, knee surg., achilles tendon surg., CATARACT SX. CARDIAC Ablation 05/2014; AICD/PACEMAKER 06/2014, [facility] MODEL. BILAT EYE SX "TO REMOVE BLOOD",blood vessel broke in rt eye and he lost partial vision- short term loss, ablation- cardiac. Pacer/AICD changed Feb Past Anesthesia/Blood Transfusion Reactions: No Reported Reaction Additional Past Anesthesia/Blood Transfusion Reaction / Comment(s): NEVER RECIEVED BLOOD. Type of Cardiac Device: Biventricular Pacemaker, AICD Device Placement Date:: 06/2014 Past Psychological History: No Psychological Hx Reported Smoking Status: Never smoker Past Alcohol Use History: Occasional Past Drug Use History: None Reported - Past Family History Father Family Medical History: Coronary Artery Disease (CAD), Diabetes Mellitus, Myocardial Infarction ([place]) Additional Family Medical History / Comment(s): FATHER OF [place] AT AGE 65 YRS. Mother Family Medical History: Diabetes Mellitus Additional Family Medical History / Comment(s): SHE HAS HAD A LEG AMPUTATION General Exam Limitations: no limitations General appearance: alert, in no apparent distress Head exam: Present: atraumatic, normocephalic, normal inspection Eye exam: Present: normal appearance, PERRL, EOMI. Absent: scleral icterus, conjunctival injection, periorbital swelling ENT exam: Present: normal exam, mucous membranes moist Neck exam: Present: normal inspection. Absent: tenderness, meningismus, lymphadenopathy Respiratory exam: Present: normal lung sounds bilaterally. Absent: respiratory distress, wheezes, rales, rhonchi, stridor Cardiovascular Exam: Present: regular rate, normal rhythm, normal heart sounds. Absent: systolic murmur, diastolic murmur, rubs, gallop, clicks GI/Abdominal exam: Present: soft, normal bowel sounds. Absent: distended, tenderness, guarding, rebound, rigid Extremities exam: Present: normal inspection, full ROM, normal capillary refill. Absent: tenderness, pedal edema, joint swelling, calf tenderness Back exam: Present: normal inspection Neurological exam: Present: alert, oriented X3, CN II-XII intact Psychiatric exam: Present: normal affect, normal mood Skin exam: Present: warm, dry, intact, normal color. Absent: rash Course Vital Signs 10/02/20 10/02/20 10/02/20 08:13 09:24 11:17 Temperature 97.7 F 97.2 F L 97.6 F Pulse Rate 60 60 61 Pulse Rate [ Pulse Oximetery ] Respiratory 18 18 16 Rate Blood Pressure 96/54 94/49 101/54 Blood Pressure [Right Arm] O2 Sat by Pulse 98 98 98 Oximetry 10/02/20 10/02/20 10/02/20 13:08 16:47 20:00 Temperature 98.2 F Pulse Rate 60 61 Pulse Rate [ 60 Pulse Oximetery ] Respiratory 18 16 20 Rate Blood Pressure 99/62 98/54 Blood Pressure 100/65 [Right Arm] O2 Sat by Pulse 98 96 100 Oximetry - Reevaluation(s) Reevaluation #1: 10/02/20 10:20 Spoke with radiologist, Dr. Rodriguez in regards to abnormal brain CT. Will check patients old study to compare with known hx of hemorrhagic CVA Reevaluation #2: Spoke with Dr. Christine at [facility] - heart failure attending who accepted the patient - must speak with line 10/02/20 12:02 Reevaluation #3: Spoke with [facility] who refused transfer - at critical capacity 10/02/20 12:50 EKG Findings - EKG Comments: EKG Findings:: EKG demonstrates AV dual paced rhythm with PVCs. Rate of 64. QRS to 24. QTC of 610. No significant changes compared to previous. Pacemaker captures appropriately. Medical Decision Making - Medical Decision Making Upon arrival patient is placed in room 24. A thorough history and physical exam is performed. IV is established and lab studies are conducted. Patient sent for CT of his brain and cervical spine as well as a chest x-ray. X-rays are performed patient's right shoulder and right elbow. Labs reviewed demonstrated a potassium of 2.9. This is replaced with 40 mg of oral potassium and 21 g IV potassium. Troponin mildly elevated at 0.040. Patient's [facility] Kash ICD was interrogated which does demonstrate an episode of V. tach. Shoulder and elbow x-ray demonstrated no acute fractures. Chest x-ray demonstrates remotely and pulmonary venous congestion without overt failure. CT of the patient's head is originally discussed with Dr. Rodriguez. He reports petechial hemorrhage in the left corpus callosum and a watershed infarct in the lateral right occipital lobe. He is unable to compare this to patient's previous CT. I did call and speak with multiple physicians at [facility] as the patient is requesting transfer there. I spoke with Dr. Christine who is the heart failure attending who did agreed to accept the patient. I then called the ER and spoke with the [facility] ER at 1221. They called me back at 1231 and stated that due to critical capacity they cannot accept the patient. This is discussed with the patient. Recommended overnight observation in order to repeat the patient's potassium in the morning and for cardiology consultation. Spoke with Dr. Gordillo who agreed to admit the patient. Patient currently awaiting a bed on the floor - Lab Data Result diagrams: 10/03/20 07:44 10/03/20 07:44 Lab Results 10/02/20 10/02/20 10/02/20 Range/Units 09:16 09:16 09:16 WBC 8.9 (3.8-10.6) k/uL RBC 4.93 (4.30-5.90) m/uL Hgb 14.3 (13.0-17.5) gm/dL Hct 42.8 (39.0-53.0) % MCV 86.9 (80.0-100.0) fL MCH 29.0 (25.0-35.0) pg MCHC 33.3 (31.0-37.0) g/dL RDW 14.1 (11.5-15.5) % Plt Count 133 L (150-450) k/uL MPV 9.3 Neutrophils % 74 % Lymphocytes % 15 % Monocytes % 6 % Eosinophils % 2 % Basophils % 1 % Neutrophils # 6.5 (1.3-7.7) k/uL Lymphocytes # 1.3 (1.0-4.8) k/uL Monocytes # 0.6 (0-1.0) k/uL Eosinophils # 0.2 (0-0.7) k/uL Basophils # 0.1 (0-0.2) k/uL PT 13.9 H (9.0-12.0) sec INR 1.4 H (<1.2) APTT 27.3 (22.0-30.0) sec Sodium (137-145) mmol/L Potassium (3.5-5.1) mmol/L Chloride (98-107) mmol/L Carbon Dioxide (22-30) mmol/L Anion Gap mmol/L BUN (9-20) mg/dL Creatinine (0.66-1.25) mg/dL Est GFR (CKD-EPI)AfAm (>60 ml/min/1.73 sqM) Est GFR (CKD-EPI)NonAf (>60 ml/min/1.73 sqM) Glucose (74-99) mg/dL Plasma Lactic Acid Dennis (0.7-2.0) mmol/L Calcium (8.4-10.2) mg/dL Magnesium (1.6-2.3) mg/dL Total Bilirubin (0.2-1.3) mg/dL AST (17-59) U/L ALT (4-49) U/L Alkaline Phosphatase (38-126) U/L Creatine Kinase (55-170) U/L Troponin I (0.000-0.034) ng/mL NT-Pro-B Natriuret Pep pg/mL Total Protein (6.3-8.2) g/dL Albumin (3.5-5.0) g/dL Urine Color Yellow Urine Appearance Clear (Clear) Urine pH 5.5 (5.0-8.0) Ur Specific Anderson 1.006 (1.001-1.035) Urine Protein Trace H (Negative) Urine Glucose (UA) 3+ H (Negative) Urine Ketones Negative (Negative) Urine Blood Negative (Negative) Urine Nitrite Negative (Negative) Urine Bilirubin Negative (Negative) Urine Urobilinogen <2.0 (<2.0) mg/dL Ur Leukocyte Esterase Negative (Negative) 10/02/20 10/02/20 10/02/20 Range/Units 09:16 09:16 09:16 WBC (3.8-10.6) k/uL RBC (4.30-5.90) m/uL Hgb (13.0-17.5) gm/dL Hct (39.0-53.0) % MCV (80.0-100.0) fL MCH (25.0-35.0) pg MCHC (31.0-37.0) g/dL RDW (11.5-15.5) % Plt Count (150-450) k/uL MPV Neutrophils % % Lymphocytes % % Monocytes % % Eosinophils % % Basophils % % Neutrophils # (1.3-7.7) k/uL Lymphocytes # (1.0-4.8) k/uL Monocytes # (0-1.0) k/uL Eosinophils # (0-0.7) k/uL Basophils # (0-0.2) k/uL PT (9.0-12.0) sec INR (<1.2) APTT (22.0-30.0) sec Sodium 139 (137-145) mmol/L Potassium 2.9 L (3.5-5.1) mmol/L Chloride 101 (98-107) mmol/L Carbon Dioxide 28 (22-30) mmol/L Anion Gap 10 mmol/L BUN 26 H (9-20) mg/dL Creatinine 1.93 H (0.66-1.25) mg/dL Est GFR (CKD-EPI)AfAm 41 (>60 ml/min/1.73 sqM) Est GFR (CKD-EPI)NonAf 35 (>60 ml/min/1.73 sqM) Glucose 108 H (74-99) mg/dL Plasma Lactic Acid Dennis 1.3 (0.7-2.0) mmol/L Calcium 8.5 (8.4-10.2) mg/dL Magnesium 2.2 (1.6-2.3) mg/dL Total Bilirubin 1.1 (0.2-1.3) mg/dL AST 36 (17-59) U/L ALT 42 (4-49) U/L Alkaline Phosphatase 116 (38-126) U/L Creatine Kinase 86 (55-170) U/L Troponin I 0.040 H* (0.000-0.034) ng/mL NT-Pro-B Natriuret Pep pg/mL Total Protein 6.6 (6.3-8.2) g/dL Albumin 3.7 (3.5-5.0) g/dL Urine Color Urine Appearance (Clear) Urine pH (5.0-8.0) Ur Specific Anderson (1.001-1.035) Urine Protein (Negative) Urine Glucose (UA) (Negative) Urine Ketones (Negative) Urine Blood (Negative) Urine Nitrite (Negative) Urine Bilirubin (Negative) Urine Urobilinogen (<2.0) mg/dL Ur Leukocyte Esterase (Negative) 10/02/20 Range/Units 09:16 WBC (3.8-10.6) k/uL RBC (4.30-5.90) m/uL Hgb (13.0-17.5) gm/dL Hct (39.0-53.0) % MCV (80.0-100.0) fL MCH (25.0-35.0) pg MCHC (31.0-37.0) g/dL RDW (11.5-15.5) % Plt Count (150-450) k/uL MPV Neutrophils % % Lymphocytes % % Monocytes % % Eosinophils % % Basophils % % Neutrophils # (1.3-7.7) k/uL Lymphocytes # (1.0-4.8) k/uL Monocytes # (0-1.0) k/uL Eosinophils # (0-0.7) k/uL Basophils # (0-0.2) k/uL PT (9.0-12.0) sec INR (<1.2) APTT (22.0-30.0) sec Sodium (137-145) mmol/L Potassium (3.5-5.1) mmol/L Chloride (98-107) mmol/L Carbon Dioxide (22-30) mmol/L Anion Gap mmol/L BUN (9-20) mg/dL Creatinine (0.66-1.25) mg/dL Est GFR (CKD-EPI)AfAm (>60 ml/min/1.73 sqM) Est GFR (CKD-EPI)NonAf (>60 ml/min/1.73 sqM) Glucose (74-99) mg/dL Plasma Lactic Acid Dennis (0.7-2.0) mmol/L Calcium (8.4-10.2) mg/dL Magnesium (1.6-2.3) mg/dL Total Bilirubin (0.2-1.3) mg/dL AST (17-59) U/L ALT (4-49) U/L Alkaline Phosphatase (38-126) U/L Creatine Kinase (55-170) U/L Troponin I (0.000-0.034) ng/mL NT-Pro-B Natriuret Pep 3290 pg/mL Total Protein (6.3-8.2) g/dL Albumin (3.5-5.0) g/dL Urine Color Urine Appearance (Clear) Urine pH (5.0-8.0) Ur Specific Anderson (1.001-1.035) Urine Protein (Negative) Urine Glucose (UA) (Negative) Urine Ketones (Negative) Urine Blood (Negative) Urine Nitrite (Negative) Urine Bilirubin (Negative) Urine Urobilinogen (<2.0) mg/dL Ur Leukocyte Esterase (Negative) Disposition Clinical Impression: Wide-complex tachycardia, Cardiomyopathy, Syncope and collapse, Hypokalemia Disposition: ADMITTED IP TO THIS [facility] Condition: Fair Is patient prescribed a controlled substance at d/c from ED?: No Decision to Admit Reason: Admit from EC Decision Date: 10/02/20 Decision Time: 12:57
--- NOTE | 2020-10-02 10:29 | XR ---
EXAMINATION TYPE: XR shoulder complete RT DATE OF EXAM: 10/02/2020 CLINICAL HISTORY: pain TECHNIQUE: Three views of the right shoulder are obtained. COMPARISON: None FINDINGS: There is no acute fracture/dislocation evident. The acromioclavicular and glenohumeral maurilio int spaces appear moderate degenerative changes are noted. The visualized ribs are intact and unrema rkable. IMPRESSION: 1. There is no acute fracture or dislocation. ICD 10 NO FRACTURE, INITIAL EVALUATION
--- NOTE | 2020-10-02 10:29 | XR ---
EXAMINATION TYPE: XR elbow complete RT DATE OF EXAM: 10/02/2020 CLINICAL HISTORY: pain TECHNIQUE: Frontal, lateral and oblique images of the right elbow are obtained. COMPARISON: None. FINDINGS: There is no acute fracture/dislocation evident of the elbow. No abnormal fat pad signs ar e seen. The overlying soft tissue appears unremarkable. IMPRESSION: There is no acute fracture or dislocation of the elbow. ICD 10 NO FRACTURE, INITIAL EVALUATION
--- NOTE | 2020-10-02 11:30 | XR ---
EXAMINATION TYPE: XR chest 2V DATE OF EXAM: 10/02/2020 COMPARISON: NONE HISTORY: Shortness of breath TECHNIQUE: Frontal and lateral views of the chest are obtained. FINDINGS: Scattered senescent parenchymal changes noted. Hyperinflation compatible with COPD. No evidence for infiltrate. No evidence for atelectasis. There is evidence of cardiomegaly and pulmonary venous congestion without overt failure. Mediastinal structures are stable and grossly unremarkable. No evidence for hilar prominence. Degenerative changes dorsal spine. IMPRESSION: 1. There is evidence of cardiomegaly and pulmonary venous congestion without overt failure.
--- NOTE | 2020-10-02 12:07 | CT ---
EXAMINATION TYPE: CT brain stephieine wo con DATE OF EXAM: 10/02/2020 COMPARISON: 04/08/2020 HISTORY: syncopal fall CT DLP: 1624.6 mGycm, Automated exposure control for dose reduction was used. CONTRAST: Patient injected with 0 mL of Isovue 300. CT of the brain is performed utilizing 3 mm thick sections through the posterior fossa and 3 mm thick sections through the remaining calvarium. Study is performed within 24 hours of arrival to the hospital. Tiny petechial hemorrhage estimated at 0.5 cm may be above the left posterior lateral ventricle, ser ies 204 images 30-31. There may be a rim calcified meningioma within the right temporal region with a depth of 0.7 cm. Seri es 204 image 29. There is hypodensity through the lateral right occipital lobe extending towards the watershed region. Subacute infarct may be present. Other may be somewhat true reperfusion along the periphery of the g yrus. Small petechial hemorrhage at this level is considered less likely but within the differential. Ventricles and sulci are prominent for the patient age. Paranasal sinuses and mastoid air cells within the [id number] are clear. IMPRESSIONS: 1. Petechial hemorrhage posterior left corpus callosum or pericallosal white matter measures approxim ately 0.5 cm. 2. Watershed infarct versus lateral right occipital lobe infarct may be subacute. There appears to be somewhat true perfusion adjacent. Small petechial hemorrhage considered less likely within the diffe rential at this location. 3. Probable meningioma right temporal region 4. Report was called to the emergency room physician Dr. Brooks by Dr. Rodriguez by telephone at the jos[facility] e of interpretation, 1012 hours 10/02/2020. COMPARISON: Comparison images dated 04/08/2020 are presented 1153 hours 10/02/2020. The right watershed infarct was present previously. The hyperintensity within the left corpus callosum was present previ ously suggesting hemorrhage be unlikely. Mass should be considered. Interval growth is not evident. F indings appear old compared to March 2020. Revision impressions were called to the emergency room physician 1203 hours 10/02/2020. Revised IMPRESSIONS: 1. Stable irregular hyperdensity posterior left corpus callosum or pericallosal white matter measures approximately 0.5 cm, stable from prior study 2. Maturing watershed infarct right parietal occipital region. No change in the density to suggest ac [place] hemorrhage. 3. Stable meningioma right temporal region CT cervical spine. COMPARISON: None CT of the cervical spine is performed in the axial plane at 2 mm thick sections. Reconstructed image s in the coronal, and sagittal plane are reviewed on the computer. No acute fractures are evident. Vertebral body alignment is straightened. Anterior cervical fusion C3-C5 and C6-7 are present. Disc heights are preserved. Vertebral body heights are preserved. Right paracentral endplate spurring is present at the C4 superior endplate with mild anterior thecal sac compression. Some central spurring is present C4-5 with mild anterior thecal sac compression. Rig ht paracentral spurring is present C5-6 with moderate anterior thecal sac compression No neural foraminal stenosis is evident. IMPRESSIONS: 1. Postsurgical anterior cervical fusions. 2. Posterior endplate spurring upper cervical spine discussed above. This may have mild to moderate a nterior thecal sac compression. 3. No acute osseous abnormality.
[2020-10-02] MEDS ORDERED: NALOXONE 0.4 MG/ML 1 ML VIAL IV PRN (12:58)
[2020-10-02 14:16] LABS: Appearance,Urine Clear (Clear); Bilirubin,Urine Negative (Negative); Blood,Urine Negative (Negative); Color,Urine Yellow; Glucose,Urine (UA) 3+ (Negative); Ketones,Urine Negative (Negative); Leukocyte Esterase,Urine Negative (Negative); Nitrite,Urine Negative (Negative); PH, Urine 5.5 (5.0-8.0); Protein,Urine Trace (Negative); Specific Gravity,Urine 1.006 (1.001-1.035); Urobilinogen,Urine <2.0 mg/dL (<2.0)
[2020-10-02] MEDS ORDERED: FLUTICASONE 50MCG/SPRAY NASAL 16GM EA NOSTRIL PRN (14:21)
[2020-10-02] MEDS ORDERED: traMADol 50 MG TAB PO PRN (14:21)
[2020-10-02] MEDS ORDERED: SIMETHICONE 80 MG CHEWABLE PO PRN (14:21)
[2020-10-02] MEDS ORDERED: Potassium Replacement Protocol 1 EACH MISC MISCELLANE PRN (14:22)
[2020-10-02] MEDS ORDERED: Magnesium Replacement Protocol 1 EACH MISC MISCELLANE PRN (14:22)
--- NOTE | 2020-10-02 14:32 | P.HPIM ---
History of Present Illness H&P Date: 10/02/20 Chief Complaint: Syncope This is a 65-year-old male with very complex past medical history significant for systolic heart failure, atrial fibrillation, and history of hemorrhagic CVA who presented to the emergency room with a syncopal episode. Patient was seen and evaluated by me in the emergency room. History was provided by him and his . Patient said that he was in the bathroom and after finishing using the bathroom next thing he remembered his waking him up on the floor. His told me that she heard him falling and went to see him and patient was out for a short period of time and subsequently he woke up and was slightly confused. Patient denies any shortness of breath or chest pain and prior to the event. Patient said that he has been feeling well otherwise and for the past few days he denies any dehydration or poor by mouth intake. No other events otherwise. Patient was brought into the emergency room and was found to have evidence of h ypokalemia with potassium level of 2.9. His AICD was interrogated showing evidence of episode of V. tach. 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 Also his Entreso was discontinued secondary to low blood pressure. Patient otherwise does not have any specific complaints. He denies any headache. He had a computed tomography scan of the head and cervical spine done in the ER showing residual petechial hemorrhage secondary to prior CVA. This was discussed by ER staff with radiology that confirmed the findings are stable. Patient will be admitted to the hospital for further management of his medical problems. Review of Systems Review of system: 14 points review of systems were obtained and were negative except to what were mentioned in the HPI. Past Medical History Past Medical History: Atrial Fibrillation, Heart Failure, Diabetes Mellitus, Hyperlipidemia, Hypertension, Sleep Apnea/CPAP/BIPAP Additional Past Medical History / Comment(s): See Dr Durant's H&P FOR CARDIAC. SOB w/activity, cpap. HX TIA-yrs ago. "BLEEDING IN EYES",gout, Cardiac ablation at [facility] Feb History of Any Multi-Drug Resistant Organisms: None Reported Past Surgical History: Ablation, AICD, Cardiac Ablation, EPS, Heart Catheterization, Orthopedic Surgery, Pacemaker Additional Past Surgical History / Comment(s): Atrial ablation, cardioversion,cervical fusion x 2, knee surg., achilles tendon surg., CATARACT SX. CARDIAC Ablation 05/2014; AICD/PACEMAKER 06/2014, [facility] [employer] MODEL. BILAT EYE SX "TO REMOVE BLOOD",blood vessel broke in rt eye and he lost partial vision- short term loss, ablation- cardiac. Pacer/AICD changed Feb Past Anesthesia/Blood Transfusion Reactions: No Reported Reaction Additional Past Anesthesia/Blood Transfusion Reaction / Comment(s): NEVER RECIEVED BLOOD. Type of Cardiac Device: Biventricular Pacemaker, AICD Device Placement Date:: 06/2014 Past Psychological History: No Psychological Hx Reported Smoking Status: Never smoker Past Alcohol Use History: Occasional Past Drug Use History: None Reported - Past Family History Father Family Medical History: Coronary Artery Disease (CAD), Diabetes Mellitus, Myocardial Infarction ([place]) Additional Family Medical History / Comment(s): FATHER OF [place] AT AGE 65 YRS. Mother Family Medical History: Diabetes Mellitus Additional Family Medical History / Comment(s): SHE HAS HAD A LEG AMPUTATION Medications and Allergies Home Medications Medication Instructions Recorded Confirmed Type Metoprolol Succinate [Toprol XL] 50 mg PO DAILY 03/18/17 10/02/20 History Fluvastatin Sodium [Fluvastatin ER] 80 mg PO HS #30 tab.er.24h 03/16/19 10/02/20 Rx Digoxin [Lanoxin] 125 mcg PO MOWEFR 03/18/20 10/02/20 History traMADol HCL 50 mg PO BID PRN 03/18/20 10/02/20 History Dapagliflozin Propanediol [Farxiga] 10 mg PO DAILY 04/06/20 10/02/20 History Simethicone Chew [Mylicon Chew] 80 mg PO QID PRN 04/06/20 10/02/20 History Amiodarone [Cordarone] 400 mg PO DAILY 10/02/20 10/02/20 History Apixaban [Eliquis] 5 mg PO BID 10/02/20 10/02/20 History Fluticasone Nasal [place] [Flonase 2 spr EA NOSTRIL DAILY PRN 10/02/20 10/02/20 History Nasal [place]] INSULIN LISPRO (For Pump) [humaLOG 0.01 units SQ-PUMP CONTINUOUS 10/02/20 10/02/20 History (For Pump)] Potassium Chloride ER [K-Dur 20] 20 meq PO DAILY 10/02/20 10/02/20 History Sacubitril/Valsartan [Entresto 24 1 tab PO BID 10/02/20 10/02/20 History mg-26 mg Tablet] Torsemide [Demadex] 60 mg PO BID 10/02/20 10/02/20 History Allergies Allergy/AdvReac Type Severity Reaction Status Date / Time coconut AdvReac sneezing Verified 10/02/20 09:51 coconut oil AdvReac sneezing Verified 10/02/20 09:51 Physical Exam Vitals: Vital Signs Temp Pulse Resp BP Pulse Ox 10/02/20 13:08 60 18 99/62 98 10/02/20 11:17 97.6 F 61 16 101/54 98 10/02/20 09:24 97.2 F L 60 18 94/49 98 10/02/20 08:13 97.7 F 60 18 96/54 98 Intake and Output 10/01/20 10/02/20 10/02/20 22:59 06:59 14:59 Other: Weight 107.501 kg General: The patient is awake and alert, in no distress Eye: there is normal conjunctiva bilaterally. Neck: The neck is supple, there is no JVD. Cardiovascular: Normal S1-S2, no S3-S4, no murmurs. Respiratory: Lungs clear to auscultation bilaterally Gastrointestinal: Abdomen is soft, nontender Musculoskeletal: There is no pedal edema. Neurological:. Speech is normal. Skin: Skin is warm and dry Results CBC & Chem 7: 10/02/20 09:16 10/02/20 09:16 Labs: Abnormal Lab Results - Last 24 Hours (Table) 10/02/20 10/02/20 10/02/20 Range/Units 09:16 09:16 09:16 Plt Count 133 L (150-450) k/uL PT 13.9 H (9.0-12.0) sec INR 1.4 H (<1.2) Potassium (3.5-5.1) mmol/L BUN (9-20) mg/dL Creatinine (0.66-1.25) mg/dL Glucose (74-99) mg/dL Troponin I (0.000-0.034) ng/mL Urine Protein Trace H (Negative) Urine Glucose (UA) 3+ H (Negative) 10/02/20 10/02/20 Range/Units 09:16 09:16 Plt Count (150-450) k/uL PT (9.0-12.0) sec INR (<1.2) Potassium 2.9 L (3.5-5.1) mmol/L BUN 26 H (9-20) mg/dL Creatinine 1.93 H (0.66-1.25) mg/dL Glucose 108 H (74-99) mg/dL Troponin I 0.040 H* (0.000-0.034) ng/mL Urine Protein (Negative) Urine Glucose (UA) (Negative) Assessment and Plan Assessment: this is a 65-year-old male with past medical history noted below who presented to the emergency room with a syncopal episode. Patient was evaluated in the ER and will be admitted to the hospital for further management of his medical problems noted below. 1. Syncopal episode, most likely secondary to episode of V. tach noted on interrogation of AICD. Patient also has borderline low blood pressure may be secondary to severe cardiomyopathy. We will check orthostatic blood pressure. Cardiology consulted for further evaluation. May consider echocardiogram if not done in the office recently. 2. Hypokalemia, replacement ordered. Will recheck lab work in the morning. Secondary to diuretic use. 3. Episode of nonsustained V. tach, noticed on interrogation of AICD. May be secondary to hypokalemia. We will continue telemetry monitoring. 4. Troponin elevation, may be secondary to above. Patient denies any chest pain. 12-lead EKG showed no acute ischemic changes. We will continue trending troponin. 5. History of severe nonischemic cardiomyopathy with reported ejection fraction of 10%. Patient follow-up with [facility]. We will continue to hold Entres given borderline low blood pressureto 6. CODE STATUS, patient is full code Today, I reviewed his medication list and lab work results. Continue current regimen. Awaiting cardiology evaluation. Patient requested to be transferred to the [facility] but unfortunately no bed is available. He is agreeable to stay in our hospital.
[2020-10-02] MEDS: INSULIN ASPART (NovoLOG) 100 UNIT/ML VIAL SQ SCH ×2 (18:44→21:07)
[2020-10-02] MEDS ORDERED: ATORVASTATIN 10 MG TAB PO SCH (21:00)
[2020-10-02] MEDS ORDERED: SACUBITRIL/VALSARTAN 24 MG-26 MG TABLET PO SCH (21:00)
[2020-10-02] MEDS: APIXABAN 5 MG TAB PO SCH (21:06)
[2020-10-02] MEDS: TORSEMIDE 20 MG TAB PO SCH (21:33)
[2020-10-03] MEDS ORDERED: INSULIN PUMP BASAL RATES 1 EACH MISC MISCELLANE PRN (06:25)
[2020-10-03] MEDS ORDERED: INSPUCOR MISCELLANE PRN (06:25)
[2020-10-03] MEDS: INSULIN ASPART (NovoLOG) 100 UNIT/ML VIAL SQ SCH ×2 (06:58→12:36)
[2020-10-03 07:08] LABS: Glucose,Whole Blood 168 mg/dL (75-99)
[2020-10-03] MEDS: INSULIN PUMP MEAL BOLUS 1 UNIT MISC MISCELLANE SCH ×2 (07:15→12:34)
[2020-10-03 08:27] LABS: Basophils # (A) 0.1 k/uL (0-0.2); Basophils % (A) 1 %; Eosinophils # (A) 0.1 k/uL (0-0.7); Eosinophils % (A) 1 %; HCT 45.4 % (39.0-53.0); HGB 14.4 gm/dL (13.0-17.5); Lymphocytes # (A) 1.1 k/uL (1.0-4.8); Lymphocytes % (A) 12 %; MCHC 31.7 g/dL (31.0-37.0); MCV 88.5 fL (80.0-100.0); Mean Platelet Volume 9.3; Monocytes # (A) 0.6 k/uL (0-1.0); Monocytes % (A) 6 %; Neutrophils # (A) 7.8 k/uL (1.3-7.7); Neutrophils % (A) 79 %; Platelet Count 153 k/uL (150-450); RBC 5.13 m/uL (4.30-5.90); RDW 14.3 % (11.5-15.5); WBC 9.9 k/uL (3.8-10.6)
[2020-10-03] MEDS: APIXABAN 5 MG TAB PO SCH (08:39)
[2020-10-03] MEDS: TORSEMIDE 20 MG TAB PO SCH (08:39)
[2020-10-03 08:44] LABS: Calcium 9.2 mg/dL (8.4-10.2); Magnesium 2.3 mg/dL (1.6-2.3); Potassium 4.3 mmol/L (3.5-5.1)
[2020-10-03] MEDS ORDERED: METOPROLOL SUCCINATE (ER) 50 MG TAB.ER.24H PO SCH (09:00)
[2020-10-03] MEDS ORDERED: DIGOXIN 125 MCG TAB PO SCH (09:00)
[2020-10-03] MEDS ORDERED: AMIODARONE 200 MG TAB PO SCH (09:00)
[2020-10-03] MEDS ORDERED: INSULIN PUMP TARGET GLUCOSE 1 EACH MISC MISCELLANE PRN (11:46)
[2020-10-03] MEDS ORDERED: INSULIN PUMP ACTIVE INSULIN 1 EACH MISC MISCELLANE PRN (11:46)
[2020-10-03 12:03] VITALS: BP 98/57; PULSE 60; RESP 23; TEMP 98.5
--- NOTE | 2020-10-03 12:32 | P.CRDCN ---
History of Present Illness History of present illness: HISTORY OF PRESENTING ILLNESS This is a pleasant 65-year-old male past medical history significant for nonischemic cardiomyopathy status post AICD, chronic persistent atrial fibrillation status post ablation, chronic systolic heart failure, hypertension, dyslipidemia, diabetes mellitus and obstructive sleep apnea. He follows in the office with Dr. Durant as well as a heart failure specialist at [facility]. We have been asked to see in consultation for syncope. Yesterday morning he remembers getting up from bed and then that is it. His found him on the floor in the bathroom blue. He was initially unresponsive for approximately 2 minutes. Device interrogation performed in the ER revealed he had an episode of ventricular fibrillation that required therapy. He did receive a shock. He is currently seen and examined laying flat in bed in no acute distress. He denies dizziness, palpitations, chest pain or shortness of breath. His physician at [facility] recently had him stop his entresto last week. He was supposed to restart this today. EKG on arrival AV dual paced. Telemetry tracings reveal paced rhythm. Laboratory data reviewed, WBC 9.9, hemoglobin 14.4, platelets 153, sodium 138, potassium 2.9 on admission after supplementation today 4.3, creatinine 2.04, magnesium 2.3, troponin 0.04, 0.07, 0.07 and BNP 3290. REVIEW OF SYSTEMS At the time of my exam: CONSTITUTIONAL: Denies fever or chills. CARDIOVASCULAR: Denies chest pain, shortness of breath, orthopnea, PND or palpitations. RESPIRATORY: Denies cough. GASTROINTESTINAL: Denies abdominal pain, diarrhea, constipation, nausea or vomiting. MUSCULOSKELETAL: Denies myalgias. NEUROLOGIC: Denies numbness, tingling, headacbe or weakness. ENDOCRINE: Denies fatigue, weight change, polydipsia or polyurina. GENITOURINARY: Denies burning, hematuria or urgency with micturation. HEMATOLOGIC: Denies history of anemia or bleeding. PHYSICAL EXAMINATION Blood pressure 111/73 heart rate 61 afebrile and maintaining oxygen saturation on nasal cannula. CONSTITUTIONAL: No apparent distress. HEENT: Head is normocephalic. Pupils are equal, round. Sclerae anicteric. Mucous membranes of the mouth are moist. No JVD. No carotid bruit. CHEST EXAMINATION: Lungs are clear to auscultation. No chest wall tenderness is noted on palpation or with deep breathing. HEART EXAMINATION: Regular rate and rhythm. S1, S2 heard. No murmurs, gallops or rub. ABDOMEN: Soft, nontender. Positive bowel sounds. EXTREMITIES: 2+ peripheral pulses, trace lower extremity edema and no calf tenderness. NEUROLOGIC EXAMINATION: Patient is awake, alert and oriented x3. ASSESSMENT Syncope Ventricular fibrillation s/p AICD shock Non-ischemic cardiomyopathy s/p AICD Hypokalemia Hypertension Dyslipidemia Diabetes mellitus Chronic persistent atrial fibrillation on eliquis PLAN Interrogation report reviewed by Dr. Durant. Recommend taking potassium 3 days per week. Continue to hold entresto until follow up appointment at [facility] October 08. No orthostatic changes noted. Increase activity and ambulation. He can be discharged home today if he remains stable. Thank you kindly for this consultation. Nurse Practitioner note has been reviewed, I agree with a documented findings and plan of care. Patient was seen and examined. Past Medical History Past Medical History: Atrial Fibrillation, Heart Failure, Diabetes Mellitus, Hyperlipidemia, Hypertension, Sleep Apnea/CPAP/BIPAP Additional Past Medical History / Comment(s): See Dr Durant's H&P FOR CARDIAC. SOB w/activity, cpap. HX TIA-yrs ago. "BLEEDING IN EYES",gout, Cardiac ablation at [facility] Feb History of Any Multi-Drug Resistant Organisms: None Reported Past Surgical History: Ablation, AICD, Cardiac Ablation, EPS, Heart Cath eterization, Orthopedic Surgery, Pacemaker Additional Past Surgical History / Comment(s): Atrial ablation, cardioversion,cervical fusion x 2, knee surg., achilles tendon surg., CATARACT SX. CARDIAC Ablation 05/2014; AICD/PACEMAKER 06/2014, [facility] MODEL. BILAT EYE SX "TO REMOVE BLOOD",blood vessel broke in rt eye and he lost partial vision- short term loss, ablation- cardiac. Pacer/AICD changed Feb Past Anesthesia/Blood Transfusion Reactions: No Reported Reaction Additional Past Anesthesia/Blood Transfusion Reaction / Comment(s): NEVER RECIEVED BLOOD. Type of Cardiac Device: Biventricular Pacemaker, AICD Device Placement Date:: 06/2014 Past Psychological History: No Psychological Hx Reported Additional Psychological History / Comment(s): PT LIVES AT HOME WITH . HE IS NORMALLY ACTIVE. Smoking Status: Never smoker Past Alcohol Use History: Occasional Additional Past Alcohol Use History / Comment(s): PT WILL DRINK BEER ON OCCASION Past Drug Use History: None Reported - Past Family History Father Family Medical History: Coronary Artery Disease (CAD), Diabetes Mellitus, Myocardial Infarction ([place]) Additional Family Medical History / Comment(s): FATHER OF [place] AT AGE 65 YRS. Mother Family Medical History: Diabetes Mellitus Additional Family Medical History / Comment(s): SHE HAS HAD A LEG AMPUTATION Medications and Allergies Home Medications Medication Instructions Recorded Confirmed Type Metoprolol Succinate [Toprol XL] 50 mg PO DAILY 03/18/17 10/02/20 History Fluvastatin Sodium [Fluvastatin ER] 80 mg PO HS #30 tab.er.24h 03/16/19 10/02/20 Rx Digoxin [Lanoxin] 125 mcg PO MOWEFR 03/18/20 10/02/20 History traMADol HCL 50 mg PO BID PRN 03/18/20 10/02/20 History Dapagliflozin Propanediol [Farxiga] 10 mg PO DAILY 04/06/20 10/02/20 History Simethicone Chew [Mylicon Chew] 80 mg PO QID PRN 04/06/20 10/02/20 History Amiodarone [Cordarone] 400 mg PO DAILY 10/02/20 10/02/20 History Apixaban [Eliquis] 5 mg PO BID 10/02/20 10/02/20 History Fluticasone Nasal [place] [Flonase 2 spr EA NOSTRIL DAILY PRN 10/02/20 10/02/20 History Nasal [place]] INSULIN LISPRO (For Pump) [humaLOG 0.01 units SQ-PUMP CONTINUOUS 10/02/20 10/02/20 History (For Pump)] Potassium Chloride ER [K-Dur 20] 20 meq PO DAILY 10/02/20 10/02/20 History Sacubitril/Valsartan [Entresto 24 1 tab PO BID 10/02/20 10/02/20 History mg-26 mg Tablet] Torsemide [Demadex] 60 mg PO BID 10/02/20 10/02/20 History Allergies Allergy/AdvReac Type Severity Reaction Status Date / Time coconut AdvReac sneezing Verified 10/02/20 09:51 coconut oil AdvReac sneezing Verified 10/02/20 09:51 Physical Exam Vitals: Vital Signs Temp Pulse Pulse Pulse Pulse Pulse Resp 10/03/20 10:17 82 72 74 10/03/20 08:03 96.9 F L 61 16 10/03/20 04:00 98.2 F 55 L 18 10/03/20 02:00 55 L 18 10/03/20 00:00 98.6 F 59 L 18 10/02/20 23:00 55 L 18 10/02/20 20:00 98.2 F 60 20 10/02/20 16:47 61 16 10/02/20 13:08 60 18 10/02/20 11:17 97.6 F 61 16 BP BP BP BP BP Pulse Ox 10/03/20 10:17 138/62 120/63 124/68 10/03/20 08:03 111/73 96 10/03/20 04:00 90/53 98 10/03/20 02:00 10/03/20 00:00 116/64 97 10/02/20 23:00 10/02/20 20:00 100/65 100 10/02/20 16:47 98/54 96 10/02/20 13:08 99/62 98 10/02/20 11:17 101/54 98 Intake and Output 10/02/20 10/03/20 10/03/20 22:59 06:59 14:59 Intake Total 950 10 220 Output Total 500 875 Balance 450 -865 220 Intake: IV 10 0.9 10 Oral 950 220 Output: Urine 500 875 Other: Voiding Method Urinal # Voids 1 Weight 106.8 kg Results 10/03/20 07:44 10/03/20 07:44 Cardiac Enzymes 10/02/20 10/02/20 Range/Units 13:59 16:54 Troponin I 0.070 H* 0.070 H* (0.000-0.034) ng/mL CBC 10/03/20 Range/Units 07:44 WBC 9.9 (3.8-10.6) k/uL RBC 5.13 (4.30-5.90) m/uL Hgb 14.4 (13.0-17.5) gm/dL Hct 45.4 (39.0-53.0) % Plt Count 153 (150-450) k/uL Comprehensive Metabolic Panel 10/02/20 10/03/20 Range/Units 19:49 07:44 Sodium 138 (137-145) mmol/L Potassium 4.0 4.3 (3.5-5.1) mmol/L Chloride 99 (98-107) mmol/L Carbon Dioxide 27 (22-30) mmol/L BUN 31 H (9-20) mg/dL Creatinine 2.04 H (0.66-1.25) mg/dL Glucose 178 H (74-99) mg/dL Calcium 9.2 (8.4-10.2) mg/dL Current Medications Generic Name Dose Route Start Last Admin Trade Name Freq PRN Reason Stop Dose Admin Amiodarone HCl 400 mg 10/03/20 09:00 10/03/20 08:39 Amiodarone 200 Mg Tab PO 400 mg DAILY SONY Administration Apixaban 5 mg 10/02/20 21:00 10/03/20 08:39 Apixaban 5 Mg Tab PO 5 mg BID SONY Administration Atorvastatin Calcium 10 mg 10/02/20 21:00 10/02/20 21:06 Atorvastatin 10 Mg Tab PO 10 mg HS SONY Administration Digoxin 125 mcg 10/03/20 09:00 10/03/20 08:39 Digoxin 125 Mcg Tab PO 125 mcg MOWEFR SONY Administration Fluticasone Propionate 2 spray 10/02/20 14:21 Fluticasone 50mcg/[place] Nasal 16gm EA NOSTRIL DAILY PRN Allergy Symptoms Insulin Aspart 0 unit 10/02/20 17:30 10/03/20 06:58 Insulin Aspart (Novolog) 100 Unit/Ml Vial SQ Not Given ACHS [facility] Protocol Metoprolol Succinate 50 mg 10/03/20 09:00 10/03/20 08:39 Metoprolol Succinate (Er) 50 Mg Tab.Er.24h PO 50 mg DAILY SONY Administration Miscellaneous Information 1 each 10/02/20 14:22 Magnesium Replacement Protocol 1 Each Misc MISCELLANE DAILY PRN Per Protocol Protocol Miscellaneous Information 1 each 10/02/20 14:22 Potassium Replacement Protocol 1 Each Misc MISCELLANE DAILY PRN Per Protocol Protocol Miscellaneous Information 1 each 10/03/20 06:25 Insulin Pump Basal Rates 1 Each Misc MISCELLANE Q6HR PRN Blood Sugar - High Protocol Miscellaneous Information 0 unit 10/03/20 07:30 10/03/20 07:15 Insulin Pump Meal Bolus 1 Unit Misc MISCELLANE 14 unit ACHS SONY Administration Protocol Miscellaneous Information 0 unit 10/03/20 06:25 Insulin Pump Correction Bolus 1 Unit Misc MISCELLANE ACHS PRN Blood Sugar - High Protocol Naloxone HCl 0.2 mg 10/02/20 12:58 Naloxone 0.4 Mg/Ml 1 Ml Vial IV Q2M PRN Opioid Reversal Simethicone 80 mg 10/02/20 14:21 Simethicone 80 Mg Chewable PO QID PRN GI Upset Torsemide 60 mg 10/02/20 21:00 10/03/20 08:39 Torsemide 20 Mg Tab PO 60 mg BID SONY Administration Tramadol HCl 50 mg 10/02/20 14:21 Tramadol 50 Mg Tab PO BID PRN Pain Intake and Output 10/02/20 10/03/20 10/03/20 22:59 06:59 14:59 Intake Total 950 10 220 Output Total 500 875 Balance 450 -865 220 Intake: IV 10 0.9 10 Oral 950 220 Output: Urine 500 875 Other: Voiding Method Urinal # Voids 1 Weight 106.8 kg 10/03/20 07:44 10/03/20 07:44
--- NOTE | 2020-10-03 12:52 | P.DS ---
Providers Date of admission: 10/02/20 12:58 Expected date of discharge: 10/03/20 Attending physician: Romulo Gordillo Consults: 10/02/20 12:59 Consult Physician Urgent Consulting Provider: [facility] Consult Reason/Comments: acute syncope, acute vtach, acute hypokalemia Do you want consulting provider notified?: Yes Primary care physician: Denae Chilel [facility] Course: this is a 65-year-old male with past medical history noted below who presented to the emergency room with a syncopal episode. Patient was evaluated in the ER and will be admitted to the hospital for further management of his medical problems noted below. 1. Syncopal episode, most likely secondary to episode of V. tach noted on interrogation of AICD. Patient also has borderline low blood pressure may be secondary to severe cardiomyopathy. Orthostatic checked and negative. Cardiology consulted for further evaluation. Patient was cleared to be discharged home by cardiology. 2. Hypokalemia, replaced. Started on potassium chloride 10 mEq daily. Plan to repeat lab work in the next 3 days. 3. Episode of nonsustained V. tach, noticed on interrogation of AICD status post shock. 4. Troponin elevation, may be secondary to above. Patient denies any chest pain. 12-lead EKG showed no acute ischemic changes. 5. History of severe nonischemic cardiomyopathy with reported ejection fraction of 10%. Patient follow-up with [facility]. 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 CODE STATUS, patient is full code Patient will be discharged home in a stable condition. For further details about this hospitalization please refer to the electronic chart. Time spent on discharge > 30 minutes including counseling and coordination of care Patient Condition at Discharge: Fair Plan - Discharge Summary Discharge Rx Participant: No New Discharge Prescriptions: New Potassium Chloride ER [K-Dur 10] 10 meq PO DAILY #30 tab Continue Metoprolol Succinate [Toprol XL] 50 mg PO DAILY Fluvastatin Sodium [Fluvastatin ER] 80 mg PO HS #30 tab.er.24h traMADol HCL 50 mg PO BID PRN PRN Reason: Pain Digoxin [Lanoxin] 125 mcg PO MOWEFR Simethicone Chew [Mylicon Chew] 80 mg PO QID PRN PRN Reason: Gi Upset Dapagliflozin Propanediol [Farxiga] 10 mg PO DAILY Apixaban [Eliquis] 5 mg PO BID INSULIN LISPRO (For Pump) [humaLOG (For Pump)] 0.01 units SQ-PUMP CONTINUOUS Fluticasone Nasal [place] [Flonase Nasal [place]] 2 spr EA NOSTRIL DAILY PRN PRN Reason: Allergy Symptoms Amiodarone [Cordarone] 400 mg PO DAILY Torsemide [Demadex] 60 mg PO BID Discontinued Potassium Chloride ER [K-Dur 20] 20 meq PO DAILY Sacubitril/Valsartan [Entresto 24 mg-26 mg Tablet] 1 tab PO BID Discharge Medication List Metoprolol Succinate [Toprol XL] 50 mg PO DAILY 03/18/17 [History] Fluvastatin Sodium [Fluvastatin ER] 80 mg PO HS #30 tab.er.24h 03/16/19 [Rx] Digoxin [Lanoxin] 125 mcg PO MOWEFR 03/18/20 [History] traMADol HCL 50 mg PO BID PRN 03/18/20 [History] Dapagliflozin Propanediol [Farxiga] 10 mg PO DAILY 04/06/20 [History] Simethicone Chew [Mylicon Chew] 80 mg PO QID PRN 04/06/20 [History] Amiodarone [Cordarone] 400 mg PO DAILY 10/02/20 [History] Apixaban [Eliquis] 5 mg PO BID 10/02/20 [History] Fluticasone Nasal [place] [Flonase Nasal [place]] 2 spr EA NOSTRIL DAILY PRN 10/02/20 [History] INSULIN LISPRO (For Pump) [humaLOG (For Pump)] 0.01 units SQ-PUMP CONTINUOUS 10/02/20 [History] Torsemide [Demadex] 60 mg PO BID 10/02/20 [History] Potassium Chloride ER [K-Dur 10] 10 meq PO DAILY #30 tab 10/03/20 [Rx] Follow up Appointment(s)/Referral(s): Denae Chilel MD [Primary Care Provider] - 1-2 days Discharge Disposition: HOME SELF-CARE
== END 2020-10-03 15:35 | disposition home or self-care (01) ==
LOC: EC 08:09 → 3SCARD 12:58
PROVIDERS: ADMIT Internal Medicine; ATTEND Internal Medicine
DX: R55 Syncope and collapse (principal); I47.2 Ventricular tachycardia; I42.8 Other cardiomyopathies; I11.0 Hypertensive heart disease with heart failure; I50.22 Chronic systolic (congestive) heart failure; I48.19 Other persistent atrial fibrillation; Z76.82 Awaiting organ transplant status; E11.9 Type 2 diabetes mellitus without complications; E87.6 Hypokalemia; T50.2X5A Adverse effect of carbonic-anhydrase inhibitors, benzothiadiazides and other diuretics, initial encounter; I49.01 Ventricular fibrillation; E78.5 Hyperlipidemia, unspecified; G47.33 Obstructive sleep apnea (adult) (pediatric); M10.9 Gout, unspecified; Z79.01 Long term (current) use of anticoagulants; Z79.4 Long term (current) use of insulin; Z96.41 Presence of insulin pump (external) (internal); Z79.899 Other long term (current) drug therapy; Z91.018 Allergy to other foods; Z95.810 Presence of automatic (implantable) cardiac defibrillator; Z86.73 Personal history of transient ischemic attack (TIA), and cerebral infarction without residual deficits; Z99.89 Dependence on other enabling machines and devices; Z98.1 Arthrodesis status; Z98.49 Cataract extraction status, unspecified eye; Z98.890 Other specified postprocedural states; Z82.49 Family history of ischemic heart disease and other diseases of the circulatory system; Z83.3 Family history of diabetes mellitus
CPT/HCPCS: 96365; 96366; 99285; 36415; 93005; 83880; 80053; 80048; 82550; 83605; 83735 ×2; 84132; 84484; 85025 ×2; 85610; 85730; 81003; 87635; 73030; 73080; 71046; 72125; 70450; G0378 ×2; J3480

== ENCOUNTER → 2020-10-28 | Outpatient (CLI) | payer MEDICARE, BC ==
[2020-10-28 22:55] LABS: Hemoglobin A1C 7.4 % (4.0-6.0)
[2020-10-29 01:17] LABS: C-Peptide 3.97 ng/mL (0.81-3.85)
[2020-10-29 19:23] LABS: BUN/Creat Ratio 21.38 Ratio (12.00-20.00); Bilirubin, Conjugated 0.5 mg/dL (0.20-0.40); Bilirubin,Unconjugated 0.6 mg/dL; Calcium 10.3 mg/dL (8.7-10.3); Magnesium 2.9 mg/dL (1.5-2.4); Total Bilirubin 1.1 mg/dL (0.3-1.2); Total Protein 8.1 g/dL (6.2-8.2)
[2020-10-29 19:24] LABS: Albumin/Globulin Ratio 1.61 (1.60-3.17); Anion Gap 20.9 mmol/L (4.00-12.00); Carbon Dioxide 17.1 mmol/L (21.6-31.8); Globulin 3.1 g/dL (1.6-3.3)
[2020-10-29 21:37] LABS: Potassium 6.5 mmol/L (3.5-5.5)
[2020-10-29 21:54] LABS: Urine Creatinine 73.5 mg/dL
[2020-10-29 23:29] LABS: Non-African American GFR(CKD) 21.6 (60.0-200.0)
== END | disposition home or self-care (01) ==
LOC: LABWHC1 13:25
PROVIDERS: ATTEND Internal Medicine
DX: I50.9 Heart failure, unspecified (principal); I42.8 Other cardiomyopathies; E11.65 Type 2 diabetes mellitus with hyperglycemia
CPT/HCPCS: 36415; 80048; 80076; 82043; 82570; 83036; 83735; 83880; 84681

== ENCOUNTER 2020-10-30 02:21 | Emergency (ER) | payer MEDICARE, BC ==
--- NOTE | 2020-10-30 03:12 | ED ---
Recheck HPI - General Chief Complaint: Recheck/Abnormal Lab/Rx Stated Complaint: Abnormal Lab Time Seen by Provider: 10/30/20 02:44 Source: patient, family Mode of arrival: ambulatory Limitations: no limitations - History of Present Illness Initial Comments: This patient is a 65-year-old man who presents to be evaluated for possible hyperkalemia. He received a call tonight from one of the on-call physicians telling him that the lab had reported a potassium of 6.5. The blood was drawn Tuesday as part of routine follow-up after he had had an episode of kidney failure and congestive heart failure. The patient states that he is feeling much better than when he had been in the hospital. He is denying generalized weakness, denying fatigue, no dyspnea, no change in urination. No edema or leg pain. No chest pain or palpitations. MD Complaint: abnormal lab -: hour(s) Initial Visit For: other Returns Today for: Called Because of Abnormal Lab/Test Symptoms Since Prior Visit: no new symptoms, improved Context: called for abnormal lab result Associated Symptoms: none - Related Data Home Medications Medication Instructions Recorded Confirmed Metoprolol Succinate [Toprol XL] 50 mg PO DAILY 03/18/17 10/02/20 Digoxin [Lanoxin] 125 mcg PO MOWEFR 03/18/20 10/02/20 traMADol HCL 50 mg PO BID PRN 03/18/20 10/02/20 Dapagliflozin Propanediol [Farxiga] 10 mg PO DAILY 04/06/20 10/02/20 Simethicone Chew [Mylicon Chew] 80 mg PO QID PRN 04/06/20 10/02/20 Amiodarone [Cordarone] 400 mg PO DAILY 10/02/20 10/02/20 Apixaban [Eliquis] 5 mg PO BID 10/02/20 10/02/20 Fluticasone Nasal [place] [Flonase 2 spr EA NOSTRIL DAILY PRN 10/02/20 10/02/20 Nasal [place]] INSULIN LISPRO (For Pump) [humaLOG 0.01 units SQ-PUMP CONTINUOUS 10/02/20 10/02/20 (For Pump)] Torsemide [Demadex] 60 mg PO BID 10/02/20 10/02/20 Previous Rx's Medication Instructions Recorded Fluvastatin Sodium [Fluvastatin ER] 80 mg PO HS #30 tab.er.24h 03/16/19 Potassium Chloride ER [K-Dur 10] 10 meq PO DAILY #30 tab 10/03/20 Allergies Allergy/AdvReac Type Severity Reaction Status Date / Time coconut AdvReac sneezing Verified 10/30/20 02:37 coconut oil AdvReac sneezing Verified 10/30/20 02:37 Review of Systems ROS Statement: Those systems with pertinent positive or pertinent negative responses have been documented in the HPI. ROS Other: All systems not noted in ROS Statement are negative. Constitutional: Denies: fever, chills Respiratory: Denies: cough, dyspnea Cardiovascular: Denies: chest pain, palpitations, orthopnea, edema, syncope Gastrointestinal: Denies: abdominal pain, vomiting, diarrhea Genitourinary: Denies: dysuria Musculoskeletal: Denies: back pain Skin: Denies: rash Neurological: Denies: headache, weakness, numbness, paresthesias Past Medical History Past Medical History: Atrial Fibrillation, Heart Failure, Diabetes Mellitus, Hyperlipidemia, Hypertension, Sleep Apnea/CPAP/BIPAP Additional Past Medical History / Comment(s): See Dr Durant's H&P FOR CARDIAC. SOB w/activity, cpap. HX TIA-yrs ago. "BLEEDING IN EYES",gout, Cardiac ablation at [facility] Feb History of Any Multi-Drug Resistant Organisms: None Reported Past Surgical History: Ablation, AICD, Cardiac Ablation, EPS, Heart Catheterization, Orthopedic Surgery, Pacemaker Additional Past Surgical History / Comment(s): Atrial ablation, cardioversion,cervical fusion x 2, knee surg., achilles tendon surg., CATARACT SX. CARDIAC Ablation 05/2014; AICD/PACEMAKER 06/2014, [facility] MODEL. BILAT EYE SX "TO REMOVE BLOOD",blood vessel broke in rt eye and he lost partial vision-s hort term loss, ablation- cardiac. Pacer/AICD changed Feb Past Anesthesia/Blood Transfusion Reactions: No Reported Reaction Additional Past Anesthesia/Blood Transfusion Reaction / Comment(s): NEVER RECIEVED BLOOD. Type of Cardiac Device: Biventricular Pacemaker, AICD Device Placement Date:: 06/2014 Past Psychological History: No Psychological Hx Reported Smoking Status: Never smoker Past Alcohol Use History: Occasional Past Drug Use History: None Reported - Past Family History Father Family Medical History: Coronary Artery Disease (CAD), Diabetes Mellitus, Myocardial Infarction ([place]) Additional Family Medical History / Comment(s): FATHER OF [place] AT AGE 65 YRS. Mother Family Medical History: Diabetes Mellitus Additional Family Medical History / Comment(s): SHE HAS HAD A LEG AMPUTATION General Exam Limitations: no limitations General appearance: alert, in no apparent distress Head exam: Present: atraumatic, normocephalic Eye exam: Present: normal appearance. Absent: scleral icterus, conjunctival injection Respiratory exam: Present: normal lung sounds bilaterally. Absent: respiratory distress, wheezes, rales, rhonchi, stridor Cardiovascular Exam: Present: regular rate, normal rhythm, normal heart sounds. Absent: systolic murmur, diastolic murmur, rubs, gallop GI/Abdominal exam: Present: soft. Absent: distended, tenderness, guarding, rebound, rigid, mass Extremities exam: Present: normal inspection, other (PICC line to the right arm) Back exam: Present: normal inspection Neurological exam: Present: alert Skin exam: Present: warm, dry, intact, normal color. Absent: rash Course Vital Signs 10/30/20 02:31 Temperature 97.9 F Pulse Rate 62 Respiratory 20 Rate Blood Pressure 90/56 O2 Sat by Pulse 100 Oximetry Medical Decision Making - Lab Data Result diagrams: 10/30/20 03:04 10/30/20 03:04 Lab Results 10/30/20 10/30/20 Range/Units 03:04 03:04 WBC 9.3 (3.8-10.6) k/uL RBC 5.34 (4.30-5.90) m/uL Hgb 15.7 (13.0-17.5) gm/dL Hct 45.7 (39.0-53.0) % MCV 85.6 (80.0-100.0) fL MCH 29.4 (25.0-35.0) pg MCHC 34.3 (31.0-37.0) g/dL RDW 15.0 (11.5-15.5) % Plt Count 180 (150-450) k/uL MPV 8.8 Neutrophils % 64 % Lymphocytes % 23 % Monocytes % 8 % Eosinophils % 2 % Basophils % 0 % Neutrophils # 6.0 (1.3-7.7) k/uL Lymphocytes # 2.1 (1.0-4.8) k/uL Monocytes # 0.8 (0-1.0) k/uL Eosinophils # 0.2 (0-0.7) k/uL Basophils # 0.0 (0-0.2) k/uL Sodium 135 L (137-145) mmol/L Potassium 4.6 (3.5-5.1) mmol/L Chloride 98 (98-107) mmol/L Carbon Dioxide 27 (22-30) mmol/L Anion Gap 10 mmol/L BUN 54 H (9-20) mg/dL Creatinine 2.43 H (0.66-1.25) mg/dL Est GFR (CKD-EPI)AfAm 31 (>60 ml/min/1.73 sqM) Est GFR (CKD-EPI)NonAf 27 (>60 ml/min/1.73 sqM) Glucose 190 H (74-99) mg/dL Calcium 9.4 (8.4-10.2) mg/dL Total Bilirubin 0.7 (0.2-1.3) mg/dL AST 35 (17-59) U/L ALT 39 (4-49) U/L Alkaline Phosphatase 105 (38-126) U/L Total Protein 7.7 (6.3-8.2) g/dL Albumin 4.4 (3.5-5.0) g/dL - EKG Data -: EKG Interpreted by Me Interpretation: other (EKG shows a paced rhythm which appears identical to the ECG from 09/22/2020.) Disposition Clinical Impression: Chronic kidney failure, No problem, feared complaint unfounded Disposition: HOME SELF-CARE Condition: Good Instructions (If sedation given, give patient instructions): Hyperkalemia (ED) Is patient prescribed a controlled substance at d/c from ED?: No Referrals: Denae Chilel MD [Primary Care Provider] - 1-2 days
[2020-10-30 03:28] LABS: Basophils % (A) 0 %; Eosinophils # (A) 0.2 k/uL (0-0.7); Eosinophils % (A) 2 %; HCT 45.7 % (39.0-53.0); HGB 15.7 gm/dL (13.0-17.5); Lymphocytes # (A) 2.1 k/uL (1.0-4.8); Lymphocytes % (A) 23 %; MCH 29.4 pg (25.0-35.0); MCHC 34.3 g/dL (31.0-37.0); MCV 85.6 fL (80.0-100.0); Mean Platelet Volume 8.8; Monocytes # (A) 0.8 k/uL (0-1.0); Monocytes % (A) 8 %; Neutrophils % (A) 64 %; Platelet Count 180 k/uL (150-450); RBC 5.34 m/uL (4.30-5.90); WBC 9.3 k/uL (3.8-10.6)
[2020-10-30 03:44] LABS: Albumin 4.4 g/dL (3.5-5.0); Calcium 9.4 mg/dL (8.4-10.2); Potassium 4.6 mmol/L (3.5-5.1); Total Bilirubin 0.7 mg/dL (0.2-1.3); Total Protein 7.7 g/dL (6.3-8.2)
[2020-10-30 04:01] VITALS: BP 87/54; PULSE 57; RESP 18; TEMP 97.8
== END 2020-10-30 04:00 | disposition home or self-care (01) ==
LOC: EC 02:21
DX: I13.0 Hypertensive heart and chronic kidney disease with heart failure and stage 1 through stage 4 chronic kidney disease, or unspecified chronic kidney disease (principal); N18.9 Chronic kidney disease, unspecified; I50.9 Heart failure, unspecified; E11.9 Type 2 diabetes mellitus without complications; I48.91 Unspecified atrial fibrillation; G47.30 Sleep apnea, unspecified; Z79.01 Long term (current) use of anticoagulants; Z79.4 Long term (current) use of insulin; Z79.899 Other long term (current) drug therapy; Z91.018 Allergy to other foods; Z95.0 Presence of cardiac pacemaker; Z98.1 Arthrodesis status
CPT/HCPCS: 36415; 80053; 85025; 93005; 99285

== ENCOUNTER → 2021-04-27 | Outpatient (CLI) | payer MEDICARE, BC ==
--- NOTE | 2021-04-27 16:14 | BD ---
EXAMINATION TYPE: Axial Bone Density DATE OF EXAM: 04/27/2021 COMPARISON: NONE CLINICAL HISTORY: Steroid use Height: 67.2 IN Weight: 230 LBS FRAX RISK QUESTIONS: Glucocorticoids (More than 3mos): PREDNISONE 15 MG PER DAY FOR 4 MONTHS (Ex: prednisone, prednisolone, methylprednisolone, dexamethasone, and hydrocortisone). RISK FACTORS HISTORY OF: Family History of Osteoporosis: YES GRANDMOTHER Active: YES Diet low in dairy products/other sources of calcium: YES Lost more than 2 inches in height since high school: YES 4" MEDICATIONS: Prednisone or other steroids: YES 15 MG PER DAY How Lon MONTHS Osteoporosis Medications: YES Which medication: Fosamax How Lon MONTHS Additional Medications: FOSAMAX, PREDNISONE(15 MG PER DAY), VIT D, TRANSPLANT MEDS, OZEMPIC, INSULIN, BLOOD PRESSURE, PT HAD HEART TRANSPLANT AND KIDNEY TRANSPLANT IN DECEMBER 2020. EXAM MEASUREMENTS: Bone mineral densitometry was performed using the [employer] System. Bone mineral density as measured about the Lumbar spine is: ----- L1-L4(G/cm2): 1.646 T Score Values are as follows: ----- L2: 4.3 ----- L3: 3.6 ----- L4: 4.4 ----- L1-L4: 3.3 Bone mineral density BASELINE Bone mineral density about the R hip (g/cm2): 1.171 Bone mineral density about the L hip (g/cm2): 1.048 T Score values are as follows: -----R Neck: 1.0 -----L Neck: 0.1 -----R Total: 2.1 -----L Total: 1.6 Bone mineral density BASELINE IMPRESSION: Normal bone mineral density. NOTE: T-SCORE=SD OF THE YOUNG ADULT MEAN.
== END | disposition home or self-care (01) ==
LOC: RADBDWWP 13:31
PROVIDERS: ATTEND Internal Medicine Rheumatology
DX: Z79.52 Long term (current) use of systemic steroids (principal)
CPT/HCPCS: 77080

== ENCOUNTER 2021-06-05 11:02 | Emergency (ER) | payer MEDICARE, BC ==
[2021-06-05 11:21] VITALS: PULSE 97; RESP 18; TEMP 97.9
[2021-06-05 11:38] VITALS: BP 147/75
--- NOTE | 2021-06-05 12:07 | ED ---
General Adult HPI - General Chief complaint: Upper Respiratory Infection Stated complaint: Cough/covid test Source: patient, RN notes reviewed, old records reviewed Mode of arrival: ambulatory Limitations: no limitations - History of Present Illness Initial comments: 66-year-old male presenting for coronavirus testing. Patient is status post heart and kidney transplant. He was instructed to obtain testing to rule out coronavirus. He's had chills. He states she's had this at baseline. This is not a new symptom. He had developed a dry cough and was instructed to obtain testing. No dyspnea. Overall the patient states he feels quite well. - Related Data Home Medications Medication Instructions Recorded Confirmed Metoprolol Succinate [Toprol XL] 50 mg PO DAILY 03/18/17 10/02/20 Digoxin [Lanoxin] 125 mcg PO MOWEFR 03/18/20 10/02/20 traMADol HCL 50 mg PO BID PRN 03/18/20 10/02/20 Dapagliflozin Propanediol [Farxiga] 10 mg PO DAILY 04/06/20 10/02/20 Simethicone Chew [Mylicon Chew] 80 mg PO QID PRN 04/06/20 10/02/20 Amiodarone [Cordarone] 400 mg PO DAILY 10/02/20 10/02/20 Apixaban [Eliquis] 5 mg PO BID 10/02/20 10/02/20 Fluticasone Nasal [place] [Flonase 2 spr EA NOSTRIL DAILY PRN 10/02/20 10/02/20 Nasal [place]] INSULIN LISPRO (For Pump) [humaLOG 0.01 units SQ-PUMP CONTINUOUS 10/02/20 10/02/20 (For Pump)] Torsemide [Demadex] 60 mg PO BID 10/02/20 10/02/20 Previous Rx's Medication Instructions Recorded Fluvastatin Sodium [Fluvastatin ER] 80 mg PO HS #30 tab.er.24h 03/16/19 Potassium Chloride ER [K-Dur 10] 10 meq PO DAILY #30 tab 10/03/20 Allergies Allergy/AdvReac Type Severity Reaction Status Date / Time hydroxyzine Allergy Rash/Hives Verified 06/05/21 11:16 coconut AdvReac sneezing Verified 06/05/21 11:16 coconut oil AdvReac sneezing Verified 06/05/21 11:16 Review of Systems ROS Statement: Those systems with pertinent positive or pertinent negative responses have been documented in the HPI. ROS Other: All systems not noted in ROS Statement are negative. Past Medical History Past Medical History: Atrial Fibrillation, Heart Failure, Diabetes Mellitus, Hyperlipidemia, Hypertension, Sleep Apnea/CPAP/BIPAP Additional Past Medical History / Comment(s): See Dr Durant's H&P FOR CARDIAC. SOB w/activity, cpap. HX TIA-yrs ago. "BLEEDING IN EYES",gout, [facility] History of Any Multi-Drug Resistant Organisms: None Reported Past Surgical History: Ablation, AICD, Cardiac Ablation, EPS, Heart Jacki terization, Orthopedic Surgery, Pacemaker Additional Past Surgical History / Comment(s): pt had heart and kidney trasnplant in 12/29, Atrial ablation, cardioversion,cervical fusion x 2, knee surg., achilles tendon surg., CATARACT SX. CARDIAC Ablation 05/2014; AICD/PACEMAKER 06/2014, [facility] MODEL. BILAT EYE SX "TO REMOVE BLOOD",blood vessel broke in rt eye and he lost partial vision-short term loss, ablation- cardiac. Pacer/AICD changed Feb Past Anesthesia/Blood Transfusion Reactions: No Reported Reaction Additional Past Anesthesia/Blood Transfusion Reaction / Comment(s): NEVER RECIEVED BLOOD. Type of Cardiac Device: Biventricular Pacemaker, AICD Device Placement Date:: 06/2014 Past Psychological History: No Psychological Hx Reported Smoking Status: Never smoker Past Alcohol Use History: Occasional Past Drug Use History: None Reported - Past Family History Father Family Medical History: Coronary Artery Disease (CAD), Diabetes Mellitus, Myocardial Infarction ([place]) Additional Family Medical History / Comment(s): FATHER OF [place] AT AGE 65 YRS. Mother Family Medical History: Diabetes Mellitus Additional Family Medical History / Comment(s): SHE HAS HAD A LEG AMPUTATION General Exam Limitations: no limitations General appearance: alert, in no apparent distress Head exam: Present: atraumatic, normocephalic Eye exam: Present: normal appearance, PERRL ENT exam: Present: normal exam Neck exam: Present: normal inspection. Absent: tenderness, meningismus Respiratory exam: Present: normal lung sounds bilaterally. Absent: respiratory distress, wheezes Cardiovascular Exam: Present: regular rate, normal rhythm GI/Abdominal exam: Present: soft. Absent: distended, tenderness, guarding Extremities exam: Present: normal inspection Back exam: Present: normal inspection, full ROM Neurological exam: Present: alert, oriented X3, CN II-XII intact, normal gait. Absent: motor sensory deficit Psychiatric exam: Present: normal affect, normal mood Skin exam: Present: warm, dry, intact. Absent: cyanosis, diaphoretic Course Vital Signs 06/05/21 06/05/21 11:16 11:30 Temperature 97.9 F Pulse Rate 97 Respiratory 18 Rate Blood Pressure 147/75 O2 Sat by Pulse 99 Oximetry Medical Decision Making - Medical Decision Making Coronavirus testing is negative, patient is reassured. He has had 3 vaccines. He does not want or require any further testing at this time. He has good follow-up with his transplant team. Return parameters were discussed. Patient will return the emergency department as needed. - Lab Data Lab Results 06/05/21 Range/Units 11:25 Coronavirus (PCR) Not Detected (Not Detectd) Disposition Clinical Impression: Cough Disposition: HOME SELF-CARE Condition: Fair Instructions (If sedation given, give patient instructions): Upper Respiratory Infection (ED) Is patient prescribed a controlled substance at d/c from ED?: No Referrals: Denae Chilel MD [Primary Care Provider] - 1-2 days Time of Disposition: 12:15
== END 2021-06-05 12:19 | disposition home or self-care (01) ==
LOC: EC 11:02
DX: R05.9 Cough, unspecified (principal); Z20.822 Contact with and (suspected) exposure to COVID-19; E11.9 Type 2 diabetes mellitus without complications; I11.0 Hypertensive heart disease with heart failure; I50.9 Heart failure, unspecified; I48.91 Unspecified atrial fibrillation; E78.5 Hyperlipidemia, unspecified; Z79.01 Long term (current) use of anticoagulants; Z79.4 Long term (current) use of insulin; Z79.899 Other long term (current) drug therapy
CPT/HCPCS: 87635; 99283

== ENCOUNTER 2022-01-08 11:12 | Emergency (ER) | payer MEDICARE, BC ==
[2022-01-08 11:53] VITALS: RESP 18; TEMP 98.3
--- NOTE | 2022-01-08 12:06 | ED ---
General Adult HPI - General Chief complaint: Upper Respiratory Infection Stated complaint: Covid+/infusion Time Seen by Provider: 01/08/22 11:53 Source: patient Mode of arrival: ambulatory Limitations: no limitations - History of Present Illness Initial comments: Patient is a 66-year-old male who presents to the emergency room at the [facility] after testing positive for COVID. He reports that his tested earlier in the week and yesterday he developed a cough with congestion and was advised to seek over testing. He is being evaluated by [facility] yesterday for transplant surveillance in which she underwent a jugular access cardiac Biopsy. 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 He is planned for consulting nurse surgery later today at the [facility] but the clinic wanted him to receive antibodies prior to his arrival to the Hospital. In addition to his cardiovascular history and renal failure he has a history of hypertension, diabetes and atrial fibrillation. He reports that since his transplant last year and he has felt much better and does not feel significantly ill at this time but was advised due to his immune compromised state that he needed antibody infusions. He is COVID vaccinated with 2 boosters. - Related Data Home Medications Medication Instructions Recorded Confirmed Metoprolol Succinate [Toprol XL] 50 mg PO DAILY 03/18/17 10/02/20 Digoxin [Lanoxin] 125 mcg PO MOWEFR 03/18/20 10/02/20 traMADol HCL 50 mg PO BID PRN 03/18/20 10/02/20 Dapagliflozin Propanediol [Farxiga] 10 mg PO DAILY 04/06/20 10/02/20 Simethicone Chew [Mylicon Chew] 80 mg PO QID PRN 04/06/20 10/02/20 Amiodarone [Cordarone] 400 mg PO DAILY 10/02/20 10/02/20 Apixaban [Eliquis] 5 mg PO BID 10/02/20 10/02/20 Fluticasone Nasal [place] [Flonase 2 spr EA NOSTRIL DAILY PRN 10/02/20 10/02/20 Nasal [place]] INSULIN LISPRO (For Pump) [humaLOG 0.01 units SQ-PUMP CONTINUOUS 10/02/20 10/02/20 (For Pump)] Torsemide [Demadex] 60 mg PO BID 10/02/20 10/02/20 Previous Rx's Medication Instructions Recorded Fluvastatin Sodium [Fluvastatin ER] 80 mg PO HS #30 tab.er.24h 03/16/19 Potassium Chloride ER [K-Dur 10] 10 meq PO DAILY #30 tab 10/03/20 Allergies Allergy/AdvReac Type Severity Reaction Status Date / Time hydroxyzine Allergy Rash/Hives Verified 01/08/22 11:53 coconut AdvReac sneezing Verified 01/08/22 11:53 coconut oil AdvReac sneezing Verified 01/08/22 11:53 Review of Systems ROS Statement: Those systems with pertinent positive or pertinent negative responses have been documented in the HPI. ROS Other: All systems not noted in ROS Statement are negative. Past Medical History Past Medical History: Atrial Fibrillation, Heart Failure, Diabetes Mellitus, Hyperlipidemia, Hypertension, Sleep Apnea/CPAP/BIPAP Additional Past Medical History / Comment(s): See Dr Durant's H&P FOR CARDIAC. SOB w/activity, cpap. HX TIA-yrs ago. "BLEEDING IN EYES",gout, Cardiac ablation at [facility] Feb History of Any Multi-Drug Resistant Organisms: None Reported Past Surgical History: Ablation, AICD, Cardiac Ablation, EPS, Heart Catheterization, Orthopedic Surgery, Pacemaker Additional Past Surgical History / Comment(s): pt had heart and kidney trasnplant in 12/29, Atrial ablation, cardioversion,cervical fusion x 2, knee surg., achilles tendon surg., CATARACT SX. CARDIAC Ablation 05/2014; AICD/PACEMAKER 06/2014, [facility] MODEL. BILAT EYE SX "TO REMOVE BLOOD",blood vessel broke in rt eye and he lost partial vision-short term loss, ablation- cardiac. Pacer/AICD changed Feb Past Anesthesia/Blood Transfusion Reactions: No Reported Reaction Additional Past Anesthesia/Blood Transfusion Reaction / Comment(s): NEVER RECIEVED BLOOD. Type of Cardiac Device: Biventricular Pacemaker, AICD Device Placement Date:: 06/2014 Past Psychological History: No Psychological Hx Reported Smoking Status: Never smoker Past Alcohol Use History: Occasional Past Drug Use History: None Reported - Past Family History Father Family Medical History: Coronary Artery Disease (CAD), Diabetes Mellitus, Myocardial Infarction ([place]) Additional Family Medical History / Comment(s): FATHER OF [place] AT AGE 65 YRS. Mother Family Medical History: Diabetes Mellitus Additional Family Medical History / Comment(s): SHE HAS HAD A LEG AMPUTATION General Exam Limitations: no limitations General appearance: alert, in no apparent distress Head exam: Present: atraumatic, normocephalic, normal inspection Eye exam: Present: normal appearance, PERRL, EOMI. Absent: scleral icterus, conjunctival injection, periorbital swelling ENT exam: Present: normal exam, mucous membranes moist Neck exam: Present: normal inspection, full ROM, lymphadenopathy. Absent: tenderness Respiratory exam: Present: normal lung sounds bilaterally. Absent: respiratory distress, wheezes, rales, rhonchi, stridor Cardiovascular Exam: Present: regular rate, normal rhythm, normal heart sounds. Absent: systolic murmur, diastolic murmur, rubs, gallop, clicks GI/Abdominal exam: Present: soft, normal bowel sounds. Absent: distended, tenderness, guarding, rebound, rigid Extremities exam: Present: normal inspection, full ROM, normal capillary refill. Absent: tenderness, pedal edema, joint swelling, calf tenderness Neurological exam: Present: alert, oriented X3, CN II-XII intact Psychiatric exam: Present: normal affect, normal mood Skin exam: Present: warm, dry, intact, normal color. Absent: rash Course Vital Signs 01/08/22 01/08/22 11:47 13:00 Temperature 98.3 F Pulse Rate 82 Respiratory 18 18 Rate Blood Pressure 133/78 O2 Sat by Pulse 97 Oximetry Medical Decision Making - Medical Decision Making Patient meets criteria for antibody infusion. No other indication for further diagnostic testing including laboratory her or imaging. Will give antibody infusion per protocol. Patient tolerated antibody transfusion well. We'll discharge for follow-up at [facility] later today. Case discussed with Dr. Guidry. Disposition Clinical Impression: COVID Disposition: HOME SELF-CARE Condition: Stable Instructions (If sedation given, give patient instructions): Coronavirus Disease 2019 (COVID-19) Additional Instructions: Please continue to quarantine for 5 days post positive test and or fever without antipyretics. Utilize mask when possible. Follow-up with your primary care provider and specialists per their recommendations. Please return to the Emergency Department if symptoms worsen or any other concerns. Is patient prescribed a controlled substance at d/c from ED?: No Referrals: Caden Lynch MD [Primary Care Provider] - 1-2 days Time of Disposition: 14:33
[2022-01-08] MEDS ORDERED: BEBTELOVIMAB (EUA) 175 MG/2 ML VIAL IV ONE (13:00)
[2022-01-08 14:46] VITALS: BP 123/84; PULSE 84
== END 2022-01-08 14:35 | disposition home or self-care (01) ==
LOC: EC 11:12
DX: U07.1 COVID-19 (principal); E11.9 Type 2 diabetes mellitus without complications; I11.0 Hypertensive heart disease with heart failure; I50.9 Heart failure, unspecified; E78.5 Hyperlipidemia, unspecified; I48.91 Unspecified atrial fibrillation; Z79.899 Other long term (current) drug therapy; Z88.8 Allergy status to other drugs, medicaments and biological substances; Z91.018 Allergy to other foods; Z79.4 Long term (current) use of insulin; Z79.01 Long term (current) use of anticoagulants
CPT/HCPCS: 99283; Q0222

== ENCOUNTER → 2023-07-01 | Outpatient (CLI) | payer MEDICARE, BC ==
--- NOTE | 2023-07-01 19:29 | BD ---
EXAMINATION TYPE: Axial Bone Density DATE OF EXAM: 07/01/2023 CLINICAL HISTORY: 68 years old Male. 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 Type 1 Diabetes: no 2. Hyperthyroidism: no 3. Menopause before 45: na 4. Malnutrition: no 5. Chronic liver disease: no Rheumatoid Arthritis: no Current Tobacco Use: no RISK FACTORS HISTORY OF: Hip Fracture (Right/Left): no Spine Fracture: no History of Wrist Fracture: no Surgery to Spine/Hip(right/left)/Wrist (right/left): no Family History of Osteoporosis: Paternal Grandmother Active: yes Diet low in dairy products/other sources of calcium: no Postmenopausal woman: na If Premenopausal, do you have irregular periods: na Take estrogen and/or progesterone medications: na How long: na Lost more than 2 inches in height since high school: yes Frequent falls: no Poor Health: no Hyperparathyroidism: no Adrenal Insufficiency: no MEDICATIONS: Prednisone or other steroids: yes How Lon.5 years Thyroid Medications: no Osteoporosis Medications: Fosamax How Long: past 2.5 years Additional Medications: Anti-Rejection Meds, Cholesterol Meds, Vit D, Calcium Additional History: Heart and Kidney Transplant December 2020 EXAM MEASUREMENTS: Bone mineral densitometry was performed using the [employer] System. Bone mineral density as measured about the Lumbar spine is: ----- L1-L4(G/cm2): 1.681 T Score Values are as follows: ----- L1: 3.3 ----- L2: 3.9 ----- L3: 3.9 ----- L4: 5.4 ----- L1-L4: 4.2 Z Score Values are as follows: ----- L1: 2.8 ----- L2: 3.4 ----- L3: 3.4 ----- L4: 4.8 ----- L1-L4: 3.6 Bone mineral density has: increased 2.1 % since study of: 04/27/2021 Bone mineral density about the R hip (g/cm2): 1.268 Bone mineral density about the L hip (g/cm2): 1.240 T Score values are as follows: -----R Neck: 0.5 -----L Neck: 0.2 -----R Total: 2.1 -----L Total: 1.8 Z Score values are as follows: -----R Neck: 1.0 -----L Neck: 0.7 -----R Total: 1.4 -----L Total: 1.2 Bone mineral density has: increased 1.0 % since study of: 04/27/2021 FRAX%s: The graph provided illustrates a 6.5% chance for a major osteoporotic fx and a 0.6% chance fo r the hips probability for fx in 10 years time. IMPRESSION: Normal (Values between +1 and -1 indicate normal bone mass). Consider repeating this study in 5 year s or sooner if there is some new clinical indication. NOTE: T-SCORE=SD OF THE YOUNG ADULT MEAN.
== END | disposition home or self-care (01) ==
LOC: RADBDWWP 09:22
PROVIDERS: ATTEND Internal Medicine Rheumatology
DX: Z79.52 Long term (current) use of systemic steroids (principal); Z94.1 Heart transplant status; Z79.83 Long term (current) use of bisphosphonates; Z94.0 Kidney transplant status
CPT/HCPCS: 77080

== ENCOUNTER 2024-05-28 13:10 | Observation (INO) | payer MEDICARE, BC ==
--- NOTE | 2024-05-28 14:26 | ED ---
Eye Problem HPI - General Source: patient, RN notes reviewed Mode of arrival: ambulatory Limitations: no limitations <Seymour Vallejo - Last Filed: 05/28/24 14:24> <Gary Mendiola - Last Filed: 05/28/24 16:57> - General Chief complaint: Eye Problems Stated complaint: VISION ISSUE Time Seen by Provider: 05/28/24 13:30 - History of Present Illness Initial comments: Quick note 68-year-old male presents emergency department from choral director office for evaluation of possible CVA. Patient states that he started having some visual changes on Tuesday into Tuesday. Patient states that he has had multiple eye issues in which he is closely followed by ophthalmology states that he had some injection uses drops and unsure if this was causing his symptoms. Patient does admit to mild headache. (Seymour Vallejo) Patient is a 68-year-old male who presents emergency department as a CVA rule o ut. Has a history of A-fib, heart failure, diabetes, heart and kidney transplant, prior CVA, meningioma. States that since Tuesday he has been having worsening vision. States he has sensation of dillard covering over his eyes which is impairing his vision. Patient has chronic poor vision however this is new. Started Tuesday and is unchanged since then. Regularly sees his choral director who recommended come to the ER for rule out of CVA. Patient is on transplant rejection medications as well as aspirin. Has no other acute deficits or complaints. Presents for further evaluation. Originally seen as a quick note. (Gary Mendiola) - Related Data Home Medications Medication Instructions Recorded Confirmed Metoprolol Succinate [Toprol XL] 50 mg PO DAILY 03/18/17 10/02/20 Digoxin [Lanoxin] 125 mcg PO MOWEFR 03/18/20 10/02/20 traMADol HCL 50 mg PO BID PRN 03/18/20 10/02/20 Dapagliflozin Propanediol [Farxiga] 10 mg PO DAILY 04/06/20 10/02/20 Simethicone Chew [Mylicon Chew] 80 mg PO QID PRN 04/06/20 10/02/20 Amiodarone [Cordarone] 400 mg PO DAILY 10/02/20 10/02/20 Apixaban [Eliquis] 5 mg PO BID 10/02/20 10/02/20 Fluticasone Nasal [place] [Flonase 2 spr EA NOSTRIL DAILY PRN 10/02/20 10/02/20 Nasal [place]] INSULIN LISPRO (For Pump) [humaLOG 0.01 units SQ-PUMP CONTINUOUS 10/02/20 10/02/20 (For Pump)] Torsemide [Demadex] 60 mg PO BID 10/02/20 10/02/20 Previous Rx's Medication Instructions Recorded Fluvastatin Sodium [Fluvastatin ER] 80 mg PO HS #30 tab.er.24h 03/16/19 Potassium Chloride ER [K-Dur 10] 10 meq PO DAILY #30 tab 10/03/20 Allergies Allergy/AdvReac Type Severity Reaction Status Date / Time hydroxyzine Allergy Rash/Hives Verified 05/28/24 13:15 coconut AdvReac sneezing Verified 05/28/24 13:15 coconut oil AdvReac sneezing Verified 05/28/24 13:15 Review of Systems ROS Other: All systems not noted in ROS Statement are negative. <Seymour Vallejo - Last Filed: 05/28/24 14:24> ROS Other: All systems not noted in ROS Statement are negative. <Gary Mendiola - Last Filed: 05/28/24 16:57> ROS Statement: Those systems with pertinent positive or pertinent negative responses have been documented in the HPI. Review of Systems: CONST: Denies fever EYES: Endorses blurry vision ENT: Denies nasal congestion C/V: Denies Chest pain RESP: Denies shortness of breath GI: Denies abdominal pain : Denies dysuria SKIN: Denies rash. MSK: Denies joint pain. NEURO: Denies headache (Gary Mendiola) Past Medical History Past Medical History: Atrial Fibrillation, Heart Failure, Diabetes Mellitus, Hyperlipidemia, Hypertension, Sleep Apnea/CPAP/BIPAP Additional Past Medical History / Comment(s): See Dr Durant's H&P FOR CARDIAC. SOB w/activity, cpap. HX TIA-yrs ago. "BLEEDING IN EYES",gout, Cardiac ablation at [facility] Feb History of Any Multi-Drug Resistant Organisms: None Reported Past Surgical History: Ablation, AICD, Cardiac Ablation, EPS, Heart Catheterization, Orthopedic Surgery, Pacemaker Additional Past Surgical History / Comment(s): pt had heart and kidney trasnplant in 12/29, Atrial ablation, cardioversion,cervical fusion x 2, knee surg., achilles tendon surg., CATARACT SX. CARDIAC Ablation 05/2014; AICD/PACEMAKER 06/2014, [facility] MODEL. BILAT EYE SX "TO REMOVE BLOOD",blood vessel broke in rt eye and he lost partial vision-short term loss, ablation- cardiac. Pacer/AICD changed Feb Past Anesthesia/Blood Transfusion Reactions: No Reported Reaction Additional Past Anesthesia/Blood Transfusion Reaction / Comment(s): NEVER RECIE OBIE BLOOD. Type of Cardiac Device: Biventricular Pacemaker, AICD Device Placement Date:: 06/2014 Past Psychological History: No Psychological Hx Reported Smoking Status: Never smoker Past Alcohol Use History: Occasional Past Drug Use History: None Reported - Past Family History Father Family Medical History: Coronary Artery Disease (CAD), Diabetes Mellitus, Myocardial Infarction ([place]) Additional Family Medical History / Comment(s): FATHER OF [place] AT AGE 65 YRS. Mother Family Medical History: Diabetes Mellitus Additional Family Medical History / Comment(s): SHE HAS HAD A LEG AMPUTATION <Seymour Vallejo - Last Filed: 05/28/24 14:24> General Exam Limitations: no limitations <Seymour Vallejo - Last Filed: 05/28/24 14:24> <Gary Mendiola - Last Filed: 05/28/24 16:57> - General Exam Comments Initial Comments: Visual Physical Exam Vital signs reviewed General: Well-appearing, nontoxic, no acute distress. Head: Normocephalic, atraumatic Eyes: PERRLA, EOMI ENT: Airway patent Chest: Nonlabored breathing Skin: No visual rash, normal skin tone Neuro: Alert and oriented 3 Musculoskeletal: No gross abnormalities (Seymour Vallejo) General: Appears in no acute distress. HEAD: Normal with no signs of head trauma. EYES: Pupils are 2 to 3 mm and equal bilaterally. Symmetrically mildly sluggish response to light. EOMI. Conjunctiva within normal limits. ENT: Hearing grossly intact, normal oropharynx. RESPIRATORY: Clear breath sounds bilaterally. No wheezes, rales, or rhonchi. C/V: Regular rate and rhythm. S1 and S2 auscultated, no edema, peripheral pulses 2+ and intact throughout ABD: Abd is soft, nontender, nondistended EXT: Normal range of motion, no obvious deformity SKIN: No rashes or lesions observed on exposed skin. NEURO: Alert and oriented x 4. Cranial nerves II through XII are intact. No focal sensory or strength deficits. Other than visual deficits, NIH is 0. Patient is able to see number of fingers at 2 arms length away without issue. Visual acuity is pending. (Gary Mendiola) Course Vital Signs 05/28/24 13:11 Temperature 98.4 F Pulse Rate 92 Respiratory 16 Rate Blood Pressure 125/85 O2 Sat by Pulse 98 Oximetry Medical Decision Making <Seymour Vallejo - Last Filed: 05/28/24 14:24> - Lab Data Result diagrams: 05/28/24 15:08 05/28/24 15:08 - EKG Data -: EKG Interpreted by Me <Gary Mendiola - Last Filed: 05/28/24 16:57> - Medical Decision Making I completed the quick note portion of this chart signed Seymour Vallejo PA-C (Seymour Vallejo) Was pt. sent in by a medical professional or institution ([facility], INDEPENDENT SALES REPRESENTATIVE, urgent care, hospital, or fci...) When possible be specific @ -Sent in by choral director reevaluation of CVA for symptoms since Tuesday. Did you speak to anyone other than the patient for history (EMS, parent, family, police, friend...)? What history was obtained from this source @ -No Did you review nursing and triage notes (agree or disagree)? Why? @ -I reviewed and agree with nursing and triage notes Were old charts reviewed (outside hosp., previous admission, EMS record, old EKG, old radiological studies, urgent care reports/EKG's, fci records)? Report findings @ -Reviewed old CTs which shows a chronic meningioma. Differential Diagnosis (chest pain, altered mental status, abdominal pain women, abdominal pain men, vaginal bleeding, weakness, fever, dyspnea, syncope, headache, dizziness, GI bleed, back pain, seizure, CVA, palpatations, mental health, musculoskeletal)? @ -Differential CVA Ischemic stroke, hemorrhagic stroke, brain tumor, atypical migraine, Wernicke's encephalopathy, seizure, multiple sclerosis, meningitis, encephalitis, hypoglycemia, Guillain-Segal, electrolytes disturbance, myasthenia gravis.... This is not meant to be an all-inclusive list EKG interpreted by me (3pts min.). @ -As above X-rays interpreted by me (1pt min.). @ -None done CT interpreted by me (1pt min.). @ -CT brain reveals meningioma but no other obvious acute findings. U/S interpreted by me (1pt. min.). @ -None done What testing was considered but not performed or refused? (CT, X-rays, U/S, labs)? Why? @ -None What meds were considered but not given or refused? Why? @ -None Did you discuss the management of the patient with other professionals (professionals i.e. , PA, INDEPENDENT SALES REPRESENTATIVE, lab, RT, psych nurse, social sciences department chair, launch manager, teacher, safety security officer, case technician)? Give summary @ -Sound physician group notified in the admission. Was smoking cessation discussed for >3mins.? @ -No Was critical care preformed (if so, how long)? @ -No Were there social determinants of health that impacted care today? How? (Homelessness, low income, unemployed, alcoholism, drug addiction, transportation, low edu. Level, literacy, decrease access to med. care, usp, rehab)? @ -No Was there de-escalation of care discussed even if they declined (Discuss DNR or withdrawal of care, Hospice)? DNR status @ -No What co-morbidities impacted this encounter? (DM, HTN, Smoking, COPD, CAD, Canc er, CVA, ARF, Chemo, Hep., AIDS, mental health diagnosis, sleep apnea, morbid obesity)? @ -None Was patient admitted / discharged? Hospital course, mention meds given and route, prescriptions, significant lab abnormalities, going to OR and other pertinent info. @ -Based on patient's presentation and physical exam, presents emergency department complaining of CVA rule out for visual changes. Sent by choral director. Workup started as a quick note. I did add on a CT angiogram of the head and neck for further evaluation. Workup so far revealed CT brain with a chronic meningioma that appears similar to previous. Patient has CKD that appears to be at baseline with a BUN of 31 and creatinine of 1.93. Remainder of the labs unremarkable so far. Vitals are within acceptable limits. EKG shows no signs of acute ischemia. After evaluation the patient's laboratory studies as well as his history of renal transplant, is likely rivera not to administer IV contrast for this patient. Discussed with the patient he was in agreement this plan. Discussed options for, whether it be outpatient follow-up or admission for MRI and evaluation by neurology. He does select the latter. Patient will be admitted. MRI ordered. Patient already given an aspirin. Neurology consulted. Spoke with sound physician group the admitting team who accepted the admission. Undiagnosed new problem with uncertain prognosis? @ -No Drug Therapy requiring intensive monitoring for toxicity (Heparin, Nitro, Insu kiran, Cardizem)? @ -No Were any procedures done? @ -No Diagnosis/symptom? @ -Meningioma Acute, or Chronic, or Acute on Chronic? @ -Chronic Uncomplicated (without systemic symptoms) or Complicated (systemic symptoms)? @ -Uncomplicated Side effects of treatment? @ -No Exacerbation, Progression, or Severe Exacerbation? @ -No Poses a threat to life or bodily function? How? (Chest pain, [place], [place], pneumonia, PE, COPD, DKA, ARF, appy, cholecystitis, CVA, Diverticulitis, Homicidal, Suicidal, threat to staff... and all critical care pts) @ -Unlikely Diagnosis/symptom? @ -Blurry vision of unknown etiology Acute, or Chronic, or Acute on Chronic? @ -Acute Uncomplicated (without systemic symptoms) or Complicated (systemic symptoms)? @ -Complicated Side effects of treatment? @ -None Exacerbation, Progression, or Severe Exacerbation] @ -No Poses a threat to life or bodily function? @ -Possibly, yes (Gary Mendiola) - Lab Data Lab Results 05/28/24 05/28/24 05/28/24 Range/Units 15:08 15:08 15:08 WBC 7.3 (3.8-10.6) k/uL RBC 5.06 (4.30-5.90) m/uL Hgb 14.4 (13.0-17.5) gm/dL Hct 45.9 (39.0-53.0) % MCV 90.8 (80.0-100.0) fL MCH 28.5 (25.0-35.0) pg MCHC 31.4 (31.0-37.0) g/dL RDW 16.6 H (11.5-15.5) % Plt Count 214 (150-450) k/uL MPV 8.0 Neutrophils % 71 % Lymphocytes % 20 % Monocytes % 6 % Eosinophils % 1 % Basophils % 1 % Neutrophils # 5.2 (1.3-7.7) k/uL Lymphocytes # 1.5 (1.0-4.8) k/uL Monocytes # 0.5 (0-1.0) k/uL Eosinophils # 0.1 (0-0.7) k/uL Basophils # 0.1 (0-0.2) k/uL Hypochromasia Slight Anisocytosis Slight PT 10.7 (10.0-12.5) sec INR 1.0 (<1.2) APTT 24.4 (22.0-30.0) sec Sodium 137 (137-145) mmol/L Potassium 4.7 (3.5-5.1) mmol/L Chloride 106 (98-107) mmol/L Carbon Dioxide 21 L (22-30) mmol/L Anion Gap 10 mmol/L BUN 31 H (9-20) mg/dL Creatinine 1.93 H (0.66-1.25) mg/dL Est GFR (CKD-EPI)AfAm 40 (>60 ml/min/1.73 sqM) Est GFR (CKD-EPI)NonAf 35 (>60 ml/min/1.73 sqM) Glucose 217 H (74-99) mg/dL Calcium 9.4 (8.4-10.2) mg/dL Total Bilirubin 0.6 (0.2-1.3) mg/dL AST 18 (17-59) U/L ALT 14 (4-49) U/L Alkaline Phosphatase 71 (38-126) U/L Total Protein 7.1 (6.3-8.2) g/dL Albumin 4.4 (3.5-5.0) g/dL - EKG Data EKG Comments: 12-lead Electrocardiogram Interpretation Note EKG was reviewed and interpreted by myself. 12-lead ECG performed at 1458 is interpreted by me as revealing normal sinus rhythm at a rate of 87 beats per minute. Tichnor is normal. DE interval is 146 ms, QRS duration is 97 ms, QTc is 407 ms.. There were no ST or T wave abnormalities to suggest myocardial ischemia or injury. R wave progression across the precordium was satisfactory. By my interpretation this EKG is non-diagnostic for acute ischemia. (Gary Mendiola) Disposition <Seymour Vallejo - Last Filed: 05/28/24 14:24> Time of Disposition: 16:57 <Gary Mendiola - Last Filed: 05/28/24 16:57> Clinical Impression: Meningioma, Blurry vision, bilateral Disposition: ADMITTED IP TO THIS HOSP Condition: Stable Referrals: Caden Lynch MD [Primary Care Provider] - 1-2 days
[2024-05-28 15:14] LABS: Anisocytosis Slight; Basophils # (A) 0.1 k/uL (0-0.2); Basophils % (A) 1 %; Eosinophils # (A) 0.1 k/uL (0-0.7); Eosinophils % (A) 1 %; HCT 45.9 % (39.0-53.0); HGB 14.4 gm/dL (13.0-17.5); Hypochromasia Slight; Lymphocytes # (A) 1.5 k/uL (1.0-4.8); Lymphocytes % (A) 20 %; MCH 28.5 pg (25.0-35.0); MCHC 31.4 g/dL (31.0-37.0); MCV 90.8 fL (80.0-100.0); Monocytes # (A) 0.5 k/uL (0-1.0); Monocytes % (A) 6 %; Neutrophils # (A) 5.2 k/uL (1.3-7.7); Neutrophils % (A) 71 %; Platelet Count 214 k/uL (150-450); RBC 5.06 m/uL (4.30-5.90); RDW 16.6 % (11.5-15.5); WBC 7.3 k/uL (3.8-10.6)
[2024-05-28 15:34] LABS: ALT 14 U/L (4-49); AST 18 U/L (17-59); African American GFR (CKD) 40 (>60 ml/min/1.73 sqM); Albumin 4.4 g/dL (3.5-5.0); Alkaline Phosphatase 71 U/L (38-126); Anion Gap 10 mmol/L; Blood Urea Nitrogen 31 mg/dL (9-20); Calcium 9.4 mg/dL (8.4-10.2); Carbon Dioxide 21 mmol/L (22-30); Chloride 106 mmol/L (98-107); Glucose 217 mg/dL (74-99); Non-African American GFR(CKD) 35 (>60 ml/min/1.73 sqM); Potassium 4.7 mmol/L (3.5-5.1); Sodium 137 mmol/L (137-145); Total Bilirubin 0.6 mg/dL (0.2-1.3); Total Protein 7.1 g/dL (6.3-8.2)
[2024-05-28 15:35] LABS: Partial Thromboplastin Time 24.4 sec (22.0-30.0); Prothrombin Time 10.7 sec (10.0-12.5)
--- NOTE | 2024-05-28 15:38 | CT ---
EXAMINATION TYPE: CT brain wo con DATE OF EXAM: 05/28/2024 COMPARISON: 10/02/2020 CLINICAL INDICATION: Male, 68 years old with history of Visual disturbance; PHH, vision changes/ blin alli lights/ has swollen retna CT DLP: 1182 mGycm Automated exposure control for dose reduction was used. Findings: The ventricles, basal cisterns and sulci convexities are moderately enlarged consistent with moderate generalized atrophy. There is mild decreased density in the periventricular white matter consistent with mild chronic isch emic white matter demyelination. There is no acute intra or extra-axial hemorrhage. There is a partially calcified 17 mm extra-axial mass along the posterior right frontal inner convexi ty which appears slightly more prominent compared to the prior study where it measured approximately 16 mm. It is consistent with a meningioma. The posterior fossa including the brainstem, fourth ventricle and cerebellar pontine angles appear no rmal. Intraorbital contents appear normal and symmetric. Visualized paranasal sinuses and mastoid air cells are well aerated. The calvarium is intact. IMPRESSION: 1. No acute bleed or mass effect. 2. Moderate generalized atrophy. 3. Benign-appearing extra-axial mass in the posterior right frontal inner convexity most consistent w ith a meningioma. Possibly slight interval enlargement compared to the prior study as described above . [facility], , 05/28/2024 3:36 PM
[2024-05-28] MEDS: ASPIRIN 325 MG TAB PO STA (16:08)
[2024-05-28] MEDS ORDERED: NALOXONE 0.4 MG/ML 1 ML VIAL IV PRN (16:57)
[2024-05-28] MEDS: INSULIN ASPART (NovoLOG) 100 UNIT/ML VIAL SQ SCH (21:28)
[2024-05-28 21:30] LABS: Glucose,Whole Blood 120 mg/dL (70-110)
--- NOTE | 2024-05-28 21:41 | P.HPIM ---
History of Present Illness H&P Date: 05/28/24 Chief Complaint: Vision changes Chief Complaint: Vision change History of present illness; 68-year-old male with PMH of diabetes mellitus (has insulin pump), hyperlipidemia, hypertension, prior CVA, meningioma, and kidney and heart transplant (hx of non-ischemic cardiomyopathy and subsequent cardiorenal syndrome) presents with vision changes. Reports he has chronic poor vision however recently he has a sensation as if there is a dillard filter over his eyes which impairs his vision. Reports this started Tuesday and is unsure if it is gotten worse since then. Reports the dillard filter over his eyes started on Tuesday and a multicolored flashing light, "that looks like a flashing Rubik's cube" started on Tuesday. Reports the flashing light only occurs in the left lower quadrant of both eyes. Reports he chronically has decreased visual acuity in the right eye compared to the left eye. Reports he regularly sees his radiology administrator who recommended he come to the emergency department to rule out CVA. Reports he recently took a medication for shingles. Reports he usually gets injections in his eyes every 4 to 6 weeks, and changed to a new type of injection on the of last month. Notes he is on transplant rejection medications for his kidney and heart transplant as well as aspirin. Denies headache, chest pain, shortness of breath, palpitations, abdominal pain, nausea, vomiting, diarrhea, constipation, lower extremity swelling, fever, chills, and diaphoresis. At time of interview patient reports his vision is much improved from when his symptoms initially started. Reports occasional visual disturbances in the left lower quadrants of both eyes, and some dillard appearance in both eyes when seeing objects. Labs: WC 7.3, hemoglobin 14.4, MCV 90.8, sodium 137 potassium 4.7, bicarb 21, creatinine 1.93, glucose 217, AST 18, and ALT 14. Imaging: -EKG done in the ER showed heart rate of 87 bpm, no ST segment elevation or depression seen, no T-wave inversions seen. Sinus rhythm, possible right ventricular conduction delay, QTc 405 ms. -ER CT Head: No acute bleed or mass effect, moderate generalized atrophy, benign-appearing extra-axial mass in the posterior right frontal lunar convexity most consistent with a meningioma. Possible slight interval enlargement compared to prior study. REVIEW OF SYSTEMS: As stated above in HPI. The rest of the 14-point review of systems is negative. PHYSICAL EXAMINATION: GENERAL: The patient is alert and oriented x3, not in any acute distress. Well developed, well nourished. HEENT: Pupils are round and equally reacting to light. EOMI. No scleral icterus. No conjunctival pallor. Normocephalic, atraumatic. CARDIOVASCULAR: S1 and S2 present. No murmurs, rubs, or gallops. PULMONARY: Chest is clear to auscultation b/l, no wheezing or crackles. ABDOMEN: Soft, nontender, nondistended, normoactive bowel sounds. No palpable organomegaly. MUSCULOSKELETAL: No joint swelling or deformity. EXTREMITIES: No cyanosis, clubbing, or pedal edema. NEUROLOGICAL: Gross neurological examination did not reveal any focal deficits. Peripheral vision intact (including left lower quadrant of both eyes), able to distinguish different colors upon showing various objects. CN II through XII intact SKIN: No rashes. Assessment and Plan 68-year-old male with PMH of atrial fibrillation (not on Eliquis), diabetes mellitus (has insulin pump), hyperlipidemia, hypertension, prior CVA, meningioma, and kidney transplant presents with vision changes. Patient except the internal medicine service was expected stay of less than 2 midnights. # Acute vision changes: Potentially secondary to meningioma versus medication side effect versus CVA -CT head showed no acute bleed or mass effect, slight interval change in meningioma versus previous imaging -Based on location of meningioma in the posterior right frontal lunar convexity, visual changes can be expected due to the proximity to the occipital lobe -Neurology consulted -MRI brain without contrast ordered by ED -Seizure and fall precautions -Cardiac monitoring -C/ ASA and Statin -Obtain Echocardiogram -Neurochecks q4h Chronic Conditions: #History of kidney and heart transplant: -Continue home transplant rejection medications once reconciled -Difficult to establish baseline creatinine, baseline from 2021 was 1.45-1.7, creatinine today is 1.9 #Diabetes mellitus: -Will hold insulin pump -Sliding scale -Accu-Cheks #Hypertension: -Continue home medications when reconciled #Hyperlipidemia: -Continue home Zetia 10 mg p.o. at bedtime as well as started atorvastatin 40 mg p.o. at bedtime F: P.o. E: None N: Heart healthy diet A: Normally ambulates unassisted at home DVT ppx: Heparin sq GI ppx: Protonix 40 mg p.o. daily CODE STATUS: Full code Dispo: Pending clinical course. Pete Rae MD PGY-1 FM Dictation was produced using [employer] dictation software. please excuse any grammatical, word or spelling errors. Past Medical History Past Medical History: Atrial Fibrillation, Heart Failure, Diabetes Mellitus, Hyperlipidemia, Hypertension, Sleep Apnea/CPAP/BIPAP Additional Past Medical History / Comment(s): See Dr Durant's H&P FOR CARDIAC. SOB w/activity, cpap. HX TIA-yrs ago. "BLEEDING IN EYES",gout, Cardiac ablation at [facility] Feb History of Any Multi-Drug Resistant Organisms: None Reported Past Surgical History: Ablation, AICD, Cardiac Ablation, EPS, Heart Catheterization, Orthopedic Surgery, Pacemaker Additional Past Surgical History / Comment(s): pt had heart and kidney trasnplant in 12/29, Atrial ablation, cardioversion,cervical fusion x 2, knee surg., achilles tendon surg., CATARACT SX. CARDIAC Ablation 05/2014; AICD/PACEMAKER 06/2014, [facility] MODEL. BILAT EYE SX "TO REMOVE BLOOD",blood vessel broke in rt eye and he lost partial vision-short term loss, ablation- cardiac. Pacer/AICD changed Feb Past Anesthesia/Blood Transfusion Reactions: No Reported Reaction Additional Past Anesthesia/Blood Transfusion Reaction / Comment(s): NEVER RECIEVED BLOOD. Type of Cardiac Device: Biventricular Pacemaker, AICD Device Placement Date:: 06/2014 Past Psychological History: No Psychological Hx Reported Smoking Status: Never smoker Past Alcohol Use History: Occasional Past Drug Use History: None Reported - Past Family History Father Family Medical History: Coronary Artery Disease (CAD), Diabetes Mellitus, Myocardial Infarction ([place]) Additional Family Medical History / Comment(s): FATHER OF [place] AT AGE 65 YRS. Mother Family Medical History: Diabetes Mellitus Additional Family Medical History / Comment(s): SHE HAS HAD A LEG AMPUTATION Medications and Allergies Home Medications Medication Instructions Recorded Confirmed Type Fluticasone Nasal [place] [Flonase 2 spr EA NOSTRIL DAILY PRN 10/02/20 05/28/24 History Nasal [place]] INSULIN LISPRO (For Pump) [humaLOG 0.01 units SQ-PUMP CONTINUOUS 10/02/20 05/28/24 History (For Pump)] Aspirin EC [Ecotrin Low Dose] 81 mg PO DAILY@0800 05/28/24 05/28/24 History Calcium W/Vitamin D3(Unknown Dose) 1 tab PO BID@1200,1700 05/28/24 05/28/24 History Ergocalciferol [Vitamin D2 (1250 1,250 mcg PO TU@1200 05/28/24 05/28/24 History Mcg = 96865 Iu)] Evolocumab [Repatha Sureclick] 140 mg SQ Q14D 05/28/24 05/28/24 History Ezetimibe [Zetia] 10 mg PO HS@199905/28/24 05/28/24 History Sulfamethox-Tmp 400-80Mg [Bactrim 1 tab PO DAILY@0800 05/28/24 05/28/24 History SS 400-80 mg] Tacrolimus [Prograf] 1 mg PO BID@0800,199905/28/24 05/28/24 History carvediloL [Coreg] 12.5 mg PO BID@0800,199905/28/24 05/28/24 History mycophenolate mofetiL [Cellcept] 250 mg PO BID@0800,199905/28/24 05/28/24 History predniSONE 2.5 mg PO DAILY@0800 05/28/24 05/28/24 History Allergies Allergy/AdvReac Type Severity Reaction Status Date / Time chlorhexidine Allergy Rash/Hives Verified 05/28/24 18:55 hydroxyzine Allergy Rash/Hives Verified 05/28/24 18:55 coconut AdvReac sneezing Verified 05/28/24 18:55 coconut oil AdvReac sneezing Verified 05/28/24 18:55 Physical Exam Vitals: Vital Signs Temp Pulse Resp BP Pulse Ox 05/28/24 18:48 87 16 116/74 97 05/28/24 13:11 98.4 F 92 16 125/85 98 Intake and Output 05/28/24 05/28/24 05/28/24 06:59 14:59 22:59 Other: Weight 107.955 kg Results CBC & Chem 7: 05/28/24 15:08 05/28/24 15:08 Labs: Abnormal Lab Results - Last 24 Hours (Table) 05/28/24 05/28/24 Range/Units 15:08 15:08 RDW 16.6 H (11.5-15.5) % Carbon Dioxide 21 L (22-30) mmol/L BUN 31 H (9-20) mg/dL Creatinine 1.93 H (0.66-1.25) mg/dL Glucose 217 H (74-99) mg/dL
[2024-05-29] MEDS: HEPARIN SODIUM,PORCINE 5,000 UNIT/ML 1 ML VIAL SQ SCH (02:09)
[2024-05-29 05:45] LABS: Glucose,Whole Blood 116 mg/dL (70-110)
[2024-05-29] MEDS: PANTOPRAZOLE 40 MG TABLET PO SCH (06:18)
[2024-05-29 09:00] LABS: ALT 12 U/L (10-49); AST 14 U/L (14-35); Albumin 3.9 g/dL (3.8-4.9); Albumin/Globulin Ratio 1.77 Ratio (1.60-3.17); Alkaline Phosphatase 71 U/L (41-126); BUN/Creat Ratio 15.25 Ratio (12.00-20.00); Blood Urea Nitrogen 30.5 mg/dL (9.0-27.0); Calcium 9.1 mg/dL (8.7-10.3); Carbon Dioxide 22.6 mmol/L (21.6-31.8); Chloride 107 mmol/L (96-109); Globulin 2.2 g/dL (1.6-3.3); Glucose 129 mg/dL (70-110); Potassium 4.6 mmol/L (3.5-5.5); Sodium 142 mmol/L (135-145); Total Bilirubin 0.3 mg/dL (0.3-1.2); Total Protein 6.1 g/dL (6.2-8.2)
[2024-05-29] MEDS ORDERED: FLUTICASONE NASAL 50MCG/SPRAY 16GM BTL EA NOSTRIL PRN (09:00)
[2024-05-29] MEDS: SULFAMETHOX-TMP 400-80MG 1 EACH TAB PO SCH (09:19)
[2024-05-29] MEDS: ASPIRIN 81 MG PO SCH (09:19)
[2024-05-29] MEDS: carvediloL 12.5 MG TAB PO SCH (09:19)
[2024-05-29] MEDS: predniSONE 2.5 MG TAB PO SCH (09:19)
[2024-05-29] MEDS: TACROLIMUS 1 MG CAP PO SCH (09:20)
[2024-05-29 10:27] LABS: Basophils # (A) 0.06 X 10*3/uL (0.00-0.10); Basophils % (A) 0.7 %; Eosinophils % (A) 1.2 %; HGB 13.7 g/dL (13.0-17.0); Lymphocytes # (A) 2.21 X 10*3/uL (0.90-5.00); Lymphocytes % (A) 25.6 %; MCH 28.2 pg (27.0-32.0); MCHC 30.4 g/dL (32.0-37.0); MCV 92.6 FL (80.0-97.0); Monocytes # (A) 0.67 X 10*3/uL (0.20-1.00); Monocytes % (A) 7.8 %; NRBC Per 100 WBC 0 X 10*3/uL (0.00-0.01); Neutrophils # (A) 5.58 X 10*3/uL (1.80-7.70); Neutrophils % (A) 64.5 %; Platelet Count 209 X 10*3/uL (140-440); RBC 4.86 X 10*6/uL (4.40-5.60); RDW 17.2 % (11.5-14.5); WBC 8.64 X 10*3/uL (4.50-10.00)
--- NOTE | 2024-05-29 10:37 | US ---
EXAMINATION TYPE: US carotid duplex BILAT DATE OF EXAM: 05/29/2024 COMPARISON: NONE CLINICAL INDICATION: Male, 68 years old with history of CVA; Pt states vision changes Additional History: .... TECHNIQUE: Grayscale, color Doppler and spectral Doppler evaluation of the bilateral carotid systems and vertebral arteries. Indirect Doppler criteria was utilized. FINDINGS: EXAM MEASUREMENTS: RIGHT: Peak Systolic Velocity (PSV) cm/sec ----- Right CCA: 65.4 ----- Right ICA: 99.8 ----- Right ECA: 96.4 ICA/CCA ratio: 1.5 RIGHT: End Diastole cm/sec ----- Right CCA: 14.9 ----- Right ICA: 18.9 ----- Right ECA: 18.4 LEFT: Peak Systolic Velocity (PSV) cm/sec ----- Left CCA: 86.8 ----- Left ICA: 91.8 ----- Left ECA: 87.1 ICA/CCA ratio: 1.1 LEFT: End Diastole cm/sec ----- Left CCA: 23.1 ----- Left ICA: 38.2 ----- Left ECA: 15.4 VERTEBRALS (direction of flow): Right Vertebral: Antegrade Left Vertebral: Antegrade Rhythm: Normal LIEUTENANT FIRE FIGHTER NOTES: No significant stenosis seen Color Doppler imaging shows patency with blood flow throughout the carotid artery. Spectral waveforms are within normal limits. IMPRESSION: Right: Less than 50% stenosis of the carotid bifurcation. Left: Less than 50% stenosis of the carotid bifurcation. Criteria for Assigning % of Stenosis / Diameter reduction (Estimation based on the indirect measurements of the internal carotid artery velocities (ICA PSV). 1. Normal (no stenosis)=ICA PSV < 125 cm/s: ratio < 2.0: ICA EDV<40 cm/s. 2. Less than 50% stenosis=ICA PSV < 125 cm/s: ratio < 2.0: ICA EDV<40 cm/s. 3. 50 to 69% stenosis=ICA PSV of 125 to 230 cm/s: ration 2.0 ? 4.0: ICA EDV 40-100 cm/s. 4. Greater than 70% stenosis to near occlusion= ICA PSV > 230 cm/s: ratio > 4.0: ICA EDV > 100 cm/s. 5. Near occlusion= ICA PSV velocities may be low or undetectable: variable ratio and ICA EDV. 6. Total occlusion=unable to detect flow. [facility], , 05/29/2024 10:35 AM
--- NOTE | 2024-05-29 11:28 | P.PN ---
Subjective Progress Note Date: 05/29/24 68-year-old male with PMH of diabetes mellitus (has insulin pump), hyperlipidemia, hypertension, prior CVA, meningioma, and kidney and heart transplant (hx of non-ischemic cardiomyopathy and subsequent cardiorenal syndrome) presents with vision changes. Reports he regularly sees his installer interior assemblies who recommended he come to the emergency department to rule out CVA. In the ED he underwent extensive evaluation. BP 125/85, HR 92, T 98.4F, RR 16, 98% on RA. CBC, Coag panel, CMP significant for bicarb 21, BUN 31, Cr 1.92, glu 217. EKG sinus rhythm with no ST T wave changes. CT brain showed benign-appearing extra-axial mass in the posterior right frontal lunar convexity most consistent with a meningioma. Patient is admitted for further workup and management. 05/29 Patient was seen and examined. Continued LLQ vision changes in both eyes. No focal deficits. Recent Echo done at [facility]. CBC and CMP significant for AG 12.4, BUN 30.5, Cr 2, glu 129, total protein 6.1. A1c 8.5. B12 377, Folat e 7.5, TSH 1.24. General: non toxic, no distress, appears at stated age Derm: warm, dry Head: atraumatic, normocephalic, symmetric Eyes: EOMI, no lid lag, anicteric sclera Mouth: no lip lesion, mucus membranes moist Cardiovascular: S1S2 reg, no murmur Lungs: CTA bilateral, no rhonchi, no rales , no accessory muscle use Ext: no gross muscle atrophy, no edema, no contractures Neuro: no focal neuro deficits Psych: Alert, oriented, appropriate affect Based on my assessment of this patient, this patient meets a high complexity level of care. Acute vision changes: Secondary to meningioma versus CVA: MRI brain ordered. Carotid doppler ordered. ASA 81 mg PO QD. Lipitor 40 mg PO QD. Telemetry mo nitoring. Advanced neurochecks. Seizure and Fall precautions. Neurology consult. History of kidney and heart transplant: Mycophenolate 250 mg PO BID. Prednisone 2.5 mg PO QD. Prograf 1 mg PO BID. Chronic kidney disease stage III: Appears at baseline. Diabetes mellitus with hyperglycemia: A1c 8.5. Hold insulin pump. ISS and Accuchecks ACHS. Hypertension: Coreg 12.5 mg PO BID. Hyperlipidemia: Zetia 10 mg PO QHS + Lipitor as above. CODE STATUS: FULL CODE DVT Prophylaxis: Heparin SQ GI Prophylaxis: Designated medical POA if patient is not able to make medical decisions for themselves: I have reviewed the following showroom consultant notes: I have reviewed the results of the following tests: CBC, CMP, A1c, B12, Folate, TSH. I have ordered the following tests: ESR. MRI brain pending I have discussed the care of this patient with the following independent historian: RN. I have independently interpreted the following test below: I have discussed the management of this patient with the following physician: Dr. Wheat Objective - Vital Signs Vital signs: Vital Signs Temp 97.7 F 05/29/24 07:46 Pulse 84 05/29/24 07:46 Resp 16 05/29/24 07:46 BP 153/90 05/29/24 07:46 Pulse Ox 98 05/29/24 07:46 FiO2 Intake & Output 05/28/24 05/29/24 05/29/24 18:59 06:59 18:59 Intake Total 118 Balance 118 Weight 107.955 kg 107.955 kg Intake: Oral 118 Other: # Voids 1 - Labs CBC & Chem 7: 05/29/24 05:11 05/29/24 05:11 Labs: Abnormal Lab Results - Last 24 Hours (Table) 05/28/24 05/28/24 05/28/24 Range/Units 15:08 15:08 15:08 MCHC (32.0-37.0) g/dL RDW 16.6 H (11.5-15.5) % Carbon Dioxide 21 L (22-30) mmol/L Anion Gap (4.00-12.00) mmol/L BUN 31 H (9-20) mg/dL Creatinine 1.93 H (0.66-1.25) mg/dL Est GFR (CKD-EPI) (>=60) Glucose 217 H (74-99) mg/dL POC Glucose (mg/dL) (70-110) mg/dL Hemoglobin A1c 8.5 H (<=6.0) % Total Protein (6.2-8.2) g/dL 05/28/24 05/29/24 05/29/24 Range/Units 21:26 05:11 05:11 MCHC 30.4 L (32.0-37.0) g/dL RDW 17.2 H (11.5-15.5) % Carbon Dioxide (22-30) mmol/L Anion Gap 12.40 H (4.00-12.00) mmol/L BUN 30.5 H (9-20) mg/dL Creatinine 2.0 H (0.66-1.25) mg/dL Est GFR (CKD-EPI) 35 L (>=60) Glucose 129 H (74-99) mg/dL POC Glucose (mg/dL) 120 H (70-110) mg/dL Hemoglobin A1c (<=6.0) % Total Protein 6.1 L (6.2-8.2) g/dL 05/29/24 Range/Units 05:43 MCHC (32.0-37.0) g/dL RDW (11.5-15.5) % Carbon Dioxide (22-30) mmol/L Anion Gap (4.00-12.00) mmol/L BUN (9-20) mg/dL Creatinine (0.66-1.25) mg/dL Est GFR (CKD-EPI) (>=60) Glucose (74-99) mg/dL POC Glucose (mg/dL) 116 H (70-110) mg/dL Hemoglobin A1c (<=6.0) % Total Protein (6.2-8.2) g/dL
[2024-05-29 11:50] LABS: Glucose,Whole Blood 191 mg/dL (70-110)
[2024-05-29 17:24] LABS: Glucose,Whole Blood 263 mg/dL (70-110)
--- NOTE | 2024-05-29 18:29 | MR ---
EXAMINATION TYPE: MR brain wo con DATE OF EXAM: 05/29/2024 6:12 PM COMPARISON: Multiple dating back to 03/28/2020 CLINICAL INDICATION: Male, 68 years old with history of evaluate for CVA, blurry vision; [facility], Evaluat e for CVA, blurry vision TECHNIQUE: Multi planar, multi sequence imaging was performed through the brain including: T1, T2, In version recovery, Diffusion weighted imaging, and gradient echo imaging. No gadolinium was given. FINDINGS: Remote right occipital lobe prior injury seen dating back to 2019. Multiple left occipital lobe injury with gliosis change around both of these injuries. Other areas of suspected injuries with left frontal lobe deep white matter. Right extra-axial lesion with dural tail likely representing a meningioma measuring up to 17 mm, seen dating back to at least 2019. The dilalrd-white junctions, ventri cular system, basal cisterns appear unremarkable. Scattered foci of high T2 signal intensity are se en within the periventricular white matter. Midline structures show no abnormality. Diffusion-weighte d imaging shows no evidence of restricted diffusion. The susceptibility weighted images demonstrate m icrohemorrhage in the area of the right occipital lobe injury suggestive of hemosiderin deposition as well as within the left occipital lobe area of suspected prior injury.. The bone marrow signal is within normal limits. Paranasal sinuses and mastoid air cells: No significant paranasal sinus disease. Visualized orbits: Orbital contents are intact. IMPRESSION: 1. No evidence of intracranial mass or acute/subacute infarct. 2. Remote injury to the bilateral occipital lobes and left frontal lobe deep white matter. 3. Nonspecific white matter changes, likely secondary to small vessel ischemic disease.. 4. Right lateral skull probable meningioma seen dating back to at least 03/28/2020. [facility], , 05/29/2024 6:27 PM
--- NOTE | 2024-05-29 18:38 | P.CNNES ---
History of Present Illness Consult date: 05/29/24 Requesting physician: Gary Mendiola Reason for Consult: bilateral blurry vision r/o stroke History of Present Illness: This is a 68 year-old gentleman with multiple medical problems, including meningioma, cva/multiple TIA's, DM on insulin pump, kidney transplant, cardiomyopathy s/p heart transplant, atrial fibrillation s/p ablation, chronic poor vision who presents because of visual disturbance. Structured by the fuel tank sealer and tester come to the hospital to rule out stroke. It seems his vision got worse this past Tuesday and felt had dillard filter over his eyes and that was persistent till yesterday and now it is resolved. Also since this past Tuesday he has been seeing rubik's cube over the left lower quadrant of both eyes and has been since this past Tuesday through this Tuesday then resolved but now he is having intermittent episode of seeing back rubik's cube. He also has a headache over the right occipital and he felt right over the right frontal and he feels 3 out of 10 denies any nausea any vomiting. Denies any focal weakness or numbness. Denies any loss of consciousness. He denies any history of seizure. Patient is on aspirin 81 mg daily. Patient states that seems that he had a blood clot in the brain and had to be transferred and Caden but no intervention. Patient had shingles recently about 4 weeks ago and he just completed the acyclovir. Shingles was over the left chest and posterior back. Of note patient has had meningioma for the past 10-year and he followed up initially with a neurosurgeon and no intervention was needed and that was a while back. It seems that the patient has underlying vision but gets injection in the eyes and he stated that his vision was severely poor but after the injection his vision started improving. Some of the work-up during this hospital visit consisted of: Folate 7.50 Vitamin B12 is 377 TSH is 1.[address] head: Not acute bleed or mass effect. Benign extra-axial mass in posterior right frontal seems consistent with meningioma and slightly interval enlargement compared to prior study. I personally reviewed CT head and agree with report. CTA head and neck is negative for large vessel occlusion or significant stenosis. Review of Systems As per HPI. Past Medical History Past Medical History: Atrial Fibrillation, Heart Failure, Diabetes Mellitus, Hyperlipidemia, Hypertension, Sleep Apnea/CPAP/BIPAP Additional Past Medical History / Comment(s): pt states he had a heart transplant and a kidney transplant in 2020 and since then he has needed injections into his eyes every 4-6 weeks in order to keep his vision History of Any Multi-Drug Resistant Organisms: None Reported Past Surgical History: EPS, Heart Catheterization, Orthopedic Surgery Additional Past Surgical History / Comment(s): has had a heart transplant and kidney transplant and two neck fusions. Past Anesthesia/Blood Transfusion Reactions: No Reported Reaction Additional Past Anesthesia/Blood Transfusion Reaction / Comment(s): NEVER RECI EVED BLOOD. Type of Cardiac Device: Biventricular Pacemaker, AICD Device Placement Date:: 06/2014 Past Psychological History: No Psychological Hx Reported Additional Psychological History / Comment(s): PT LIVES AT HOME WITH . HE IS NORMALLY ACTIVE. Smoking Status: Never smoker Past Alcohol Use History: None Reported Past Drug Use History: None Reported - Past Family History Father Family Medical History: Coronary Artery Disease (CAD), Diabetes Mellitus, Myocar dial Infarction ([place]) Additional Family Medical History / Comment(s): FATHER OF [place] AT AGE 65 YRS. Mother Family Medical History: Diabetes Mellitus Additional Family Medical History / Comment(s): SHE HAS HAD A LEG AMPUTATION Medications and Allergies Home Medications Medication Instructions Recorded Confirmed Type Fluticasone Nasal [place] [Flonase 2 spr EA NOSTRIL DAILY PRN 10/02/20 05/28/24 History Nasal [place]] INSULIN LISPRO (For Pump) [humaLOG 0.01 units SQ-PUMP CONTINUOUS 10/02/20 05/28/24 History (For Pump)] Aspirin EC [Ecotrin Low Dose] 81 mg PO DAILY@0800 05/28/24 05/28/24 History Calcium W/Vitamin D3(Unknown Dose) 1 tab PO BID@1200,1700 05/28/24 05/28/24 History Ergocalciferol [Vitamin D2 (1250 1,250 mcg PO TU@1200 05/28/24 05/28/24 History Mcg = 44368 Iu)] Evolocumab [Repatha Sureclick] 140 mg SQ Q14D 05/28/24 05/28/24 History Ezetimibe [Zetia] 10 mg PO HS@2000 05/28/24 05/28/24 History Sulfamethox-Tmp 400-80Mg [Bactrim 1 tab PO DAILY@0800 05/28/24 05/28/24 History SS 400-80 mg] Tacrolimus [Prograf] 1 mg PO BID@08,199905/28/24 05/28/24 History carvediloL [Coreg] 12.5 mg PO BID@799,199905/28/24 05/28/24 History mycophenolate mofetiL [Cellcept] 250 mg PO BID@799,199905/28/24 05/28/24 History predniSONE 2.5 mg PO DAILY@0800 05/28/24 05/28/24 History Allergies Allergy/AdvReac Type Severity Reaction Status Date / Time chlorhexidine Allergy Rash/Hives Verified 05/28/24 18:55 hydroxyzine Allergy Rash/Hives Verified 05/28/24 18:55 coconut AdvReac sneezing Verified 05/28/24 18:55 coconut oil AdvReac sneezing Verified 05/28/24 18:55 Physical Examination - Vital Signs Vital Signs: Vital Signs Temp Pulse Pulse Resp BP BP Pulse Ox 05/29/24 12:05 98.2 F 89 15 137/85 98 05/29/24 07:46 97.7 F 84 16 153/90 98 05/29/24 06:55 97.5 F L 83 17 152/97 97 05/29/24 01:48 97.6 F 89 18 148/94 94 L 05/29/24 01:03 97.5 F L 67 20 169/97 99 05/28/24 18:48 87 16 116/74 97 Intake and Output 05/28/24 05/29/24 05/29/24 22:59 06:59 14:59 Intake Total 118 Balance 118 Intake: Oral 118 Other: # Voids 1 2 Weight 107.955 kg GENERAL: The patient is sitting on side of bed and is not in acute distress. NEUROLOGICAL: Higher mental function: The patient is awake, alert, oriented to self, place and time. Patient is following commands. No aphasia and no neglect. Cranial nerves: The pupils are round, equal and reactive to light and accommodation. Visual preciado are full to confrontation throughout. Extraocular movement is intact no nystagmus is noted. Facial sensation is normal to touch throughout. The facial strength is normal throughout. Hearing is moderately to severely decreased bilaterally to hand rub. Tongue is midline and moved [id number] without any difficulty. No dysarthria is noted. Shoulder shrug is normal bilaterally. Motor: The strength is 5 over 5 throughout. Normal tone and bulk. Cerebellum: Normal finger to nose bilaterally. Sensation: Sensation is normal to touch throughout. Plantars are downgoing bilaterally. Results - Laboratory Findings CBC and BMP: 05/29/24 05:11 05/29/24 05:11 Abnormal Lab Findings: Abnormal Labs 05/28/24 05/28/24 05/28/24 15:08 15:08 15:08 MCHC RDW 16.6 H Carbon Dioxide 21 L Anion Gap BUN 31 H Creatinine 1.93 H Est GFR (CKD-EPI) Glucose 217 H POC Glucose (mg/dL) Hemoglobin A1c 8.5 H Total Protein 05/28/24 05/29/24 05/29/24 21:26 05:11 05:11 MCHC 30.4 L RDW 17.2 H Carbon Dioxide Anion Gap 12.40 H BUN 30.5 H Creatinine 2.0 H Est GFR (CKD-EPI) 35 L Glucose 129 H POC Glucose (mg/dL) 120 H Hemoglobin A1c Total Protein 6.1 L 05/29/24 05/29/24 05:43 11:49 MCHC RDW Carbon Dioxide Anion Gap BUN Creatinine Est GFR (CKD-EPI) Glucose POC Glucose (mg/dL) 116 H 191 H Hemoglobin A1c Total Protein Assessment and Plan Assessment: This is a 68 y/o gentleman who has burry vision of both eyes since this past Tuesday and initially seeing dillard show that lasted till Tuesday. Also is seeing Rubik's cube over the left lower quadrant that was initial persistant for two days but now is intermittent. Acute visual disturbance and continues to have intermittent visual disturbance seeing rubik's cube out of the left lower quadrant: I am concerned about cortical irritability from meningioma. This does not seems stroke and atypical for TIA to be recurrent this frequently. History of Right frontal meningioma Low normal folate History of cva/multiple TIA's CKD DM on insulin pump History of kidney transplant History of cardiomyopathy s/p heart transplant History of atrial fibrillation s/p ablation and has resolved after cardiac transplant in 2020 Chronic poor vision Plan: MRI of the brain is ordered and will avoid gadolinium because of his chronic kidney insufficiency Ordered limited 2D echo and it seems the patient had a recent 2D echo at an [facility] facility. I ordered routine EEG. Recommend patient to be on Keppra 500 mg twice daily since I feel the meningiomas possibly causing cortical ability leading to his visual disturbance in my opinion. Patient stated that he will reach out to team in [place] especially palpable of the medication since he is on immunosuppressant. Patient is on home dose of aspirin 81 mg and if he does have a stroke or is felt like he has a TIA then recommend switching aspirin to Plavix. He is on Lipitor 40 mg nightly. Normal folate and I recommend folic acid 1 mg daily Continue neurochecks Cardiac monitoring Will defer the rest of the medical management to primary other specialist For DVT prophylaxis the patient is on subcu heparin The plan discussed with the patient and the primary team Thank you for the consultation. Time with Patient: Greater than 30
[2024-05-29 19:54] LABS: Glucose,Whole Blood 334 mg/dL (70-110)
[2024-05-29] MEDS: ATORVASTATIN 40 MG TAB PO SCH (21:30)
[2024-05-29] MEDS: EZETIMIBE 10 MG TAB PO SCH (21:30)
[2024-05-29] MEDS ORDERED: INSULIN ASPART (NovoLOG) 100 UNIT/ML VIAL SQ PRN (21:40)
[2024-05-29] MEDS: INSULIN PUMP BASAL RATES 1 EACH MISC MISCELLANE SCH (23:51)
[2024-05-30 02:22] LABS: Glucose,Whole Blood 135 mg/dL (70-110)
[2024-05-30 05:55] LABS: Glucose,Whole Blood 109 mg/dL (70-110)
[2024-05-30 08:19] LABS: African American GFR (CKD) 34 (>60 ml/min/1.73 sqM); Anion Gap 7 mmol/L; Blood Urea Nitrogen 32 mg/dL (9-20); Calcium 9.2 mg/dL (8.4-10.2); Carbon Dioxide 31 mmol/L (22-30); Chloride 103 mmol/L (98-107); Glucose 113 mg/dL (74-99); Non-African American GFR(CKD) 30 (>60 ml/min/1.73 sqM); Potassium 4.6 mmol/L (3.5-5.1); Sodium 141 mmol/L (137-145)
[2024-05-30 10:27] LABS: Chol/HDL Ratio 2.83 Ratio; LDL Cholesterol,Calculated 48.3 mg/dL (0.0-131.0)
[2024-05-30 12:06] LABS: Glucose,Whole Blood 263 mg/dL (70-110)
--- NOTE | 2024-05-30 13:16 | P.DS ---
Providers Date of admission: 05/28/24 16:59 Expected date of discharge: 05/30/24 Attending physician: Lisa Hickman MD Consults: 05/28/24 16:57 Consult Physician Routine Consulting Provider: Jonathon Wheat Consult Reason/Comments: bilateral blurry vision, sent for rule out cva Do you want consulting provider notified?: Yes Primary care physician: C[facility] Course: 68-year-old male with PMH of diabetes mellitus (has insulin pump), hyperlipidemia, hypertension, prior CVA, meningioma, and kidney and heart transplant (hx of non-ischemic cardiomyopathy and subsequent cardiorenal syndrome) presents with vision changes. Reports he regularly sees his color finisher who recommended he come to the emergency department to rule out CVA. In the ED he underwent extensive evaluation. BP 125/85, HR 92, T 98.4F, RR 16, 98% on RA. CBC, Coag panel, CMP significant for bicarb 21, BUN 31, Cr 1.92, glu 217. EKG sinus rhythm with no ST T wave changes. CT brain showed benign- appearing extra-axial mass in the posterior right frontal lunar convexity most consistent with a meningioma. Patient is admitted for further workup and management. 05/29 Patient was seen and examined. Continued LLQ vision changes in both eyes. No focal deficits. Recent Echo done at [facility]. CBC and CMP significant for AG 12.4, BUN 30.5, Cr 2, glu 129, total protein 6.1. A1c 8.5. B12 377, Folate 7.5, TSH 1.24. 05/30 Patient was seen and examined along side Dr. Wheat. Still with dillard vision. Discussed with Dr. Wheat, MRI findings of old CVA in the occipital and frontal lobe along with meningioma. Suspicion for cortical irritation predisposing patient to seizures. We recommend Keppra 500 mg PO BID. Patient would like to check with his transplant team prior to starting new medication. EEG is pending. Possible DC home today. Discharge Plan: New medications: Keppra 500 mg PO BID. Follow up with PCP within 1-2 days of discharge. Follow up with Neurology within 1 week of discharge. No driving or operating heavy machinery until 6 months seizure free and cleared by a Neurologist. General: non toxic, no distress, appears at stated age Derm: warm, dry Head: atraumatic, normocephalic, symmetric Eyes: EOMI, no lid lag, anicteric sclera Mouth: no lip lesion, mucus membranes moist Cardiovascular: S1S2 reg, no murmur Lungs: CTA bilateral, no rhonchi, no rales , no accessory muscle use Ext: no gross muscle atrophy, no edema, no contractures Neuro: no focal neuro deficits Psych: Alert, oriented, appropriate affect Discharge Plan: Acute vision changes concern for seizure History of kidney and heart transplant Chronic kidney disease stage III Diabetes mellitus with hyperglycemia Hypertension Hyperlipidemia This complex discharge took 35 minutes to complete. Patient Condition at Discharge: Stable Plan - Discharge Summary New Discharge Prescriptions: New levETIRAcetam [Keppra] 500 mg PO Q12HR #60 tab Atorvastatin [Lipitor] 40 mg PO HS #30 tab Continue Aspirin EC [Ecotrin Low Dose] 81 mg PO DAILY@0800 predniSONE 2.5 mg PO DAILY@0800 carvediloL [Coreg] 12.5 mg PO BID@0800,2000 Sulfamethox-Tmp 400-80Mg [Bactrim SS 400-80 mg] 1 tab PO DAILY@0800 Tacrolimus [Prograf] 1 mg PO BID@0800,2000 Ezetimibe [Zetia] 10 mg PO HS@2000 INSULIN LISPRO (For Pump) [humaLOG (For Pump)] 0.01 units SQ-PUMP CONTINUOUS Fluticasone Nasal [place] [Flonase Nasal [place]] 2 spr EA NOSTRIL DAILY PRN PRN Reason: Allergy Symptoms mycophenolate mofetiL [Cellcept] 250 mg PO BID@0800,2000 Ergocalciferol [Vitamin D2 (1250 Mcg = 79221 Iu)] 1,250 mcg PO TU@1200 Evolocumab [Repatha Sureclick] 140 mg SQ Q14D Calcium W/Vitamin D3(Unknown Dose) 1 tab PO BID@1200,1700 Discharge Medication List Fluticasone Nasal [place] [Flonase Nasal [place]] 2 spr EA NOSTRIL DAILY PRN 10/02/20 [History] INSULIN LISPRO (For Pump) [humaLOG (For Pump)] 0.01 units SQ-PUMP CONTINUOUS 10/02/20 [History] Aspirin EC [Ecotrin Low Dose] 81 mg PO DAILY@0800 05/28/24 [History] Calcium W/Vitamin D3(Unknown Dose) 1 tab PO BID@1200,1700 05/28/24 [History] Ergocalciferol [Vitamin D2 (1250 Mcg = 39677 Iu)] 1,250 mcg PO TU@1200 05/28/24 [History] Evolocumab [Repatha Sureclick] 140 mg SQ Q14D 05/28/24 [History] Ezetimibe [Zetia] 10 mg PO HS@199905/28/24 [History] Sulfamethox-Tmp 400-80Mg [Bactrim SS 400-80 mg] 1 tab PO DAILY@0800 05/28/24 [History] Tacrolimus [Prograf] 1 mg PO BID@0800,199905/28/24 [History] carvediloL [Coreg] 12.5 mg PO BID@0800,199905/28/24 [History] mycophenolate mofetiL [Cellcept] 250 mg PO BID@0800,199905/28/24 [History] predniSONE 2.5 mg PO DAILY@0800 05/28/24 [History] Atorvastatin [Lipitor] 40 mg PO HS #30 tab 05/30/24 [Rx] levETIRAcetam [Keppra] 500 mg PO Q12HR #60 tab 05/30/24 [Rx] Follow up Appointment(s)/Referral(s): Caden Lynch MD [Primary Care Provider] - 1-2 days Aubrey Chaidez DO [STAFF PHYSICIAN] - 1 Week
[2024-05-30 14:31] VITALS: BP 142/83; PULSE 82; RESP 16; TEMP 97.9
--- NOTE | 2024-05-30 16:48 | P.PN ---
Subjective Progress Note Date: 05/30/24 I am following up with the patient and today he feels the dillard shadow over both eyes has came back and he continues to have this intermittent flashing of the Rubik's cube. Otherwise denies of any new neurological issues. Objective - Vital Signs Vital signs: Vital Signs Temp 97.9 F 05/30/24 14:30 Pulse 82 05/30/24 14:30 Resp 16 05/30/24 14:30 BP 142/83 05/30/24 14:30 Pulse Ox 95 05/30/24 14:30 FiO2 Intake & Output 05/29/24 05/30/24 05/30/24 18:59 06:59 18:59 Intake Total 118 480 236 Balance 118 480 236 Intake: Oral 118 480 236 Other: Voiding Method Toilet # Voids 3 3 3 - Exam GENERAL: The patient is sitting on side of bed and is not in acute distress. NEUROLOGICAL: Higher mental function: The patient is awake, alert, oriented to self, place and time. Patient is following commands. No aphasia and no neglect. Cranial nerves: The pupils are round, equal and reactive to light and accommodation. Visual preciado are full to confrontation throughout. Extraocular movement is intact no nystagmus is noted. Facial sensation is normal to touch throughout. The facial strength is normal throughout. Hearing is moderately to severely decreased bilaterally to hand rub. Tongue is midline and moved [id number] without any difficulty. No dysarthria is noted. Shoulder shrug is normal bilaterally. Motor: The strength is 5 over 5 throughout. Normal tone and bulk. Cerebellum: Normal finger to nose bilaterally. Sensation: Sensation is normal to touch throughout. Plantars are downgoing bilaterally. Some of the work-up during this hospital visit consisted of: Lipid Panel is triglycerides 114, cholesterol is 141, LDL is 48 and HDL is 49 Folate 7.50 Vitamin B12 is 377 TSH is 1.[address] head: Not acute bleed or mass effect. Benign extra-axial mass in posterior right frontal seems consistent with meningioma and slightly interval enlargement compared to prior study. I personally reviewed CT head and agree with report. CTA head and neck is negative for large vessel occlusion or significant stenosis. The brain is reported as no evidence of intracranial mass or acute/subacute infarct. Remote injury in bilateral occipital lobe and left frontal lobe deep white matter. Nonspecific white matter changes likely secondary to small vessel ischemic disease. Right lateral skull base meningioma seen back dating at least 03/28/2020. Personally reviewed the MRI and agree there is no acute or subacute stroke. I feel the patient has old bilateral frontal, and has lesion right occipital and seems old as well as has right meningioma over the right frontal. - Labs CBC & Chem 7: 05/29/24 05:11 05/30/24 07:44 Labs: Abnormal Lab Results - Last 24 Hours (Table) 05/29/24 05/29/24 05/30/24 Range/Units 17:23 19:52 02:20 Carbon Dioxide (22-30) mmol/L BUN (9-20) mg/dL Creatinine (0.66-1.25) mg/dL Glucose (74-99) mg/dL POC Glucose (mg/dL) 263 H 334 H 135 H (70-110) mg/dL Triglycerides (0.00-149.00) mg/dL VLDL Cholesterol, Calc (5.00-40.00) mg/dL 05/30/24 05/30/24 Range/Units 07:44 12:04 Carbon Dioxide 31 H (22-30) mmol/L BUN 32 H (9-20) mg/dL Creatinine 2.19 H (0.66-1.25) mg/dL Glucose 113 H (74-99) mg/dL POC Glucose (mg/dL) 263 H (70-110) mg/dL Triglycerides 214.00 H (0.00-149.00) mg/dL VLDL Cholesterol, Calc 42.80 H (5.00-40.00) mg/dL Assessment and Plan Assessment: This is a 68 y/o gentleman who has burry vision of both eyes since this past Tuesday and initially seeing dillard show that lasted till Tuesday. Also is seeing Rubik's cube over the left lower quadrant that was initial persistant for two days but now is intermittent. Acute visual disturbance and continues to have intermittent visual disturbance seeing rubik's cube out of the left lower quadrant and continues to see dillard shadow over both eyes: I am concerned about cortical irritability from meningioma and old strokes (has lesion in right occipital region). MRI Brain is negative or acute or subacute stroke. As stated this does not seems stroke or TIA but appears cortical irritablity. History of Right frontal meningioma Low normal folate History of cva/multiple TIA's CKD DM on insulin pump History of kidney transplant History of cardiomyopathy s/p heart transplant History of atrial fibrillation s/p ablation and has resolved after cardiac transplant in 2020 Chronic poor vision Plan: If possible to obtain MRI brain w/ gadolinium as outpatient. Pending limited 2D echo report. Recommend patient to be on Keppra 500 mg twice daily since I feel the meningiomas and old stroke possibly causing cortical ability leading to his visual disturbance in my opinion. Patient reached out to his team over [facility] and pending reponse to make sure it is safe especially since on immunosuppresnat for his transplants. Routine EEG: Preliminary is negative for seizure. Patient is on home dose of aspirin 81 mg. He is on Lipitor 40 mg nightly. Low Normal folate and I recommend folic acid 1 mg daily Continue neurochecks Cardiac monitoring Notified to follow-up with his neurosurgeon as an outpatient and likely no intervention is needed for his meningioma. Will defer the rest of the medical management to primary other specialist For DVT prophylaxis the patient is on subcu heparin Recommend the patient to follow-up with a neurologist as an outpatient within 2 to 3 weeks. The plan discussed with the patient and the primary team Otherwise, no additional neurological work-up. Time with Patient: Less than 30
--- NOTE | 2024-05-30 17:01 | CA ---
Transthoracic Echo Report Name: Caden Li Age: 68 Gender: M : 1955 Exam Date: 05/29/2024 17:44 Exam Location: [place] Echo Ht (in): 68 Wt (lb): 238 Ordering Physician: Jonathon Wheat MD Attending/Referring Phys: Scrap Drop Operator Peg Roblero RDCS Procedure CPT: Indications: stroke Cardiac Hx: Heart Transplant Technical Quality: Poor Contrast 1: Definity Total Dose (mL): 2 Contrast 2: Total Dose (mL): MEASUREMENTS (Male / Female) Normal Values 2D ECHO LV Diastolic Diameter PLAX 4.1 cm 4.2 - 5.9 / 3.9 - 5.3 cm IVS Diastolic Thickness 1.2 cm 0.6 - 1.0 / 0.6 - 0.9 cm LVPW Diastolic Thickness 1.6 cm 0.6 - 1.0 / 0.6 - 0.9 cm LV Relative Wall Thickness 0.7 RV Internal Dim ED PLAX 2.5 cm FINDINGS Left Ventricle Left ventricular ejection fraction is estimated at 60-65 %. Mildly increased septal wall thickness. Normal left ventricular systolic function with no obvious regional wall motion abnormalities. Right Ventricle Right Atrium Left Atrium No evidence for an atrial septal defect. Mitral Valve Aortic Valve Tricuspid Valve Pulmonic Valve Pericardium No pericardial or pleural effusion. Aorta CONCLUSIONS Technically difficult study with poor acoustic windows LVEF 60% No obvious regional wall motion abnormality No pericardial Previewed by: Dr Jens Jordan (Electronically Signed) Final Date: 30 May 2024 17:00
--- NOTE | 2024-05-31 00:51 | EEG ---
ELECTROENCEPHALOGRAM REPORT CLINICAL HISTORY: This is a 68-year-old gentleman with recurrent intermittent visual disturbance. The video EEG is obtained to evaluate for seizure epileptiform activity. RELEVANT MEDICATION: The patient is not on any antiseizure medication. EEG TYPE: This is a routine 21-channel EEG with video using the 10/20 electrode placement system. DESCRIPTION: Wakefulness and drowsiness are obtained. During awake state, the posterior-dominant rhythm consists of [id number] voltage of 9 hertz activity that is well modulated, and well sustained. There is no physiological stage 2 sleep architecture. There is no focal slowing. Interictal and ictal is none. ACTIVATION PROCEDURE: Photic stimulation did not evoke a posterior driving response. There is no abnormality during the photic stimulation. Hyperventilation is not performed. CLINICAL INTERPRETATION: This is a normal routine EEG. There is no focal slowing, epileptiform discharges, or seizure on the EEG. A normal routine EEG does not rule out underlying epilepsy. Clinical correlation is recommended. BOGDAN / RAISA: [id number] /
[2024-06-06] MEDS ORDERED: NON FORMULARY DRUG (Evolocumab [Repatha Sureclick] 140 MG/ML Each) SQ SCH (09:00)
== END 2024-05-30 15:10 | disposition home or self-care (01) ==
LOC: EC 13:10 → 6NMEDSUR 16:59
PROVIDERS: ADMIT Family Medicine; ATTEND Family Medicine
DX: H53.8 Other visual disturbances (principal); D32.0 Benign neoplasm of cerebral meninges; E11.65 Type 2 diabetes mellitus with hyperglycemia; E11.22 Type 2 diabetes mellitus with diabetic chronic kidney disease; N18.30 Chronic kidney disease, stage 3 unspecified; E78.5 Hyperlipidemia, unspecified; I13.0 Hypertensive heart and chronic kidney disease with heart failure and stage 1 through stage 4 chronic kidney disease, or unspecified chronic kidney disease; I50.9 Heart failure, unspecified; I48.91 Unspecified atrial fibrillation; I42.8 Other cardiomyopathies; Z94.1 Heart transplant status; Z94.0 Kidney transplant status; Z79.84 Long term (current) use of oral hypoglycemic drugs; Z79.82 Long term (current) use of aspirin; Z79.621 Long term (current) use of calcineurin inhibitor; Z79.52 Long term (current) use of systemic steroids; Z79.624 Long term (current) use of inhibitors of nucleotide synthesis; Z79.01 Long term (current) use of anticoagulants; Z79.4 Long term (current) use of insulin; Z79.899 Other long term (current) drug therapy; Z88.8 Allergy status to other drugs, medicaments and biological substances; Z91.018 Allergy to other foods; Z86.73 Personal history of transient ischemic attack (TIA), and cerebral infarction without residual deficits; Z86.19 Personal history of other infectious and parasitic diseases; Z95.0 Presence of cardiac pacemaker; Z96.41 Presence of insulin pump (external) (internal); Z83.3 Family history of diabetes mellitus; Z82.49 Family history of ischemic heart disease and other diseases of the circulatory system
CPT/HCPCS: 99285; 36415; 95819; 93005; 80061; 80053 ×2; 80048; 85652; 84443; 82607; 82746; 85025 ×2; 85610; 85730; 83036; 93880; 70450; 70551; G0378 ×3; C8924; J7517 ×2; J7507 ×2; J7512 ×2; 93308

== ENCOUNTER → 2024-11-14 | Outpatient (CLI) | payer MEDICARE, BC ==
--- NOTE | 2024-11-14 14:00 | US ---
EXAMINATION TYPE: US venous doppler duplex LE LT DATE OF EXAM: 11/14/2024 1:44 PM COMPARISON: NONE CLINICAL INDICATION: Male, 69 years old with history of M79.605 PAIN IN LEFT LEG; Pain, swelling, hx heart transplant x 4 years ago, no redness, Pain TECHNIQUE: The lower extremity deep venous system is examined utilizing real time linear array sonog malcolm with graded compression, color doppler sonography, and spectral doppler. SIDE PERFORMED: Left FINDINGS: VESSELS IMAGED: Common Femoral Vein Deep Femoral Vein Greater Saphenous Vein * Femoral Vein Popliteal Vein Small Saphenous Vein * Proximal Calf Veins (* superficial vessels) Left Leg: Negative for DVT, Color Doppler imaging shows patency of the vessels. Spectral waveforms a re within normal limits. IMPRESSION: 1. No evidence of deep vein thrombosis of the left lower extremity. [facility], , 11/14/2024 1:58 PM
[2024-11-14 14:20] LABS: Basophils # (A) 0.05 10*3/uL (0.00-0.10); Basophils % (A) 0.6 %; Eosinophils # (A) 0.17 10*3/uL (0.04-0.35); HCT 44.2 % (39.6-50.0); HGB 13.9 g/dL (13.0-17.0); Lymphocytes # (A) 1.71 10*3/uL (0.90-5.00); Lymphocytes % (A) 20.6 %; MCH 27.3 pg (27.0-32.0); MCHC 31.4 g/dL (32.0-37.0); MCV 86.8 fL (80.0-97.0); Mean Platelet Volume 10.6 fL (9.5-12.2); Monocytes # (A) 0.64 10*3/uL (0.20-1.00); Monocytes % (A) 7.7 %; Neutrophils # (A) 5.71 10*3/uL (1.80-7.70); Neutrophils % (A) 68.7 %; Platelet Count 207 10*3/uL (140-440); RBC 5.09 10*6/uL (4.40-5.60); RDW 14.3 % (11.5-14.5); WBC 8.31 10*3/uL (4.50-10.00)
[2024-11-14 14:31] LABS: ALT 14 U/L (4-49); AST 19 U/L (17-59); African American GFR (CKD) 40 (>60 ml/min/1.73 sqM); Albumin 4.2 g/dL (3.5-5.0); Albumin/Globulin Ratio 1.5; Alkaline Phosphatase 62 U/L (38-126); Anion Gap 10 mmol/L; Blood Urea Nitrogen 30 mg/dL (9-20); Calcium 9.7 mg/dL (8.4-10.2); Carbon Dioxide 26 mmol/L (22-30); Chloride 101 mmol/L (98-107); Globulin 2.8 g/dL; Glucose 148 mg/dL (74-99); Non-African American GFR(CKD) 35 (>60 ml/min/1.73 sqM); Potassium 4.7 mmol/L (3.5-5.1); Sodium 137 mmol/L (137-145); Total Bilirubin 0.8 mg/dL (0.2-1.3)
== END | disposition home or self-care (01) ==
LOC: RADUSWWP 13:09
PROVIDERS: ATTEND Family Medicine
DX: M79.605 Pain in left leg (principal); Z94.1 Heart transplant status
CPT/HCPCS: 80053; 85025; 85379

== ENCOUNTER → 2025-02-01 | Outpatient (CLI) | payer MEDICARE, BC ==
--- NOTE | 2025-02-07 15:14 | MR ---
EXAMINATION TYPE: MR brain wo/w con DATE OF EXAM: 02/01/2025 COMPARISON: Prior MRI brain May 29, 2024 HISTORY: Rt side skull meningioma TECHNIQUE: Multiplanar, multisequence images of the brain and brainstem is performed without and with IV contras t, utilizing 11 mL intravenous Gadobutrol . FINDINGS: Diffusion weighted images demonstrate no evidence of a recent infarct or other diffusion ab normality. There is mild to moderate ventricular and sulcal prominence redemonstrated. There are sca ttered foci of T2 hyperintensity seen throughout the white matter bilaterally redemonstrated. Old inf arct inferior right occipital lobe is redemonstrated. Midline structures redemonstrate normal morphology. The craniocervical junction appears within saida l limits. There is persistent right frontal extra-axial mass demonstrating avid homogeneous postcontr ast enhancement axial image 37 measuring 2.4 x 1.5 cm with adjacent T2 hyperintensity or vasogenic ed eileen consistent with known meningioma. This is grossly stable in size and appearance from prior MRI. N o new enhancing masses. The dural venous sinuses appear patent. Mild mucosal thickening involving eth moid sinuses bilaterally is redemonstrated. Bilateral aphakia again seen. IMPRESSION: Stable in size lateral 2.4 cm right frontal extra-axial mass consistent with meningioma with local mass effect. No significant change from most recent prior MRI. [facility], , 02/07/2025 3:12 PM
== END | disposition home or self-care (01) ==
LOC: RADMRIMAIN 06:24
PROVIDERS: ATTEND Neurological Surgery
DX: D32.9 Benign neoplasm of meninges, unspecified (principal)
CPT/HCPCS: 70553; A9585